=== PATIENT | female | born 1940 | race Caucasian/White ===

== ENCOUNTER 2017-09-13 13:54 | Inpatient (IN) | payer OTHER, MEDICARE ==
[~2017-09-13] VITALS: Ht 167.6 cm; Wt 44.2 kg
[2017-09-13] VITALS (7 sets, daily range): BP systolic 130–142; BP diastolic 63–71; PULSE 77–90; RESP 16–18; TEMP 97.8–98.4; O2SAT 98–100
--- NOTE | 2017-09-13 14:12 | PD ---
HPI Chief Complaint: trauma alert Time Seen by Provider: 13:56 Travel History International Travel<30 days: No Contact w/Intl Traveler<30days: No Traveled to known affect area: No History of Present Illness HPI This patient was called a trauma alert by paramedics who use discretion as their criteria. I gave report to trauma surgeon. This will be made a level II activation. They elderly demented woman who was walking her dog and she fell. She struck her head on the sidewalk. Paramedics found her to be somewhat confused and says they call the trauma alert because they didn't know her baseline mental status and felt she might be altered. Patient denies head or neck pain. She complains of pain in the right hip. Severity is moderate. Duration 30 minutes. No alleviating factors. No exacerbating factors. Patient has no idea what caused her to fall. [facility] Social History Alcohol Use: No Tobacco Use: No Substance Use: No Allergies-Medications (Allergen,Severity, Reaction): Coded Allergies: Penicillins (Verified Allergy, Unknown, Rash, 09/13/17) Reported Meds & Prescriptions Reported Meds & Active Scripts Active Active Prescriptions or Reported Medications Unobtainable Review of Systems General / Constitutional: No: Fever Eyes: No: Visual changes HENT: Positive: Headaches Cardiovascular: No: Chest Pain or Discomfort Respiratory: No: Shortness of Breath Gastrointestinal: No: Abdominal Pain Genitourinary: No: Dysuria Musculoskeletal: Positive: Pain Skin: No Rash Neurologic: Positive: Headache, No: Weakness Psychiatric: No: Depression Endocrine: No: Polydipsia Hematologic/Lymphatic: No: Easy Bruising Physical Exam Narrative GENERAL: Thin elderly demented appearing patient with pain in the right hip SKIN: Focused skin assessment reveals no rash and nodules. Skin is Warm and dry. HEAD: Has a 1.5 center laceration to the right temporal area. Normocephalic. EYES: Pupils equal and round. No scleral icterus. No injection or drainage. ENT: No nasal bleeding or discharge. Mucous membranes pink and moist. NECK: Trachea midline. No JVD. No midline tenderness. c-collar maintained CARDIOVASCULAR: Regular rate and rhythm. No murmur appreciated. RESPIRATORY: No accessory muscle use. Clear to auscultation. Breath sounds equal bilaterally. GASTROINTESTINAL: Abdomen soft, non-tender, nondistended. Hepatic and splenic margins not palpable. MUSCULOSKELETAL: No obvious deformities. No clubbing. No cyanosis. No edema. No bruising at the right hip. No limitation of range of motion NEUROLOGICAL: Awake and alert. No obvious cranial nerve deficits. Motor grossly within normal limits. Normal speech. PSYCHIATRIC: Appropriate mood and affect; insight and judgment reduced. Data Data Last Documented VS Vital Signs Date Time Temp Pulse Resp B/P (MAP) Pulse Ox O2 Delivery O2 Flow Rate FiO2 09/13/17 14:46 89 16 134/71 (92) 99 Room Air 09/13/17 14:30 97.8 09/13/17 14:06 2.00 Orders Orders I-Stat Profile (09/13/17 13:56) Complete Blood Count With Diff (09/13/17 13:56) Prothrombin Time / Inr (Pt) (09/13/17 13:56) Act Partial Throm Time (Ptt) (09/13/17 13:56) Type And Screen (09/13/17 13:56) Fibrinogen (09/13/17 13:56) Alcohol (Ethanol) (09/13/17 13:56) Chest, Single Ap (09/13/17 13:56) Pelvis, Ap Only (Routine) (09/13/17 13:56) Ct Brain W/O Iv Contrast(Rout) (09/13/17 13:56) Ct Cerv Spine W/O Contrast (09/13/17 13:56) Iv Access Insert/Monitor (09/13/17 13:56) Ecg Monitoring (09/13/17 13:56) Oximetry (09/13/17 13:56) Oxygen Administration (09/13/17 13:56) Femur (Ap & Lat/2vws) (09/13/17 ) Trauma Office Use Only (09/13/17 15:02) Consult Neurosurgery (09/13/17 ) Admit To Inpatient (09/13/17 ) Vital Signs (Adult) Q1H (09/13/17 16:25) Neuro Checks Q1H (09/13/17 16:25) Ot Request For Service (09/13/17 16:25) Consult Pt Eval & Treat (09/13/17 16:25) Speech Therapy Consult-Eval/Tx (09/13/17 16:25) Case Management Consult (09/13/17 ) Activity Bed Rest (09/13/17 16:25) Elevate Head Of Bed (09/13/17 16:25) Diet Npo (09/13/17 Dinner) Nursing Bedside Swallow Assess .ONCE (09/13/17 16:25) Complete Blood Count With Diff (09/14/17 06:00) Basic Metabolic Panel (Bmp) (09/14/17 06:00) Mri Brain W&W/O Contrast (09/13/17 ) Mra Brain W/O Contrast (Cow) (09/13/17 ) Resp Oxygen Nc Stroke (09/13/17 ) Consult Rehab Nurse Liason (09/13/17 ) Consult Rehab Medicine (09/13/17 ) Consult Neurology (09/13/17 ) Sodium Chlor 0.9% 1000 Ml Inj (Ns 1000 M (09/13/17 16:25) Sodium Chloride 0.9% Flush (Ns Flush) (09/13/17 16:30) Sodium Chloride 0.9% Flush (Ns Flush) (09/13/17 21:00) Labetalol Inj (Trandate Inj) (09/13/17 16:30) Enalaprilat Inj (Vasotec Inj) (09/13/17 16:30) Clonidine (Catapres) (09/13/17 16:30) Famotidine (Pepcid) (09/13/17 21:00) Acetaminophen (Tylenol) (09/13/17 16:30) Ondansetron Inj (Zofran Inj) (09/13/17 16:30) Docusate Sodium (Colace) (09/13/17 16:30) Scd Bilateral/Knee High ELADIO.QSHIFT (09/13/17 16:25) Frame Repairer / Telemetry ELADIO.Q8H (09/13/17 16:25) Consult Stroke Navigator (09/13/17 ) Inpatient Certification (09/13/17 ) (Hub Use Only)Inp Phy Cons/Ref (09/13/17 ) (Hub Use Only)Inp Phy Cons/Ref (09/13/17 ) (Hub Use Only)In Phy Cons/Ref (09/13/17 ) Labs Laboratory Tests Test 09/13/17 13:59 White Blood Count 4.6 TH/MM3 Red Blood Count 4.45 MIL/MM3 Hemoglobin 13.8 GM/DL Bedside Hemoglobin 13.9 G/DL Hematocrit 40.1 % Bedside Hematocrit 41.0 % Mean Corpuscular Volume 90.1 FL Mean Corpuscular Hemoglobin 31.0 PG Mean Corpuscular Hemoglobin Concent 34.4 % Red Cell Distribution Width 14.2 % Platelet Count 263 TH/MM3 Mean Platelet Volume 7.3 FL Neutrophils (%) (Auto) 37.1 % Lymphocytes (%) (Auto) 44.1 % Monocytes (%) (Auto) 11.8 % Eosinophils (%) (Auto) 5.9 % Basophils (%) (Auto) 1.1 % Neutrophils # (Auto) 1.7 TH/MM3 Lymphocytes # (Auto) 2.0 TH/MM3 Monocytes # (Auto) 0.5 TH/MM3 Eosinophils # (Auto) 0.3 TH/MM3 Basophils # (Auto) 0.1 TH/MM3 CBC Comment DIFF FINAL Differential Comment Prothrombin Time 10.6 SEC Prothromb Time International Ratio 1.0 RATIO Activated Partial Thromboplast Time 22.6 SEC Fibrinogen 301 mg/dL Bedside Sodium 142 MMOL/L Bedside Potassium 4.3 MMOL/L Bedside Chloride 103 MMOL/L Bedside Blood Urea Nitrogen 18 MG/DL Bedside Creatinine 0.9 MG/DL Bedside Glucose 98 MG/DL Ethyl Alcohol Level LESS THAN 3 MG/DL [facility] Medical Decision Making Medical Screen Exam Complete: Yes Emergency Medical Condition: Yes Medical Record Reviewed: Yes Differential Diagnosis intracranial hemorrhage, concussion, skull fracture Narrative Course This patient presents as trauma alert. is based on discretion from paramedics She has obvious head injury. This is complicated by her suspected dementia GCS is 15 but she is acting demented Brain CT shows questionable tiny right parietal area hemorrhage I reviewed this with the trauma surgeon He recommended medical admission LACERATION LOCATION: Right temporal scalp LENGTH: 1.5 cm NUMBER OF STITCHES/KANDACE: 2 REPAIR: The area of the laceration was prepped with Betadine and sterilely draped. No anesthesia required. The wound was copiously irrigated and explored without evidence of foreign body, tendon injury or neurovascular injury. The wound was closed using 4-0 Ethilon in a single layer repair. A sterile dressing was applied. The patient was advised to keep the dressing clean and dry. Patient tolerated the procedure well. I reviewed x-rays of chest and pelvis and femur. They don't show any fractures I reviewed with the hospitalist will admit and will be consult neurosurgery Lab studies are reviewed Multiple rechecks done Critical Care Narrative Aggregate critical care time was 78 minutes. Time to perform other separately billable procedures was not included in the critical care time. My time did not include minutes spent treating any other patients simultaneously or on activities that did not directly contribute to the patient's treatment. The services I provided to this patient were to treat and/or prevent clinically significant deterioration that could result in: Brain stem herniation, intracranial hemorrhage, cardiac pulmonary arrest I provided critical care services requiring my management, as noted below: Chart data review, documentation time, medication orders and management, vital sign assessments/reviewing monitor data, ordering and reviewing lab tests, ordering and interpreting/reviewing x-rays and diagnostic studies, care of the patient and discussion of the patient with the admitting physicians. Diagnosis Primary Impression: Intracranial hemorrhage Admitting Information Admitting Physician Requests: Admit Scripts Unable to Obtain Active Prescriptions or Reported Luis Daniel Mckeon MD Sep 13, 2017 14:12
[2017-09-13 14:19] LABS: AUTOMATED NEUTROPHIL # 1.7 TH/MM3 (1.8-7.7); BASOPHIL # 0.1 TH/MM3 (0-0.2); BASOPHIL % 1.1 % (0.0-2.0); EOSINOPHIL # 0.3 TH/MM3 (0-0.4); EOSINOPHIL % 5.9 % (0.0-4.0); HEMATOCRIT 40.1 % (35.0-46.0); HEMOGLOBIN 13.8 GM/DL (11.6-15.3); LYMPH % 44.1 % (9.0-44.0); MEAN CELL VOLUME 90.1 FL (80.0-100.0); MEAN CORPUSCULAR HGB CONC 34.4 % (32.0-36.0); MEAN PLATELET VOLUME 7.3 FL (7.0-11.0); MONO % 11.8 % (0.0-8.0); MONOCYTE # 0.5 TH/MM3 (0-0.9); NEUT % 37.1 % (16.0-70.0); PLATELET COUNT 263 TH/MM3 (150-450); RED BLOOD COUNT 4.45 MIL/MM3 (4.00-5.30); RED CELL DISTRIBUTION WIDTH 14.2 % (11.6-17.2); WHITE BLOOD COUNT 4.6 TH/MM3 (4.0-11.0)
--- NOTE | 2017-09-13 14:20 | RADRPT ---
EXAM DATE/TIME: 09/13/2017 13:52 [facility] COMPARISON: No previous studies available for comparison. INDICATIONS : Fall from standing position. MEDICAL HISTORY : None. SURGICAL HISTORY : None. ENCOUNTER: Initial ACUITY: 1 day PAIN SCORE: Non-responsive. LOCATION: Bilateral pelvis FINDINGS: A single frontal view of the pelvis demonstrates no evidence of fracture. The bony pelvic ring is in tact. Bony mineralization is normal. The soft tissues are intact. CONCLUSION: No fracture. Gilberto Humphrey MD on September 13, 2017 at 14:18 Board Certified Radiologist. This report was verified electronically.
--- NOTE | 2017-09-13 14:22 | RADRPT ---
EXAM DATE/TIME: 09/13/2017 13:52 [facility] COMPARISON: No previous studies available for comparison. INDICATIONS : Fall from standing position. MEDICAL HISTORY : None. SURGICAL HISTORY : None. ENCOUNTER: Initial ACUITY: 1 day PAIN SCORE: Non-responsive. LOCATION: Bilateral chest FINDINGS: A single view of the chest demonstrates the lungs to be symmetrically hyperinflated but clear of acut e infiltrate. Minimal interstitial prominence in the apices may represent some fibrosis or scarring. Heart size is normal. Osseous structures are intact. There is some atherosclerotic calcification of t he aortic arch. CONCLUSION: 1. No acute cardiopulmonary process. 2. Hyperinflation with some biapical fibrosis/scarring. Gilberto Humphrey MD on September 13, 2017 at 14:19 Board Certified Radiologist. This report was verified electronically.
[2017-09-13 14:31] LABS: PROTHROMBIN TIME - PATIENT 10.6 SEC (9.8-11.6)
--- NOTE | 2017-09-13 14:33 | RADRPT ---
EXAM DATE/TIME: 09/13/2017 14:09 [facility] COMPARISON: No previous studies available for comparison. INDICATIONS : Trauma Alert- head pain due to fall. RADIATION DOSE: 44.93 CTDIvol (mGy) MEDICAL HISTORY : Non-responsive. SURGICAL HISTORY : Non-responsive. ENCOUNTER: Initial ACUITY: 1 day PAIN SCALE: Non-responsive LOCATION: Bilateral cranial TECHNIQUE: Multiple contiguous axial images were obtained of the head. Using automated exposure control and adj ustment of the mA and/or kV according to patient size, radiation dose was kept as low as reasonably a chievable to obtain optimal diagnostic quality images. DICOM format image data is available electro nically for review and comparison. FINDINGS: CEREBRUM: The ventricles are normal for age. Questionable area of slight increased density in the right posteri or parietal-occipital region may represent focal parenchymal hemorrhage. No midline shift or mass les ions. No extra-axial fluid collections are seen. POSTERIOR FOSSA: The cerebellum and brainstem are intact. The 4th ventricle is midline. The cerebellopontine angle i s unremarkable. EXTRACRANIAL: The visualized portion of the orbits is intact. SKULL: The calvaria is intact. No evidence of skull fracture. CONCLUSION: 1. Questionable, isolated area of parenchymal hemorrhage/contusion in the right posterior parietal/oc cipital region. Recommend repeat CT scan tomorrow a.m. to insure stability/resolution. 2. Otherwise negative. Gilberto Humphrey MD on September 13, 2017 at 14:21 Board Certified Radiologist. This report was verified electronically.
--- NOTE | 2017-09-13 14:39 | RADRPT ---
EXAM DATE/TIME: 09/13/2017 14:10 [facility] COMPARISON: No previous studies available for comparison. INDICATIONS : Trauma Alert- neck pain from fall. RADIATION DOSE: 10.31 CTDIvol (mGy) MEDICAL HISTORY : Non-responsive. SURGICAL HISTORY : Non-responsive. ENCOUNTER: Initial ACUITY: 1 day PAIN SCALE: Non-responsive LOCATION: Bilateral neck region. TECHNIQUE: Volumetric scanning of the cervical spine was performed. Multiplanar reconstructions in the sagittal, coronal and oblique axial planes were performed. Using automated exposure control and adjustment o f the mA and/or kV according to patient size, radiation dose was kept as low as reasonably achievable to obtain optimal diagnostic quality images. DICOM format image data is available electronically f or review and comparison. FINDINGS: VERTEBRAE: Normal vertebral body height. ALIGNMENT: There is a mild grade 1 anterolisthesis of C4 on C5. Calcified plaque involving the carotid arteries bilaterally. Calcified pleural plaques involving the lung apices bilaterally. C2-C3: There is a central disc bulge. No blood within the cord or significant central canal narrowing. Bony uncovertebral hypertrophy generates mild narrowing of the right neural foramen. The left is patent. C3-C4: There is a central disc bulge that abuts the ventral portion of the cord. Lateral recesses are patent . Bony uncovertebral hypertrophy generates moderate right and mild left neural foraminal narrowing. C4-C5: No disc bulge or protrusion. The central canal and lateral recesses are patent. Bony uncovertebral hy pertrophy generates significant left and mild right neural foraminal narrowing. C5-C6: There is disc space narrowing with a central disc bulge that flattens the right ventral portion of th e cord. A broad-based component is also seen. This narrows the lateral recesses. Bony uncal vertebral hypertrophy generates severe left and moderate right neural foraminal narrowing. C6-C7: Broad-based disc bulge which just touches the ventral portion of the cord. Lateral recesses are paten t. Bony uncovertebral hypertrophy generates moderate bilateral neural foraminal narrowing. C7-T1: The bony spinal canal is normal in size. No evidence of disc bulge or herniation. The neural forami na are bilaterally patent. CONCLUSION: 1. No fractures or dislocations. 2. Multilevel degenerative changes as detailed at each level in the above discussion. 3. Carotid artery atherosclerotic calcifications. 4. Calcified pleural plaques. This can be seen in asbestos exposure. Robinson Diaz Jr., MD on September 13, 2017 at 14:28 Board Certified Radiologist. This report was verified electronically.
--- NOTE | 2017-09-13 15:54 | RADRPT ---
EXAM DATE/TIME: 09/13/2017 13:52 [facility] COMPARISON: No previous studies available for comparison. INDICATIONS : Trauma alert. Fall from standing position, pain on posterior right hip. MEDICAL HISTORY : None. SURGICAL HISTORY : None. ENCOUNTER: Initial ACUITY: 1 day PAIN SCORE: Non-responsive. LOCATION: Right FINDINGS: Two view examination of the right femur demonstrates no evidence of fracture or dislocation. Bony mi neralization is normal. The soft tissue structures are intact. CONCLUSION: Negative for fracture Poli Quigley MD FACR on September 13, 2017 at 15:52 Board Certified Radiologist. This report was verified electronically.
[2017-09-13] MEDS ORDERED: SODIUM CHLORIDE 0.9% FLUSH 10 ML FLUSH IV FLUSH PRN (16:30)
[2017-09-13] MEDS ORDERED: DOCUSATE SODIUM 100 MG CAP PO PRN (16:30)
[2017-09-13] MEDS ORDERED: LABETALOL HCL 100 MG/20 ML VIAL IV PUSH PRN (16:30)
[2017-09-13] MEDS ORDERED: cloNIDine HCL 0.1 MG TAB PO PRN (16:30)
[2017-09-13] MEDS ORDERED: ONDANSETRON HCL 4 MG/2 ML VIAL IV PUSH PRN (16:30)
[2017-09-13] MEDS ORDERED: ENALAPRILAT 1.25 MG/ML VIAL IV PUSH PRN (16:30)
[2017-09-13] MEDS ORDERED: DONE10TA7 PO (17:29)
[2017-09-13] MEDS ORDERED: LORA1TAB12 PO (17:29)
[2017-09-13] MEDS ORDERED: MIRTA15 PO (19:30)
[2017-09-13] MEDS: SODIUM CHLORIDE 0.9% FLUSH 10 ML FLUSH IV FLUSH SCH (20:36)
[2017-09-13] MEDS: SODIUM CHLOR 0.9% 1000 ML INJ 1,000 ML IV SCH (20:37)
[2017-09-13] MEDS: FAMOTIDINE 20 MG TAB PO SCH (21:18)
[2017-09-13] MEDS: ACETAMINOPHEN 325 MG TAB PO PRN (21:20)
[2017-09-13 21:29] LABS: FREE T4 0.89 NG/DL (0.76-1.46)
--- NOTE | 2017-09-13 22:20 | HHI.HP ---
[facility] Dr. Carcamo . Admission Diagnosis [facility] Diagnoses: (1) Intracranial hemorrhage Chief Complaint: Fall with subsequent confusion and right hip pain Travel History International Travel<30 Days: No Contact w/Intl Traveler <30 Da: No Traveled to Known Affected Are: No History of Present Illness Mrs. Rivera is a 77-year-old female with a past medical history of dementia, depression, and anxiety who presented to the emergency room on 09/13/2017 after she was walking her dog and fell while walking in her neighborhood. She was found to be confused and complaining of right hip pain. Head CT in the emergency department showed questionable isolated area of parenchymal hemorrhage /contusion in the right posterior parietal/occipital region. She was admitted for monitoring and medical management. The patient is seen in her hospital room. She is very pleasant but confused and a poor historian. She is unable to recall the names of her medications and medical conditions. She provides a limited history of the fall as she does not remember much of the event. She is unsure whether or not she lost consciousness or not. She denies feeling ill prior to the fall and states she does not recall any chest pain or shortness of breath. She indicates that she may have tripped over her dog. She is complaining of 10 out of 10 sharp right hip pain that is worse with movement and palpation. . Femur and AP pelvis x-rays were negative for fracture. Review of Systems ROS Limitations: Clinical Condition (dementia limits ROS reliability) Except as stated in HPI: all other systems reviewed are Neg Past Family Social History Past Medical History Dementia Anxiety Depression . Past Surgical History Patient denies any previous surgeries . Reported Medications Reported Meds & Active Scripts Active Reported Mirtazapine 15 Mg Tab 15 Mg PO HS Donepezil 10 Mg Tab 15 Mg PO HS Lorazepam 1 Mg Tab 1 Mg PO TID PRN . Allergies: Coded Allergies: Penicillins (Verified Allergy, Intermediate, Rash, 09/13/17) aspirin (Unverified Adverse Reaction, Unknown, 09/13/17) Family History The patient is unable to recall family medical history . Social History Tobacco: Smoked from around the age of 17-18 until 20-30 years ago. Smoked about half a pack per day. Alcohol: Denies . Physical Exam Vital Signs Vital Signs Date Time Temp Pulse Resp B/P (MAP) Pulse Ox O2 Delivery O2 Flow Rate FiO2 09/13/17 19:25 98 09/13/17 19:00 09/13/17 17:28 90 16 142/63 (89) 99 Room Air 09/13/17 14:46 89 16 134/71 (92) 99 Room Air 09/13/17 14:30 97.8 77 18 130/65 (86) 99 09/13/17 14:28 99 Room Air 09/13/17 14:28 18 99 Room Air 09/13/17 14:06 100 2.00 Physical Exam GENERAL: This is a elderly cachectic female patient, in no apparent distress. SKIN: No rashes. Cool and dry. Right hip with large area of faint ecchymosis slightly bigger than the size of a softball. Laceration over right eye is covered with gauze that is dry and intact. HEAD: Atraumatic. Normocephalic. EYES: No scleral icterus. No injection or drainage. ENT: Nose without bleeding, purulent drainage. NECK: Trachea midline. No JVD or lymphadenopathy. CARDIOVASCULAR: Regular rate and rhythm without murmurs, gallops, or rubs. RESPIRATORY: Clear to auscultation. Breath sounds equal bilaterally. No wheezes , rales, or rhonchi. GASTROINTESTINAL: Abdomen soft, non-tender, nondistended. No guarding. MUSCULOSKELETAL: Extremities without clubbing, cyanosis. No calf tenderness. Unable to flex at the hip. Unable to perform right straight leg raise beyond 1- 2 inches. Pain with palpation of right hip region. NEUROLOGICAL: Awake and alert; confused. Normal speech. Cranial nerves II through XII grossly intact. . Laboratory Laboratory Tests Test 09/13/17 13:59 White Blood Count 4.6 Red Blood Count 4.45 Hemoglobin 13.8 Bedside Hemoglobin 13.9 Hematocrit 40.1 Bedside Hematocrit 41.0 Mean Corpuscular Volume 90.1 Mean Corpuscular Hemoglobin 31.0 Mean Corpuscular Hemoglobin Concent 34.4 Red Cell Distribution Width 14.2 Platelet Count 263 Mean Platelet Volume 7.3 Neutrophils (%) (Auto) 37.1 Lymphocytes (%) (Auto) 44.1 Monocytes (%) (Auto) 11.8 Eosinophils (%) (Auto) 5.9 Basophils (%) (Auto) 1.1 Neutrophils # (Auto) 1.7 Lymphocytes # (Auto) 2.0 Monocytes # (Auto) 0.5 Eosinophils # (Auto) 0.3 Basophils # (Auto) 0.1 CBC Comment DIFF FINAL Differential Comment Erythrocyte Sedimentation Rate 9 Prothrombin Time 10.6 Prothromb Time International Ratio 1.0 Activated Partial Thromboplast Time 22.6 Fibrinogen 301 Bedside Sodium 142 Bedside Potassium 4.3 Bedside Chloride 103 Bedside Blood Urea Nitrogen 18 Bedside Creatinine 0.9 Bedside Glucose 98 Aspartate Amino Transf (AST/SGOT) 25 Alanine Aminotransferase (ALT/SGPT) 28 Vitamin B12 Level 283 Free Thyroxine 0.89 Thyroid Stimulating Hormone 3rd Gen 1.420 Ethyl Alcohol Level LESS THAN 3 Result Diagram: 09/13/17 1359 Imaging Last Impressions Pelvis X-Ray 09/13/171355 Signed Impressions: Service Date/Time: Wednesday, September 13, 2017 13:52 - CONCLUSION: No fracture. Gilberto Humphrey MD Head CT 09/13/171355 Signed Impressions: Service Date/Time: Wednesday, September 13, 2017 14:09 - CONCLUSION: 1. Questionable , isolated area of parenchymal hemorrhage/contusion in the right posterior parietal/occipital region. Recommend repeat CT scan tomorrow a.m. to insure stability/resolution. 2. Otherwise negative. Gilberto Humphrey MD Chest X-Ray 09/13/171355 Signed Impressions: Service Date/Time: Wednesday, September 13, 2017 13:52 - CONCLUSION: 1. No acute cardiopulmonary process. 2. Hyperinflation with some biapical fibrosis/ scarring. Gilberto Humphrey MD Cervical Spine CT 09/13/176 Signed Impressions: Service Date/Time: Wednesday, September 13, 2017 14:10 - CONCLUSION: 1. No fractures or dislocations. 2. Multilevel degenerative changes as detailed at each level in the above discussion. 3. Carotid artery atherosclerotic calcifications. 4. Calcified pleural plaques. This can be seen in asbestos exposure. Robinson Diaz Jr., MD Femur X-Ray 09/13/17 0000 Signed Impressions: Service Date/Time: Wednesday, September 13, 2017 13:52 - CONCLUSION: Negative for fracture Poli Quigley MD FACR . Caprini VTE Risk Assessment Caprini VTE Risk Assessment: Mod/High Risk (score >= 2) Caprini Risk Assessment Model Point Value = 1 Point Value = 2 Point Value = 3 Point Value = 5 Age 41-60 Minor surgery BMI > 25 kg/m2 Swollen legs Varicose veins or History of unexplained or recurrent spontaneous Oral contraceptives or hormone replacement Sepsis (< 1 month) Serious lung disease, including pneumonia (< 1 month) Abnormal pulmonary function Acute myocardial infarction Congestive heart failure (< 1 month) History of inflammatory bowel disease Medical patient at bed rest Age 61-74 Arthroscopic surgery Major open surgery (> 45 min) Laparoscopic surgery (> 45 min) Malignancy Confined to bed (> 72 hours) Immobilizing plaster cast Central venous access Age >= 75 History of VTE Family history of VTE Factor V Leiden Prothrombin [id number] Lupus anticoagulant Anticardiolipin antibodies Elevated serum homocysteine Heparin-induced thrombocytopenia Other congenital or acquired thrombophilia Stroke (< 1 month) Elective arthroplasty Hip, pelvis, or leg fracture Acute spinal cord injury (< 1 month) Prophylaxis Regimen Total Risk Factor Score Risk Level Prophylaxis Regimen 0-1 Low Early ambulation 2 Moderate Order ONE of the following: *Sequential Compression Device (SCD) *Heparin 5000 units SQ BID 3-4 Higher Order ONE of the following medications: *Heparin 5000 units SQ TID *Enoxaparin/Lovenox 40 mg SQ daily (WT < 150 kg, CrCl > 30 mL/min) *Enoxaparin/Lovenox 30 mg SQ daily (WT < 150 kg, CrCl > 10-29 mL/min) *Enoxaparin/Lovenox 30 mg SQ BID (WT < 150 kg, CrCl > 30 mL/min) AND/OR *Sequential Compression Device (SCD) 5 or more Highest Order ONE of the following medications: *Heparin 5000 units SQ TID (Preferred with Epidurals) *Enoxaparin/Lovenox 40 mg SQ daily (WT < 150 kg, CrCl > 30 mL/min) *Enoxaparin/Lovenox 30 mg SQ daily (WT < 150 kg, CrCl > 10-29 mL/min) *Enoxaparin/Lovenox 30 mg SQ BID (WT < 150 kg, CrCl > 30 mL/min) AND *Sequential Compression Device (SCD) Assessment and Plan Problem List: (1) Intracranial hemorrhage ICD Code: I62.9 - Nontraumatic intracranial hemorrhage, unspecified Status: Acute Assessment and Plan Mrs. Rivera is a 77-year-old female with a past medical history of dementia, depression, and anxiety who presented to the emergency room on 09/13/2017 after she was walking her dog and fell while walking in her neighborhood. She was found to be confused and complaining of right hip pain. Head CT in the emergency department showed questionable isolated area of parenchymal hemorrhage /contusion in the right posterior parietal/occipital region. She was admitted for monitoring and medical management. Intracranial hemorrhage/contusion right posterior parietal/occipital region - Neurosurgery consulted - patient also with degenerative disc disease with disc herniation and spinal stenosis - appreciate recommendations/assistance - Frequent neuro checks Syncope versus CVA versus seizure activity versus mechanical fall - We'll check brain MRI, MRA with and without contrast to further evaluate for ischemic CVA or other organic brain disease - Check bilateral carotid ultrasound to evaluate for carotid stenosis - EEG - Bed rest for now - Consult OT, PT, and ST - Neurology consulted - appreciate assistance - Diet NPO for now Right hip pain status post fall with impaired mobility - Obtain CT of right hip to further evaluate for injury/fracture Right forehead laceration repaired in the ED - Monitor for signs of infection Dementia - Resume home Aricept Anxiety/Depression - Holding lorazepam and Remeron at this time to avoid sedation which may interfere with neurological examination DVT prophylaxis - SCDs; chemoprophylaxis contraindicated . Discussed Condition With Patient, RN, and Dr. Paez . Physician Certification 2 Midnight Certification Type: Admission for Inpatient Services Order for Inpatient Services The services are ordered in accordance with Medicare regulations or non- Medicare payer requirements, as applicable. In the case of services not specified as inpatient-only, they are appropriately provided as inpatient services in accordance with the 2-midnight benchmark. Estimated LOS (days): 3 days is the estimated time the patient will need to remain in the hospital, assuming treatment plan goals are met and no additional complications. Post-Hospital Plan: Not yet determined Enma David Sep 13, 2017 22:20
[2017-09-14] VITALS (8 sets, daily range): BP systolic 128–138; BP diastolic 58–72; PULSE 67–90; RESP 17–19; TEMP 97.6–98.3; O2SAT 95–98
[2017-09-14] MEDS: SODIUM CHLOR 0.9% 1000 ML INJ 1,000 ML IV SCH ×2 (05:35→20:26)
[2017-09-14] MEDS: ACETAMINOPHEN 325 MG TAB PO PRN ×2 (05:35→14:51)
[2017-09-14 07:28] LABS: BACTERIA, URINE MANY /hpf; BILIRUBIN, URINE NEG (NEG); BLOOD, URINE NEG (NEG); GLUCOSE,URINE NEG (NEG); KETONE, URINE NEG (NEG); NITRITE,URINE POS (NEG); PH, URINE 7.5 (5.0-8.5); SQUAMOUS EPITHELIAL CELL URINE 1 /hpf (0-5); URINE COLOR LIGHT-YELLOW (YELLW/STRAW); URINE LEUKOCYTE ESTERASE LARGE (NEG)
[2017-09-14 08:03] LABS: AUTOMATED NEUTROPHIL # 6.3 TH/MM3 (1.8-7.7); BASOPHIL # 0.1 TH/MM3 (0-0.2); BASOPHIL % 0.7 % (0.0-2.0); EOSINOPHIL # 0.1 TH/MM3 (0-0.4); EOSINOPHIL % 1.3 % (0.0-4.0); HEMATOCRIT 41.5 % (35.0-46.0); HEMOGLOBIN 14.1 GM/DL (11.6-15.3); LYMPH % 10.9 % (9.0-44.0); LYMPHOCYTE # 0.9 TH/MM3 (1.0-4.8); MEAN CELL VOLUME 89.5 FL (80.0-100.0); MEAN CORPUSCULAR HEMOGLOBIN 30.4 PG (27.0-34.0); MEAN PLATELET VOLUME 7.6 FL (7.0-11.0); MONOCYTE # 0.7 TH/MM3 (0-0.9); NEUT % 78.1 % (16.0-70.0); PLATELET COUNT 248 TH/MM3 (150-450); RED BLOOD COUNT 4.64 MIL/MM3 (4.00-5.30); RED CELL DISTRIBUTION WIDTH 13.6 % (11.6-17.2)
[2017-09-14 08:26] LABS: BICARBONATE 24.2 MEQ/L (21.0-32.0); CALCIUM 8.9 MG/DL (8.5-10.1); CREATININE 0.87 MG/DL (0.50-1.00)
[2017-09-14] MEDS: FAMOTIDINE 20 MG TAB PO SCH ×2 (08:26→20:23)
[2017-09-14] MEDS: SODIUM CHLORIDE 0.9% FLUSH 10 ML FLUSH IV FLUSH SCH ×2 (08:26→20:24)
--- NOTE | 2017-09-14 08:55 | RADRPT ---
EXAM DATE/TIME: 09/14/2017 07:53 [facility] COMPARISON: No previous studies available for comparison. INDICATIONS : Cerebrovascular accident. MEDICAL HISTORY : Dementia. Recent fall. SURGICAL HISTORY : None. ENCOUNTER: Initial ACUITY: 1 day PAIN SCORE: 0/10 LOCATION: Bilateral neck PEAK SYSTOLIC VELOCITIES (cm/sec): ICA/CCA RATIO: Right: 1.1 Left: 1.0 ICA: Right: 119 Left: 87 CCA: Right: 104 Left: 88 ECA: Right: 135 Left: 121 VERTEBRAL: Right: 49 antegrade Left: 87 antegrade Elevated flow velocities and ICA/CCA ratios have been found to correlate with increased degrees of vessel stenosis, calculated as percentage of diameter relative to a normal segment of distal ICA/CCA FINDINGS: Moderate heterogeneous calcified plaque is identified in the right carotid bifurcation. There is mini mal plaque in the left carotid bifurcation. RIGHT CAROTID: No significant stenosis is visualized. The waveforms are within normal limits. LEFT CAROTID: No significant stenosis is visualized. The waveforms are within normal limits. VERTEBRAL ARTERIES: Antegrade flow is seen in both vertebral arteries. MISCELLANEOUS: None. CONCLUSION: 1. Mild to moderate bilateral carotid plaque as described. 2. No evidence of hemodynamically significant stenosis. 3. Antegrade flow in both vertebral arteries. Nehemiah Dixon MD on September 14, 2017 at 8:51 Board Certified Radiologist. This report was verified electronically.
--- NOTE | 2017-09-14 09:52 | HHI.PR ---
Subjective Remarks Mrs. Rivera is a 77-year-old female with a past medical history of dementia, depression, and anxiety who presented to the emergency room on 09/13/2017 after she was walking her dog and fell while walking in her neighborhood. She was found to be confused and complaining of right hip pain. Head CT in the emergency department showed questionable isolated area of parenchymal hemorrhage /contusion in the right posterior parietal/occipital region. She was admitted for monitoring and medical management. The patient is seen in her hospital room. She is very pleasant but confused and a poor historian. She is unable to recall the names of her medications and medical conditions. She provides a limited history of the fall as she does not remember much of the event. She is unsure whether or not she lost consciousness or not. She denies feeling ill prior to the fall and states she does not recall any chest pain or shortness of breath. She indicates that she may have tripped over her dog. She is complaining of 10 out of 10 sharp right hip pain that is worse with movement and palpation. . Femur and AP pelvis x-rays were negative for fracture. 310 patient is currently confused This is probably baseline hAs some dementia Await the evaluation by physical therapy and occupational therapy discussed with patient and RN and case management await neuro Await neuro surgical evaluation await neurology evaluation Await MRIs and CAT scan of the right hip Patient may need placement at discharge PATIENT FELL AND WELL GET A REPEAT CAT SCAN OF BRAIN RADIOLOGY WANTS MRI OF RIGHT HIP THESE ARE PENDING Objective Vitals Vital Signs Date Time Temp Pulse Resp B/P (MAP) Pulse Ox O2 Delivery O2 Flow Rate FiO2 09/14/17 05:53 21 09/14/17 04:42 98.0 67 18 138/63 (88) 98 09/14/17 01:30 97.6 88 19 136/65 (88) 98 09/13/17 20:45 98.4 90 18 140/65 (90) 98 09/13/17 19:25 98 09/13/17 19:00 09/13/17 17:28 90 16 142/63 (89) 99 Room Air 09/13/17 14:46 89 16 134/71 (92) 99 Room Air 09/13/17 14:30 97.8 77 18 130/65 (86) 99 09/13/17 14:28 99 Room Air 09/13/17 14:28 18 99 Room Air 09/13/17 14:06 100 2.00 I/O 09/13/17 09/13/17 09/13/17 09/14/17 09/14/17 09/14/17 07:00 15:00 23:00 07:00 15:00 23:00 Intake Total 100 ml Balance 100 ml Intake Oral 100 ml # Voids 0 2 # Bowel Movements 0 Result Diagram: 09/14/17 0735 09/14/17 0735 Other Results Laboratory Tests Test 09/13/17 13:59 09/14/17 05:32 09/14/17 07:35 White Blood Count 4.6 TH/MM3 8.0 TH/MM3 Red Blood Count 4.45 MIL/MM3 4.64 MIL/MM3 Hemoglobin 13.8 GM/DL 14.1 GM/DL Bedside Hemoglobin 13.9 G/DL Hematocrit 40.1 % 41.5 % Bedside Hematocrit 41.0 % Mean Corpuscular Volume 90.1 FL 89.5 FL Mean Corpuscular Hemoglobin 31.0 PG 30.4 PG Mean Corpuscular Hemoglobin Concent 34.4 % 34.0 % Red Cell Distribution Width 14.2 % 13.6 % Platelet Count 263 TH/MM3 248 TH/MM3 Mean Platelet Volume 7.3 FL 7.6 FL Neutrophils (%) (Auto) 37.1 % 78.1 % Lymphocytes (%) (Auto) 44.1 % 10.9 % Monocytes (%) (Auto) 11.8 % 9.0 % Eosinophils (%) (Auto) 5.9 % 1.3 % Basophils (%) (Auto) 1.1 % 0.7 % Neutrophils # (Auto) 1.7 TH/MM3 6.3 TH/MM3 Lymphocytes # (Auto) 2.0 TH/MM3 0.9 TH/MM3 Monocytes # (Auto) 0.5 TH/MM3 0.7 TH/MM3 Eosinophils # (Auto) 0.3 TH/MM3 0.1 TH/MM3 Basophils # (Auto) 0.1 TH/MM3 0.1 TH/MM3 CBC Comment DIFF FINAL DIFF FINAL Differential Comment Erythrocyte Sedimentation Rate 9 mm/hr Prothrombin Time 10.6 SEC Prothromb Time International Ratio 1.0 RATIO Activated Partial Thromboplast Time 22.6 SEC Fibrinogen 301 mg/dL Bedside Sodium 142 MMOL/L Bedside Potassium 4.3 MMOL/L Bedside Chloride 103 MMOL/L Bedside Blood Urea Nitrogen 18 MG/DL Bedside Creatinine 0.9 MG/DL Bedside Glucose 98 MG/DL Aspartate Amino Transf (AST/SGOT) 25 U/L Alanine Aminotransferase (ALT/SGPT) 28 U/L Vitamin B12 Level 283 PG/ML Free Thyroxine 0.89 NG/DL Thyroid Stimulating Hormone 3rd Gen 1.420 uIU/ML Ethyl Alcohol Level LESS THAN 3 MG/DL Urine Color LIGHT-YELLOW Urine Turbidity HAZY Urine pH 7.5 Urine Specific [place] 1.010 Urine Protein NEG mg/dL Urine Glucose (UA) NEG mg/dL Urine Ketones NEG mg/dL Urine Occult Blood NEG Urine Nitrite POS Urine Bilirubin NEG Urine Urobilinogen LESS THAN 2.0 MG/DL Urine Leukocyte Esterase LARGE Urine RBC 2 /hpf Urine WBC 21 /hpf Urine Squamous Epithelial Cells 1 /hpf Urine Bacteria MANY /hpf Microscopic Urinalysis Comment CULTURE INDICATED Blood Urea Nitrogen 12 MG/DL Creatinine 0.87 MG/DL Random Glucose 94 MG/DL Calcium Level 8.9 MG/DL Sodium Level 142 MEQ/L Potassium Level 3.8 MEQ/L Chloride Level 109 MEQ/L Carbon Dioxide Level 24.2 MEQ/L Anion Gap 9 MEQ/L Estimat Glomerular Filtration Rate 63 ML/MIN Imaging Last Impressions Carotid Artery Ultrasound 09/14/171939 Signed Impressions: Service Date/Time: Thursday, September 14, 2017 07:53 - CONCLUSION: 1. Mild to moderate bilateral carotid plaque as described. 2. No evidence of hemodynamically significant stenosis. 3. Antegrade flow in both vertebral arteries. Nehemiah Dixon MD Pelvis X-Ray 09/13/171355 Signed Impressions: Service Date/Time: Wednesday, September 13, 2017 13:52 - CONCLUSION: No fracture. Gilberto Humphrey MD Head CT 09/13/171355 Signed Impressions: Service Date/Time: Wednesday, September 13, 2017 14:09 - CONCLUSION: 1. Questionable , isolated area of parenchymal hemorrhage/contusion in the right posterior parietal/occipital region. Recommend repeat CT scan tomorrow a.m. to insure stability/resolution. 2. Otherwise negative. Gilberto Hupmhrey MD Chest X-Ray 09/13/171355 Signed Impressions: Service Date/Time: Wednesday, September 13, 2017 13:52 - CONCLUSION: 1. No acute cardiopulmonary process. 2. Hyperinflation with some biapical fibrosis/ scarring. Gilberto Humphrey MD Cervical Spine CT 09/13/17 1356 Signed Impressions: Service Date/Time: Wednesday, September 13, 2017 14:10 - CONCLUSION: 1. No fractures or dislocations. 2. Multilevel degenerative changes as detailed at each level in the above discussion. 3. Carotid artery atherosclerotic calcifications. 4. Calcified pleural plaques. This can be seen in asbestos exposure. Robinson Diaz Jr., MD Femur X-Ray 09/13/17 0000 Signed Impressions: Service Date/Time: Wednesday, September 13, 2017 13:52 - CONCLUSION: Negative for fracture Poli Quigley MD FACR Objective Remarks GENERAL: This is a elderly cachectic female patient, in no apparent distress. Quite confused SKIN: No rashes. Cool and dry. Right hip with large area of faint ecchymosis slightly bigger than the size of a softball. Laceration over right eye is covered with gauze that is dry and intact. HEAD: Atraumatic. Normocephalic. EYES: No scleral icterus. No injection or drainage. Wears glasses ENT: Nose without bleeding, purulent drainage. NECK: Trachea midline. No JVD or lymphadenopathy. CARDIOVASCULAR: Regular rate and rhythm without murmurs, gallops, or rubs. S1- S2 no S3 or S4 RESPIRATORY: Clear to auscultation. Breath sounds equal bilaterally. No wheezes , rales, or rhonchi. GASTROINTESTINAL: Abdomen soft, non-tender, nondistended. No guarding. MUSCULOSKELETAL: Extremities without clubbing, cyanosis. No calf tenderness. Unable to flex at the hip. Unable to perform right straight leg raise beyond 1- 2 inches. Pain with palpation of right hip region. NEUROLOGICAL: Awake and alert; confused. Normal speech. Cranial nerves II through XII grossly intact. Medications and IVs Current Medications Sodium Chloride 1,000 ml @ 70 mls/hr [id number] IV Last administered on 09/13/17at 20:37; Start 09/13/17 at 16:25 Sodium Chloride (NS Flush) 2 ml UNSCH PRN IV FLUSH FLUSH AFTER USING IV ACCESS ; Start 09/13/17 at 16:30 Sodium Chloride (NS Flush) 2 ml BID IV FLUSH Last administered on 09/14/17at 08: 26; Start 09/13/17 at 21:00 Labetalol HCl (Trandate Inj) 20 mg Q4H PRN IV PUSH SYS BP GREATER THAN 160 MMHG ; Start 09/13/17 at 16:30 Enalaprilat (Vasotec Inj) 1.25 mg Q6H PRN IV PUSH to keep SBP between 140-160; Start 09/13/17 at 16:30 Clonidine (Catapres) 0.1 mg Q6H PRN PO to keep SBP between 140-160; Start at 16:30 Famotidine (Pepcid) 20 mg BID PO Last administered on 09/14/17at 08:26; Start at 21:00 Acetaminophen (Tylenol) 650 mg Q4H PRN PO PAIN SCALE 1 TO 10 Last administered on 09/14/17at 05:35; Start 09/13/17 at 16:30 Ondansetron HCl (Zofran Inj) 4 mg Q6H PRN IV PUSH NAUSEA; Start 09/13/17 at 16: 30 Docusate Sodium (Colace) 100 mg BID PRN PO CONSTIPATION; Start 09/13/17 at 16:30 Donepezil HCl (Aricept) 15 mg HS PO ; Start 09/14/17 at 21:00 A/P Problem List: (1) Intracranial hemorrhage ICD Code: I62.9 - Nontraumatic intracranial hemorrhage, unspecified Status: Acute Assessment and Plan Mrs. Rivera is a 77-year-old female with a past medical history of dementia, depression, and anxiety who presented to the emergency room on 09/13/2017 after she was walking her dog and fell while walking in her neighborhood. She was found to be confused and complaining of right hip pain. Head CT in the emergency department showed questionable isolated area of parenchymal hemorrhage /contusion in the right posterior parietal/occipital region. She was admitted for monitoring and medical management. Intracranial hemorrhage/contusion right posterior parietal/occipital region - Neurosurgery consulted - patient also with degenerative disc disease with disc herniation and spinal stenosis - appreciate recommendations/assistance - Frequent neuro checks Syncope versus CVA versus seizure activity versus mechanical fall - We'll check brain MRI, MRA with and without contrast to further evaluate for ischemic CVA or other organic brain disease - Check bilateral carotid ultrasound to evaluate for carotid stenosis - EEG - Bed rest for now - Consult OT, PT, and ST - Neurology consulted - appreciate assistance - Diet -passed swallow eval with speech therapy Add 2D echo Right hip pain status post fall with impaired mobility - Obtain CT of right hip to further evaluate for injury/fracture Right forehead laceration repaired in the ED - Monitor for signs of infection Dementia - Resume home Aricept Anxiety/Depression - Holding lorazepam and Remeron at this time to avoid sedation which may interfere with neurological examination DVT prophylaxis - SCDs; chemoprophylaxis contraindicated Discharge Planning Pending clearance by neuro and neurosurgery Will more than likely need SNF Poli Jennings DO Sep 14, 2017 09:52
[2017-09-14] MEDS ORDERED: GADODIAMIDE PF 287 MG/ML 10 ML VIAL (for RAD MRI) IVCONTRAST ONE ×2 (10:12→10:24)
--- NOTE | 2017-09-14 10:59 | RADRPT ---
EXAM DATE/TIME: 09/14/2017 10:06 [facility] COMPARISON: No previous studies available for comparison. INDICATIONS : Hemorrhage. Fall. MEDICAL HISTORY : Dementia. SURGICAL HISTORY : None. ENCOUNTER: Initial ACUITY: 1 day PAIN SCORE: 0/10 LOCATION: cranial Please note a normal MRA of the brain does not entirely exclude the possibility of a small aneurysm, nor the possibility of distal intracranial vessel disease. TECHNIQUE: 3D time of flight MRA was performed. Source images, multiplanar STS MIP, and 3D volume MIP reconstru ctions were reviewed. FINDINGS: There is excellent visualization of the major intracranial arteries out to the second-order branch ve ssels. There is no evidence for aneurysm, vessel truncation or stenosis, and no evidence for vascula r malformation. CONCLUSION: Normal examination. Nehemiah Dixon MD on September 14, 2017 at 10:56 Board Certified Radiologist. This report was verified electronically.
--- NOTE | 2017-09-14 11:04 | RADRPT ---
EXAM DATE/TIME: 09/14/2017 10:06 [facility] COMPARISON: CT BRAIN W/O CONTRAST, September 13, 2017, 14:09. INDICATIONS : Hemorrhage. CONTRAST: 10 cc Omniscan (gadodiamide) IV MEDICAL HISTORY : Dementia. SURGICAL HISTORY : None. ENCOUNTER: Initial ACUITY: 1 day PAIN SCORE: 0/10 LOCATION: cranial TECHNIQUE: Multiplanar, multisequence MRI of the brain was performed both prior to and following the administrat ion of paramagnetic contrast. FINDINGS: There are no hemorrhagic products identified along the right posterior parietal and occipital region corresponds to the hyperdensity seen on CT. The cerebral hemispheres are unremarkable without characteristic findings of acute infarct, hemorrhag e, mass or edema. There are no enhancing intra-or extra-axial lesions. Brainstem and cerebellum appear normal. CONCLUSION: 1. No evidence of acute or chronic hemorrhage on MRI. 2. No evidence of acute infarct, edema, mass or enhancing lesions. Nehemiah Dixon MD on September 14, 2017 at 10:58 Board Certified Radiologist. This report was verified electronically.
--- NOTE | 2017-09-14 12:54 | RADRPT ---
EXAM DATE/TIME: 09/14/2017 11:35 [facility] COMPARISON: No previous studies available for comparison. INDICATIONS : Fall with persistent right hip pain. RADIATION DOSE: 10.00 CTDIvol (mGy) MEDICAL HISTORY : None SURGICAL HISTORY : None. ENCOUNTER: Initial ACUITY: 1 day PAIN SCALE: 6/10 LOCATION: Right pelvis TECHNIQUE: Volumetric scanning of the hip was performed. Using automated exposure control and adjustment of the mA and/or kV according to patient size, radiation dose was kept as low as reasonably achievable to o btain optimal diagnostic quality images. DICOM format image data is available electronically for rev iew and comparison. FINDINGS: Alignment within normal limits. There is faint linear lucency in the subcapital region of the right f emoral neck indicating possible subtle nondisplaced fracture. No evidence of joint narrowing. Minimal right osteophytes. Moderate right joint effusion. Diffuse arterial calcification. No evidence of bowel dilatation. No enlarged lymph nodes. Bladder wit hin normal limits. CONCLUSION: 1. The subcapital right femoral neck lucency suspicious for nondisplaced fracture. Recommend right hi p MRI for further evaluation. 2. Moderate-sized right hip joint effusion. Sawyer Walker MD on September 14, 2017 at 12:46 Board Certified Radiologist. This report was verified electronically.
--- NOTE | 2017-09-14 15:48 | RADRPT ---
EXAM DATE/TIME: 09/14/2017 15:20 [facility] COMPARISON: CT BRAIN W/O CONTRAST, September 13, 2017, 14:09. INDICATIONS : Intracranial hemorrhage. RADIATION DOSE: 48.66 CTDIvol (mGy) MEDICAL HISTORY : None SURGICAL HISTORY : None. ENCOUNTER: Subsequent ACUITY: 2 days PAIN SCALE: 0/10 LOCATION: cranial TECHNIQUE: Multiple contiguous axial images were obtained of the head. Using automated exposure control and adj ustment of the mA and/or kV according to patient size, radiation dose was kept as low as reasonably a chievable to obtain optimal diagnostic quality images. DICOM format image data is available electro nically for review and comparison. FINDINGS: CEREBRUM: The ventricles are normal for age. No evidence of midline shift, mass lesion, hemorrhage or acute in farction. No extra-axial fluid collections are seen. POSTERIOR FOSSA: The cerebellum and brainstem are intact. The 4th ventricle is midline. The cerebellopontine angle i s unremarkable. EXTRACRANIAL: The visualized portion of the orbits is intact. SKULL: The calvaria is intact. No evidence of skull fracture. CONCLUSION: No acute intracranial findings. No evidence of intracranial hemorrhage. Sawyer Walker MD on September 14, 2017 at 15:44 Board Certified Radiologist. This report was verified electronically.
[2017-09-14] MEDS ORDERED: PILL SPLITTER OTHER PRN (16:15)
[2017-09-14] MEDS: LORazepam 1 MG TAB PO PRN (17:07)
[2017-09-14] MEDS: MIRTAZAPINE 15 MG TAB PO SCH (20:23)
--- NOTE | 2017-09-14 20:34 | MB ---
cc: Sherman Grant MD, Rohit K MD DATE OF CONSULT: 09/14/2017 REASON FOR CONSULTATION: Questionable cerebral contusions. HISTORY OF PRESENT ILLNESS: A 77-year-old female who presented to the emergency room yesterday after a fall as a trauma alert. She apparently was walking her dog and fell and struck her head on the sidewalk. She was found to be confused by the paramedics and a trauma alert was initiated. At this point, she just states that she feels cold but denies any headache or neck pain or any numbness or paresthesias in the upper or lower extremities. Trauma workup included a CT scan of the head which, on my review, does not reveal any contusions or hemorrhage, but there radiologist felt there was a questionable area of parenchymal hemorrhage in the right posterior parietooccipital aspect. CT of the cervical spine does not reveal any fractures with degenerative changes. She has subsequently undergone an MRI scan of the brain which does not reveal an acute or chronic hemorrhage or any infarct. She has had a right forehead laceration which has been sutured. PAST MEDICAL HISTORY: Dementia, anxiety, depression. MEDICATIONS: Include ____ 50 mg at nighttime, lorazepam 1 mg t.i.d. p.r.n. and mirtazapine 50 mg at nighttime. ALLERGIES: PENICILLIN AND ASPIRIN. LABORATORY DATA: White blood cell count 8.0, hemoglobin 14.1, platelet count 248, PT 10.6, INR 1.0, PTT 22.6. Sodium 142, potassium 3.8, BUN 12, creatinine 0.87, glucose is 94. SOCIAL HISTORY: She is confused with dementia and states that part of the time she resides in [place] and the other time she resides [place]. She lives alone, as her is also debilitated. She denies alcohol use and is a former smoker. REVIEW OF SYSTEMS: Pertinent positives as mentioned in history of present illness and also including short-term memory loss and unsteady gait. Otherwise, the rest of review of systems is negative. FAMILY HISTORY: Unremarkable. PHYSICAL EXAMINATION: VITAL SIGNS: Temperature 98.3, pulse 77, respiratory rate 18, blood pressure 133/63, oxygen saturation of 95% on room air. HEAD: She has a small forehead laceration which has been sutured. No Bess's or raccoon's sign. EYES: No scleral icterus or injection or drainage. Pupils are equal. EARS, NOSE AND THROAT: No bleeding or drainage from the nose or ears with moist mucous membranes. SKIN: Warm and dry with no rashes or breakdown other than the right-sided small scalp laceration. NECK: Supple with no guarding or rigidity with movement. Trachea is midline. No tenderness. No jugular venous distention. HEART: Regular rate and rhythm. Normal S1, S2. No murmurs. CHEST: Clear to auscultation bilaterally with no accessory muscle use. ABDOMEN: Soft, nontender with positive bowel sounds. No hepatosplenomegaly. EXTREMITIES: No cyanosis, edema or deformity. NEUROLOGIC: She is awake, alert. She knows she is in the hospital but not the name of the hospital or the date. Pupils are equal and reactive. Extraocular muscles are intact. Face is symmetric. Tongue is midline. She moves upper and lower extremities with good strength. Speech is fluent. Negative Babinski. Light touch sensation is intact. She does have moderate ataxia and requires some assistance with ambulation. IMPRESSION: 1. Status post fall with a scalp laceration, but on my review of the CT and MRI scan of the brain no intracranial contusion or hemorrhage is noted. 2. Dementia which appears to be chronic. PLAN: The patient does not require any neurosurgical intervention. She may benefit from further dementia workup if this has not been undertaken by the neurology service as well as rehabilitation and physical therapy. MD ANTONINA Leonard//william , 12:21 PM , 06:52 PM
[2017-09-14] MEDS ORDERED: DONEPEZIL HCL 5 MG TAB PO SCH (21:00)
[2017-09-15] VITALS (11 sets, daily range): BP systolic 108–125; BP diastolic 56–80; PULSE 65–120; RESP 18; TEMP 97–98.6; O2SAT 97–99
--- NOTE | 2017-09-15 07:05 | MG ---
cc: Jed Zelaya MD, David J MD #[id number] INDICATIONS: Fell before EEG. Walking her dog, fell. Dementia. INTERPRETATION: Hyperventilation not performed. Diffuse alpha and beta rhythms are noted. An 8 Hz 60 microvolt symmetric posterior rhythm is seen. I see some sharp alpha rhythms of a high frequency over the left temporal head region. The patient is moving her mouth, however, and that could be artifactual. Photic stimulation was performed without significant posterior driving. IMPRESSION: Some prominent fast alpha rhythms seen over the left head region, unclear if artifactual or not. No other abnormalities were noted. MD SCARLET Lizarraga// , 05:55 PM , 11:58 PM
--- NOTE | 2017-09-15 08:20 | RADRPT ---
EXAM DATE/TIME: 09/15/2017 07:31 [facility] COMPARISON: CT HIP RIGHT W/O CONTRAST, September 14, 2017, 11:35. INDICATIONS : Trauma. right femoral neck lucency suspicious for nondisplaced fracture. MEDICAL HISTORY : Dementia. SURGICAL HISTORY : None. ENCOUNTER: Subsequent ACUITY: 1 week PAIN SCORE: 4/10 LOCATION: Right hip. TECHNIQUE: Multiplanar, multisequence MRI examination was performed without contrast. FINDINGS: BONE/CARTILAGE: A mildly angulated transverse fracture is identified through the subcapital region of the femoral nec k. LABRUM: Within normal limits. MUSCLES/TENDONS: The periarticular musculature demonstrates significant edema. The gemellus muscle posterior to the nasim int appears partially torn MISCELLANEOUS: Small joint effusion is identified. Gas pattern appears intact. CONCLUSION: 1. Mildly angulated subcapital femoral neck fracture. 2. Perivascular edema and suspected injury to the gemellus muscle. 3. Small joint effusion. 4. Intact acetabulum. Nehemiah Dixon MD on September 15, 2017 at 8:10 Board Certified Radiologist. This report was verified electronically.
[2017-09-15 08:44] LABS: AUTOMATED NEUTROPHIL # 9.9 TH/MM3 (1.8-7.7); BASOPHIL % 0.2 % (0.0-2.0); HEMATOCRIT 44.1 % (35.0-46.0); HEMOGLOBIN 14.8 GM/DL (11.6-15.3); LYMPH % 4.9 % (9.0-44.0); LYMPHOCYTE # 0.6 TH/MM3 (1.0-4.8); MEAN CELL VOLUME 90.8 FL (80.0-100.0); MEAN CORPUSCULAR HEMOGLOBIN 30.4 PG (27.0-34.0); MEAN CORPUSCULAR HGB CONC 33.5 % (32.0-36.0); MEAN PLATELET VOLUME 8.4 FL (7.0-11.0); MONOCYTE # 0.8 TH/MM3 (0-0.9); NEUT % 87.9 % (16.0-70.0); PLATELET COUNT 232 TH/MM3 (150-450); RED BLOOD COUNT 4.85 MIL/MM3 (4.00-5.30); RED CELL DISTRIBUTION WIDTH 13.7 % (11.6-17.2); WHITE BLOOD COUNT 11.3 TH/MM3 (4.0-11.0)
[2017-09-15] MEDS: FAMOTIDINE 20 MG TAB PO SCH ×2 (08:49→21:51)
[2017-09-15] MEDS: SODIUM CHLORIDE 0.9% FLUSH 10 ML FLUSH IV FLUSH SCH ×2 (08:50→21:00)
[2017-09-15 09:12] LABS: ALBUMIN 3.3 GM/DL (3.4-5.0); ALT (GPT) 41 U/L (10-53); AST (GOT) 96 U/L (15-37); BICARBONATE 23.1 MEQ/L (21.0-32.0); BLOOD UREA NITROGEN 16 MG/DL (7-18); CALCIUM 9.4 MG/DL (8.5-10.1); CHLORIDE 108 MEQ/L (98-107); CREATININE 0.84 MG/DL (0.50-1.00); GLOMERULAR FILTRATION RATE 65 ML/MIN (>89); GLUCOSE,RANDOM 90 MG/DL (74-106); MAGNESIUM 1.9 MG/DL (1.5-2.5); PHOSPHORUS 2.5 MG/DL (2.5-4.9); SODIUM (NA) 142 MEQ/L (136-145)
[2017-09-15] MEDS ORDERED: MEMANTINE HCL 5 MG TAB PO SCH (09:15)
[2017-09-15 09:25] LABS: ALKALINE PHOSPHATASE 77 U/L (45-117); TOTAL BILIRUBIN ADULT 2.2 MG/DL (0.2-1.0); TOTAL PROTEIN 7.2 GM/DL (6.4-8.2)
--- NOTE | 2017-09-15 09:53 | HHI.PR ---
Subjective Remarks Mrs. Rivera is a 77-year-old female with a past medical history of dementia, depression, and anxiety who presented to the emergency room on 09/13/2017 after she was walking her dog and fell while walking in her neighborhood. She was found to be confused and complaining of right hip pain. Head CT in the emergency department showed questionable isolated area of parenchymal hemorrhage /contusion in the right posterior parietal/occipital region. She was admitted for monitoring and medical management. The patient is seen in her hospital room. She is very pleasant but confused and a poor historian. She is unable to recall the names of her medications and medical conditions. She provides a limited history of the fall as she does not remember much of the event. She is unsure whether or not she lost consciousness or not. She denies feeling ill prior to the fall and states she does not recall any chest pain or shortness of breath. She indicates that she may have tripped over her dog. She is complaining of 10 out of 10 sharp right hip pain that is worse with movement and palpation. . Femur and AP pelvis x-rays were negative for fracture. 3 patient is currently confused This is probably baseline hAs some dementia Await the evaluation by physical therapy and occupational therapy discussed with patient and RN and case management await neuro Await neuro surgical evaluation await neurology evaluation Await MRIs and CAT scan of the right hip Patient may need placement at discharge PATIENT FELL AND WELL GET A REPEAT CAT SCAN OF BRAIN RADIOLOGY WANTS MRI OF RIGHT HIP THESE ARE PENDING 09-15 fracture of right hip consult ortho patient remains very confused DW NEUROLOGY HE FEELS SHE HAS DEMENTIA DW RN AND PT REMAINS CONFUSED Objective Vitals Vital Signs Date Time Temp Pulse Resp B/P (MAP) Pulse Ox O2 Delivery O2 Flow Rate FiO2 09/15/17 08:00 98.0 73 18 108/64 (79) 99 09/15/17 04:30 120 09/15/17 04:00 97.3 97 18 125/80 (95) 98 09/15/17 00:00 98.6 79 18 123/70 (87) 97 09/14/17 23:30 88 09/14/17 21:24 97 21 09/14/17 20:00 97.6 90 18 128/58 (81) 95 09/14/17 18:00 98.2 69 18 128/72 (90) 97 09/14/17 12:00 97.7 78 17 137/68 (91) 96 I/O 09/14/17 09/14/17 09/14/17 09/15/17 09/15/17 09/15/17 07:00 15:00 23:00 07:00 15:00 23:00 Intake Total 720 ml Output Total 4 ml Balance 716 ml Intake Oral 720 ml Output Urine Total 4 ml # Voids 2 1 Result Diagram: 09/15/17 0658 09/15/17 0658 Other Results Laboratory Tests Test 09/13/17 13:59 09/14/17 05:32 09/14/17 07:35 09/15/17 06:58 White Blood Count 4.6 TH/MM3 8.0 TH/MM3 11.3 TH/MM3 Red Blood Count 4.45 MIL/MM3 4.64 MIL/MM3 4.85 MIL/MM3 Hemoglobin 13.8 GM/DL 14.1 GM/DL 14.8 GM/DL Bedside Hemoglobin 13.9 G/DL Hematocrit 40.1 % 41.5 % 44.1 % Bedside Hematocrit 41.0 % Mean Corpuscular Volume 90.1 FL 89.5 FL 90.8 FL Mean Corpuscular Hemoglobin 31.0 PG 30.4 PG 30.4 PG Mean Corpuscular Hemoglobin Concent 34.4 % 34.0 % 33.5 % Red Cell Distribution Width 14.2 % 13.6 % 13.7 % Platelet Count 263 TH/MM3 248 TH/MM3 232 TH/MM3 Mean Platelet Volume 7.3 FL 7.6 FL 8.4 FL Neutrophils (%) (Auto) 37.1 % 78.1 % 87.9 % Lymphocytes (%) (Auto) 44.1 % 10.9 % 4.9 % Monocytes (%) (Auto) 11.8 % 9.0 % 7.0 % Eosinophils (%) (Auto) 5.9 % 1.3 % 0.0 % Basophils (%) (Auto) 1.1 % 0.7 % 0.2 % Neutrophils # (Auto) 1.7 TH/MM3 6.3 TH/MM3 9.9 TH/MM3 Lymphocytes # (Auto) 2.0 TH/MM3 0.9 TH/MM3 0.6 TH/MM3 Monocytes # (Auto) 0.5 TH/MM3 0.7 TH/MM3 0.8 TH/MM3 Eosinophils # (Auto) 0.3 TH/MM3 0.1 TH/MM3 0.0 TH/MM3 Basophils # (Auto) 0.1 TH/MM3 0.1 TH/MM3 0.0 TH/MM3 CBC Comment DIFF FINAL DIFF FINAL DIFF FINAL Differential Comment Erythrocyte Sedimentation Rate 9 mm/hr Prothrombin Time 10.6 SEC Prothromb Time International Ratio 1.0 RATIO Activated Partial Thromboplast Time 22.6 SEC Fibrinogen 301 mg/dL Bedside Sodium 142 MMOL/L Bedside Potassium 4.3 MMOL/L Bedside Chloride 103 MMOL/L Bedside Blood Urea Nitrogen 18 MG/DL Bedside Creatinine 0.9 MG/DL Bedside Glucose 98 MG/DL Aspartate Amino Transf (AST/SGOT) 25 U/L 96 U/L Alanine Aminotransferase (ALT/SGPT) 28 U/L 41 U/L Vitamin B12 Level 283 PG/ML Free Thyroxine 0.89 NG/DL 1.10 NG/DL Thyroid Stimulating Hormone 3rd Gen 1.420 uIU/ML 0.886 uIU/ML Ethyl Alcohol Level LESS THAN 3 MG/DL Urine Color LIGHT-YELLOW Urine Turbidity HAZY Urine pH 7.5 Urine Specific [place] 1.010 Urine Protein NEG mg/dL Urine Glucose (UA) NEG mg/dL Urine Ketones NEG mg/dL Urine Occult Blood NEG Urine Nitrite POS Urine Bilirubin NEG Urine Urobilinogen LESS THAN 2.0 MG/DL Urine Leukocyte Esterase LARGE Urine RBC 2 /hpf Urine WBC 21 /hpf Urine Squamous Epithelial Cells 1 /hpf Urine Bacteria MANY /hpf Microscopic Urinalysis Comment CULTURE INDICATED Blood Urea Nitrogen 12 MG/DL 16 MG/DL Creatinine 0.87 MG/DL 0.84 MG/DL Random Glucose 94 MG/DL 90 MG/DL Calcium Level 8.9 MG/DL 9.4 MG/DL Sodium Level 142 MEQ/L 142 MEQ/L Potassium Level 3.8 MEQ/L 3.5 MEQ/L Chloride Level 109 MEQ/L 108 MEQ/L Carbon Dioxide Level 24.2 MEQ/L 23.1 MEQ/L Anion Gap 9 MEQ/L 11 MEQ/L Estimat Glomerular Filtration Rate 63 ML/MIN 65 ML/MIN Total Protein 7.2 GM/DL Albumin 3.3 GM/DL Phosphorus Level 2.5 MG/DL Magnesium Level 1.9 MG/DL Alkaline Phosphatase 77 U/L Total Bilirubin 2.2 MG/DL Imaging Last Impressions Hip MRI 09/15/17 0000 Signed Impressions: Service Date/Time: Friday, September 15, 2017 07:31 - CONCLUSION: 1. Mildly angulated subcapital femoral neck fracture. 2. Perivascular edema and suspected injury to the gemellus muscle. 3. Small joint effusion. 4. Intact acetabulum. Nehemiah Dixon MD Carotid Artery Ultrasound [id number] Signed Impressions: Service Date/Time: Thursday, September 14, 2017 07:53 - CONCLUSION: 1. Mild to moderate bilateral carotid plaque as described. 2. No evidence of hemodynamically significant stenosis. 3. Antegrade flow in both vertebral arteries. Nehemiah Dixon MD Head Magnetic Resonance Angiography 09/14/17 Signed Impressions: Service Date/Time: Thursday, September 14, 2017 10:06 - CONCLUSION: Normal examination. Nehemiah Dixon MD Head CT 09/14/17 Signed Impressions: Service Date/Time: Thursday, September 14, 2017 15:20 - CONCLUSION: No acute intracranial findings. No evidence of intracranial hemorrhage. Sawyer Walker MD Brain MRI 09/14/17 Signed Impressions: Service Date/Time: Thursday, September 14, 2017 10:06 - CONCLUSION: 1. No evidence of acute or chronic hemorrhage on MRI. 2. No evidence of acute infarct, edema, mass or enhancing lesions. Nehemiah Dixon MD Pelvis X-Ray [id number] Signed Impressions: Service Date/Time: Wednesday, September 13, 2017 13:52 - CONCLUSION: No fracture. Gilberto Humphrey MD Chest X-Ray [id number] Signed Impressions: Service Date/Time: Wednesday, September 13, 2017 13:52 - CONCLUSION: 1. No acute cardiopulmonary process. 2. Hyperinflation with some biapical fibrosis/ scarring. Gilberto Humphrey MD Cervical Spine CT 09/13/17 1356 Signed Impressions: Service Date/Time: Wednesday, September 13, 2017 14:10 - CONCLUSION: 1. No fractures or dislocations. 2. Multilevel degenerative changes as detailed at each level in the above discussion. 3. Carotid artery atherosclerotic calcifications. 4. Calcified pleural plaques. This can be seen in asbestos exposure. Robinson Diaz Jr., MD Lower Extremity CT 09/13/17 0000 Signed Impressions: Service Date/Time: Thursday, September 14, 2017 11:35 - CONCLUSION: 1. The subcapital right femoral neck lucency suspicious for nondisplaced fracture. Recommend right hip MRI for further evaluation. 2. Moderate-sized right hip joint effusion. Sawyer Walker MD Femur X-Ray 09/13/17 0000 Signed Impressions: Service Date/Time: Wednesday, September 13, 2017 13:52 - CONCLUSION: Negative for fracture Poli Quigley MD FACR Objective Remarks GENERAL: This is a elderly cachectic female patient, in no apparent distress. Quite confused SKIN: No rashes. Cool and dry. Right hip with large area of faint ecchymosis slightly bigger than the size of a softball. Laceration over right eye is covered with gauze that is dry and intact. HEAD: Atraumatic. Normocephalic. EYES: No scleral icterus. No injection or drainage. Wears glasses ENT: Nose without bleeding, purulent drainage. NECK: Trachea midline. No JVD or lymphadenopathy. CARDIOVASCULAR: Regular rate and rhythm without murmurs, gallops, or rubs. S1- S2 no S3 or S4 RESPIRATORY: Clear to auscultation. Breath sounds equal bilaterally. No wheezes , rales, or rhonchi. GASTROINTESTINAL: Abdomen soft, non-tender, nondistended. No guarding. MUSCULOSKELETAL: Extremities without clubbing, cyanosis. No calf tenderness. Unable to flex at the hip. Unable to perform right straight leg raise beyond 1- 2 inches. Pain with palpation of right hip region. NEUROLOGICAL: Awake and alert; confused. Normal speech. Cranial nerves II through XII grossly intact. Procedures NONE Medications and IVs Current Medications Sodium Chloride 1,000 ml @ 70 mls/hr [id number] IV Last administered on at 20:26; Start 09/13/17 at 16:25 Sodium Chloride (NS Flush) 2 ml UNSCH PRN IV FLUSH FLUSH AFTER USING IV ACCESS ; Start 09/13/17 at 16:30 Sodium Chloride (NS Flush) 2 ml BID IV FLUSH Last administered on 09/14/17at 08: 26; Start 09/13/17 at 21:00 Labetalol HCl (Trandate Inj) 20 mg Q4H PRN IV PUSH SYS BP GREATER THAN 160 MMHG ; Start 09/13/17 at 16:30 Enalaprilat (Vasotec Inj) 1.25 mg Q6H PRN IV PUSH to keep SBP between 140-160; Start 09/13/17 at 16:30 Clonidine (Catapres) 0.1 mg Q6H PRN PO to keep SBP between 140-160; Start at 16:30 Famotidine (Pepcid) 20 mg BID PO Last administered on 09/14/17at 08:26; Start at 21:00; Stop 09/14/17 at 16:09; Status DC Acetaminophen (Tylenol) 650 mg Q4H PRN PO PAIN SCALE 1 TO 10 Last administered on 09/14/17at 14:51; Start 09/13/17 at 16:30 Ondansetron HCl (Zofran Inj) 4 mg Q6H PRN IV PUSH NAUSEA; Start 09/13/17 at 16: 30 Docusate Sodium (Colace) 100 mg BID PRN PO CONSTIPATION; Start 09/13/17 at 16:30 Donepezil HCl (Aricept) 15 mg HS PO Last administered on 09/14/17at 20:23; Start 09/14/17 at 21:00; Stop 09/15/17 at 09:24; Status DC Gadodiamide (Omniscan Pf Inj) 10 ml STK-MED ONCE IVCONTRAST Last administered on 09/14/17at 10:12; Start 09/14/17 at 10:12; Stop 09/14/17 at 10:13; Status DC Gadodiamide (Omniscan Pf Inj) 10 ml STK-MED ONCE IVCONTRAST ; Start 09/14/17 at 10:24; Stop 09/14/17 at 10:25; Status Cancel Famotidine (Pepcid) 10 mg BID PO Last administered on 09/15/17at 08:49; Start at 21:00 Miscellaneous (Pill Splitter) 1 ea UNSCH PRN OTHER SEE LABEL COMMENTS; Start at 16:15 Lorazepam (Ativan) 1 mg TID PRN PO ANXIETY Last administered on 09/14/17at 17:07 ; Start 09/14/17 at 16:45 Mirtazapine (Remeron) 15 mg HS PO Last administered on 3/10/18at 20:23; Start 09/14/17 at 21:00 Donepezil HCl (Aricept) 10 mg HS PO ; Start 09/15/17 at 21:00; Status UNV Memantine (Namenda) 5 mg DAILY PO ; Start 09/15/17 at 09:15; Status UNV Cyanocobalamin (Vitamin B12 Inj) 1,000 mcg DAILY SQ ; Start 09/15/17 at 09:15; Stop 09/18/17 at 09:14; Status UNV A/P Problem List: (1) Intracranial hemorrhage ICD Code: I62.9 - Nontraumatic intracranial hemorrhage, unspecified Status: Acute Assessment and Plan Mrs. Rivera is a 77-year-old female with a past medical history of dementia, depression, and anxiety who presented to the emergency room on 09/13/2017 after she was walking her dog and fell while walking in her neighborhood. She was found to be confused and complaining of right hip pain. Head CT in the emergency department showed questionable isolated area of parenchymal hemorrhage /contusion in the right posterior parietal/occipital region. She was admitted for monitoring and medical management. Intracranial hemorrhage/contusion right posterior parietal/occipital region - Neurosurgery consulted - patient also with degenerative disc disease with disc herniation and spinal stenosis - appreciate recommendations/assistance - Frequent neuro checks Syncope versus CVA versus seizure activity versus mechanical fall - We'll check brain MRI, MRA with and without contrast to further evaluate for ischemic CVA or other organic brain disease - Check bilateral carotid ultrasound to evaluate for carotid stenosis - EEG - Bed rest for now - Consult OT, PT, and ST - Neurology consulted - appreciate assistance - Diet -passed swallow eval with speech therapy Add 2D echo Right hip pain status post fall with impaired mobility - Obtain CT of right hip to further evaluate for injury/fracture HAD MRI OF RIGHT HIP- CONSULT ORTHO FOR FRACTURE Right forehead laceration repaired in the ED - Monitor for signs of infection Dementia ALZHEIMERS WITH PROGRESSION - Resume home Aricept Anxiety/Depression - Holding lorazepam and Remeron at this time to avoid sedation which may interfere with neurological examination PROBABLE UTI- START ROCEPHIN 1 GRAM IV DAILY AWAIT CULTURES DVT prophylaxis - SCDs; chemoprophylaxis contraindicated Discharge Planning Pending clearance by neuro and neurosurgery Will more than likely need SNF Poli Jennings DO Sep 15, 2017 09:53
--- NOTE | 2017-09-15 10:26 | MB ---
cc: Jed Zelaya MD DATE OF CONSULT: A 77-year-old woman with a history of likely Alzheimer dementia, depression, anxiety, came in the ER on 09/13/2017. Was walking her dog, she lives alone, has some family in the state, and she fell, was confused, complaining of right hip pain. 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 Neurosurgery has seen her and cleared her. Her memory is extremely poor, but she complains a lot of right hip pain. MEDICATIONS: Mirtazapine, Aricept 10 mg at bedtime, lorazepam. ALLERGIES: PENICILLIN AND ASPIRIN. FAMILY HISTORY: Unable to obtain. SOCIAL HISTORY: Not smoking now. Not a drinker. Lives alone. REVIEW OF SYSTEMS: She is really unable to me any coherent review of systems, as she has got dementia. CURRENT MEDICATIONS: She is on the Aricept 15 at bedtime, I will drop that down to 10; Pepcid, Remeron, Ativan p.r.n. of which she did get a dose yesterday, some p.r.n. medications for blood pressure, Tylenol. PHYSICAL EXAMINATION: VITAL SIGNS: Afebrile, 73, 18, 108/64. GENERAL: She is quite thin. HEENT: Visual fontaine are full. Face is symmetric. Extraocular movements intact without nystagmus. Pupils were equal. Tongue was midline. NECK: There were no carotid bruits. HEART: Regular rhythm. I did not detect a murmur. NEUROLOGIC: She had normal strength in bilateral upper extremities and lower extremity strength appears to be normal, although somewhat limited by the right hip pain. Toes are downgoing bilaterally. DTRs are trace. She feels discomfort throughout. She is awake and alert. She does not know the year or the month and she says she does not know where she is. She says she lives with her . LABORATORY STUDIES: CBC is normal. Sed rate is 9. UA: Large amount of leukoesterase, 21 white cells. Basic metabolic profile essentially normal. LFTs were essentially normal when she was admitted, her AST is up to 96. Her B12 low at 283. Hip MRI shows a fracture of the right hip. Carotid ultrasound was negative. She had an MRA of the pala of Conner, which was normal. Cervical spine CT: No fractures. Pelvic x-ray: No fracture. MRI of the brain: No hemorrhage. Repeat CT: No acute findings. Review of the films on the MRI: Some mild diffuse atrophy. No acute infarct. IMPRESSION: Alzheimer dementia. I will start her on some Namenda. I will defer to orthopedics when she can get up out of bed and dropped her Aricept down to 10 mg a day. We will give her a B12 shot. It looks like she probably needs to be treated for a urinary tract infection. I will defer to the medicine team on that. She will need placement likely in a jail. Otherwise, I thought she looked okay neurologically and I could follow her up in the office. Jed Zelaya MD DJM/TI , 09:20 AM , 10:25 AM
[2017-09-15] MEDS: SODIUM CHLOR 0.9% 1000 ML INJ 1,000 ML IV SCH (11:19)
[2017-09-15] MEDS: MEMANTINE HCL 5 MG TAB PO SCH (12:14)
[2017-09-15] MEDS: CYANOCOBALAMIN 1000 MCG/ML VIAL SQ SCH (12:15)
[2017-09-15] MEDS: cefTRIAXone INJ 1,000 MG in SODIUM CHLORIDE 0.9% INJ 100 ML IV SCH (12:15)
--- NOTE | 2017-09-15 16:39 | ECHRPT ---
Indication: SYNCOPE CONCLUSIONS The left ventricular systolic function is moderately reduced with an estimated ejection fraction in the range of 40-45%. Normal left ventricular size. Wall thickness is normal. Inferior hypokinesis Mild thickening of the mitral valve leaflets. Aortic valve sclerosis is present. There is trace tricuspid valve regurgitation. The estimated pulmonary arterial pressure is 37.5 mmHg. The pulmonary valve is not well visualized. BP: 108 / 64 HR: 79 Rhythm: Sinus MEASUREMENTS (Male / Female) Normal Values Technical Quality:Good 2D ECHO LV Diastolic Diameter PLAX 3.0 cm 4.2 - 5.9 / 3.9 - 5.3 cm LV Systolic Diameter PLAX 2.6 cm IVS Diastolic Thickness 0.9 cm 0.6 - 1.0 / 0.6 - 0.9 cm LVPW Diastolic Thickness 0.9 cm 0.6 - 1.0 / 0.6 - 0.9 cm LV Relative Wall Thickness 0.6 LVOT Diameter 1.6 cm LA Systolic Diameter LX 2.7 cm 3.0 - 4.0 / 2.7 - 3.8 cm LV Ejection Fraction MOD 4C 41.7 % LV Cardiac Index MOD 4C 1163.0 cm/minm LV Ejection Fraction 4C AL 44.8 % LV Cardiac Index 4C AL 1306.7 cm/minm M-MODE LV Diastolic Diameter MM 4.6 cm 4.2 - 5.9 / 3.9 - 5.3 cm LV Systolic Diameter MM 3.7 cm LV Ejection Fraction MM Teich 41.2 % LV Cardiac Index MM Teich 2309.5 cm/minm IVS Diastolic Thickness MM 0.9 cm 0.6 - 1.0 / 0.6 - 0.9 cm LVPW Diastolic Thickness MM 0.9 cm 0.6 - 1.0 / 0.6 - 0.9 cm LV Relative Wall Thickness MM 0.4 0.24 - 0.42 / 0.22 - 0.42 LV Mass Index MM 101.5 g/m 49 - 115 / 43 - 95 g/m Aortic Root Diameter MM 1.8 cm AV Cusp Separation MM 1.2 cm DOPPLER LVOT Peak Velocity 63.2 cm/s LVOT Peak Gradient 1.6 mmHg MV Area PHT 3.5 cm Mitral E Point Velocity 60.2 cm/s Mitral A Point Velocity 93.3 cm/s Mitral E to A Ratio 0.6 TR Peak Velocity 262.0 cm/s TR Peak Gradient 27.5 mmHg Right Atrial Pressure 10.0 mmHg Pulmonary Artery Systolic Pressu 37.5 mmHg Right Ventricular Systolic Press 37.5 mmHg PV Peak Velocity 84.2 cm/s PV Peak Gradient 2.8 mmHg FINDINGS LEFT VENTRICLE The left ventricular systolic function is moderately reduced with an estimated ejection fraction in the range of 40-45%. Normal left ventricular size. Wall thickness is normal. Inferior hypokinesis Doppler parameters are consistent with impaired left ventricular relaxtion (grade 1 diastolic dysfun ction). RIGHT VENTRICLE Normal right ventricular size and systolic function. LEFT ATRIUM The left atrial size is normal. RIGHT ATRIUM The right atrial size is normal. ATRIAL SEPTUM Normal atrial septal thickness without atrial level shunting by limited color doppler interrogation. AORTA The aortic root and proximal ascending aorta are normal in size on limited imaging. MITRAL VALVE Structurally normal mitral valve. Mild thickening of the mitral valve leaflets. AORTIC VALVE Trileaflet aortic valve. Aortic valve sclerosis is present. TRICUSPID VALVE Structurally normal tricuspid valve. There is trace tricuspid valve regurgitation. The estimated pulmonary arterial pressure is 37.5 mmHg. PULMONARY VALVE The pulmonary valve is not well visualized. VESSELS The inferior vena cava is normal in size. PERICARDIUM No pericardial effusion. Sabino Cheng MD (Electronically Signed) Final Date:15 September 2017 16:38
[2017-09-15] MEDS: DONEPEZIL HCL 5 MG TAB PO SCH (21:51)
[2017-09-15] MEDS: MIRTAZAPINE 15 MG TAB PO SCH (21:53)
[2017-09-15] MEDS: LORazepam 1 MG TAB PO PRN (21:53)
[2017-09-16] VITALS (9 sets, daily range): BP systolic 117–128; BP diastolic 55–79; PULSE 70–96; RESP 18–20; TEMP 97.5–97.9; O2SAT 94–99
[2017-09-16] MEDS: SODIUM CHLOR 0.9% 1000 ML INJ 1,000 ML IV SCH ×2 (02:34→16:15)
[2017-09-16] MEDS ORDERED: VANCOMYCIN HCL 1000 MG VIAL ONE (07:25)
[2017-09-16] MEDS: MEMANTINE HCL 5 MG TAB PO SCH (08:05)
[2017-09-16] MEDS: SODIUM CHLORIDE 0.9% FLUSH 10 ML FLUSH IV FLUSH SCH ×2 (08:05→20:04)
[2017-09-16] MEDS: FAMOTIDINE 20 MG TAB PO SCH ×2 (08:05→20:04)
[2017-09-16] MEDS: CYANOCOBALAMIN 1000 MCG/ML VIAL SQ SCH (08:05)
[2017-09-16] MEDS: cefTRIAXone INJ 1,000 MG in SODIUM CHLORIDE 0.9% INJ 100 ML IV SCH (10:00)
[2017-09-16] MEDS ORDERED: TRANEXAMIC ACID INJ 600 MG in SODIUM CHLORIDE 0.9% INJ 100 ML IV SCH (10:00)
[2017-09-16] MEDS ORDERED: ACETAMINOPHEN 1000 MG/100 ML 100 ML IV ONE (10:28)
[2017-09-16] MEDS ORDERED: CLINDAMYCIN PHOS 600 MG/4 ML VIAL ONE (10:48)
[2017-09-16] MEDS ORDERED: SUGAMMADEX SODIUM 200 MG/2 ML VIAL IV PUSH ONE (11:24)
[2017-09-16] MEDS ORDERED: ceFAZolin 2 GM PREMIX 50 ML IV SCH (11:45)
--- NOTE | 2017-09-16 11:47 | PD.OP ---
cc: Christian Arboleda MD Operative Report Date of Surgery: Sep 16, 2017 Preoperative Diagnosis: Displaced right femoral neck fracture Postoperative Diagnosis: Procedure: Right hip hemiarthroplasty Anesthesia: Gen. Surgeon: Christian Arboleda Community Nurse(s): KESHIA Zimmer PA-C The surgical procedure was assisted by my physician digital marketing assistant. My P.A. presence was necessary throughout this case for the manipulation and positioning of the surgical extremity. My P.A. was assisting me throughout the duration of this procedure. The skill set of a physician digital marketing assistant was medically necessary to complete this procedure. During the surgical case the surgical scrub tech was working at the back table and the physician digital marketing assistant was directly assisting me. Operation and Findings: PLAN OF ACTIVITY Weight bear as tolerated. IMPLANTS USED DePuy Corail size [12] stem with size [44] bipolar head and [+1] neck. DETAILS OF PROCEDURE This patient was brought into the operating room and placed on the OR table. The patient was given anesthesia. The patient received IV antibiotics. The patient was then placed in lateral decubitus position. The hip and leg were prepped with alcohol, followed by Hibiclens and draped in a usual sterile fashion. Clean air was used for this procedure. Time out procedure was performed. The procedure began with a 5 inch incision over the posterolateral hip. The subcutaneous tissue was dissected with the Bovie. The iliotibial band were split in line with fibers. The Charnley retractor was placed. The piriformis and external rotators were released from the femur and tagged with a #1 Vicryl suture. The capsule is now incised and tagged with #1 Vicryl. The femoral neck fracture was now visualized. A corkscrew was now used to remove the femoral head. The femoral head was sized and measured. Soft tissue was now protected. The hip skid was placed underneath the femoral neck. An oscillating saw was used to make a femoral neck cut. At this point attention was turned to preparation of the proximal femur. A box osteotome was used to remove the lateral cortex of the femoral neck. The T- handle reamer was used to open the femoral canal. Next, the canal was broached. A lateralizing reamer was used to help lateralize the prosthesis. There was a small cortical defect along the medial calcar region. This did not extend below the lesser trochanter. A 1.7 mm cable was passed around the proximal femur to help prevent any propagation of fracture along the calcar. The cable was tensioned, crimped, and cut. At this point a trial head and neck were placed. The hip was reduced. The patient was found to have excellent stability with good range of motion. Trial components were removed. Soft tissue and bone were thoroughly irrigated. A Corail stem was now opened. The stem was now impacted into the proximal femur. Care was taken to keep appropriate anteversion. The head and neck were now impacted onto the stem. The hip was again reduced. The hip was found to have good range of motion and good stability. Leg lengths were clinically equal. The wound was thoroughly irrigated. The capsule, piriformis and iliotibial band were closed with #1 Vicryl. Subcutaneous tissue was closed with 3-0 Vicryl. The skin was closed with toyin. A sterile dressing was applied with Primapore. The patient was placed into a knee immobilizer. The patient was awakened and transferred to the recovery room in stable condition. Needle and sponge counts were correct. Christian Arboleda MD Sep 16, 2017 11:47
[2017-09-16] MEDS ORDERED: PROPOFOL 200 MG/20 ML AMP IV ONE (12:00)
[2017-09-16] MEDS ORDERED: PHENYLEPH/NS 1000 MCG/10 ML SYR IV ONE (12:00)
[2017-09-16] MEDS ORDERED: ROCURONIUM INJ 50 MG/5 ML SYRINGE IV PUSH ONE (12:00)
[2017-09-16] MEDS ORDERED: LIDOCAINE HCL 1% PF 5 ML SYRINGE OTHER ONE (12:00)
[2017-09-16] MEDS ORDERED: Post-op Orders (for Pharmacy) XX ONE (12:00)
[2017-09-16] MEDS ORDERED: PHENYLEPHRINE HCL 10 MG/ML VIAL IV ONE (12:00)
[2017-09-16] MEDS ORDERED: MORPHINE SULFATE 2 MG/ML INJ IV PUSH PRN (12:00)
[2017-09-16] MEDS ORDERED: DEXAMETHASONE SOD PHOS 4 MG/ML VIAL IV ONE (12:00)
[2017-09-16] MEDS ORDERED: ERGOCALCIFEROL (VIT D2) 50,000 UNIT CAP PO ONE (12:00)
[2017-09-16] MEDS ORDERED: ONDANSETRON HCL 4 MG/2 ML VIAL IV ONE (12:00)
[2017-09-16] MEDS ORDERED: DO NOT ADM ANY ANTICOAGULANT DRUGS PRN (12:08)
--- NOTE | 2017-09-16 12:11 | MB ---
cc: Christian Fernandez MD DATE OF CONSULT: 09/16/2017 REASON FOR CONSULTATION: Right femoral neck fracture. CONSULTING PHYSICIAN Dr. Moran HISTORY: Skye is a 73-year-old female who does have some mild confusion. She was walking her dog on 09/13/2017. She fell. She presented to the emergency room where x-rays revealed a possible right femoral neck fracture. She had subsequent follow-up MRI. The MRI revealed a partially displaced right femoral neck fracture. She is currently awake on the fifth floor. She complains of right hip pain. Her pain is worse with movement. She does have some mild confusion. PAST MEDICAL HISTORY: ILLNESSES: 1. Demential. 2. Anxiety and depression. SURGERIES: None. ALLERGIES: PENICILLIN. ASPIRIN. MEDICATIONS: 1. Mirtazapine. 2. Benazepril. 3. Lorazepam. FAMILY HISTORY: Noncontributory. SOCIAL HISTORY: The patient denies current alcohol, tobacco or drug use. REVIEW OF SYSTEMS: The patient denies headache, visual changes, neck pain, chest pain, shortness of breath, abdominal pain, nausea, vomiting or recent weight loss, fevers, chills, numbness or tingling of extremities. She complains of mild right hip pain. The pain is more severe with movement. PHYSICAL EXAMINATION: GENERAL: The patient is a thin, 77-year-old female. She is awake but does have some confusion. She is in no acute distress. VITAL SIGNS: Temperature 97.9, pulse 84, respirations 19, blood pressure 120/54. O2 sat is 95% on room air. HEAD: The patient is normocephalic. Pupils are equal. NECK: Soft, nontender. Trachea is midline. ABDOMEN: Soft, nontender, nondistended. EXTREMITIES: Examination of the bilateral upper extremities reveals no pain with shoulder, elbow or wrist motion. She has intact sensation in all fingers. She has good capillary refill in all fingers. Skin is intact. Radial pulses are palpable. Examination of the left leg reveals no pain with hip, knee or ankle motion. Skin is intact. Dorsalis pedis pulse is palpable. Sensation is intact. Examination of the right leg reveals pain with any hip motion. She has a small bruise over her lateral hip. She has no pain with knee or ankle motion. Skin is intact. Dorsalis pedis pulse is palpable. LABORATORY DATA: The patient has a white blood cell count of 11.1, hematocrit of 44.1 and a hemoglobin of 14.8. INR is 1.0. BUN is 16 and creatinine is 0.84. X-RAYS: CT scan was reviewed. CT scan reveals a questionable fracture line along the femoral neck. MRI was reviewed from 09/15/2017. MRI reveals a partially displaced right femoral neck fracture. IMPRESSION: 1. Depression. 2. Urinary tract infection. 3. Partially displaced right femoral neck fracture. PLAN: Treatment options were discussed with the patient. I will also attempt to contact the family. At this point I would recommend right hip hemiarthroplasty. The risks of surgery include bleeding, infection, injury to arteries, nerves and blood vessels, nonunion, malunion, painful hardware, hip dislocation, leg length discrepancy as well as medical complications including blood clot, stroke, heart attack and . All questions were answered. I will plan on surgery today. A mid-level provider in my office, nurse practitioner or PA, may see this patient on a follow-up basis and continue to implement the objective of this plan including: Starting or adjusting medications, injections of muscle, tendon, bursa or joints, cast application, orthotic or brace application, physical therapy, further radiographic studies including x-ray, MRI, CT, ultrasounds or bone scan, vascular studies, neurologic studies, or other specialist consultations, and proceeding with surgical management as appropriate. Christian MD ONIEL Hernandez/LADY , 11:52 AM , 12:09 PM
--- NOTE | 2017-09-16 13:09 | HHI.PR ---
Subjective Remarks Mrs. Rivera is a 77-year-old female with a past medical history of dementia, depression, and anxiety who presented to the emergency room on 09/13/2017 after she was walking her dog and fell while walking in her neighborhood. She was found to be confused and complaining of right hip pain. Head CT in the emergency department showed questionable isolated area of parenchymal hemorrhage /contusion in the right posterior parietal/occipital region. She was admitted for monitoring and medical management. The patient is seen in her hospital room. She is very pleasant but confused and a poor historian. She is unable to recall the names of her medications and medical conditions. She provides a limited history of the fall as she does not remember much of the event. She is unsure whether or not she lost consciousness or not. She denies feeling ill prior to the fall and states she does not recall any chest pain or shortness of breath. She indicates that she may have tripped over her dog. She is complaining of 10 out of 10 sharp right hip pain that is worse with movement and palpation. . Femur and AP pelvis x-rays were negative for fracture. 3-10 patient is currently confused This is probably baseline hAs some dementia Await the evaluation by physical therapy and occupational therapy discussed with patient and RN and case management await neuro Await neuro surgical evaluation await neurology evaluation Await MRIs and CAT scan of the right hip Patient may need placement at discharge PATIENT FELL AND WELL GET A REPEAT CAT SCAN OF BRAIN RADIOLOGY WANTS MRI OF RIGHT HIP THESE ARE PENDING 3-11 fracture of right hip consult ortho patient remains very confused DW NEUROLOGY HE FEELS SHE HAS DEMENTIA DW RN AND PT REMAINS CONFUSED 3-12 HAD RIGHT HIP SURGERY TODAY WITH DR LOVELACE NO NEW COMPLAINTS DW RN AND PT AND CM WILL NEED SNF Objective Vitals Vital Signs Date Time Temp Pulse Resp B/P (MAP) Pulse Ox O2 Delivery O2 Flow Rate FiO2 09/16/17 12:54 98.5 80 20 102/55 (71) 100 Nasal Cannula 2 09/16/17 12:45 87 20 106/52 (70) 100 Nasal Cannula 2 09/16/17 12:30 82 21 117/58 (77) 100 Nasal Cannula 3 09/16/17 12:15 80 20 102/54 (70) 100 Nasal Cannula 3 09/16/17 12:06 98.7 84 21 124/92 (103) 99 Simple Mask 6 09/16/17 08:34 97.9 84 19 120/55 (76) 95 09/16/17 04:02 88 09/16/17 04:00 97.5 96 18 117/55 (75) 99 09/16/17 00:00 97.5 81 20 121/79 (93) 98 09/15/17 23:49 65 09/15/17 22:16 98 09/15/17 20:00 97.0 78 18 120/61 (80) 97 09/15/17 20:00 71 09/15/17 16:02 67 09/15/17 16:00 98.6 100 18 112/75 (87) 98 I/O 09/15/17 09/15/17 09/15/17 09/16/17 09/16/17 09/16/17 06:59 14:59 22:59 06:59 14:59 22:59 Intake Total 1228 ml 800 ml Output Total 150 ml Balance 1228 ml 650 ml IV Total 1228 ml 800 ml Output Urine Total 100 ml Estimated Blood Loss 50 ml # Voids 1 2 1 Result Diagram: 09/15/17 0658 09/15/17 0658 Other Results Laboratory Tests Test 09/13/17 13:59 09/14/17 05:32 09/14/17 07:35 09/15/17 06:58 White Blood Count 4.6 TH/MM3 8.0 TH/MM3 11.3 TH/MM3 Red Blood Count 4.45 MIL/MM3 4.64 MIL/MM3 4.85 MIL/MM3 Hemoglobin 13.8 GM/DL 14.1 GM/DL 14.8 GM/DL Bedside Hemoglobin 13.9 G/DL Hematocrit 40.1 % 41.5 % 44.1 % Bedside Hematocrit 41.0 % Mean Corpuscular Volume 90.1 FL 89.5 FL 90.8 FL Mean Corpuscular Hemoglobin 31.0 PG 30.4 PG 30.4 PG Mean Corpuscular Hemoglobin Concent 34.4 % 34.0 % 33.5 % Red Cell Distribution Width 14.2 % 13.6 % 13.7 % Platelet Count 263 TH/MM3 248 TH/MM3 232 TH/MM3 Mean Platelet Volume 7.3 FL 7.6 FL 8.4 FL Neutrophils (%) (Auto) 37.1 % 78.1 % 87.9 % Lymphocytes (%) (Auto) 44.1 % 10.9 % 4.9 % Monocytes (%) (Auto) 11.8 % 9.0 % 7.0 % Eosinophils (%) (Auto) 5.9 % 1.3 % 0.0 % Basophils (%) (Auto) 1.1 % 0.7 % 0.2 % Neutrophils # (Auto) 1.7 TH/MM3 6.3 TH/MM3 9.9 TH/MM3 Lymphocytes # (Auto) 2.0 TH/MM3 0.9 TH/MM3 0.6 TH/MM3 Monocytes # (Auto) 0.5 TH/MM3 0.7 TH/MM3 0.8 TH/MM3 Eosinophils # (Auto) 0.3 TH/MM3 0.1 TH/MM3 0.0 TH/MM3 Basophils # (Auto) 0.1 TH/MM3 0.1 TH/MM3 0.0 TH/MM3 CBC Comment DIFF FINAL DIFF FINAL DIFF FINAL Differential Comment Erythrocyte Sedimentation Rate 9 mm/hr Prothrombin Time 10.6 SEC Prothromb Time International Ratio 1.0 RATIO Activated Partial Thromboplast Time 22.6 SEC Fibrinogen 301 mg/dL Bedside Sodium 142 MMOL/L Bedside Potassium 4.3 MMOL/L Bedside Chloride 103 MMOL/L Bedside Blood Urea Nitrogen 18 MG/DL Bedside Creatinine 0.9 MG/DL Bedside Glucose 98 MG/DL Aspartate Amino Transf (AST/SGOT) 25 U/L 96 U/L Alanine Aminotransferase (ALT/SGPT) 28 U/L 41 U/L Vitamin B12 Level 283 PG/ML Free Thyroxine 0.89 NG/DL 1.10 NG/DL Thyroid Stimulating Hormone 3rd Gen 1.420 uIU/ML 0.886 uIU/ML Ethyl Alcohol Level LESS THAN 3 MG/DL Urine Color LIGHT-YELLOW Urine Turbidity HAZY Urine pH 7.5 Urine Specific [place] 1.010 Urine Protein NEG mg/dL Urine Glucose (UA) NEG mg/dL Urine Ketones NEG mg/dL Urine Occult Blood NEG Urine Nitrite POS Urine Bilirubin NEG Urine Urobilinogen LESS THAN 2.0 MG/DL Urine Leukocyte Esterase LARGE Urine RBC 2 /hpf Urine WBC 21 /hpf Urine Squamous Epithelial Cells 1 /hpf Urine Bacteria MANY /hpf Microscopic Urinalysis Comment CULTURE INDICATED Blood Urea Nitrogen 12 MG/DL 16 MG/DL Creatinine 0.87 MG/DL 0.84 MG/DL Random Glucose 94 MG/DL 90 MG/DL Calcium Level 8.9 MG/DL 9.4 MG/DL Sodium Level 142 MEQ/L 142 MEQ/L Potassium Level 3.8 MEQ/L 3.5 MEQ/L Chloride Level 109 MEQ/L 108 MEQ/L Carbon Dioxide Level 24.2 MEQ/L 23.1 MEQ/L Anion Gap 9 MEQ/L 11 MEQ/L Estimat Glomerular Filtration Rate 63 ML/MIN 65 ML/MIN Rapid Plasma Reagin NON-REACTIVE Total Protein 7.2 GM/DL Albumin 3.3 GM/DL Phosphorus Level 2.5 MG/DL Magnesium Level 1.9 MG/DL Alkaline Phosphatase 77 U/L Total Bilirubin 2.2 MG/DL Imaging Last Impressions Hip MRI 09/15/17 0000 Signed Impressions: Service Date/Time: Friday, September 15, 2017 07:31 - CONCLUSION: 1. Mildly angulated subcapital femoral neck fracture. 2. Perivascular edema and suspected injury to the gemellus muscle. 3. Small joint effusion. 4. Intact acetabulum. Nehemiah Dixon MD Carotid Artery Ultrasound [id number] Signed Impressions: Service Date/Time: Thursday, September 14, 2017 07:53 - CONCLUSION: 1. Mild to moderate bilateral carotid plaque as described. 2. No evidence of hemodynamically significant stenosis. 3. Antegrade flow in both vertebral arteries. Nehemiah Dixon MD Head Magnetic Resonance Angiography 09/14/17 Signed Impressions: Service Date/Time: Thursday, September 14, 2017 10:06 - CONCLUSION: Normal examination. Nehemiah Dixon MD Head CT 09/14/17 0000 Signed Impressions: Service Date/Time: Thursday, September 14, 2017 15:20 - CONCLUSION: No acute intracranial findings. No evidence of intracranial hemorrhage. Sawyer Walker MD Brain MRI 09/14/17 0000 Signed Impressions: Service Date/Time: Thursday, September 14, 2017 10:06 - CONCLUSION: 1. No evidence of acute or chronic hemorrhage on MRI. 2. No evidence of acute infarct, edema, mass or enhancing lesions. Nehemiah Dixon MD Pelvis X-Ray [id number] Signed Impressions: Service Date/Time: Wednesday, September 13, 2017 13:52 - CONCLUSION: No fracture. Gilberto Humphrey MD Chest X-Ray [id number] Signed Impressions: Service Date/Time: Wednesday, September 13, 2017 13:52 - CONCLUSION: 1. No acute cardiopulmonary process. 2. Hyperinflation with some biapical fibrosis/ scarring. Gilberto Humphrey MD Cervical Spine CT 09/13/17 1356 Signed Impressions: Service Date/Time: Wednesday, September 13, 2017 14:10 - CONCLUSION: 1. No fractures or dislocations. 2. Multilevel degenerative changes as detailed at each level in the above discussion. 3. Carotid artery atherosclerotic calcifications. 4. Calcified pleural plaques. This can be seen in asbestos exposure. Robinson Diaz Jr., MD Lower Extremity CT 09/13/17 0000 Signed Impressions: Service Date/Time: Thursday, September 14, 2017 11:35 - CONCLUSION: 1. The subcapital right femoral neck lucency suspicious for nondisplaced fracture. Recommend right hip MRI for further evaluation. 2. Moderate-sized right hip joint effusion. Sawyer Walker MD Femur X-Ray 09/13/17 0000 Signed Impressions: Service Date/Time: Wednesday, September 13, 2017 13:52 - CONCLUSION: Negative for fracture Poli Quigley MD FACR Objective Remarks GENERAL: This is a elderly cachectic female patient, in no apparent distress. LESS confused SKIN: No rashes. Cool and dry. Right hip with large area of faint ecchymosis slightly bigger than the size of a softball. Laceration over right eye is covered with gauze that is dry and intact. HEAD: Atraumatic. Normocephalic. EYES: No scleral icterus. No injection or drainage. Wears glasses ENT: Nose without bleeding, purulent drainage. NECK: Trachea midline. No JVD or lymphadenopathy. CARDIOVASCULAR: Regular rate and rhythm without murmurs, gallops, or rubs. S1- S2 no S3 or S4 RESPIRATORY: Clear to auscultation. Breath sounds equal bilaterally. No wheezes , rales, or rhonchi. GASTROINTESTINAL: Abdomen soft, non-tender, nondistended. No guarding. MUSCULOSKELETAL: Extremities without clubbing, cyanosis. No calf tenderness. RIGHT HIP IS CURRENTLY DRESSED AFTER SURGERY NEUROLOGICAL: Awake and alert; confused. Normal speech. Cranial nerves II through XII grossly intact. Procedures Date of Surgery: Sep 16, 2017 Preoperative Diagnosis: Displaced right femoral neck fracture Postoperative Diagnosis: Procedure: Right hip hemiarthroplasty Anesthesia: Gen. Surgeon: Christian Lovelace Training And Development Director(s): KESHIA Zimmer PA-C The surgical procedure was assisted by my physician anesthesiologist assistant. My P.A. presence was necessary throughout this case for the manipulation and positioning of the surgical extremity. My P.A. was assisting me throughout the duration of this procedure. The skill set of a physician anesthesiologist assistant was medically necessary to complete this procedure. During the surgical case the surgical instrument technician was working at the back table and the physician anesthesiologist assistant was directly assisting me. Operation and Findings: PLAN OF ACTIVITY Weight bear as tolerated. IMPLANTS USED DePuy Corail size [12] stem with size [44] bipolar head and [+1] neck. DETAILS OF PROCEDURE This patient was brought into the operating room and placed on the OR table. The patient was given anesthesia. The patient received IV antibiotics. The patient was then placed in lateral decubitus position. The hip and leg were prepped with alcohol, followed by Hibiclens and draped in a usual sterile fashion. Clean air was used for this procedure. Time out procedure was performed. The procedure began with a 5 inch incision over the posterolateral hip. The subcutaneous tissue was dissected with the Bovie. The iliotibial band were split in line with fibers. The Charnley retractor was placed. The piriformis and external rotators were released from the femur and tagged with a #1 Vicryl suture. The capsule is now incised and tagged with #1 Vicryl. The femoral neck fracture was now visualized. A corkscrew was now used to remove the femoral head. The femoral head was sized and measured. Soft tissue was now protected. The hip skid was placed underneath the femoral neck. An oscillating saw was used to make a femoral neck cut. At this point attention was turned to preparation of the proximal femur. A box osteotome was used to remove the lateral cortex of the femoral neck. The T- handle reamer was used to open the femoral canal. Next, the canal was broached. A lateralizing reamer was used to help lateralize the prosthesis. There was a small cortical defect along the medial calcar region. This did not extend below the lesser trochanter. A 1.7 mm cable was passed around the proximal femur to help prevent any propagation of fracture along the calcar. The cable was tensioned, crimped, and cut. At this point a trial head and neck were placed. The hip was reduced. The patient was found to have excellent stability with good range of motion. Trial components were removed. Soft tissue and bone were thoroughly irrigated. A Corail stem was now opened. The stem was now impacted into the proximal femur. Care was taken to keep appropriate anteversion. The head and neck were now impacted onto the stem. The hip was again reduced. The hip was found to have good range of motion and good stability. Leg lengths were clinically equal. The wound was thoroughly irrigated. The capsule, piriformis and iliotibial band were closed with #1 Vicryl. Subcutaneous tissue was closed with 3-0 Vicryl. The skin was closed with toyin. A sterile dressing was applied with Primapore. The patient was placed into a knee immobilizer. The patient was awakened and transferred to the recovery room in stable condition. Needle and sponge counts were correct. Christian Lovelace MD Sep 16, 2017 11:47 Medications and IVs Current Medications Sodium Chloride 1,000 ml @ 70 mls/hr [id number] IV Last administered on at 02:34; Start 09/13/17 at 16:25 Sodium Chloride (NS Flush) 2 ml UNSCH PRN IV FLUSH FLUSH AFTER USING IV ACCESS ; Start 09/13/17 at 16:30 Sodium Chloride (NS Flush) 2 ml BID IV FLUSH Last administered on 09/14/17at 08: 26; Start 09/13/17 at 21:00 Labetalol HCl (Trandate Inj) 20 mg Q4H PRN IV PUSH SYS BP GREATER THAN 160 MMHG ; Start 09/13/17 at 16:30 Enalaprilat (Vasotec Inj) 1.25 mg Q6H PRN IV PUSH to keep SBP between 140-160; Start 09/13/17 at 16:30 Clonidine (Catapres) 0.1 mg Q6H PRN PO to keep SBP between 140-160; Start at 16:30 Famotidine (Pepcid) 20 mg BID PO Last administered on 09/14/17at 08:26; Start at 21:00; Stop 09/14/17 at 16:09; Status DC Acetaminophen (Tylenol) 650 mg Q4H PRN PO PAIN SCALE 1 TO 10 Last administered on 09/14/17at 14:51; Start 09/13/17 at 16:30 Ondansetron HCl (Zofran Inj) 4 mg Q6H PRN IV PUSH NAUSEA; Start 09/13/17 at 16: 30 Docusate Sodium (Colace) 100 mg BID PRN PO CONSTIPATION; Start 09/13/17 at 16:30 Donepezil HCl (Aricept) 15 mg HS PO Last administered on 09/14/17at 20:23; Start 09/14/17 at 21:00; Stop 09/15/17 at 09:24; Status DC Gadodiamide (Omniscan Pf Inj) 10 ml STK-MED ONCE IVCONTRAST Last administered on 09/14/17at 10:12; Start 09/14/17 at 10:12; Stop 09/14/17 at 10:13; Status DC Gadodiamide (Omniscan Pf Inj) 10 ml STK-MED ONCE IVCONTRAST ; Start 09/14/17 at 10:24; Stop 09/14/17 at 10:25; Status Cancel Famotidine (Pepcid) 10 mg BID PO Last administered on 09/15/17at 21:51; Start at 21:00 Miscellaneous (Pill Splitter) 1 ea UNSCH PRN OTHER SEE LABEL COMMENTS; Start at 16:15 Lorazepam (Ativan) 1 mg TID PRN PO ANXIETY Last administered on 09/15/17at 21:53 ; Start 09/14/17 at 16:45 Mirtazapine (Remeron) 15 mg HS PO Last administered on 09/15/17at 21:53; Start 09/14/17 at 21:00 Donepezil HCl (Aricept) 10 mg HS PO Last administered on 09/15/17at 21:51; Start 09/15/17 at 21:00 Memantine (Namenda) 5 mg DAILY PO ; Start 09/15/17 at 09:15; Stop 09/15/17 at 10 :19; Status DC Cyanocobalamin (Vitamin B12 Inj) 1,000 mcg DAILY SQ Last administered on at 12:15; Start 09/15/17 at 09:15; Stop 09/18/17 at 09:14 Ceftriaxone Sodium 1000 mg/ Sodium Chloride 100 ml @ 200 mls/hr Q24H IV Last administered on 09/15/17at 12:15; Start 09/15/17 at 10:00 Memantine (Namenda) 5 mg BID PO ; Start 09/22/17 at 09:00; Stop 09/29/17 at 08: 59 Memantine (Namenda) 10 mg BID PO ; Start 09/29/17 at 09:00 Memantine (Namenda) 5 mg DAILY PO Last administered on 09/15/17at 12:14; Start 09/15/17 at 10:00; Stop 09/22/17 at 08:59 Vancomycin HCl (Vancomycin Inj) 1,000 mg STK-MED ONCE .ROUTE ; Start 09/16/17 at 07:25; Stop 09/16/17 at 07:26; Status DC Tranexamic Acid 600 mg/Sodium Chloride 106 ml @ 200 mls/hr ONCE IV Last administered on 09/16/17at 10:42; Start 09/16/17 at 10:00; Stop 09/16/17 at 16:00 Acetaminophen 100 ml @ As Directed STK-MED ONCE IV ; Start 09/16/17 at 10:28; Stop 09/16/17 at 10:29; Status DC Clindamycin Phosphate (Cleocin Inj) 600 mg STK-MED ONCE .ROUTE Last administered on 09/16/17at 10:59; Start 09/16/17 at 10:48; Stop 09/16/17 at 10:49 ; Status DC Sugammadex Sodium (Bridion Inj) 200 mg STK-MED ONCE IV PUSH ; Start 09/16/17 at 11:24; Stop 09/16/17 at 11:25; Status DC Cefazolin Sodium/ Dextrose 50 ml @ 100 mls/hr Q6H IV ; Start 09/16/17 at 11:45 ; Stop 09/17/17 at 00:14; Status UNV Miscellaneous Information (Post-op Orders (for Pharmacy)) STAT ONCE XX ; Start 09/16/17 at 12:00; Stop 09/16/17 at 12:01; Status DC Enoxaparin Sodium (Lovenox Inj) 30 mg Q24H SQ ; Start 09/17/17 at 12:00 Acetaminophen/ Hydrocodone Bitart ([place] 5-325 Mg) 1 tab Q3H PRN PO PAIN 3<10 ; Start 09/16/17 at 11:45; Status UNV Morphine Sulfate (Morphine Inj) 2 mg Q3H PRN IV PUSH break thru pain; Start 06/24 at 12:00 Ergocalciferol (Drisdol) 50,000 units ONCE ONCE PO ; Start 09/16/17 at 12:00; Stop 09/16/17 at 12:01; Status DC Cholecalciferol (Vitamin D3) 5,000 units DAILY PO ; Start 09/17/17 at 09:00 Fentanyl Citrate (fentaNYL INJ) 100 mcg STK-MED ONCE .ROUTE ; Start 09/16/17 at 12:14; Stop 09/16/17 at 12:15; Status DC Miscellaneous Information ALL NURSING DEPARTME... UNSCH PRN .XX SEE LABEL COMMENTS; Start 09/16/17 at 12:08; Stop 09/17/17 at 12:07 A/P Problem List: (1) Intracranial hemorrhage ICD Code: I62.9 - Nontraumatic intracranial hemorrhage, unspecified Status: Acute Assessment and Plan Mrs. Rivera is a 77-year-old female with a past medical history of dementia, depression, and anxiety who presented to the emergency room on 09/13/2017 after she was walking her dog and fell while walking in her neighborhood. She was found to be confused and complaining of right hip pain. Head CT in the emergency department showed questionable isolated area of parenchymal hemorrhage /contusion in the right posterior parietal/occipital region. She was admitted for monitoring and medical management. Intracranial hemorrhage/contusion right posterior parietal/occipital region - Neurosurgery consulted - patient also with degenerative disc disease with disc herniation and spinal stenosis - appreciate recommendations/assistance - Frequent neuro checks Syncope versus CVA versus seizure activity versus mechanical fall - We'll check brain MRI, MRA with and without contrast to further evaluate for ischemic CVA or other organic brain disease - Check bilateral carotid ultrasound to evaluate for carotid stenosis - EEG - Bed rest for now - Consult OT, PT, and ST - Neurology consulted - appreciate assistance - Diet -passed swallow eval with speech therapy Add 2D echo Right hip pain status post fall with impaired mobility - Obtain CT of right hip to further evaluate for injury/fracture HAD MRI OF RIGHT HIP- CONSULT ORTHO FOR FRACTURE SP RIGHT HIP REPAIR/HEMIARTHROPLASTY OF RIGHT HIP 3 Right forehead laceration repaired in the ED - Monitor for signs of infection Dementia ALZHEIMERS WITH PROGRESSION - Resume home Aricept Anxiety/Depression - Holding lorazepam and Remeron at this time to avoid sedation which may interfere with neurological examination PROBABLE UTI- START ROCEPHIN 1 GRAM IV DAILY AWAIT CULTURES DVT prophylaxis - SCDs; chemoprophylaxis contraindicated Discharge Planning Pending clearance by neuro and neurosurgery Will more than likely need SNF Poli Jennings DO Sep 16, 2017 13:09
[2017-09-16] MEDS ORDERED: GENTAMICIN SULFATE 80 MG/2 ML VIAL ONE (13:17)
--- NOTE | 2017-09-16 13:38 | RADRPT ---
EXAM DATE/TIME: 09/16/2017 12:30 [facility] COMPARISON: No previous studies available for comparison. INDICATIONS : Post op right hip surgery. MEDICAL HISTORY : Venous insufficiency. dementia SURGICAL HISTORY : None. ENCOUNTER: Initial ACUITY: 1 day PAIN SCORE: Non-responsive. LOCATION: Right hip and pelvis FINDINGS: The patient is status post right hip arthroplasty. Overlying skin toyin are present. Hardware appea rs well seated. A single cerclage wires encircle the proximal femoral shaft. There is subcutaneous ai r. CONCLUSION: Postsurgical changes right hip arthroplasty. Joshua Muñoz MD on September 16, 2017 at 13:36 Board Certified Radiologist. This report was verified electronically.
[2017-09-16 14:44] LABS: ANA SCREEN NEG (NEG)
[2017-09-16] MEDS ORDERED: ACETAMINOPHEN/HYDROcodone 325 MG/5 MG TAB PO PRN (15:00)
[2017-09-16 16:48] LABS: HEMOGLOBIN A1C 5.5 % (4.3-6.0)
--- NOTE | 2017-09-16 18:32 | EKG ---
Date Performed: 09/16/2017 Time Performed: 06:56:05 PTAGE: 77 years EKG: Sinus rhythm WITH SINUS ARRHYTHMIA Left anterior fasicular block Probable Left ventricular hypertrophy with later al T wave changes ABNORMAL ECG NO PREVIOUS TRACING DOCTOR: Zandra Ashraf Interpretating Date/Time 09/16/2017 18:29:53
[2017-09-16] MEDS: LORazepam 1 MG TAB PO PRN (20:04)
[2017-09-16] MEDS: DONEPEZIL HCL 5 MG TAB PO SCH (20:04)
[2017-09-16] MEDS: MIRTAZAPINE 15 MG TAB PO SCH (20:04)
[2017-09-17] VITALS (8 sets, daily range): BP systolic 116–143; BP diastolic 63–96; PULSE 71–115; RESP 18–20; TEMP 97.7–98.5; O2SAT 94–99
[2017-09-17] MEDS: LORazepam 1 MG TAB PO PRN ×3 (03:02→20:12)
[2017-09-17] MEDS: SODIUM CHLOR 0.9% 1000 ML INJ 1,000 ML IV SCH ×2 (06:13→19:52)
[2017-09-17] MEDS: MEMANTINE HCL 5 MG TAB PO SCH (08:02)
[2017-09-17] MEDS: CHOLECALCIFEROL (VIT D3) 5000 UNIT CAP PO SCH (08:02)
[2017-09-17] MEDS: FAMOTIDINE 20 MG TAB PO SCH ×2 (08:02→20:12)
[2017-09-17] MEDS: CYANOCOBALAMIN 1000 MCG/ML VIAL SQ SCH (08:07)
[2017-09-17 08:24] LABS: AUTOMATED NEUTROPHIL # 9.1 TH/MM3 (1.8-7.7); BASOPHIL % 0.2 % (0.0-2.0); HEMOGLOBIN 12.6 GM/DL (11.6-15.3); LYMPH % 9.9 % (9.0-44.0); LYMPHOCYTE # 1.1 TH/MM3 (1.0-4.8); MEAN CELL VOLUME 91.3 FL (80.0-100.0); MEAN PLATELET VOLUME 8.5 FL (7.0-11.0); MONOCYTE # 1.3 TH/MM3 (0-0.9); NEUT % 78.9 % (16.0-70.0); PLATELET COUNT 178 TH/MM3 (150-450); RED BLOOD COUNT 4.05 MIL/MM3 (4.00-5.30); RED CELL DISTRIBUTION WIDTH 14.1 % (11.6-17.2); WHITE BLOOD COUNT 11.6 TH/MM3 (4.0-11.0)
[2017-09-17 08:44] LABS: ALBUMIN 2.9 GM/DL (3.4-5.0); AST (GOT) 101 U/L (15-37); BLOOD UREA NITROGEN 20 MG/DL (7-18); CALCIUM 9.1 MG/DL (8.5-10.1); CHLORIDE 109 MEQ/L (98-107); CREATININE 0.83 MG/DL (0.50-1.00); GLOMERULAR FILTRATION RATE 66 ML/MIN (>89); GLUCOSE,RANDOM 70 MG/DL (74-106); SODIUM (NA) 144 MEQ/L (136-145)
[2017-09-17 08:47] LABS: ALKALINE PHOSPHATASE 63 U/L (45-117); ALT (GPT) 61 U/L (10-53); PHOSPHORUS 2.3 MG/DL (2.5-4.9); TOTAL BILIRUBIN ADULT 1.5 MG/DL (0.2-1.0); TOTAL PROTEIN 6.3 GM/DL (6.4-8.2)
[2017-09-17] MEDS: SODIUM CHLORIDE 0.9% FLUSH 10 ML FLUSH IV FLUSH SCH ×2 (09:00→20:14)
[2017-09-17] MEDS: cefTRIAXone INJ 1,000 MG in SODIUM CHLORIDE 0.9% INJ 100 ML IV SCH ×2 (09:55→09:57)
--- NOTE | 2017-09-17 10:29 | HHI.PR ---
Subjective Remarks Mrs. Rivera is a 77-year-old female with a past medical history of dementia, depression, and anxiety who presented to the emergency room on 09/13/2017 after she was walking her dog and fell while walking in her neighborhood. She was found to be confused and complaining of right hip pain. Head CT in the emergency department showed questionable isolated area of parenchymal hemorrhage /contusion in the right posterior parietal/occipital region. She was admitted for monitoring and medical management. The patient is seen in her hospital room. She is very pleasant but confused and a poor historian. She is unable to recall the names of her medications and medical conditions. She provides a limited history of the fall as she does not remember much of the event. She is unsure whether or not she lost consciousness or not. She denies feeling ill prior to the fall and states she does not recall any chest pain or shortness of breath. She indicates that she may have tripped over her dog. She is complaining of 10 out of 10 sharp right hip pain that is worse with movement and palpation. . Femur and AP pelvis x-rays were negative for fracture. 3-10 patient is currently confused This is probably baseline hAs some dementia Await the evaluation by physical therapy and occupational therapy discussed with patient and RN and case management await neuro Await neuro surgical evaluation await neurology evaluation Await MRIs and CAT scan of the right hip Patient may need placement at discharge PATIENT FELL AND WELL GET A REPEAT CAT SCAN OF BRAIN RADIOLOGY WANTS MRI OF RIGHT HIP THESE ARE PENDING 3-11 fracture of right hip consult ortho patient remains very confused DW NEUROLOGY HE FEELS SHE HAS DEMENTIA DW RN AND PT REMAINS CONFUSED 3-12 HAD RIGHT HIP SURGERY TODAY WITH DR LOVELACE NO NEW COMPLAINTS DW RN AND PT AND CM WILL NEED SNF 3-13 CONTINUE PT AND OT REMAINS CONFUSED SEEN LYING IN BED DW RN AND PT AND CM Objective Vitals Vital Signs Date Time Temp Pulse Resp B/P (MAP) Pulse Ox O2 Delivery O2 Flow Rate FiO2 09/17/17 08:28 97.9 86 18 118/74 (89) 94 09/17/17 05:35 97.7 78 19 126/63 (84) 99 09/17/17 00:54 98.0 71 19 116/68 (84) 96 09/16/17 22:01 97.9 76 19 122/70 (87) 96 09/16/17 17:16 98 21 09/16/17 16:00 97.5 95 18 128/72 (90) 98 09/16/17 16:00 97.5 95 18 128/72 (90) 98 09/16/17 14:16 94 09/16/17 12:54 98.5 80 20 102/55 (71) 100 Nasal Cannula 2 09/16/17 12:45 87 20 106/52 (70) 100 Nasal Cannula 2 09/16/17 12:30 82 21 117/58 (77) 100 Nasal Cannula 3 09/16/17 12:15 80 20 102/54 (70) 100 Nasal Cannula 3 09/16/17 12:06 98.7 84 21 124/92 (103) 99 Simple Mask 6 I/O 09/16/17 09/16/17 09/16/17 09/17/17 09/17/17 09/17/17 07:00 15:00 23:00 07:00 15:00 23:00 Intake Total 1228 ml 800 ml Output Total 150 ml 150 ml 200 ml Balance 1228 ml 650 ml -150 ml -200 ml IV Total 1228 ml 800 ml Output Urine Total 100 ml 150 ml 200 ml Estimated Blood Loss 50 ml # Voids 2 1 1 Result Diagram: 09/17/17 0509/17/17 05 Other Results Laboratory Tests Test 09/15/17 06:58 09/16/17 19:55 09/17/17 05:22 White Blood Count 11.3 TH/MM3 11.6 TH/MM3 Red Blood Count 4.85 MIL/MM3 4.05 MIL/MM3 Hemoglobin 14.8 GM/DL 12.6 GM/DL Hematocrit 44.1 % 37.0 % Mean Corpuscular Volume 90.8 FL 91.3 FL Mean Corpuscular Hemoglobin 30.4 PG 31.0 PG Mean Corpuscular Hemoglobin Concent 33.5 % 34.0 % Red Cell Distribution Width 13.7 % 14.1 % Platelet Count 232 TH/MM3 178 TH/MM3 Mean Platelet Volume 8.4 FL 8.5 FL Neutrophils (%) (Auto) 87.9 % 78.9 % Lymphocytes (%) (Auto) 4.9 % 9.9 % Monocytes (%) (Auto) 7.0 % 11.0 % Eosinophils (%) (Auto) 0.0 % 0.0 % Basophils (%) (Auto) 0.2 % 0.2 % Neutrophils # (Auto) 9.9 TH/MM3 9.1 TH/MM3 Lymphocytes # (Auto) 0.6 TH/MM3 1.1 TH/MM3 Monocytes # (Auto) 0.8 TH/MM3 1.3 TH/MM3 Eosinophils # (Auto) 0.0 TH/MM3 0.0 TH/MM3 Basophils # (Auto) 0.0 TH/MM3 0.0 TH/MM3 CBC Comment DIFF FINAL DIFF FINAL Differential Comment Blood Urea Nitrogen 16 MG/DL 20 MG/DL Creatinine 0.84 MG/DL 0.83 MG/DL Random Glucose 90 MG/DL 70 MG/DL Total Protein 7.2 GM/DL 6.3 GM/DL Albumin 3.3 GM/DL 2.9 GM/DL Calcium Level 9.4 MG/DL 9.1 MG/DL Phosphorus Level 2.5 MG/DL 2.3 MG/DL Magnesium Level 1.9 MG/DL 2.0 MG/DL Alkaline Phosphatase 77 U/L 63 U/L Aspartate Amino Transf (AST/SGOT) 96 U/L 101 U/L Alanine Aminotransferase (ALT/SGPT) 41 U/L 61 U/L Total Bilirubin 2.2 MG/DL 1.5 MG/DL Sodium Level 142 MEQ/L 144 MEQ/L Potassium Level 3.5 MEQ/L 3.8 MEQ/L Chloride Level 108 MEQ/L 109 MEQ/L Carbon Dioxide Level 23.1 MEQ/L 22.0 MEQ/L Anion Gap 11 MEQ/L 13 MEQ/L Estimat Glomerular Filtration Rate 65 ML/MIN 66 ML/MIN Hemoglobin A1c 5.5 % Free Thyroxine 1.10 NG/DL Thyroid Stimulating Hormone 3rd Gen 0.886 uIU/ML 25-Hydroxy Vitamin D Total 14.8 ng/ML Imaging Last Impressions Hip and Pelvis X-Ray 09/16/17 1142 Signed Impressions: Service Date/Time: Saturday, September 16, 2017 12:30 - CONCLUSION: Postsurgical changes right hip arthroplasty. Joshua Muñoz MD Hip MRI 09/15/17 0000 Signed Impressions: Service Date/Time: Friday, September 15, 2017 07:31 - CONCLUSION: 1. Mildly angulated subcapital femoral neck fracture. 2. Perivascular edema and suspected injury to the gemellus muscle. 3. Small joint effusion. 4. Intact acetabulum. Nehemiah Dixon MD Carotid Artery Ultrasound [id number] Signed Impressions: Service Date/Time: Thursday, September 14, 2017 07:53 - CONCLUSION: 1. Mild to moderate bilateral carotid plaque as described. 2. No evidence of hemodynamically significant stenosis. 3. Antegrade flow in both vertebral arteries. Nehemiah Dixon MD Head Magnetic Resonance Angiography 09/14/17 Signed Impressions: Service Date/Time: Thursday, September 14, 2017 10:06 - CONCLUSION: Normal examination. Nehemiah Dixon MD Head CT 09/14/17 Signed Impressions: Service Date/Time: Thursday, September 14, 2017 15:20 - CONCLUSION: No acute intracranial findings. No evidence of intracranial hemorrhage. Sawyer Walker MD Brain MRI 09/14/17 Signed Impressions: Service Date/Time: Thursday, September 14, 2017 10:06 - CONCLUSION: 1. No evidence of acute or chronic hemorrhage on MRI. 2. No evidence of acute infarct, edema, mass or enhancing lesions. Nehemiah Dixon MD Pelvis X-Ray [id number] Signed Impressions: Service Date/Time: Wednesday, September 13, 2017 13:52 - CONCLUSION: No fracture. Gilberto Humphrey MD Chest X-Ray [id number] Signed Impressions: Service Date/Time: Wednesday, September 13, 2017 13:52 - CONCLUSION: 1. No acute cardiopulmonary process. 2. Hyperinflation with some biapical fibrosis/ scarring. Gilberto Humphrey MD Cervical Spine CT [id number] Signed Impressions: Service Date/Time: Wednesday, September 13, 2017 14:10 - CONCLUSION: 1. No fractures or dislocations. 2. Multilevel degenerative changes as detailed at each level in the above discussion. 3. Carotid artery atherosclerotic calcifications. 4. Calcified pleural plaques. This can be seen in asbestos exposure. Robinson Diaz Jr., MD Lower Extremity CT 09/13/17 Signed Impressions: Service Date/Time: Thursday, September 14, 2017 11:35 - CONCLUSION: 1. The subcapital right femoral neck lucency suspicious for nondisplaced fracture. Recommend right hip MRI for further evaluation. 2. Moderate-sized right hip joint effusion. Sawyer Walker MD Femur X-Ray 3/9/18 0000 Signed Impressions: Service Date/Time: Wednesday, September 13, 2017 13:52 - CONCLUSION: Negative for fracture Poli Quigley MD FACR Objective Remarks GENERAL: This is a elderly cachectic female patient, in no apparent distress. LESS confused SKIN: No rashes. Cool and dry. Right hip with large area of faint ecchymosis slightly bigger than the size of a softball. Laceration over right eye is covered with gauze that is dry and intact. HEAD: Atraumatic. Normocephalic. EYES: No scleral icterus. No injection or drainage. Wears glasses ENT: Nose without bleeding, purulent drainage. NECK: Trachea midline. No JVD or lymphadenopathy. CARDIOVASCULAR: Regular rate and rhythm without murmurs, gallops, or rubs. S1- S2 no S3 or S4 RESPIRATORY: Clear to auscultation. Breath sounds equal bilaterally. No wheezes , rales, or rhonchi. GASTROINTESTINAL: Abdomen soft, non-tender, nondistended. No guarding. MUSCULOSKELETAL: Extremities without clubbing, cyanosis. No calf tenderness. RIGHT HIP IS CURRENTLY DRESSED AFTER SURGERY-- HAS A PILLOW IN PLACE NEUROLOGICAL: Awake and alert; confused. Normal speech. Cranial nerves II through XII grossly intact. Procedures Date of Surgery: Sep 16, 2017 Preoperative Diagnosis: Displaced right femoral neck fracture Postoperative Diagnosis: Procedure: Right hip hemiarthroplasty Anesthesia: Gen. Surgeon: Christian Lovelace Belting Cutter(s): KESHIA Zimmer PA-C The surgical procedure was assisted by my physician junior sales assistant. My P.A. presence was necessary throughout this case for the manipulation and positioning of the surgical extremity. My P.A. was assisting me throughout the duration of this procedure. The skill set of a physician junior sales assistant was medically necessary to complete this procedure. During the surgical case the surgical aides teacher was working at the back table and the physician junior sales assistant was directly assisting me. Operation and Findings: PLAN OF ACTIVITY Weight bear as tolerated. IMPLANTS USED DePuy Corail size [12] stem with size [44] bipolar head and [+1] neck. DETAILS OF PROCEDURE This patient was brought into the operating room and placed on the OR table. The patient was given anesthesia. The patient received IV antibiotics. The patient was then placed in lateral decubitus position. The hip and leg were prepped with alcohol, followed by Hibiclens and draped in a usual sterile fashion. Clean air was used for this procedure. Time out procedure was performed. The procedure began with a 5 inch incision over the posterolateral hip. The subcutaneous tissue was dissected with the Bovie. The iliotibial band were split in line with fibers. The Charnley retractor was placed. The piriformis and external rotators were released from the femur and tagged with a #1 Vicryl suture. The capsule is now incised and tagged with #1 Vicryl. The femoral neck fracture was now visualized. A corkscrew was now used to remove the femoral head. The femoral head was sized and measured. Soft tissue was now protected. The hip skid was placed underneath the femoral neck. An oscillating saw was used to make a femoral neck cut. At this point attention was turned to preparation of the proximal femur. A box osteotome was used to remove the lateral cortex of the femoral neck. The T- handle reamer was used to open the femoral canal. Next, the canal was broached. A lateralizing reamer was used to help lateralize the prosthesis. There was a small cortical defect along the medial calcar region. This did not extend below the lesser trochanter. A 1.7 mm cable was passed around the proximal femur to help prevent any propagation of fracture along the calcar. The cable was tensioned, crimped, and cut. At this point a trial head and neck were placed. The hip was reduced. The patient was found to have excellent stability with good range of motion. Trial components were removed. Soft tissue and bone were thoroughly irrigated. A Corail stem was now opened. The stem was now impacted into the proximal femur. Care was taken to keep appropriate anteversion. The head and neck were now impacted onto the stem. The hip was again reduced. The hip was found to have good range of motion and good stability. Leg lengths were clinically equal. The wound was thoroughly irrigated. The capsule, piriformis and iliotibial band were closed with #1 Vicryl. Subcutaneous tissue was closed with 3-0 Vicryl. The skin was closed with toyin. A sterile dressing was applied with Primapore. The patient was placed into a knee immobilizer. The patient was awakened and transferred to the recovery room in stable condition. Needle and sponge counts were correct. Christian Lovelace MD Sep 16, 2017 11:47 Medications and IVs Current Medications Sodium Chloride 1,000 ml @ 70 mls/hr [id number] IV Last administered on at 06:13; Start 09/13/17 at 16:25 Sodium Chloride (NS Flush) 2 ml UNSCH PRN IV FLUSH FLUSH AFTER USING IV ACCESS ; Start 09/13/17 at 16:30 Sodium Chloride (NS Flush) 2 ml BID IV FLUSH Last administered on 09/14/17at 08: 26; Start 09/13/17 at 21:00 Labetalol HCl (Trandate Inj) 20 mg Q4H PRN IV PUSH SYS BP GREATER THAN 160 MMHG ; Start 09/13/17 at 16:30 Enalaprilat (Vasotec Inj) 1.25 mg Q6H PRN IV PUSH to keep SBP between 140-160; Start 09/13/17 at 16:30 Clonidine (Catapres) 0.1 mg Q6H PRN PO to keep SBP between 140-160; Start at 16:30 Famotidine (Pepcid) 20 mg BID PO Last administered on 09/14/17at 08:26; Start at 21:00; Stop 09/14/17 at 16:09; Status DC Acetaminophen (Tylenol) 650 mg Q4H PRN PO PAIN SCALE 1 TO 2 Last administered on 09/14/17at 14:51; Start 09/13/17 at 16:30 Ondansetron HCl (Zofran Inj) 4 mg Q6H PRN IV PUSH NAUSEA; Start 09/13/17 at 16: 30 Docusate Sodium (Colace) 100 mg BID PRN PO CONSTIPATION; Start 09/13/17 at 16:30 Donepezil HCl (Aricept) 15 mg HS PO Last administered on 09/14/17at 20:23; Start 09/14/17 at 21:00; Stop 09/15/17 at 09:24; Status DC Gadodiamide (Omniscan Pf Inj) 10 ml STK-MED ONCE IVCONTRAST Last administered on 09/14/17at 10:12; Start 09/14/17 at 10:12; Stop 09/14/17 at 10:13; Status DC Gadodiamide (Omniscan Pf Inj) 10 ml STK-MED ONCE IVCONTRAST ; Start 09/14/17 at 10:24; Stop 09/14/17 at 10:25; Status Cancel Famotidine (Pepcid) 10 mg BID PO Last administered on 09/17/17at 08:02; Start at 21:00 Miscellaneous (Pill Splitter) 1 ea UNSCH PRN OTHER SEE LABEL COMMENTS; Start at 16:15 Lorazepam (Ativan) 1 mg TID PRN PO ANXIETY Last administered on 09/17/17at 03:02 ; Start 09/14/17 at 16:45 Mirtazapine (Remeron) 15 mg HS PO Last administered on 09/16/17at 20:04; Start 09/14/17 at 21:00 Donepezil HCl (Aricept) 10 mg HS PO Last administered on 09/16/17at 20:04; Start 09/15/17 at 21:00 Memantine (Namenda) 5 mg DAILY PO ; Start 09/15/17 at 09:15; Stop 09/15/17 at 10 :19; Status DC Cyanocobalamin (Vitamin B12 Inj) 1,000 mcg DAILY SQ Last administered on at 08:07; Start 09/15/17 at 09:15; Stop 09/18/17 at 09:14 Ceftriaxone Sodium 1000 mg/ Sodium Chloride 100 ml @ 200 mls/hr Q24H IV Last administered on 09/17/17at 09:57; Start 09/15/17 at 10:00 Memantine (Namenda) 5 mg BID PO ; Start 09/22/17 at 09:00; Stop 09/29/17 at 08: 59 Memantine (Namenda) 10 mg BID PO ; Start 09/29/17 at 09:00 Memantine (Namenda) 5 mg DAILY PO Last administered on 09/17/17at 08:02; Start 09/15/17 at 10:00; Stop 09/22/17 at 08:59 Vancomycin HCl (Vancomycin Inj) 1,000 mg STK-MED ONCE .ROUTE ; Start 09/16/17 at 07:25; Stop 09/16/17 at 07:26; Status DC Tranexamic Acid 600 mg/Sodium Chloride 106 ml @ 200 mls/hr ONCE IV Last administered on 09/16/17at 10:42; Start 09/16/17 at 10:00; Stop 09/16/17 at 16:00 ; Status DC Acetaminophen 100 ml @ As Directed STK-MED ONCE IV ; Start 09/16/17 at 10:28; Stop 09/16/17 at 10:29; Status DC Clindamycin Phosphate (Cleocin Inj) 600 mg STK-MED ONCE .ROUTE Last administered on 09/16/17at 10:59; Start 09/16/17 at 10:48; Stop 09/16/17 at 10:49 ; Status DC Sugammadex Sodium (Bridion Inj) 200 mg STK-MED ONCE IV PUSH ; Start 09/16/17 at 11:24; Stop 09/16/17 at 11:25; Status DC Cefazolin Sodium/ Dextrose 50 ml @ 100 mls/hr Q6H IV ; Start 09/16/17 at 11:45 ; Stop 09/17/17 at 00:14; Status UNV Miscellaneous Information (Post-op Orders (for Pharmacy)) STAT ONCE XX ; Start 09/16/17 at 12:00; Stop 09/16/17 at 12:01; Status DC Enoxaparin Sodium (Lovenox Inj) 30 mg Q24H SQ ; Start 09/17/17 at 12:00 Acetaminophen/ Hydrocodone Bitart ([place] 5-325 Mg) 1 tab Q3H PRN PO PAIN 3<10 ; Start 09/16/17 at 15:00 Morphine Sulfate (Morphine Inj) 2 mg Q3H PRN IV PUSH break thru pain; Start 06/24 at 12:00 Ergocalciferol (Drisdol) 50,000 units ONCE ONCE PO ; Start 09/16/17 at 12:00; Stop 09/16/17 at 12:01; Status DC Cholecalciferol (Vitamin D3) 5,000 units DAILY PO Last administered on at 08:02; Start 09/17/17 at 09:00 Fentanyl Citrate (fentaNYL INJ) 100 mcg STK-MED ONCE .ROUTE ; Start 09/16/17 at 12:14; Stop 09/16/17 at 12:15; Status DC Miscellaneous Information ALL NURSING DEPARTME... UNSCH PRN .XX SEE LABEL COMMENTS; Start 09/16/17 at 12:08; Stop 09/17/17 at 12:07 Gentamicin Sulfate (Gentamicin Inj) 240 mg STK-MED ONCE .ROUTE Last administered on 09/16/17at 11:13; Start 09/16/17 at 13:17; Stop 09/16/17 at 13:18 ; Status DC A/P Problem List: (1) Intracranial hemorrhage ICD Code: I62.9 - Nontraumatic intracranial hemorrhage, unspecified Status: Acute Assessment and Plan Mrs. Rivera is a 77-year-old female with a past medical history of dementia, depression, and anxiety who presented to the emergency room on 09/13/2017 after she was walking her dog and fell while walking in her neighborhood. She was found to be confused and complaining of right hip pain. Head CT in the emergency department showed questionable isolated area of parenchymal hemorrhage /contusion in the right posterior parietal/occipital region. She was admitted for monitoring and medical management. Intracranial hemorrhage/contusion right posterior parietal/occipital region - Neurosurgery consulted - patient also with degenerative disc disease with disc herniation and spinal stenosis - appreciate recommendations/assistance - Frequent neuro checks Syncope versus CVA versus seizure activity versus mechanical fall - We'll check brain MRI, MRA with and without contrast to further evaluate for ischemic CVA or other organic brain disease - Check bilateral carotid ultrasound to evaluate for carotid stenosis - EEG - Bed rest for now - Consult OT, PT, and ST - Neurology consulted - appreciate assistance - Diet -passed swallow eval with speech therapy Add 2D echo Right hip pain status post fall with impaired mobility - Obtain CT of right hip to further evaluate for injury/fracture HAD MRI OF RIGHT HIP- CONSULT ORTHO FOR FRACTURE SP RIGHT HIP REPAIR/HEMIARTHROPLASTY OF RIGHT HIP 09-16 Right forehead laceration repaired in the ED - Monitor for signs of infection Dementia ALZHEIMERS WITH PROGRESSION - Resume home Aricept Anxiety/Depression - Holding lorazepam and Remeron at this time to avoid sedation which may interfere with neurological examination PROBABLE UTI- START ROCEPHIN 1 GRAM IV DAILY AWAIT CULTURES DVT prophylaxis - SCDs; chemoprophylaxis contraindicated WILL NEED SNF AT DC AWAIT ORTHO CLEARANCE Discharge Planning Pending clearance by neuro and neurosurgery Will more than likely need SNF Poli Jennings DO Sep 17, 2017 10:29
[2017-09-17] MEDS: ENOXAPARIN SODIUM 30 MG/0.3 ML SYRINGE SQ SCH (12:00)
[2017-09-17] MEDS: METOPROLOL TARTRATE 25 MG TAB PO SCH (20:12)
[2017-09-17] MEDS: DONEPEZIL HCL 5 MG TAB PO SCH (20:12)
[2017-09-17] MEDS: MIRTAZAPINE 15 MG TAB PO SCH (20:13)
[2017-09-18] VITALS: BP 130/83; PULSE 86; RESP 17; TEMP 97.7; O2SAT 96
[2017-09-18 04:00] VITALS: BP 134/69; PULSE 98; RESP 22; TEMP 98.5; O2SAT 94
--- NOTE | 2017-09-18 07:19 | PD.ORT.PN ---
Subjective Subjective Remarks Resting comfortably. in restraints Objective Vitals Vital Signs Date Time Temp Pulse Resp B/P (MAP) Pulse Ox O2 Delivery O2 Flow Rate FiO2 09/18/17 04:00 98.5 98 22 134/69 (90) 94 09/18/17 00:00 97.7 86 17 130/83 (99) 96 09/17/17 21:00 97 09/17/17 19:50 98.2 115 20 132/96 (108) 95 09/17/17 16:16 98.4 109 18 129/77 (94) 95 09/17/17 12:08 98.5 110 19 143/70 (94) 97 09/17/17 08:28 97.9 86 18 118/74 (89) 94 09/17/17 08:20 84 I/O 09/17/17 09/17/17 09/17/17 09/18/17 09/18/17 09/18/17 07:00 15:00 23:00 07:00 15:00 23:00 Output Total 200 ml Balance -200 ml Output Urine Total 200 ml # Voids 1 0 # Bowel Movements 0 Result Diagram: 09/17/17 0522 09/17/17 0522 Imaging Last 72 hours Impressions Hip and Pelvis X-Ray 09/16/17 1142 Signed Impressions: Service Date/Time: Saturday, September 16, 2017 12:30 - CONCLUSION: Postsurgical changes right hip arthroplasty. Joshua Muñoz MD Objective Remarks Right lower extremity: clean dry dressings intact. CKS. abduction pillow in place Assessment & Plan Assessment and Plan Right hip hemiarthroplasty POD # 2 WBAT R LE with posterior hip precautions dress daily with xeroform and primapore lovenox Orthopedically cleared for discharge to rehab from ortho standpoint Follow up with Dr Fernandez or PA in 2 weeks Keith Rowland Jr. Sep 18, 2017 07:19
[2017-09-18 07:37] LABS: AUTOMATED NEUTROPHIL # 5.9 TH/MM3 (1.8-7.7); BASOPHIL % 0.3 % (0.0-2.0); EOSINOPHIL # 0.1 TH/MM3 (0-0.4); EOSINOPHIL % 0.6 % (0.0-4.0); HEMATOCRIT 35.8 % (35.0-46.0); HEMOGLOBIN 12.1 GM/DL (11.6-15.3); LYMPHOCYTE # 1.7 TH/MM3 (1.0-4.8); MEAN CORPUSCULAR HEMOGLOBIN 30.8 PG (27.0-34.0); MEAN CORPUSCULAR HGB CONC 33.9 % (32.0-36.0); MEAN PLATELET VOLUME 8.5 FL (7.0-11.0); MONO % 10.9 % (0.0-8.0); MONOCYTE # 0.9 TH/MM3 (0-0.9); NEUT % 68.2 % (16.0-70.0); PLATELET COUNT 151 TH/MM3 (150-450); RED BLOOD COUNT 3.94 MIL/MM3 (4.00-5.30); RED CELL DISTRIBUTION WIDTH 14.1 % (11.6-17.2); WHITE BLOOD COUNT 8.6 TH/MM3 (4.0-11.0)
[2017-09-18 07:56] LABS: ALBUMIN 2.5 GM/DL (3.4-5.0); ALKALINE PHOSPHATASE 61 U/L (45-117); ALT (GPT) 60 U/L (10-53); AST (GOT) 74 U/L (15-37); BICARBONATE 24.8 MEQ/L (21.0-32.0); BLOOD UREA NITROGEN 18 MG/DL (7-18); CALCIUM 8.2 MG/DL (8.5-10.1); CHLORIDE 112 MEQ/L (98-107); CREATININE 0.62 MG/DL (0.50-1.00); GLOMERULAR FILTRATION RATE 93 ML/MIN (>89); GLUCOSE,RANDOM 88 MG/DL (74-106); MAGNESIUM 2.1 MG/DL (1.5-2.5); PHOSPHORUS 2.3 MG/DL (2.5-4.9); SODIUM (NA) 146 MEQ/L (136-145); TOTAL BILIRUBIN ADULT 1.2 MG/DL (0.2-1.0)
[2017-09-18 08:00] VITALS: BP 128/66; PULSE 100; PULSE 92; RESP 16; TEMP 98.7; O2SAT 93
[2017-09-18 08:40] LABS: METHYLMALONIC ACID 0.32 nmol/mL (<=0.40)
[2017-09-18] MEDS: MIRTAZAPINE 15 MG TAB PO SCH ×2 (08:52→21:24)
[2017-09-18] MEDS: FAMOTIDINE 20 MG TAB PO SCH ×2 (08:52→21:23)
[2017-09-18] MEDS: CYANOCOBALAMIN 1000 MCG/ML VIAL SQ SCH (08:52)
[2017-09-18] MEDS: CHOLECALCIFEROL (VIT D3) 5000 UNIT CAP PO SCH (08:52)
[2017-09-18] MEDS: MEMANTINE HCL 5 MG TAB PO SCH (08:52)
[2017-09-18] MEDS: METOPROLOL TARTRATE 25 MG TAB PO SCH ×2 (08:53→21:24)
[2017-09-18] MEDS: LORazepam 1 MG TAB PO PRN (08:59)
--- NOTE | 2017-09-18 10:41 | HHI.PR ---
Subjective Remarks Mrs. Rivera is a 77-year-old female with a past medical history of dementia, depression, and anxiety who presented to the emergency room on 09/13/2017 after she was walking her dog and fell while walking in her neighborhood. She was found to be confused and complaining of right hip pain. Head CT in the emergency department showed questionable isolated area of parenchymal hemorrhage /contusion in the right posterior parietal/occipital region. She was admitted for monitoring and medical management. The patient is seen in her hospital room. She is very pleasant but confused and a poor historian. She is unable to recall the names of her medications and medical conditions. She provides a limited history of the fall as she does not remember much of the event. She is unsure whether or not she lost consciousness or not. She denies feeling ill prior to the fall and states she does not recall any chest pain or shortness of breath. She indicates that she may have tripped over her dog. She is complaining of 10 out of 10 sharp right hip pain that is worse with movement and palpation. . Femur and AP pelvis x-rays were negative for fracture. 3-10 patient is currently confused This is probably baseline hAs some dementia Await the evaluation by physical therapy and occupational therapy discussed with patient and RN and case management await neuro Await neuro surgical evaluation await neurology evaluation Await MRIs and CAT scan of the right hip Patient may need placement at discharge PATIENT FELL AND WELL GET A REPEAT CAT SCAN OF BRAIN RADIOLOGY WANTS MRI OF RIGHT HIP THESE ARE PENDING 3-11 fracture of right hip consult ortho patient remains very confused DW NEUROLOGY HE FEELS SHE HAS DEMENTIA DW RN AND PT REMAINS CONFUSED 3-12 HAD RIGHT HIP SURGERY TODAY WITH DR LOVELACE NO NEW COMPLAINTS DW RN AND PT AND CM WILL NEED SNF 3-13 CONTINUE PT AND OT REMAINS CONFUSED SEEN LYING IN BED DW RN AND PT AND CM 3-14 HOPEFULLY TO REHAB IN NEXT 24 HOURS MUCH MORE CALM TODAY ATIVAN SCHEDULED NOT PRN MEDS ADJUSTED WILL NEED SNF AT DC OFF RESTRAINTS HOPEFULLY TO SNF TOMORROW Objective Vitals Vital Signs Date Time Temp Pulse Resp B/P (MAP) Pulse Ox O2 Delivery O2 Flow Rate FiO2 09/18/17 08:00 98.7 92 16 128/66 (86) 93 09/18/17 04:00 98.5 98 22 134/69 (90) 94 09/18/17 00:00 97.7 86 17 130/83 (99) 96 09/17/17 21:00 97 09/17/17 19:50 98.2 115 20 132/96 (108) 95 09/17/17 16:16 98.4 109 18 129/77 (94) 95 09/17/17 12:08 98.5 110 19 143/70 (94) 97 I/O 09/17/17 09/17/17 09/17/17 09/18/17 09/18/17 09/18/17 07:00 15:00 23:00 07:00 15:00 23:00 Output Total 200 ml Balance -200 ml Output Urine Total 200 ml # Voids 1 0 # Bowel Movements 0 Result Diagram: 09/18/17 0645 09/18/17 0645 Other Results Laboratory Tests Test 09/16/17 19:55 09/17/17 05:22 09/18/17 06:45 25-Hydroxy Vitamin D Total 14.8 ng/ML White Blood Count 11.6 TH/MM3 8.6 TH/MM3 Red Blood Count 4.05 MIL/MM3 3.94 MIL/MM3 Hemoglobin 12.6 GM/DL 12.1 GM/DL Hematocrit 37.0 % 35.8 % Mean Corpuscular Volume 91.3 FL 91.0 FL Mean Corpuscular Hemoglobin 31.0 PG 30.8 PG Mean Corpuscular Hemoglobin Concent 34.0 % 33.9 % Red Cell Distribution Width 14.1 % 14.1 % Platelet Count 178 TH/MM3 151 TH/MM3 Mean Platelet Volume 8.5 FL 8.5 FL Neutrophils (%) (Auto) 78.9 % 68.2 % Lymphocytes (%) (Auto) 9.9 % 20.0 % Monocytes (%) (Auto) 11.0 % 10.9 % Eosinophils (%) (Auto) 0.0 % 0.6 % Basophils (%) (Auto) 0.2 % 0.3 % Neutrophils # (Auto) 9.1 TH/MM3 5.9 TH/MM3 Lymphocytes # (Auto) 1.1 TH/MM3 1.7 TH/MM3 Monocytes # (Auto) 1.3 TH/MM3 0.9 TH/MM3 Eosinophils # (Auto) 0.0 TH/MM3 0.1 TH/MM3 Basophils # (Auto) 0.0 TH/MM3 0.0 TH/MM3 CBC Comment DIFF FINAL DIFF FINAL Differential Comment Blood Urea Nitrogen 20 MG/DL 18 MG/DL Creatinine 0.83 MG/DL 0.62 MG/DL Random Glucose 70 MG/DL 88 MG/DL Total Protein 6.3 GM/DL 6.0 GM/DL Albumin 2.9 GM/DL 2.5 GM/DL Calcium Level 9.1 MG/DL 8.2 MG/DL Phosphorus Level 2.3 MG/DL 2.3 MG/DL Magnesium Level 2.0 MG/DL 2.1 MG/DL Alkaline Phosphatase 63 U/L 61 U/L Aspartate Amino Transf (AST/SGOT) 101 U/L 74 U/L Alanine Aminotransferase (ALT/SGPT) 61 U/L 60 U/L Total Bilirubin 1.5 MG/DL 1.2 MG/DL Sodium Level 144 MEQ/L 146 MEQ/L Potassium Level 3.8 MEQ/L 3.5 MEQ/L Chloride Level 109 MEQ/L 112 MEQ/L Carbon Dioxide Level 22.0 MEQ/L 24.8 MEQ/L Anion Gap 13 MEQ/L 9 MEQ/L Estimat Glomerular Filtration Rate 66 ML/MIN 93 ML/MIN Imaging Last Impressions Hip and Pelvis X-Ray 09/16/17 1142 Signed Impressions: Service Date/Time: Saturday, September 16, 2017 12:30 - CONCLUSION: Postsurgical changes right hip arthroplasty. Joshua Muñoz MD Hip MRI 09/15/17 0000 Signed Impressions: Service Date/Time: Friday, September 15, 2017 07:31 - CONCLUSION: 1. Mildly angulated subcapital femoral neck fracture. 2. Perivascular edema and suspected injury to the gemellus muscle. 3. Small joint effusion. 4. Intact acetabulum. Nehemiah Dixon MD Carotid Artery Ultrasound [id number] Signed Impressions: Service Date/Time: Thursday, September 14, 2017 07:53 - CONCLUSION: 1. Mild to moderate bilateral carotid plaque as described. 2. No evidence of hemodynamically significant stenosis. 3. Antegrade flow in both vertebral arteries. Nehemiah Dixon MD Head Magnetic Resonance Angiography 09/14/17 0000 Signed Impressions: Service Date/Time: Thursday, September 14, 2017 10:06 - CONCLUSION: Normal examination. Nehemiah Dixon MD Head CT 09/14/17 Signed Impressions: Service Date/Time: Thursday, September 14, 2017 15:20 - CONCLUSION: No acute intracranial findings. No evidence of intracranial hemorrhage. Sawyer Walker MD Brain MRI 09/14/17 0000 Signed Impressions: Service Date/Time: Thursday, September 14, 2017 10:06 - CONCLUSION: 1. No evidence of acute or chronic hemorrhage on MRI. 2. No evidence of acute infarct, edema, mass or enhancing lesions. Nehemiah Dixon MD Pelvis X-Ray [id number] Signed Impressions: Service Date/Time: Wednesday, September 13, 2017 13:52 - CONCLUSION: No fracture. Gilberto Humphrey MD Chest X-Ray 09/13/176 Signed Impressions: Service Date/Time: Wednesday, September 13, 2017 13:52 - CONCLUSION: 1. No acute cardiopulmonary process. 2. Hyperinflation with some biapical fibrosis/ scarring. Gilberto Humphrey MD Cervical Spine CT 09/13/176 Signed Impressions: Service Date/Time: Wednesday, September 13, 2017 14:10 - CONCLUSION: 1. No fractures or dislocations. 2. Multilevel degenerative changes as detailed at each level in the above discussion. 3. Carotid artery atherosclerotic calcifications. 4. Calcified pleural plaques. This can be seen in asbestos exposure. Robinson Diaz Jr., MD Lower Extremity CT 09/13/17 0000 Signed Impressions: Service Date/Time: Thursday, September 14, 2017 11:35 - CONCLUSION: 1. The subcapital right femoral neck lucency suspicious for nondisplaced fracture. Recommend right hip MRI for further evaluation. 2. Moderate-sized right hip joint effusion. Sawyer Walker MD Femur X-Ray 09/13/17 0000 Signed Impressions: Service Date/Time: Wednesday, September 13, 2017 13:52 - CONCLUSION: Negative for fracture Poli Quigley MD FACR Objective Remarks GENERAL: This is a elderly cachectic female patient, in no apparent distress. LESS confused SKIN: No rashes. Cool and dry. Right hip with large area of faint ecchymosis slightly bigger than the size of a softball. Laceration over right eye is covered with gauze that is dry and intact. HEAD: Atraumatic. Normocephalic. EYES: No scleral icterus. No injection or drainage. Wears glasses ENT: Nose without bleeding, purulent drainage. NECK: Trachea midline. No JVD or lymphadenopathy. CARDIOVASCULAR: Regular rate and rhythm without murmurs, gallops, or rubs. S1- S2 no S3 or S4 RESPIRATORY: Clear to auscultation. Breath sounds equal bilaterally. No wheezes , rales, or rhonchi. GASTROINTESTINAL: Abdomen soft, non-tender, nondistended. No guarding. MUSCULOSKELETAL: Extremities without clubbing, cyanosis. No calf tenderness. RIGHT HIP IS CURRENTLY DRESSED AFTER SURGERY-- NEUROLOGICAL: Awake and alert; confused. Normal speech. Cranial nerves II through XII grossly intact. Procedures Date of Surgery: Sep 16, 2017 Preoperative Diagnosis: Displaced right femoral neck fracture Postoperative Diagnosis: Procedure: Right hip hemiarthroplasty Anesthesia: Gen. Surgeon: Christian Lovelace News Gathering Technician(s): KESHIA Zimmer PA-C The surgical procedure was assisted by my physician workforce development assistant. My P.A. presence was necessary throughout this case for the manipulation and positioning of the surgical extremity. My P.A. was assisting me throughout the duration of this procedure. The skill set of a physician workforce development assistant was medically necessary to complete this procedure. During the surgical case the installation tech was working at the back table and the physician workforce development assistant was directly assisting me. Operation and Findings: PLAN OF ACTIVITY Weight bear as tolerated. IMPLANTS USED DePuy Corail size [12] stem with size [44] bipolar head and [+1] neck. DETAILS OF PROCEDURE This patient was brought into the operating room and placed on the OR table. The patient was given anesthesia. The patient received IV antibiotics. The patient was then placed in lateral decubitus position. The hip and leg were prepped with alcohol, followed by Hibiclens and draped in a usual sterile fashion. Clean air was used for this procedure. Time out procedure was performed. The procedure began with a 5 inch incision over the posterolateral hip. The subcutaneous tissue was dissected with the Bovie. The iliotibial band were split in line with fibers. The Charnley retractor was placed. The piriformis and external rotators were released from the femur and tagged with a #1 Vicryl suture. The capsule is now incised and tagged with #1 Vicryl. The femoral neck fracture was now visualized. A corkscrew was now used to remove the femoral head. The femoral head was sized and measured. Soft tissue was now protected. The hip skid was placed underneath the femoral neck. An oscillating saw was used to make a femoral neck cut. At this point attention was turned to preparation of the proximal femur. A box osteotome was used to remove the lateral cortex of the femoral neck. The T- handle reamer was used to open the femoral canal. Next, the canal was broached. A lateralizing reamer was used to help lateralize the prosthesis. There was a small cortical defect along the medial calcar region. This did not extend below the lesser trochanter. A 1.7 mm cable was passed around the proximal femur to help prevent any propagation of fracture along the calcar. The cable was tensioned, crimped, and cut. At this point a trial head and neck were placed. The hip was reduced. The patient was found to have excellent stability with good range of motion. Trial components were removed. Soft tissue and bone were thoroughly irrigated. A Corail stem was now opened. The stem was now impacted into the proximal femur. Care was taken to keep appropriate anteversion. The head and neck were now impacted onto the stem. The hip was again reduced. The hip was found to have good range of motion and good stability. Leg lengths were clinically equal. The wound was thoroughly irrigated. The capsule, piriformis and iliotibial band were closed with #1 Vicryl. Subcutaneous tissue was closed with 3-0 Vicryl. The skin was closed with toyin. A sterile dressing was applied with Primapore. The patient was placed into a knee immobilizer. The patient was awakened and transferred to the recovery room in stable condition. Needle and sponge counts were correct. Christian Lovelace MD Sep 16, 2017 11:47 Medications and IVs Current Medications Sodium Chloride 1,000 ml @ 70 mls/hr [id number] IV Last administered on at 19:52; Start 09/13/17 at 16:25 Sodium Chloride (NS Flush) 2 ml UNSCH PRN IV FLUSH FLUSH AFTER USING IV ACCESS ; Start 09/13/17 at 16:30 Sodium Chloride (NS Flush) 2 ml BID IV FLUSH Last administered on 09/14/17at 08: 26; Start 09/13/17 at 21:00 Labetalol HCl (Trandate Inj) 20 mg Q4H PRN IV PUSH SYS BP GREATER THAN 160 MMHG ; Start 09/13/17 at 16:30 Enalaprilat (Vasotec Inj) 1.25 mg Q6H PRN IV PUSH to keep SBP between 140-160; Start 09/13/17 at 16:30 Clonidine (Catapres) 0.1 mg Q6H PRN PO to keep SBP between 140-160; Start at 16:30 Famotidine (Pepcid) 20 mg BID PO Last administered on 09/14/17at 08:26; Start at 21:00; Stop 09/14/17 at 16:09; Status DC Acetaminophen (Tylenol) 650 mg Q4H PRN PO PAIN SCALE 1 TO 2 Last administered on 09/14/17at 14:51; Start 09/13/17 at 16:30 Ondansetron HCl (Zofran Inj) 4 mg Q6H PRN IV PUSH NAUSEA; Start 09/13/17 at 16: 30 Docusate Sodium (Colace) 100 mg BID PRN PO CONSTIPATION; Start 09/13/17 at 16:30 Donepezil HCl (Aricept) 15 mg HS PO Last administered on 09/14/17at 20:23; Start 09/14/17 at 21:00; Stop 09/15/17 at 09:24; Status DC Gadodiamide (Omniscan Pf Inj) 10 ml STK-MED ONCE IVCONTRAST Last administered on 09/14/17at 10:12; Start 09/14/17 at 10:12; Stop 09/14/17 at 10:13; Status DC Gadodiamide (Omniscan Pf Inj) 10 ml STK-MED ONCE IVCONTRAST ; Start 09/14/17 at 10:24; Stop 09/14/17 at 10:25; Status Cancel Famotidine (Pepcid) 10 mg BID PO Last administered on 09/18/17at 08:52; Start at 21:00 Miscellaneous (Pill Splitter) 1 ea UNSCH PRN OTHER SEE LABEL COMMENTS; Start at 16:15 Lorazepam (Ativan) 1 mg TID PRN PO ANXIETY Last administered on 09/18/17at 08:59 ; Start 09/14/17 at 16:45 Mirtazapine (Remeron) 15 mg HS PO Last administered on 09/16/17at 20:04; Start 09/14/17 at 21:00; Stop 09/17/17 at 12:48; Status DC Donepezil HCl (Aricept) 10 mg HS PO Last administered on 09/17/17at 20:12; Start 09/15/17 at 21:00 Memantine (Namenda) 5 mg DAILY PO ; Start 09/15/17 at 09:15; Stop 09/15/17 at 10 :19; Status DC Cyanocobalamin (Vitamin B12 Inj) 1,000 mcg DAILY SQ Last administered on at 08:52; Start 09/15/17 at 09:15; Stop 09/18/17 at 09:14; Status DC Ceftriaxone Sodium 1000 mg/ Sodium Chloride 100 ml @ 200 mls/hr Q24H IV Last administered on 09/17/17at 09:57; Start 09/15/17 at 10:00 Memantine (Namenda) 5 mg BID PO ; Start 09/22/17 at 09:00; Stop 09/29/17 at 08: 59 Memantine (Namenda) 10 mg BID PO ; Start 09/29/17 at 09:00 Memantine (Namenda) 5 mg DAILY PO Last administered on 09/18/17at 08:52; Start 09/15/17 at 10:00; Stop 09/22/17 at 08:59 Vancomycin HCl (Vancomycin Inj) 1,000 mg STK-MED ONCE .ROUTE ; Start 09/16/17 at 07:25; Stop 09/16/17 at 07:26; Status DC Tranexamic Acid 600 mg/Sodium Chloride 106 ml @ 200 mls/hr ONCE IV Last administered on 09/16/17at 10:42; Start 09/16/17 at 10:00; Stop 09/16/17 at 16:00 ; Status DC Acetaminophen 100 ml @ As Directed STK-MED ONCE IV ; Start 09/16/17 at 10:28; Stop 09/16/17 at 10:29; Status DC Clindamycin Phosphate (Cleocin Inj) 600 mg STK-MED ONCE .ROUTE Last administered on 09/16/17at 10:59; Start 09/16/17 at 10:48; Stop 09/16/17 at 10:49 ; Status DC Sugammadex Sodium (Bridion Inj) 200 mg STK-MED ONCE IV PUSH ; Start 09/16/17 at 11:24; Stop 09/16/17 at 11:25; Status DC Cefazolin Sodium/ Dextrose 50 ml @ 100 mls/hr Q6H IV ; Start 09/16/17 at 11:45 ; Stop 09/17/17 at 00:14; Status UNV Miscellaneous Information (Post-op Orders (for Pharmacy)) STAT ONCE XX ; Start 09/16/17 at 12:00; Stop 09/16/17 at 12:01; Status DC Enoxaparin Sodium (Lovenox Inj) 30 mg Q24H SQ ; Start 09/17/17 at 12:00 Acetaminophen/ Hydrocodone Bitart ([place] 5-325 Mg) 1 tab Q3H PRN PO PAIN 3<10 ; Start 09/16/17 at 15:00 Morphine Sulfate (Morphine Inj) 2 mg Q3H PRN IV PUSH break thru pain; Start 06/24 at 12:00 Ergocalciferol (Drisdol) 50,000 units ONCE ONCE PO ; Start 09/16/17 at 12:00; Stop 09/16/17 at 12:01; Status DC Cholecalciferol (Vitamin D3) 5,000 units DAILY PO Last administered on at 08:52; Start 09/17/17 at 09:00 Fentanyl Citrate (fentaNYL INJ) 100 mcg STK-MED ONCE .ROUTE ; Start 09/16/17 at 12:14; Stop 09/16/17 at 12:15; Status DC Miscellaneous Information ALL NURSING DEPARTME... UNSCH PRN .XX SEE LABEL COMMENTS; Start 09/16/17 at 12:08; Stop 09/17/17 at 12:07; Status DC Gentamicin Sulfate (Gentamicin Inj) 240 mg STK-MED ONCE .ROUTE Last administered on 09/16/17at 11:13; Start 09/16/17 at 13:17; Stop 09/16/17 at 13:18 ; Status DC Mirtazapine (Remeron) 15 mg BID PO Last administered on 09/18/17at 08:52; Start 09/17/17 at 21:00 Metoprolol Tartrate (Lopressor) 12.5 mg Q12HR PO Last administered on at 08:53; Start 09/17/17 at 21:00 Lidocaine HCl (Xylocaine-Mpf 1% Inj) 5 ml STK-MED ONCE OTHER ; Start 09/16/17 at 12:00; Stop 09/18/17 at 09:24; Status DC Rocuronium [place] (Zemuron Inj) 50 mg STK-MED ONCE IV PUSH ; Start 09/16/17 at 12:00; Stop 09/18/17 at 09:24; Status DC Phenylephrine HCl (Neosynephrine/ NS 1000 Mcg/10ml Syr) 1,000 mcg STK-MED ONCE IV ; Start 09/16/17 at 12:00; Stop 09/18/17 at 09:24; Status DC Phenylephrine HCl (Neosynephrine Inj) 20 mg STK-MED ONCE IV ; Start 09/16/17 at 12:00; Stop 09/18/17 at 09:24; Status DC Dexamethasone Sodium Phosphate (Decadron Inj) 4 mg STK-MED ONCE IV ; Start 09/16 at 12:00; Stop 09/18/17 at 09:24; Status DC Ondansetron HCl (Zofran Inj) 4 mg STK-MED ONCE IV ; Start 09/16/17 at 12:00; Stop 09/18/17 at 09:24; Status DC Propofol (Diprivan 200 Mg/20 ml Inj) 200 mg STK-MED ONCE IV ; Start 09/16/17 at 12:00; Stop 09/18/17 at 09:24; Status DC A/P Problem List: (1) Intracranial hemorrhage ICD Code: I62.9 - Nontraumatic intracranial hemorrhage, unspecified Status: Acute Assessment and Plan Mrs. Rivera is a 77-year-old female with a past medical history of dementia, depression, and anxiety who presented to the emergency room on 09/13/2017 after she was walking her dog and fell while walking in her neighborhood. She was found to be confused and complaining of right hip pain. Head CT in the emergency department showed questionable isolated area of parenchymal hemorrhage /contusion in the right posterior parietal/occipital region. She was admitted for monitoring and medical management. Intracranial hemorrhage/contusion right posterior parietal/occipital region - Neurosurgery consulted - patient also with degenerative disc disease with disc herniation and spinal stenosis - appreciate recommendations/assistance - Frequent neuro checks Syncope versus CVA versus seizure activity versus mechanical fall - We'll check brain MRI, MRA with and without contrast to further evaluate for ischemic CVA or other organic brain disease - Check bilateral carotid ultrasound to evaluate for carotid stenosis - EEG - Bed rest for now - Consult OT, PT, and ST - Neurology consulted - appreciate assistance - Diet -passed swallow eval with speech therapy Add 2D echo Right hip pain status post fall with impaired mobility - Obtain CT of right hip to further evaluate for injury/fracture HAD MRI OF RIGHT HIP- CONSULT ORTHO FOR FRACTURE SP RIGHT HIP REPAIR/HEMIARTHROPLASTY OF RIGHT HIP 3-12 Right forehead laceration repaired in the ED - Monitor for signs of infection Dementia ALZHEIMERS WITH PROGRESSION - Resume home Aricept Anxiety/Depression - Holding lorazepam and Remeron at this time to avoid sedation which may interfere with neurological examination PROBABLE UTI- START ROCEPHIN 1 GRAM IV DAILY AWAIT CULTURES DVT prophylaxis - SCDs; chemoprophylaxis contraindicated WILL NEED SNF AT DC AWAIT ORTHO CLEARANCE POSSIBLE DC WHEN BED AVAILABLE Discharge Planning Pending clearance by neuro and neurosurgery Will more than likely need SNF Poli Jennings DO Sep 18, 2017 10:40
[2017-09-18 12:00] VITALS: BP 106/59; PULSE 80; PULSE 84; RESP 16; TEMP 98.4; O2SAT 94
[2017-09-18] MEDS: ENOXAPARIN SODIUM 30 MG/0.3 ML SYRINGE SQ SCH (12:41)
[2017-09-18] MEDS: cefTRIAXone INJ 1,000 MG in SODIUM CHLORIDE 0.9% INJ 100 ML IV SCH (12:42)
[2017-09-18] MEDS: LORazepam 1 MG TAB PO SCH ×2 (12:42→18:33)
[2017-09-18] MEDS: SODIUM CHLOR 0.9% 1000 ML INJ 1,000 ML IV SCH (12:50)
[2017-09-18] MEDS: SODIUM CHLORIDE 0.9% FLUSH 10 ML FLUSH IV FLUSH SCH ×2 (12:51→21:23)
[2017-09-18 16:00] VITALS: BP 109/58; PULSE 78; RESP 16; TEMP 98.2; O2SAT 97
[2017-09-18 20:00] VITALS: BP 143/96; PULSE 120; PULSE 84; RESP 18; TEMP 98.8; O2SAT 95
[2017-09-18] MEDS: DONEPEZIL HCL 5 MG TAB PO SCH (21:23)
[2017-09-19] VITALS: BP 118/56; PULSE 77; RESP 18; TEMP 98; O2SAT 97
[2017-09-19] MEDS: SODIUM CHLOR 0.9% 1000 ML INJ 1,000 ML IV SCH (01:07)
[2017-09-19 04:00] VITALS: BP 114/58; PULSE 73; RESP 18; TEMP 98.2; O2SAT 97
[2017-09-19 07:30] VITALS: PULSE 84
[2017-09-19 08:00] VITALS: BP 125/66; PULSE 85; RESP 16; TEMP 98.6; O2SAT 96
[2017-09-19] MEDS: METOPROLOL TARTRATE 25 MG TAB PO SCH (09:00)
[2017-09-19] MEDS: MEMANTINE HCL 5 MG TAB PO SCH (09:05)
[2017-09-19] MEDS: FAMOTIDINE 20 MG TAB PO SCH (09:06)
[2017-09-19] MEDS: MIRTAZAPINE 15 MG TAB PO SCH (09:06)
[2017-09-19] MEDS: CHOLECALCIFEROL (VIT D3) 5000 UNIT CAP PO SCH (09:06)
[2017-09-19] MEDS: LORazepam 1 MG TAB PO SCH ×2 (09:07→12:54)
[2017-09-19] MEDS: cefTRIAXone INJ 1,000 MG in SODIUM CHLORIDE 0.9% INJ 100 ML IV SCH (09:10)
--- NOTE | 2017-09-19 09:13 | PD.ORT.PN ---
Subjective Subjective Remarks Resting comfortably Objective Vitals Vital Signs Date Time Temp Pulse Resp B/P (MAP) Pulse Ox O2 Delivery O2 Flow Rate FiO2 09/19/17 04:00 98.2 73 18 114/58 (76) 97 09/19/17 00:00 98.0 77 18 118/56 (76) 97 09/18/17 20:00 84 09/18/17 20:00 98.8 120 18 143/96 (112) 95 09/18/17 16:00 98.2 78 16 109/58 (75) 97 09/18/17 12:00 98.4 80 16 106/59 (75) 94 09/18/17 12:00 84 I/O 09/18/17 09/18/17 09/18/17 09/19/17 09/19/17 09/19/17 07:00 15:00 23:00 07:00 15:00 23:00 # Voids 0 2 # Bowel Movements 0 Result Diagram: 09/18/17 0645 09/18/17 0645 Imaging Last 72 hours Impressions Hip and Pelvis X-Ray 09/16/17 1142 Signed Impressions: Service Date/Time: Saturday, September 16, 2017 12:30 - CONCLUSION: Postsurgical changes right hip arthroplasty. Joshua Muñoz MD Objective Remarks Right lower extremity: clean dry dressings intact. CKS. abduction pillow in place. Assessment & Plan Assessment and Plan Right hip hemiarthroplasty POD # 3 WBAT R LE with posterior hip precautions dress daily with xeroform and primapore lovenox Orthopedically cleared for discharge to rehab Follow up with Dr Fernandez or [facility] in 2 weeks Keith Rowland Jr. Sep 19, 2017 09:13
--- NOTE | 2017-09-19 10:57 | HHI.PR ---
Subjective Remarks Mrs. Rivera is a 77-year-old female with a past medical history of dementia, depression, and anxiety who presented to the emergency room on 09/13/2017 after she was walking her dog and fell while walking in her neighborhood. She was found to be confused and complaining of right hip pain. Head CT in the emergency department showed questionable isolated area of parenchymal hemorrhage /contusion in the right posterior parietal/occipital region. She was admitted for monitoring and medical management. The patient is seen in her hospital room. She is very pleasant but confused and a poor historian. She is unable to recall the names of her medications and medical conditions. She provides a limited history of the fall as she does not remember much of the event. She is unsure whether or not she lost consciousness or not. She denies feeling ill prior to the fall and states she does not recall any chest pain or shortness of breath. She indicates that she may have tripped over her dog. She is complaining of 10 out of 10 sharp right hip pain that is worse with movement and palpation. . Femur and AP pelvis x-rays were negative for fracture. 3-10 patient is currently confused This is probably baseline hAs some dementia Await the evaluation by physical therapy and occupational therapy discussed with patient and RN and case management await neuro Await neuro surgical evaluation await neurology evaluation Await MRIs and CAT scan of the right hip Patient may need placement at discharge PATIENT FELL AND WELL GET A REPEAT CAT SCAN OF BRAIN RADIOLOGY WANTS MRI OF RIGHT HIP THESE ARE PENDING 3-11 fracture of right hip consult ortho patient remains very confused DW NEUROLOGY HE FEELS SHE HAS DEMENTIA DW RN AND PT REMAINS CONFUSED 3-12 HAD RIGHT HIP SURGERY TODAY WITH DR LOVELACE NO NEW COMPLAINTS DW RN AND PT AND CM WILL NEED SNF 3-13 CONTINUE PT AND OT REMAINS CONFUSED SEEN LYING IN BED DW RN AND PT AND CM 3-14 HOPEFULLY TO REHAB IN NEXT 24 HOURS MUCH MORE CALM TODAY ATIVAN SCHEDULED NOT PRN MEDS ADJUSTED WILL NEED SNF AT DC OFF RESTRAINTS HOPEFULLY TO SNF TOMORROW 3-15 DC TO SNF TODAY DW RN AND PT ACCEPTED AT [facility] PER CM DC TO SNF Objective Vitals Vital Signs Date Time Temp Pulse Resp B/P (MAP) Pulse Ox O2 Delivery O2 Flow Rate FiO2 09/19/17 08:00 98.6 85 16 125/66 (85) 96 09/19/17 07:30 84 09/19/17 04:00 98.2 73 18 114/58 (76) 97 09/19/17 00:00 98.0 77 18 118/56 (76) 97 09/18/17 20:00 84 09/18/17 20:00 98.8 120 18 143/96 (112) 95 09/18/17 16:00 98.2 78 16 109/58 (75) 97 09/18/17 12:00 98.4 80 16 106/59 (75) 94 09/18/17 12:00 84 I/O 09/18/17 09/18/17 09/18/17 09/19/17 09/19/17 09/19/17 07:00 15:00 23:00 07:00 15:00 23:00 # Voids 0 2 # Bowel Movements 0 Result Diagram: 09/18/17 0645 09/18/17 0645 Other Results Laboratory Tests Test 09/16/17 19:55 09/17/17 05:22 09/18/17 06:45 25-Hydroxy Vitamin D Total 14.8 ng/ML White Blood Count 11.6 TH/MM3 8.6 TH/MM3 Red Blood Count 4.05 MIL/MM3 3.94 MIL/MM3 Hemoglobin 12.6 GM/DL 12.1 GM/DL Hematocrit 37.0 % 35.8 % Mean Corpuscular Volume 91.3 FL 91.0 FL Mean Corpuscular Hemoglobin 31.0 PG 30.8 PG Mean Corpuscular Hemoglobin Concent 34.0 % 33.9 % Red Cell Distribution Width 14.1 % 14.1 % Platelet Count 178 TH/MM3 151 TH/MM3 Mean Platelet Volume 8.5 FL 8.5 FL Neutrophils (%) (Auto) 78.9 % 68.2 % Lymphocytes (%) (Auto) 9.9 % 20.0 % Monocytes (%) (Auto) 11.0 % 10.9 % Eosinophils (%) (Auto) 0.0 % 0.6 % Basophils (%) (Auto) 0.2 % 0.3 % Neutrophils # (Auto) 9.1 TH/MM3 5.9 TH/MM3 Lymphocytes # (Auto) 1.1 TH/MM3 1.7 TH/MM3 Monocytes # (Auto) 1.3 TH/MM3 0.9 TH/MM3 Eosinophils # (Auto) 0.0 TH/MM3 0.1 TH/MM3 Basophils # (Auto) 0.0 TH/MM3 0.0 TH/MM3 CBC Comment DIFF FINAL DIFF FINAL Differential Comment Blood Urea Nitrogen 20 MG/DL 18 MG/DL Creatinine 0.83 MG/DL 0.62 MG/DL Random Glucose 70 MG/DL 88 MG/DL Total Protein 6.3 GM/DL 6.0 GM/DL Albumin 2.9 GM/DL 2.5 GM/DL Calcium Level 9.1 MG/DL 8.2 MG/DL Phosphorus Level 2.3 MG/DL 2.3 MG/DL Magnesium Level 2.0 MG/DL 2.1 MG/DL Alkaline Phosphatase 63 U/L 61 U/L Aspartate Amino Transf (AST/SGOT) 101 U/L 74 U/L Alanine Aminotransferase (ALT/SGPT) 61 U/L 60 U/L Total Bilirubin 1.5 MG/DL 1.2 MG/DL Sodium Level 144 MEQ/L 146 MEQ/L Potassium Level 3.8 MEQ/L 3.5 MEQ/L Chloride Level 109 MEQ/L 112 MEQ/L Carbon Dioxide Level 22.0 MEQ/L 24.8 MEQ/L Anion Gap 13 MEQ/L 9 MEQ/L Estimat Glomerular Filtration Rate 66 ML/MIN 93 ML/MIN Imaging Last Impressions Hip and Pelvis X-Ray 09/16/17 1142 Signed Impressions: Service Date/Time: Saturday, September 16, 2017 12:30 - CONCLUSION: Postsurgical changes right hip arthroplasty. Joshua Muñoz MD Hip MRI 09/15/17 0000 Signed Impressions: Service Date/Time: Friday, September 15, 2017 07:31 - CONCLUSION: 1. Mildly angulated subcapital femoral neck fracture. 2. Perivascular edema and suspected injury to the gemellus muscle. 3. Small joint effusion. 4. Intact acetabulum. Nehemiah Dixon MD Carotid Artery Ultrasound 09/14/17 194 Signed Impressions: Service Date/Time: Thursday, September 14, 2017 07:53 - CONCLUSION: 1. Mild to moderate bilateral carotid plaque as described. 2. No evidence of hemodynamically significant stenosis. 3. Antegrade flow in both vertebral arteries. Nehemiah Dixon MD Head Magnetic Resonance Angiography 09/14/17 0000 Signed Impressions: Service Date/Time: Thursday, September 14, 2017 10:06 - CONCLUSION: Normal examination. Nehemiah Dixon MD Head CT 09/14/17 Signed Impressions: Service Date/Time: Thursday, September 14, 2017 15:20 - CONCLUSION: No acute intracranial findings. No evidence of intracranial hemorrhage. Sawyer Walker MD Brain MRI 09/14/17 Signed Impressions: Service Date/Time: Thursday, September 14, 2017 10:06 - CONCLUSION: 1. No evidence of acute or chronic hemorrhage on MRI. 2. No evidence of acute infarct, edema, mass or enhancing lesions. Nehemiah Dixon MD Pelvis X-Ray [id number] Signed Impressions: Service Date/Time: Wednesday, September 13, 2017 13:52 - CONCLUSION: No fracture. Gilberto Humphrey MD Chest X-Ray [id number] Signed Impressions: Service Date/Time: Wednesday, September 13, 2017 13:52 - CONCLUSION: 1. No acute cardiopulmonary process. 2. Hyperinflation with some biapical fibrosis/ scarring. Gilberto Humphrey MD Cervical Spine CT [id number] Signed Impressions: Service Date/Time: Wednesday, September 13, 2017 14:10 - CONCLUSION: 1. No fractures or dislocations. 2. Multilevel degenerative changes as detailed at each level in the above discussion. 3. Carotid artery atherosclerotic calcifications. 4. Calcified pleural plaques. This can be seen in asbestos exposure. Robinson Diaz Jr., MD Lower Extremity CT 09/13/17 Signed Impressions: Service Date/Time: Thursday, September 14, 2017 11:35 - CONCLUSION: 1. The subcapital right femoral neck lucency suspicious for nondisplaced fracture. Recommend right hip MRI for further evaluation. 2. Moderate-sized right hip joint effusion. Sawyer Walker MD Femur X-Ray 09/13/17 Signed Impressions: Service Date/Time: Wednesday, September 13, 2017 13:52 - CONCLUSION: Negative for fracture Poli Quigley MD FACR Objective Remarks GENERAL: This is a elderly cachectic female patient, in no apparent distress. LESS confused SKIN: No rashes. Cool and dry. Right hip with large area of faint ecchymosis slightly bigger than the size of a softball. Laceration over right eye is covered with gauze that is dry and intact. HEAD: Atraumatic. Normocephalic. EYES: No scleral icterus. No injection or drainage. Wears glasses ENT: Nose without bleeding, purulent drainage. NECK: Trachea midline. No JVD or lymphadenopathy. CARDIOVASCULAR: Regular rate and rhythm without murmurs, gallops, or rubs. S1- S2 no S3 or S4 RESPIRATORY: Clear to auscultation. Breath sounds equal bilaterally. No wheezes , rales, or rhonchi. GASTROINTESTINAL: Abdomen soft, non-tender, nondistended. No guarding. MUSCULOSKELETAL: Extremities without clubbing, cyanosis. No calf tenderness. RIGHT HIP IS CURRENTLY DRESSED AFTER SURGERY-- NEUROLOGICAL: Awake and alert; confused. Normal speech. Cranial nerves II through XII grossly intact. Procedures Date of Surgery: Sep 16, 2017 Preoperative Diagnosis: Displaced right femoral neck fracture Postoperative Diagnosis: Procedure: Right hip hemiarthroplasty Anesthesia: Gen. Surgeon: Christian Lovelace Bead Forming Machine Set Up Operator(s): KESHIA Zimmer PA-C The surgical procedure was assisted by my physician certified pharmacist assistant. My P.A. presence was necessary throughout this case for the manipulation and positioning of the surgical extremity. My P.A. was assisting me throughout the duration of this procedure. The skill set of a physician certified pharmacist assistant was medically necessary to complete this procedure. During the surgical case the surgical oncologist was working at the back table and the physician certified pharmacist assistant was directly assisting me. Operation and Findings: PLAN OF ACTIVITY Weight bear as tolerated. IMPLANTS USED DePuy Corail size [12] stem with size [44] bipolar head and [+1] neck. DETAILS OF PROCEDURE This patient was brought into the operating room and placed on the OR table. The patient was given anesthesia. The patient received IV antibiotics. The patient was then placed in lateral decubitus position. The hip and leg were prepped with alcohol, followed by Hibiclens and draped in a usual sterile fashion. Clean air was used for this procedure. Time out procedure was performed. The procedure began with a 5 inch incision over the posterolateral hip. The subcutaneous tissue was dissected with the Bovie. The iliotibial band were split in line with fibers. The Charnley retractor was placed. The piriformis and external rotators were released from the femur and tagged with a #1 Vicryl suture. The capsule is now incised and tagged with #1 Vicryl. The femoral neck fracture was now visualized. A corkscrew was now used to remove the femoral head. The femoral head was sized and measured. Soft tissue was now protected. The hip skid was placed underneath the femoral neck. An oscillating saw was used to make a femoral neck cut. At this point attention was turned to preparation of the proximal femur. A box osteotome was used to remove the lateral cortex of the femoral neck. The T- handle reamer was used to open the femoral canal. Next, the canal was broached. A lateralizing reamer was used to help lateralize the prosthesis. There was a small cortical defect along the medial calcar region. This did not extend below the lesser trochanter. A 1.7 mm cable was passed around the proximal femur to help prevent any propagation of fracture along the calcar. The cable was tensioned, crimped, and cut. At this point a trial head and neck were placed. The hip was reduced. The patient was found to have excellent stability with good range of motion. Trial components were removed. Soft tissue and bone were thoroughly irrigated. A Corail stem was now opened. The stem was now impacted into the proximal femur. Care was taken to keep appropriate anteversion. The head and neck were now impacted onto the stem. The hip was again reduced. The hip was found to have good range of motion and good stability. Leg lengths were clinically equal. The wound was thoroughly irrigated. The capsule, piriformis and iliotibial band were closed with #1 Vicryl. Subcutaneous tissue was closed with 3-0 Vicryl. The skin was closed with toyin. A sterile dressing was applied with Primapore. The patient was placed into a knee immobilizer. The patient was awakened and transferred to the recovery room in stable condition. Needle and sponge counts were correct. Christian Lovelace MD Sep 16, 2017 11:47 Medications and IVs Current Medications Sodium Chloride 1,000 ml @ 70 mls/hr [id number] IV Last administered on at 12:50; Start 09/13/17 at 16:25 Sodium Chloride (NS Flush) 2 ml UNSCH PRN IV FLUSH FLUSH AFTER USING IV ACCESS ; Start 09/13/17 at 16:30 Sodium Chloride (NS Flush) 2 ml BID IV FLUSH Last administered on 09/18/17at 21: 23; Start 09/13/17 at 21:00 Labetalol HCl (Trandate Inj) 20 mg Q4H PRN IV PUSH SYS BP GREATER THAN 160 MMHG ; Start 09/13/17 at 16:30 Enalaprilat (Vasotec Inj) 1.25 mg Q6H PRN IV PUSH to keep SBP between 140-160; Start 09/13/17 at 16:30 Clonidine (Catapres) 0.1 mg Q6H PRN PO to keep SBP between 140-160; Start at 16:30 Famotidine (Pepcid) 20 mg BID PO Last administered on 09/14/17at 08:26; Start at 21:00; Stop 09/14/17 at 16:09; Status DC Acetaminophen (Tylenol) 650 mg Q4H PRN PO PAIN SCALE 1 TO 2 Last administered on 09/14/17at 14:51; Start 09/13/17 at 16:30 Ondansetron HCl (Zofran Inj) 4 mg Q6H PRN IV PUSH NAUSEA; Start 09/13/17 at 16: 30 Docusate Sodium (Colace) 100 mg BID PRN PO CONSTIPATION; Start 09/13/17 at 16:30 Donepezil HCl (Aricept) 15 mg HS PO Last administered on 09/14/17at 20:23; Start 09/14/17 at 21:00; Stop 09/15/17 at 09:24; Status DC Gadodiamide (Omniscan Pf Inj) 10 ml STK-MED ONCE IVCONTRAST Last administered on 09/14/17at 10:12; Start 09/14/17 at 10:12; Stop 09/14/17 at 10:13; Status DC Gadodiamide (Omniscan Pf Inj) 10 ml STK-MED ONCE IVCONTRAST ; Start 09/14/17 at 10:24; Stop 09/14/17 at 10:25; Status Cancel Famotidine (Pepcid) 10 mg BID PO Last administered on 09/18/17at 08:52; Start at 21:00; Stop 09/18/17 at 16:14; Status DC Miscellaneous (Pill Splitter) 1 ea UNSCH PRN OTHER SEE LABEL COMMENTS; Start at 16:15 Lorazepam (Ativan) 1 mg TID PRN PO ANXIETY Last administered on 09/18/17at 08:59 ; Start 09/14/17 at 16:45; Stop 09/18/17 at 10:41; Status DC Mirtazapine (Remeron) 15 mg HS PO Last administered on 09/16/17at 20:04; Start 09/14/17 at 21:00; Stop 09/17/17 at 12:48; Status DC Donepezil HCl (Aricept) 10 mg HS PO Last administered on 09/18/17at 21:23; Start 09/15/17 at 21:00 Memantine (Namenda) 5 mg DAILY PO ; Start 09/15/17 at 09:15; Stop 09/15/17 at 10 :19; Status DC Cyanocobalamin (Vitamin B12 Inj) 1,000 mcg DAILY SQ Last administered on at 08:52; Start 09/15/17 at 09:15; Stop 09/18/17 at 09:14; Status DC Ceftriaxone Sodium 1000 mg/ Sodium Chloride 100 ml @ 200 mls/hr Q24H IV Last administered on 09/19/17at 09:10; Start 09/15/17 at 10:00 Memantine (Namenda) 5 mg BID PO ; Start 09/22/17 at 09:00; Stop 09/29/17 at 08: 59 Memantine (Namenda) 10 mg BID PO ; Start 09/29/17 at 09:00 Memantine (Namenda) 5 mg DAILY PO Last administered on 09/19/17at 09:05; Start 09/15/17 at 10:00; Stop 09/22/17 at 08:59 Vancomycin HCl (Vancomycin Inj) 1,000 mg STK-MED ONCE .ROUTE ; Start 09/16/17 at 07:25; Stop 09/16/17 at 07:26; Status DC Tranexamic Acid 600 mg/Sodium Chloride 106 ml @ 200 mls/hr ONCE IV Last administered on 09/16/17at 10:42; Start 09/16/17 at 10:00; Stop 09/16/17 at 16:00 ; Status DC Acetaminophen 100 ml @ As Directed STK-MED ONCE IV ; Start 09/16/17 at 10:28; Stop 09/16/17 at 10:29; Status DC Clindamycin Phosphate (Cleocin Inj) 600 mg STK-MED ONCE .ROUTE Last administered on 09/16/17at 10:59; Start 09/16/17 at 10:48; Stop 09/16/17 at 10:49 ; Status DC Sugammadex Sodium (Bridion Inj) 200 mg STK-MED ONCE IV PUSH ; Start 09/16/17 at 11:24; Stop 09/16/17 at 11:25; Status DC Cefazolin Sodium/ Dextrose 50 ml @ 100 mls/hr Q6H IV ; Start 09/16/17 at 11:45 ; Stop 09/17/17 at 00:14; Status UNV Miscellaneous Information (Post-op Orders (for Pharmacy)) STAT ONCE XX ; Start 09/16/17 at 12:00; Stop 09/16/17 at 12:01; Status DC Enoxaparin Sodium (Lovenox Inj) 30 mg Q24H SQ Last administered on 09/18/17at 12 :41; Start 09/17/17 at 12:00 Acetaminophen/ Hydrocodone Bitart ([place] 5-325 Mg) 1 tab Q3H PRN PO PAIN 3<10 Last administered on 09/18/17at 21:24; Start 09/16/17 at 15:00 Morphine Sulfate (Morphine Inj) 2 mg Q3H PRN IV PUSH break thru pain; Start 06/24 at 12:00 Ergocalciferol (Drisdol) 50,000 units ONCE ONCE PO ; Start 09/16/17 at 12:00; Stop 09/16/17 at 12:01; Status DC Cholecalciferol (Vitamin D3) 5,000 units DAILY PO Last administered on at 09:06; Start 09/17/17 at 09:00 Fentanyl Citrate (fentaNYL INJ) 100 mcg STK-MED ONCE .ROUTE ; Start 09/16/17 at 12:14; Stop 09/16/17 at 12:15; Status DC Miscellaneous Information ALL NURSING DEPARTME... UNSCH PRN .XX SEE LABEL COMMENTS; Start 09/16/17 at 12:08; Stop 09/17/17 at 12:07; Status DC Gentamicin Sulfate (Gentamicin Inj) 240 mg STK-MED ONCE .ROUTE Last administered on 09/16/17at 11:13; Start 09/16/17 at 13:17; Stop 09/16/17 at 13:18 ; Status DC Mirtazapine (Remeron) 15 mg BID PO Last administered on 09/19/17at 09:06; Start 09/17/17 at 21:00 Metoprolol Tartrate (Lopressor) 12.5 mg Q12HR PO Last administered on at 21:24; Start 09/17/17 at 21:00 Lidocaine HCl (Xylocaine-Mpf 1% Inj) 5 ml STK-MED ONCE OTHER ; Start 09/16/17 at 12:00; Stop 09/18/17 at 09:24; Status DC Rocuronium [place] (Zemuron Inj) 50 mg STK-MED ONCE IV PUSH ; Start 09/16/17 at 12:00; Stop 09/18/17 at 09:24; Status DC Phenylephrine HCl (Neosynephrine/ NS 1000 Mcg/10ml Syr) 1,000 mcg STK-MED ONCE IV ; Start 09/16/17 at 12:00; Stop 09/18/17 at 09:24; Status DC Phenylephrine HCl (Neosynephrine Inj) 20 mg STK-MED ONCE IV ; Start 09/16/17 at 12:00; Stop 09/18/17 at 09:24; Status DC Dexamethasone Sodium Phosphate (Decadron Inj) 4 mg STK-MED ONCE IV ; Start 09/16 at 12:00; Stop 09/18/17 at 09:24; Status DC Ondansetron HCl (Zofran Inj) 4 mg STK-MED ONCE IV ; Start 09/16/17 at 12:00; Stop 09/18/17 at 09:24; Status DC Propofol (Diprivan 200 Mg/20 ml Inj) 200 mg STK-MED ONCE IV ; Start 09/16/17 at 12:00; Stop 09/18/17 at 09:24; Status DC Lorazepam (Ativan) 1 mg TID PO Last administered on 09/19/17at 09:07; Start at 13:00 Famotidine (Pepcid) 20 mg BID PO Last administered on 09/19/17at 09:06; Start at 21:00 A/P Problem List: (1) Intracranial hemorrhage ICD Code: I62.9 - Nontraumatic intracranial hemorrhage, unspecified Status: Acute Assessment and Plan Mrs. Rivera is a 77-year-old female with a past medical history of dementia, depression, and anxiety who presented to the emergency room on 09/13/2017 after she was walking her dog and fell while walking in her neighborhood. She was found to be confused and complaining of right hip pain. Head CT in the emergency department showed questionable isolated area of parenchymal hemorrhage /contusion in the right posterior parietal/occipital region. She was admitted for monitoring and medical management. Intracranial hemorrhage/contusion right posterior parietal/occipital region - Neurosurgery consulted - patient also with degenerative disc disease with disc herniation and spinal stenosis - appreciate recommendations/assistance - Frequent neuro checks Syncope versus CVA versus seizure activity versus mechanical fall - We'll check brain MRI, MRA with and without contrast to further evaluate for ischemic CVA or other organic brain disease - Check bilateral carotid ultrasound to evaluate for carotid stenosis - EEG - Bed rest for now - Consult OT, PT, and ST - Neurology consulted - appreciate assistance - Diet -passed swallow eval with speech therapy Add 2D echo Right hip pain status post fall with impaired mobility - Obtain CT of right hip to further evaluate for injury/fracture HAD MRI OF RIGHT HIP- CONSULT ORTHO FOR FRACTURE SP RIGHT HIP REPAIR/HEMIARTHROPLASTY OF RIGHT HIP 3-12 Right forehead laceration repaired in the ED - Monitor for signs of infection Dementia ALZHEIMERS WITH PROGRESSION - Resume home Aricept Anxiety/Depression - Holding lorazepam and Remeron at this time to avoid sedation which may interfere with neurological examination PROBABLE UTI- START ROCEPHIN 1 GRAM IV DAILY AWAIT CULTURES DVT prophylaxis - SCDs; chemoprophylaxis contraindicated WILL NEED SNF AT DC AWAIT ORTHO CLEARANCE POSSIBLE DC WHEN BED AVAILABLE DC TO SNF TODAY SEE [id number] PAPERWORK DONE Discharge Planning Pending clearance by neuro and neurosurgery Will more than likely need SNF Poli Jennings DO Sep 19, 2017 10:57
[2017-09-19] MEDS ORDERED: NAME10TA PO (11:04)
[2017-09-19] MEDS ORDERED: LORA-474 PO (11:04)
[2017-09-19] MEDS ORDERED: MIRTA15 PO (11:04)
[2017-09-19] MEDS ORDERED: HYDR-3516 PO (11:04)
[2017-09-19] MEDS ORDERED: DOCU1CAP39 PO (11:04)
[2017-09-19] MEDS ORDERED: CEFU1TAB18 PO (11:04)
[2017-09-19] MEDS ORDERED: DONE10TA7 PO (11:04)
[2017-09-19] MEDS ORDERED: ENOX30P SQ (11:04)
[2017-09-19] MEDS ORDERED: CHOL5000 PO (11:04)
[2017-09-19] MEDS ORDERED: FAMO20TA2 PO (11:04)
--- NOTE | 2017-09-19 11:08 | HHI.DS ---
Discharge Summary Admission Date Sep 13, 2017 at 16:54 Discharge Date: Sep 19, 2017 Admitting Diagnosis ICH (1) Intracranial hemorrhage ICD Code: I62.9 - Nontraumatic intracranial hemorrhage, unspecified Diagnosis: Principal Status: Acute (2) E. coli UTI ICD Code: N39.0 - Urinary tract infection, site not specified; B96.20 - Unspecified Escherichia coli [E. coli] as the cause of diseases classified elsewhere Diagnosis: Secondary (3) Alzheimer's dementia ICD Code: G30.9 - Alzheimer's disease, unspecified; F02.80 - Dementia in other diseases classified elsewhere without behavioral disturbance Diagnosis: Secondary (4) Hip fracture, right ICD Code: S72.001A - Fracture of unspecified part of neck of right femur, initial encounter for closed fracture Diagnosis: Principal Procedures Date of Surgery: Sep 16, 2017 Preoperative Diagnosis: Displaced right femoral neck fracture Postoperative Diagnosis: Procedure: Right hip hemiarthroplasty Anesthesia: Gen. Surgeon: Christian Lovelace Automatic Pilot Mechanic(s): KESHIA Zimmer PA-C The surgical procedure was assisted by my physician orthodontist assistant. My P.A. presence was necessary throughout this case for the manipulation and positioning of the surgical extremity. My P.A. was assisting me throughout the duration of this procedure. The skill set of a physician orthodontist assistant was medically necessary to complete this procedure. During the surgical case the nursing tech was working at the back table and the physician orthodontist assistant was directly assisting me. Operation and Findings: PLAN OF ACTIVITY Weight bear as tolerated. IMPLANTS USED DePuy Corail size [12] stem with size [44] bipolar head and [+1] neck. DETAILS OF PROCEDURE This patient was brought into the operating room and placed on the OR table. The patient was given anesthesia. The patient received IV antibiotics. The patient was then placed in lateral decubitus position. The hip and leg were prepped with alcohol, followed by Hibiclens and draped in a usual sterile fashion. Clean air was used for this procedure. Time out procedure was performed. The procedure began with a 5 inch incision over the posterolateral hip. The subcutaneous tissue was dissected with the Bovie. The iliotibial band were split in line with fibers. The Charnley retractor was placed. The piriformis and external rotators were released from the femur and tagged with a #1 Vicryl suture. The capsule is now incised and tagged with #1 Vicryl. The femoral neck fracture was now visualized. A corkscrew was now used to remove the femoral head. The femoral head was sized and measured. Soft tissue was now protected. The hip skid was placed underneath the femoral neck. An oscillating saw was used to make a femoral neck cut. At this point attention was turned to preparation of the proximal femur. A box osteotome was used to remove the lateral cortex of the femoral neck. The T- handle reamer was used to open the femoral canal. Next, the canal was broached. A lateralizing reamer was used to help lateralize the prosthesis. There was a small cortical defect along the medial calcar region. This did not extend below the lesser trochanter. A 1.7 mm cable was passed around the proximal femur to help prevent any propagation of fracture along the calcar. The cable was tensioned, crimped, and cut. At this point a trial head and neck were placed. The hip was reduced. The patient was found to have excellent stability with good range of motion. Trial components were removed. Soft tissue and bone were thoroughly irrigated. A Corail stem was now opened. The stem was now impacted into the proximal femur. Care was taken to keep appropriate anteversion. The head and neck were now impacted onto the stem. The hip was again reduced. The hip was found to have good range of motion and good stability. Leg lengths were clinically equal. The wound was thoroughly irrigated. The capsule, piriformis and iliotibial band were closed with #1 Vicryl. Subcutaneous tissue was closed with 3-0 Vicryl. The skin was closed with toyin. A sterile dressing was applied with Primapore. The patient was placed into a knee immobilizer. The patient was awakened and transferred to the recovery room in stable condition. Needle and sponge counts were correct. Christian Lovelace MD Sep 16, 2017 11:47 Brief History - From Admission Mrs. Rivera is a 77-year-old female with a past medical history of dementia, depression, and anxiety who presented to the emergency room on 09/13/2017 after she was walking her dog and fell while walking in her neighborhood. She was found to be confused and complaining of right hip pain. Head CT in the emergency department showed questionable isolated area of parenchymal hemorrhage /contusion in the right posterior parietal/occipital region. She was admitted for monitoring and medical management. The patient is seen in her hospital room. She is very pleasant but confused and a poor historian. She is unable to recall the names of her medications and medical conditions. She provides a limited history of the fall as she does not remember much of the event. She is unsure whether or not she lost consciousness or not. She denies feeling ill prior to the fall and states she does not recall any chest pain or shortness of breath. She indicates that she may have tripped over her dog. She is complaining of 10 out of 10 sharp right hip pain that is worse with movement and palpation. . Femur and AP pelvis x-rays were negative for fracture. CBC/BMP: 09/18/17 0645 09/18/17 0645 Significant Findings Laboratory Tests Test 09/16/17 19:55 09/17/17 05:22 09/18/17 06:45 25-Hydroxy Vitamin D Total 14.8 ng/ML (30-100) White Blood Count 11.6 TH/MM3 (4.0-11.0) Neutrophils (%) (Auto) 78.9 % (16.0-70.0) Monocytes (%) (Auto) 11.0 % (0.0-8.0) 10.9 % (0.0-8.0) Neutrophils # (Auto) 9.1 TH/MM3 (1.8-7.7) Monocytes # (Auto) 1.3 TH/MM3 (0-0.9) Blood Urea Nitrogen 20 MG/DL (7-18) Random Glucose 70 MG/DL (74-106) Total Protein 6.3 GM/DL (6.4-8.2) 6.0 GM/DL (6.4-8.2) Albumin 2.9 GM/DL (3.4-5.0) 2.5 GM/DL (3.4-5.0) Phosphorus Level 2.3 MG/DL (2.5-4.9) 2.3 MG/DL (2.5-4.9) Aspartate Amino Transf (AST/SGOT) 101 U/L (15-37) 74 U/L (15-37) Alanine Aminotransferase (ALT/SGPT) 61 U/L (10-53) 60 U/L (10-53) Total Bilirubin 1.5 MG/DL (0.2-1.0) 1.2 MG/DL (0.2-1.0) Chloride Level 109 MEQ/L (98-107) 112 MEQ/L (98-107) Estimat Glomerular Filtration Rate 66 ML/MIN (>89) Red Blood Count 3.94 MIL/MM3 (4.00-5.30) Calcium Level 8.2 MG/DL (8.5-10.1) Sodium Level 146 MEQ/L (136-145) Imaging Last Impressions Hip and Pelvis X-Ray 09/16/17 1142 Signed Impressions: Service Date/Time: Saturday, September 16, 2017 12:30 - CONCLUSION: Postsurgical changes right hip arthroplasty. Joshua Muñoz MD Hip MRI 09/15/17 0000 Signed Impressions: Service Date/Time: Friday, September 15, 2017 07:31 - CONCLUSION: 1. Mildly angulated subcapital femoral neck fracture. 2. Perivascular edema and suspected injury to the gemellus muscle. 3. Small joint effusion. 4. Intact acetabulum. Nehemiah Dixon MD Carotid Artery Ultrasound 09/14/171939 Signed Impressions: Service Date/Time: Thursday, September 14, 2017 07:53 - CONCLUSION: 1. Mild to moderate bilateral carotid plaque as described. 2. No evidence of hemodynamically significant stenosis. 3. Antegrade flow in both vertebral arteries. Nehemiah Dixon MD Head Magnetic Resonance Angiography 09/14/17 Signed Impressions: Service Date/Time: Thursday, September 14, 2017 10:06 - CONCLUSION: Normal examination. Nehemiah Dixon MD Head CT 09/14/17 Signed Impressions: Service Date/Time: Thursday, September 14, 2017 15:20 - CONCLUSION: No acute intracranial findings. No evidence of intracranial hemorrhage. Sawyer Walker MD Brain MRI 09/14/17 0000 Signed Impressions: Service Date/Time: Thursday, September 14, 2017 10:06 - CONCLUSION: 1. No evidence of acute or chronic hemorrhage on MRI. 2. No evidence of acute infarct, edema, mass or enhancing lesions. Nehemiah Dixon MD Pelvis X-Ray 09/13/17 1356 Signed Impressions: Service Date/Time: Wednesday, September 13, 2017 13:52 - CONCLUSION: No fracture. Gilberto Humphrey MD Chest X-Ray 09/13/17 1356 Signed Impressions: Service Date/Time: Wednesday, September 13, 2017 13:52 - CONCLUSION: 1. No acute cardiopulmonary process. 2. Hyperinflation with some biapical fibrosis/ scarring. Gilberto Humphrey MD Cervical Spine CT 09/13/17 1356 Signed Impressions: Service Date/Time: Wednesday, September 13, 2017 14:10 - CONCLUSION: 1. No fractures or dislocations. 2. Multilevel degenerative changes as detailed at each level in the above discussion. 3. Carotid artery atherosclerotic calcifications. 4. Calcified pleural plaques. This can be seen in asbestos exposure. Robinson Diaz Jr., MD Lower Extremity CT 09/13/17 0000 Signed Impressions: Service Date/Time: Thursday, September 14, 2017 11:35 - CONCLUSION: 1. The subcapital right femoral neck lucency suspicious for nondisplaced fracture. Recommend right hip MRI for further evaluation. 2. Moderate-sized right hip joint effusion. Sawyer Walker MD Femur X-Ray 09/13/17 0000 Signed Impressions: Service Date/Time: Wednesday, September 13, 2017 13:52 - CONCLUSION: Negative for fracture Poli Quigley MD FACR PE at Discharge GENERAL: This is a elderly cachectic female patient, in no apparent distress. LESS confused SKIN: No rashes. Cool and dry. Right hip with large area of faint ecchymosis slightly bigger than the size of a softball. Laceration over right eye is covered with gauze that is dry and intact. HEAD: Atraumatic. Normocephalic. EYES: No scleral icterus. No injection or drainage. Wears glasses ENT: Nose without bleeding, purulent drainage. NECK: Trachea midline. No JVD or lymphadenopathy. CARDIOVASCULAR: Regular rate and rhythm without murmurs, gallops, or rubs. S1- S2 no S3 or S4 RESPIRATORY: Clear to auscultation. Breath sounds equal bilaterally. No wheezes , rales, or rhonchi. GASTROINTESTINAL: Abdomen soft, non-tender, nondistended. No guarding. MUSCULOSKELETAL: Extremities without clubbing, cyanosis. No calf tenderness. RIGHT HIP IS CURRENTLY DRESSED AFTER SURGERY-- NEUROLOGICAL: Awake and alert; confused. Normal speech. Cranial nerves II through XII grossly intact. Hospital Course Mrs. Rivera is a 77-year-old female with a past medical history of dementia, depression, and anxiety who presented to the emergency room on 09/13/2017 after she was walking her dog and fell while walking in her neighborhood. She was found to be confused and complaining of right hip pain. Head CT in the emergency department showed questionable isolated area of parenchymal hemorrhage /contusion in the right posterior parietal/occipital region. She was admitted for monitoring and medical management. The patient is seen in her hospital room. She is very pleasant but confused and a poor historian. She is unable to recall the names of her medications and medical conditions. She provides a limited history of the fall as she does not remember much of the event. She is unsure whether or not she lost consciousness or not. She denies feeling ill prior to the fall and states she does not recall any chest pain or shortness of breath. She indicates that she may have tripped over her dog. She is complaining of 10 out of 10 sharp right hip pain that is worse with movement and palpation. . Femur and AP pelvis x-rays were negative for fracture. 3-10 patient is currently confused This is probably baseline hAs some dementia Await the evaluation by physical therapy and occupational therapy discussed with patient and RN and case management await neuro Await neuro surgical evaluation await neurology evaluation Await MRIs and CAT scan of the right hip Patient may need placement at discharge PATIENT FELL AND WELL GET A REPEAT CAT SCAN OF BRAIN RADIOLOGY WANTS MRI OF RIGHT HIP THESE ARE PENDING 3-11 fracture of right hip consult ortho patient remains very confused DW NEUROLOGY HE FEELS SHE HAS DEMENTIA DW RN AND PT REMAINS CONFUSED 3-12 HAD RIGHT HIP SURGERY TODAY WITH DR LOVELACE NO NEW COMPLAINTS DW RN AND PT AND CM WILL NEED SNF 3-13 CONTINUE PT AND OT REMAINS CONFUSED SEEN LYING IN BED DW RN AND PT AND CM 3-14 HOPEFULLY TO REHAB IN NEXT 24 HOURS MUCH MORE CALM TODAY ATIVAN SCHEDULED NOT PRN MEDS ADJUSTED WILL NEED SNF AT DC OFF RESTRAINTS HOPEFULLY TO SNF TOMORROW 3-15 DC TO SNF TODAY DW RN AND PT ACCEPTED AT [facility] PER CM DC TO SNF Pt Condition on Discharge: Good Discharge Disposition: Discharge to SNF Discharge Time: > 30 minutes Discharge Instructions DIET: Follow Instructions for: Heart Healthy Diet Speech Therapy-Diet Recommends: Regular Activities you can perform: Weight Bearing as Charleen Follow up Referrals: Orthopedics - 2 Weeks with Christian Lovelace MD New Medications: Cefuroxime (Ceftin) 250 Mg Tab 250 MG PO BID for Infection for 7 Days, #14 TAB Cholecalciferol (Vitamin D3) 5,000 Unit Cap 5000 UNITS PO DAILY for Nutritional Supplement, #30 CAP Docusate Sodium (Dok) 100 Mg Cap 100 MG PO BID PRN for CONSTIPATION, #60 CAP Enoxaparin Inj (Lovenox Inj) 30 Mg/0.3 Ml Syr 30 MG SQ Q24H for Blood Clot Prevention, #21 INJECTION Famotidine (Famotidine) 20 Mg Tab 20 MG PO BID for Heartburn Management, #60 TAB Hydrocodone/Acetaminophen (Hydrocodone-Acetamin 5-325 mg) 5 Mg-325 Mg Tablet 1 TAB PO Q3H PRN for PAIN 3<10, #30 TAB Lorazepam (Ativan) 1 Mg Tab 1 MG PO TID for Agitation, #90 TAB Memantine (Namenda) 10 Mg Tab 10 MG PO BID for Agitation, #60 TAB Mirtazapine (Mirtazapine) 15 Mg Tab 15 MG PO BID for Agitation, #60 TAB Continued Medications: Donepezil (Donepezil) 10 Mg Tab 15 MG PO HS for Dementia, #30 TAB 0 Refills (This prescription has been renewed) Discontinued Medications: Lorazepam (Lorazepam) 1 Mg Tab 1 MG PO TID PRN for ANXIETY, TAB 0 Refills Mirtazapine (Mirtazapine) 15 Mg Tab 15 MG PO HS for Depression Control, #30 TAB 0 Refills Poli Jennings DO Sep 19, 2017 11:08
[2017-09-19] MEDS: ENOXAPARIN SODIUM 30 MG/0.3 ML SYRINGE SQ SCH (11:22)
[2017-09-19 12:00] VITALS: BP 130/61; PULSE 80; RESP 16; TEMP 98.4; O2SAT 96
[2017-09-22] MEDS ORDERED: MEMANTINE HCL 5 MG TAB PO SCH (09:00)
[2017-09-29] MEDS ORDERED: MEMANTINE HCL 10 MG TAB PO SCH (09:00)
== END 2017-09-19 14:12 | DRG 470 ==
LOC: NEPI 13:54 → EDBD 16:54 → NEDA 16:54 → N05A 19:20
PROVIDERS: ADMIT Hospitalist; ATTEND Hospitalist
PROC: 0HQ0XZZ Repair Scalp Skin, External Approach (ICD-10-PCS; 2017-09-13)
PROC: 0SRR0JA Replacement of Right Hip Joint, Femoral Surface with Synthetic Substitute, Uncemented, Open Approach (ICD-10-PCS; principal; 2017-09-16 10:37)
DX: S72.001A Fracture of unspecified part of neck of right femur, initial encounter for closed fracture (principal); N39.0 Urinary tract infection, site not specified; G30.9 Alzheimer's disease, unspecified; M50.20 Other cervical disc displacement, unspecified cervical region; F02.80 Dementia in other diseases classified elsewhere, unspecified severity, without behavioral disturbance, psychotic disturbance, mood disturbance, and anxiety; Z78.1 Physical restraint status; S01.01XA Laceration without foreign body of scalp, initial encounter; W18.39XA Other fall on same level, initial encounter; Y93.K1 Activity, walking an animal; Y92.9 Unspecified place or not applicable; Y99.9 Unspecified external cause status; F41.9 Anxiety disorder, unspecified; F32.9 Major depressive disorder, single episode, unspecified; Z87.891 Personal history of nicotine dependence; M50.30 Other cervical disc degeneration, unspecified cervical region; B96.20 Unspecified Escherichia coli [E. coli] as the cause of diseases classified elsewhere
CPT/HCPCS: 12001; 70450; 70544; 70553; 71045; 72125; 72170; 73502; 73552; 73700; 73721; 80048; 80053; 80307; 81001; 82306; 82607; 83036; 83735; 83921; 84100; 84425; 84439; 84443; 84450; 84460; 85025; 85384; 85610; 85652; 85730; 86038; 86592; 86850; 86900; 86901; 87077; 87086; 87186; 93005; 93306; 93880; 95819; 99291; 99292; A9579; C1713; C1776; G0390; J0131; J0696; J1100; J1580; J1650; J2370; J2405; J3010; J3370; J3420; J7030; L1830

== ENCOUNTER 2017-10-21 23:38 | Inpatient (IN) | payer OTHER, MEDICARE ==
[~2017-10-21] VITALS: Ht 167.6 cm; Wt 60.7 kg
[~2017-10-21 23:38] MED LIST: CEFU1TAB18 PO; CHOL5000 PO; DOCU1CAP39 PO; DONE10TA7 PO; ENOX30P SQ; FAMO20TA2 PO; HYDR-3516 PO; LORA-474 PO; MIRTA15 PO; NAME10TA PO
[2017-10-21 23:47] VITALS: BP 140/62; PULSE 120; RESP 18; TEMP 98.2; O2SAT 97
[2017-10-22] VITALS (17 sets, daily range): BP systolic 101–145; BP diastolic 47–99; PULSE 80–136; RESP 12–20; TEMP 98.3–99; O2SAT 92–100
--- NOTE | 2017-10-22 00:07 | PD ---
HPI Chief Complaint: Altered mental status Time Seen by Provider: 23:51 Travel History International Travel<30 days: No Contact w/Intl Traveler<30days: No History of Present Illness HPI The patient is a 77 year old female who presents to the [facility] emergency department with a history of altered mentation that worsened after falling just prior to 9 PM tonight. This was an unwitnessed fall. The patient has a history of dementia and is unsure whether she hit her head. The patient reports having bilateral arm pain. There is no deformity noted. The patient is tremulous on arrival. The patient reportedly had an axillary temperature of 100 by ambulance services. The patient was oriented to person, however not place, time, or situation. The patient was noted to have a heart rate in the 130s that appear to be a sinus tachycardia with a blood sugar of 146. The patient had generalized abdominal tenderness and distention. On arrival, the patient had one episode of vomiting of bile. The patient denies having any chest pain, chest pressure, or shortness of breath. She is unsure whether she has had diarrhea or constipation. She is unsure when she last moved her bowels. Unfortunately, the patient's history is limited due to her altered mentation and history of dementia. The patient's electronic medical record was reviewed for additional history. FORMERLY [facility], [facility] Past Medical History Narrative Medical The patient's past medical history is significant for history of Alzheimer's related dementia, history of a recent fall in September 2017 with an isolated area of parenchymal hemorrhage/contusion noted on CT scan of the brain, and a right hip fracture status post repair by Dr. Fernandez. The patient has a history of anxiety and depression. Diminished Hearing: Yes : 2 Para: 2 Past Surgical History Narrative Surgical The patient's past surgical history is significant for displaced right hip arthroplasty on September 16, 2017. Social History Alcohol Use: No Tobacco Use: No Substance Use: No Allergies-Medications (Allergen,Severity, Reaction): Coded Allergies: Penicillins (Verified Allergy, Intermediate, Rash, 09/13/17) aspirin (Unverified Adverse Reaction, Unknown, 09/13/17) Reported Meds & Prescriptions Reported Meds & Active Scripts Active Famotidine 20 Mg Tab 20 Mg PO BID Dok (Docusate Sodium) 100 Mg Cap 100 Mg PO BID PRN Namenda (Memantine) 10 Mg Tab 10 Mg PO BID Ativan (Lorazepam) 1 Mg Tab 1 Mg PO TID Mirtazapine 15 Mg Tab 15 Mg PO BID Hydrocodone-Acetamin 5-325 mg (Hydrocodone/Acetaminophen) 5 Mg-325 Mg Tablet 1 Tab PO Q3H PRN Donepezil 10 Mg Tab 15 Mg PO HS Reported Aspirin 325 Mg Tab 325 Mg PO DAILY Review of Systems Except as stated in HPI: all other systems reviewed are Neg General / Constitutional: Positive: Fever, Chills Eyes: No: Visual changes HENT: No: Headaches Cardiovascular: No: Chest Pain or Discomfort Respiratory: No: Shortness of Breath Gastrointestinal: Positive: Nausea, Vomiting, Abdominal Pain Genitourinary: No: Dysuria Musculoskeletal: No: Pain Skin: No Rash Neurologic: Positive: Tremor, Change in Mentation, No: Weakness, Focal Abnormalities, Slurred Speech, Sensory Disturbance Psychiatric: No: Depression Endocrine: No: Polydipsia Hematologic/Lymphatic: No: Easy Bruising Physical Exam Narrative General: The patient is a well-developed well-nourished female in no acute distress. Head and Neck exam: Head is normocephalic atraumatic. Eyes: EOMI, pupils are equal round and reactive to light. Nose: Midline septum with pink mucous membranes Mouth: Dentition unremarkable. Moist mucus membranes. Posterior oropharynx is not erythematous. No tonsillar hypertrophy. Uvula midline. Airway patent. Neck: No palpable lymphadenopathy. No nuchal rigidity. No thyromegaly. Cardiovascular: Irregularly irregular with tachycardia without murmurs, gallops, or rubs. Lungs: Clear to auscultation bilaterally. No wheezes, rhonchi, or rales. Abdomen: Distended, tender to palpation on all 4 quadrants of the abdomen. Decreased bowel sounds are audible. No guarding, rebound, or rigidity. No point tenderness specifically on palpation over McBurney's point. Extremities: No clubbing, cyanosis, or edema. 2+ pulses in all 4 extremities. No calf tenderness on palpation. The patient's right lateral hip was examined and appears to be well-healed with the scar from prior right hip arthroplasty. Back: No spinous process tenderness to palpation. No costovertebral angle tenderness to palpation. Neurologic Exam: Grossly nonfocal. The patient is oriented to person and the fact that she is at the hospital. She is not oriented to time or situation. Skin Exam: No rash noted. Intact skin that is warm and dry. Data Data Last Documented VS Vital Signs Date Time Temp Pulse Resp B/P (MAP) Pulse Ox O2 Delivery O2 Flow Rate FiO2 10/22/17 00:14 112 18 97 Nasal Cannula 2.00 10/22/17 00:00 140/62 (88) 10/21/17 23:47 98.2 Orders Orders Electrocardiogram (10/22/17 00:00) Complete Blood Count With Diff (10/22/17 00:00) Comprehensive Metabolic Panel (10/22/17 00:00) Creatine Kinase (Cpk) (10/22/17 00:00) Ckmb (Isoenzyme) Profile (10/22/17 00:00) Troponin I (10/22/17 00:00) B-Type Natriuretic Peptide (10/22/17 00:00) Prothrombin Time / Inr (Pt) (10/22/17 00:00) Act Partial Throm Time (Ptt) (10/22/17 00:00) C-Reactive Protein (Crp) (10/22/17 00:00) Lipase (10/22/17 00:00) Urinalysis - C+S If Indicated (10/22/17 00:00) Magnesium (Mg) (10/22/17 00:00) Chest, Single Ap (10/22/17 00:00) Ct Brain W/O Iv Contrast(Rout) (10/22/17 00:00) Iv Access Insert/Monitor (10/22/17 00:00) Ecg Monitoring (10/22/17 00:00) Oximetry (10/22/17 00:00) Lactic Acid Sepsis Protocol (10/22/17 00:00) Ct Cerv Spine W/O Contrast (10/22/17 ) Sodium Chlorid 0.9% 500 Ml Inj (Ns 500 M (10/22/17 00:15) Ondansetron Inj (Zofran Inj) (10/22/17 00:15) Sodium Chlorid 0.9% 500 Ml Inj (Ns 500 M (10/22/17 01:30) Vancomycin Inj (Vancomycin Inj) (10/22/17 01:21) Aztreonam Inj (Azactam Inj) (10/22/17 01:21) Metronidazole 500 Mg Inj (Flagyl 500 Mg (10/22/17 01:21) Admit Order (Ed Use Only) (10/22/17 01:25) CKMB (10/22/17 02:10) CKMB% (10/22/17 02:10) Labs Laboratory Tests Test 10/22/17 00:05 White Blood Count 3.3 TH/MM3 Red Blood Count 5.39 MIL/MM3 Hemoglobin 16.3 GM/DL Hematocrit 48.7 % Mean Corpuscular Volume 90.3 FL Mean Corpuscular Hemoglobin 30.1 PG Mean Corpuscular Hemoglobin Concent 33.4 % Red Cell Distribution Width 14.9 % Platelet Count 383 TH/MM3 Mean Platelet Volume 9.1 FL Neutrophils (%) (Auto) 75.6 % Lymphocytes (%) (Auto) 17.6 % Monocytes (%) (Auto) 6.3 % Eosinophils (%) (Auto) 0.3 % Basophils (%) (Auto) 0.2 % Neutrophils # (Auto) 2.5 TH/MM3 Lymphocytes # (Auto) 0.6 TH/MM3 Monocytes # (Auto) 0.2 TH/MM3 Eosinophils # (Auto) 0.0 TH/MM3 Basophils # (Auto) 0.0 TH/MM3 CBC Comment AUTO DIFF Differential Comment AUTO DIFF CONFIRMED Platelet Estimate NORMAL Platelet Morphology Comment NORMAL Lactic Acid Level 5.5 mmol/L B-Type Natriuretic Peptide 1206 PG/ML MDM Medical Decision Making Medical Screen Exam Complete: Yes Emergency Medical Condition: Yes Medical Record Reviewed: Yes Interpretation(s) Last Impressions Chest X-Ray 10/22/17 0000 Signed Impressions: Service Date/Time: Sunday, October 22, 2017 00:21 - CONCLUSION: 1. Free intraperitoneal air. 2. No acute cardiopulmonary disease demonstrated. Ney Ashton MD Differential Diagnosis Ileus, versus bowel obstruction, versus pancreatitis, versus acute cholecystitis , versus appendicitis, versus diverticulitis, versus colitis Narrative Course During the course of the patient's emergency department visit, the patient's history, examination, and differential diagnosis were reviewed with the patient. The patient was placed on a director of cardiac cath lab with oximetry and frequent blood pressure monitoring. The patient had IV access obtained and blood work sent for analysis. The patient had an EKG done on arrival that shows atrial fibrillation with RVR, heart rate of 109, no acute ST segment elevation. QRS duration 76 ms, QTC 419 ms. The patient's electronic medical record was reviewed and the patient in the past had an echo done during her last hospitalization revealed an ejection fraction of 40-45%, therefore the patient was started on gentle rehydration. The patient was initially provided normal saline 500 mL bolus 1, Zofran 4 mg IV. Radiology studies were reviewed and remarkable for a chest x-ray that showed free air underneath the diaphragm. A call was emergently placed out to the general surgeon on-call. He spoke to Dr. Sheppard regarding this patient's case. He requested as the patient is altered with a history of dementia that I speak to the patient's family regarding consent prior to him coming in to evaluate the patient. A message was left on the patient's daughters phone by me and by the patient's nurse. A call was placed out to the manager mechanical maintenance workforce consultant , Dr. Loyd, who did agree to admit the patient for continued evaluation and treatment. The patient's lactic acid came back elevated at 5.5. The second normal saline 500 mL bolus was administered. The usual 30 mL/kg IV fluid bolus was held as the patient does have a history of diminished ejection fraction. The patient's BNP today came back at 1206. CMP is remarkable for a sodium of 148, potassium 3.1, chloride 108, BUN 25, creatinine 1.52, glucose 128, total bilirubin 1.3, troponin is 0.18, CRP is 19, lipase 38. The patient was given Azactam, Flagyl, vancomycin for broad-spectrum antibiotic coverage for perforated bowel. The patient was admitted to the hospital in critical condition and sent to a bed under the care of the manager mechanical maintenance service. At approximately 6:45 AM, the patient's daughter called back and was made aware of the circumstances of the patient's evaluation in the emergency department and her current critical situation. She agreed with the plan to proceed with surgery. She consented to surgery including colostomy if needed. Critical Care Narrative Aggregate critical care time was 33 minutes. Time to perform other separately billable procedures was not included in the critical care time. My time did not include minutes spent treating any other patients simultaneously or on activities that did not directly contribute to the patient's treatment. The services I provided to this patient were to treat and/or prevent clinically significant deterioration that could result in: Cardiovascular collapse from sepsis, versus over resuscitation with crystalloid for sepsis with respiratory failure I provided critical care services requiring my management, as noted below: Chart data review, documentation time, medication orders and management, vital sign assessments/reviewing monitor data, ordering and reviewing lab tests, ordering and interpreting/reviewing x-rays and diagnostic studies, care of the patient and discussion of the patient with the admitting physicians. Physician Communication Physician Communication The patient's case including history, pertinent physical examination findings, and laboratory studies were discussed with Dr. Sheppard, the general surgeon on- call at approximately 1:06 AM. He requested that I speak to the patient's family regarding consent for the patient to have surgery prior to him doing a surgical intervention, as regardless of whether or not the patient has surgery, the outcome would likely be poor. Galina Kellogg, the patient's daughter was identified by case management as the patient's closest relative and apparently lives in [place]. A call was placed out to her contact number per record at [phone]. The patient's case including history, pertinent physical examination findings, and laboratory studies were discussed with Dr. Loyd, the manager mechanical maintenance. It was agreed that the patient would be admitted to the manager mechanical maintenance service. Diagnosis Primary Impression: Pneumoperitoneum Additional Impression: Sepsis Qualified Codes: A41.9 - Sepsis, unspecified organism Admitting Information Admitting Physician Requests: Admit Jeanine Patel MD Oct 22, 2017 00:07
[2017-10-22] MEDS ORDERED: ONDANSETRON HCL 4 MG/2 ML VIAL IV PUSH ONE (00:15)
[2017-10-22] MEDS ORDERED: SODIUM CHLORID 0.9% 500 ML INJ 500 ML IV ONE ×2 (00:15→01:30)
[2017-10-22 00:33] LABS: AUTOMATED NEUTROPHIL # 2.5 TH/MM3 (1.8-7.7); BASOPHIL % 0.2 % (0.0-2.0); EOSINOPHIL % 0.3 % (0.0-4.0); HEMATOCRIT 48.7 % (35.0-46.0); HEMOGLOBIN 16.3 GM/DL (11.6-15.3); LYMPH % 17.6 % (9.0-44.0); LYMPHOCYTE # 0.6 TH/MM3 (1.0-4.8); MEAN CELL VOLUME 90.3 FL (80.0-100.0); MEAN CORPUSCULAR HEMOGLOBIN 30.1 PG (27.0-34.0); MEAN CORPUSCULAR HGB CONC 33.4 % (32.0-36.0); MEAN PLATELET VOLUME 9.1 FL (7.0-11.0); MONO % 6.3 % (0.0-8.0); MONOCYTE # 0.2 TH/MM3 (0-0.9); NEUT % 75.6 % (16.0-70.0); PLATELET COUNT 383 TH/MM3 (150-450); RED BLOOD COUNT 5.39 MIL/MM3 (4.00-5.30); RED CELL DISTRIBUTION WIDTH 14.9 % (11.6-17.2); WHITE BLOOD COUNT 3.3 TH/MM3 (4.0-11.0)
--- NOTE | 2017-10-22 00:59 | RADRPT ---
EXAM DATE/TIME: 10/22/2017 00:21 [facility] COMPARISON: No previous studies available for comparison. INDICATIONS : Short of breath. MEDICAL HISTORY : Venous insufficiency. dementia. SURGICAL HISTORY : None. ENCOUNTER: Initial ACUITY: 1 day PAIN SCORE: Non-responsive. LOCATION: Bilateral chest FINDINGS: No infiltrate, effusion or pneumothorax demonstrated. Chronic biapical pleural thickening/scarring no rafael. Heart size normal. Free air seen in the abdomen. CONCLUSION: 1. Free intraperitoneal air. 2. No acute cardiopulmonary disease demonstrated. Ney Ashton MD on October 22, 2017 at 0:57 Board Certified Radiologist. This report was verified electronically.
[2017-10-22 01:02] LABS: LACTIC ACID SEPSIS PROTOCOL 5.5 mmol/L (0.4-2.0)
[2017-10-22] MEDS ORDERED: ASPI-183 PO (01:16)
[2017-10-22] MEDS ORDERED: AZTREONAM INJ 2,000 MG in SODIUM CHLORIDE 0.9% INJ 100 ML IV STA (01:21)
[2017-10-22] MEDS ORDERED: metroNIDAZOLE 500 MG INJ 100 ML IV STA (01:21)
[2017-10-22] MEDS ORDERED: VANCOMYCIN INJ 1,000 MG in SODIUM CHLOR 0.9% 250 ML INJ 250 ML IV STA (01:21)
[2017-10-22] MEDS ORDERED: SODIUM CHLOR 0.9% 1000 ML INJ 1,000 ML IV SCH (01:47)
--- NOTE | 2017-10-22 01:51 | HHI.HP ---
[facility] Service Critical Care Medicine Primary Care Physician Unknown Admission Diagnosis Perforated Bowel, Sepsis Diagnosis: (1) Pneumoperitoneum of unknown etiology Diagnosis: Principal (2) Gastroesophageal reflux disease Diagnosis: Secondary (3) Depression Diagnosis: Secondary (4) Elevated brain natriuretic peptide (BNP) level Diagnosis: Secondary (5) Polycythemia Diagnosis: Secondary (6) Chronic systolic heart failure Diagnosis: Secondary (7) Lactic acidosis Diagnosis: Principal (8) Leukopenia Diagnosis: Secondary (9) Alzheimer's dementia Diagnosis: Secondary (10) Hypoalbuminemia Diagnosis: Secondary (11) Acute kidney injury Diagnosis: Principal (12) Hypokalemia Diagnosis: Secondary (13) Elevated troponin Diagnosis: Secondary (14) Hypernatremia Diagnosis: Secondary Chief Complaint: Altered mental status/abdominal pain Travel History International Travel<30 Days: No Contact w/Intl Traveler <30 Da: No Traveled to Known Affected Are: No History of Present Illness This is a 77-year-old female. Full CODE STATUS. Date of admission . Past medical history includes end-stage Alzheimer dementia, depression /anxiety, hard of hearing, gastroesophageal reflux disease. Patient is a prior history of tobaccoism. Recent echocardiogram revealed EF of 40-45% with inferior hypokinesis. Patient presents from [facility] with altered mental status and abdominal pain just prior to 9 PM tonight. This was an unwitnessed fall. The patient has a history of dementia and is unsure whether she hit her head. X-ray at that facility revealed possible free air. Recommended follow-up CAT scan in the emergency department. The patient was oriented to person, however not place, time, or situation. The patient was noted to have a heart rate in the 130s that appear to be a sinus tachycardia with a blood sugar of 146. The patient had generalized abdominal tenderness and distention. On arrival, the patient had one episode of vomiting of bile. Chest x-ray at [facility] revealed large right-sided pneumoperitoneum. Dr. Sheppard/general surgery was notified. Requested notifying healthcare proxy Galina Kellogg [phone] prior to any intervention. At the present time patient is full code. White cell count of 3.3. Hemoglobin is 16. Lactate is 5.5. BNP is elevated. Remainder of laboratories are pending. Patient received vancomycin, aztreonam and metronidazole in the ED along with a 500 cc bolus of normal saline 2 and 4 mg of ondansetron.. 200 mg fluconazole IV has been provided 1 as well Review of Systems ROS Limitations: Clinical Condition, Altered Mental Status Past Family Social History Allergies: Coded Allergies: Penicillins (Verified Allergy, Intermediate, Rash, 09/13/17) aspirin (Unverified Adverse Reaction, Unknown, 09/13/17) Past Medical History Depression Anxiety Hard of hearing Alzheimer's dementia Past Surgical History ORIF right hip Reported Medications Ceftin (Cefuroxime Axetil) 250 Mg Tab 250 Mg PO BID 7 Days Vitamin D3 (Cholecalciferol) 5,000 Unit Cap 5,000 Units PO DAILY Famotidine 20 Mg Tab 20 Mg PO BID Dok (Docusate Sodium) 100 Mg Cap 100 Mg PO BID PRN Namenda (Memantine) 10 Mg Tab 10 Mg PO BID Ativan (Lorazepam) 1 Mg Tab 1 Mg PO TID Mirtazapine 15 Mg Tab 15 Mg PO BID Hydrocodone-Acetamin 5-325 mg (Hydrocodone/Acetaminophen) 5 Mg-325 Mg Tablet 1 Tab PO Q3H PRN Lovenox Inj (Enoxaparin Sodium) 30 Mg/0.3 Ml Syr 30 Mg SQ Q24H Donepezil 10 Mg Tab 15 Mg PO HS Active Ordered Medications Reviewed in EMR Family History Mother and father is unknown/not documented in past medical records. Patient unable to provide me that information currently Social History Smoked tobacco one half pack per year 40 years. Quit 20 years ago. No EtOH use. No illicit drug use. Physical Exam Vital Signs Vital Signs Date Time Temp Pulse Resp B/P (MAP) Pulse Ox O2 Delivery O2 Flow Rate FiO2 10/22/17 00:14 112 18 97 Nasal Cannula 2.00 10/21/17 23:47 98.2 120 18 140/62 (88) 97 Physical Exam GENERAL: 77-year-old cachectic female currently resting in bed in mild distress secondary to pain SKIN: Warm and dry. HEAD: Atraumatic. Normocephalic. EYES: Pupils equal and round. No scleral icterus. No injection or drainage. ENT: No nasal bleeding or discharge. Mucous membranes pink and moist. NECK: Trachea midline. No JVD. CARDIOVASCULAR: Tachycardic, RR. S1, S2. No S4. Without murmur RESPIRATORY: No accessory muscle use. Clear to auscultation. Breath sounds equal bilaterally. GASTROINTESTINAL: Abdomen baseline is scaphoid but now is rigid/tender to palpation all 4 quadrants. No bowel sounds are appreciated.. MUSCULOSKELETAL: Extremities without significant peripheral edema. No obvious deformities. NEUROLOGICAL: Awake and alert. No obvious cranial nerve deficits. Moves all 4 extremities spontaneously. Laboratory Laboratory Tests Test 10/22/17 00:05 White Blood Count 3.3 Red Blood Count 5.39 Hemoglobin 16.3 Hematocrit 48.7 Mean Corpuscular Volume 90.3 Mean Corpuscular Hemoglobin 30.1 Mean Corpuscular Hemoglobin Concent 33.4 Red Cell Distribution Width 14.9 Platelet Count 383 Mean Platelet Volume 9.1 Neutrophils (%) (Auto) 75.6 Lymphocytes (%) (Auto) 17.6 Monocytes (%) (Auto) 6.3 Eosinophils (%) (Auto) 0.3 Basophils (%) (Auto) 0.2 Neutrophils # (Auto) 2.5 Lymphocytes # (Auto) 0.6 Monocytes # (Auto) 0.2 Eosinophils # (Auto) 0.0 Basophils # (Auto) 0.0 CBC Comment AUTO DIFF Differential Comment AUTO DIFF CONFIRMED Platelet Estimate NORMAL Platelet Morphology Comment NORMAL Lactic Acid Level 5.5 B-Type Natriuretic Peptide 1206 Result Diagram: 10/22/17 0005 Imaging Last Impressions Chest X-Ray 10/22/17 0000 Signed Impressions: Service Date/Time: Sunday, October 22, 2017 00:21 - CONCLUSION: 1. Free intraperitoneal air. 2. No acute cardiopulmonary disease demonstrated. Ney Ashton MD Septic Shock Reassessment Septic shock perfusion: reassessment completed Caprini VTE Risk Assessment Caprini VTE Risk Assessment: Mod/High Risk (score >= 2) VTE Pharm Contraindication: Caprini Risk Assessment Model Point Value = 1 Point Value = 2 Point Value = 3 Point Value = 5 Age 41-60 Minor surgery BMI > 25 kg/m2 Swollen legs Varicose veins or History of unexplained or recurrent spontaneous Oral contraceptives or hormone replacement Sepsis (< 1 month) Serious lung disease, including pneumonia (< 1 month) Abnormal pulmonary function Acute myocardial infarction Congestive heart failure (< 1 month) History of inflammatory bowel disease Medical patient at bed rest Age 61-74 Arthroscopic surgery Major open surgery (> 45 min) Laparoscopic surgery (> 45 min) Malignancy Confined to bed (> 72 hours) Immobilizing plaster cast Central venous access Age >= 75 History of VTE Family history of VTE Factor V Leiden Prothrombin [id number] Lupus anticoagulant Anticardiolipin antibodies Elevated serum homocysteine Heparin-induced thrombocytopenia Other congenital or acquired thrombophilia Stroke (< 1 month) Elective arthroplasty Hip, pelvis, or leg fracture Acute spinal cord injury (< 1 month) Prophylaxis Regimen Total Risk Factor Score Risk Level Prophylaxis Regimen 0-1 Low Early ambulation 2 Moderate Order ONE of the following: *Sequential Compression Device (SCD) *Heparin 5000 units SQ BID 3-4 Higher Order ONE of the following medications: *Heparin 5000 units SQ TID *Enoxaparin/Lovenox 40 mg SQ daily (WT < 150 kg, CrCl > 30 mL/min) *Enoxaparin/Lovenox 30 mg SQ daily (WT < 150 kg, CrCl > 10-29 mL/min) *Enoxaparin/Lovenox 30 mg SQ BID (WT < 150 kg, CrCl > 30 mL/min) AND/OR *Sequential Compression Device (SCD) 5 or more Highest Order ONE of the following medications: *Heparin 5000 units SQ TID (Preferred with Epidurals) *Enoxaparin/Lovenox 40 mg SQ daily (WT < 150 kg, CrCl > 30 mL/min) *Enoxaparin/Lovenox 30 mg SQ daily (WT < 150 kg, CrCl > 10-29 mL/min) *Enoxaparin/Lovenox 30 mg SQ BID (WT < 150 kg, CrCl > 30 mL/min) AND *Sequential Compression Device (SCD) Assessment and Plan Assessment and Plan Neuro/Psych: Alzheimer's dementia NOS Depression disorder NOS Anxiety disorder NOS Evaluated by Dr. Zelaya and , last admission. CT brain revealed frontal contusion from fall. No hemorrhage Home medications on donepezil 15 mg daily memantine 10 mg 2x daily. Will currently on hold while n.p.o. Morphine sulfate 2 mg IV every 2 hours as needed pain 6 or 10 CV: Sinus tachycardia Lactic acidosis Trop 0.18 Chronic Syst HF Currently LR @ 100 cc/hr 2D echocardiogram 09/22 revealed EF 40-45%. Inferior hypokinesis. Pulmonary arterial pressure 37.5 mmHg Serial lactates until cleared Trop repeat 0700 EKG revealed sinus tachycardia heart rate in the 1 teens to 120s with ectopy. Resp: Nasal cannula to maintain saturations greater than or equal to 92% Incentive spirometry while awake As needed albuterol aerosols every 2 hours as needed GI: Pneumoperitoneum Constipation history History of gastroesophageal reflux disease Low albumin Chest x-ray revealed large amount of air underneath the right diaphragm. Dr. Sheppard/general surgery consult. Pantoprazole for GI prophylaxis. Holding docusate sodium and famotidine/home medications : Cordero catheter for accurate I's and O's in a critically ill patient Endo: Sliding scale insulin with Accu-Cheks to maintain euglycemia/low regimen Novulog Renal: ASIF Cr. !.[address] A/P Unine Na+, Cr, Eos LR @ 100 cc/hr BMP currently pending Heme: Leukopenia Polycythemia History of DVT? Aspirin 320 mg p.o. daily Monitor CBC daily. Follow trends. Coags currently pending ID: Pneumoperitoneum Currently in vancomycin, aztreonam, metronidazole and fluconazole day #1 Blood cultures 2, UA currently pending MSK: PT evaluate and treat FEN: Hyper Na+ HypoK+ Replace electrolytes as clinically indicated 30 mEq Kcl x1 now Access -Utilize peripheral IV. Central line if indicated Prophylaxis -GI -pantoprazole -DVT -SCD/holding pharmacological prophylaxis in light of possible emergent surgery Critical Care: The total critical care time was 35 minutes. Time to perform other separately billable procedures was not included in the critical care time. Code Status Full code Discussed Condition With Dr. Patel/ED physician. Unable to contact healthcare proxy Galina Kellogg [phone]. Care plan discussed and all questions answered. Problem Qualifiers (1) Depression: Qualified Codes: F33.1 - Major depressive disorder, recurrent, moderate (2) Leukopenia: Qualified Codes: D72.819 - Decreased white blood cell count, unspecified (3) Alzheimer's dementia: Qualified Codes: G30.8 - Other Alzheimer's disease; F02.81 - Dementia in other diseases classified elsewhere with behavioral disturbance Philip Loyd MD Oct 22, 2017 01:51
[2017-10-22] MEDS ORDERED: ONDANSETRON HCL 4 MG/2 ML VIAL IV PUSH PRN (02:00)
[2017-10-22] MEDS ORDERED: RESP: ALBUTEROL 2.5 MG/3 ML NEB (PRN) INH (02:00)
[2017-10-22] MEDS ORDERED: SODIUM CHLORIDE 0.9% FLUSH 10 ML FLUSH IV FLUSH PRN (02:00)
[2017-10-22] MEDS ORDERED: MISCELLANEOUS NURSING INFORMATION XX SCH (02:00)
[2017-10-22] MEDS ORDERED: MORPHINE SULFATE 4 MG/ML INJ IV PUSH PRN (02:00)
[2017-10-22] MEDS ORDERED: CHLORHEXIDINE GLUCONATE 2 % 1 PACK (2 CLOTHS) TOP PRN (02:00)
[2017-10-22] MEDS ORDERED: AZTREONAM INJ 1,000 MG in SODIUM CHLORIDE 0.9% INJ 100 ML IV SCH (02:00)
[2017-10-22 02:47] LABS: ALBUMIN 1.9 GM/DL (3.4-5.0); ALT (GPT) 18 U/L (10-53); AST (GOT) 24 U/L (15-37); BICARBONATE 30.2 MEQ/L (21.0-32.0); BLOOD UREA NITROGEN 25 MG/DL (7-18); CALCIUM 9.4 MG/DL (8.5-10.1); CHLORIDE 108 MEQ/L (98-107); CREATININE 1.52 MG/DL (0.50-1.00); GLOMERULAR FILTRATION RATE 33 ML/MIN (>89); GLUCOSE,RANDOM 128 MG/DL (74-106); MAGNESIUM 2.5 MG/DL (1.5-2.5); SODIUM (NA) 148 MEQ/L (136-145)
[2017-10-22 02:54] LABS: ALKALINE PHOSPHATASE 53 U/L (45-117); TOTAL BILIRUBIN ADULT 1.3 MG/DL (0.2-1.0); TOTAL PROTEIN 6.3 GM/DL (6.4-8.2); TROPONIN I 0.18 NG/ML (0.02-0.05)
[2017-10-22] MEDS ORDERED: ACETAMINOPHEN 1000 MG/100 ML 100 ML IV PRN (03:00)
[2017-10-22 03:21] LABS: INTERNATIONAL NORMALIZED RATIO 1.1 RATIO; PROTHROMBIN TIME - PATIENT 11.4 SEC (9.8-11.6)
--- NOTE | 2017-10-22 03:23 | RADRPT ---
EXAM DATE/TIME: 10/22/2017 03:05 [facility] COMPARISON: CT BRAIN W/O CONTRAST, September 14, 2017, 15:20. INDICATIONS : Trauma. Fall. RADIATION DOSE: 61.36 CTDIvol (mGy) MEDICAL HISTORY : Dementia. SURGICAL HISTORY : None. ENCOUNTER: Initial ACUITY: 1 day PAIN SCALE: Non-responsive LOCATION: cranial TECHNIQUE: Multiple contiguous axial images were obtained of the head. Using automated exposure control and adj ustment of the mA and/or kV according to patient size, radiation dose was kept as low as reasonably a chievable to obtain optimal diagnostic quality images. DICOM format image data is available electro nically for review and comparison. FINDINGS: CEREBRUM: The ventricles are normal for age. No evidence of midline shift, mass lesion, hemorrhage or acute in farction. No extra-axial fluid collections are seen. Chronic low-attenuation in the periventricular white matter. POSTERIOR FOSSA: The cerebellum and brainstem are intact. The 4th ventricle is midline. The cerebellopontine angle i s unremarkable. EXTRACRANIAL: The visualized portion of the orbits is intact. SKULL: The calvaria is intact. No evidence of skull fracture. CONCLUSION: No acute intracranial abnormality. Ney Ashton MD on October 22, 2017 at 3:21 Board Certified Radiologist. This report was verified electronically.
--- NOTE | 2017-10-22 03:25 | RADRPT ---
EXAM DATE/TIME: 10/22/2017 03:05 [facility] COMPARISON: CT CERVICAL SPINE W/O CONTRAST, September 13, 2017, 14:10. INDICATIONS : Trauma. Fall. RADIATION DOSE: 12.86 CTDIvol (mGy) MEDICAL HISTORY : Dementia. SURGICAL HISTORY : None. ENCOUNTER: Initial ACUITY: 1 day PAIN SCALE: Non-responsive LOCATION: neck TECHNIQUE: Volumetric scanning of the cervical spine was performed. Multiplanar reconstructions in the sagittal, coronal and oblique axial planes were performed. Using automated exposure control and adjustment o f the mA and/or kV according to patient size, radiation dose was kept as low as reasonably achievable to obtain optimal diagnostic quality images. DICOM format image data is available electronically f or review and comparison. FINDINGS: There is approximately 3 mm of degenerative anterolisthesis again noted at C4/C5. A mild degenerative kyphosis centered around C5/C6 is present. No fracture or acute-appearing malalignment. Vertebral carlos dies have normal height. Moderate disc space narrowing with broad posterior disc osteophyte complexes are seen at C5/C6 and C6 /C7. Moderate uncovertebral and facet osteoarthritis noted at essentially all levels. There is modera te osteoarthritis anteriorly at C1/C2 without associated stenosis. CONCLUSION: No fracture or acute malalignment of the cervical spine. Degenerative changes as above. Ney Ashton MD on October 22, 2017 at 3:22 Board Certified Radiologist. This report was verified electronically.
[2017-10-22] MEDS: VANCOMYCIN 1 GM/200 ML PREMIX IV SCH ×2 (03:28→03:52)
--- NOTE | 2017-10-22 03:36 | RADRPT ---
EXAM DATE/TIME: 10/22/2017 03:09 [facility] COMPARISON: No previous studies available for comparison. INDICATIONS : Abdomen pain. ORAL CONTRAST: No oral contrast ingested. RADIATION DOSE: 9.96 CTDIvol (mGy) MEDICAL HISTORY : Dementia. SURGICAL HISTORY : None. ENCOUNTER: Initial ACUITY: 1 day PAIN SCALE: Non-responsive LOCATION: abdomen TECHNIQUE: Volumetric scanning of the abdomen and pelvis was performed. Using automated exposure control and ad justment of the mA and/or kV according to patient size, radiation dose was kept as low as reasonably achievable to obtain optimal diagnostic quality images. DICOM format image data is available electro nically for review and comparison. FINDINGS: Patient has free intraperitoneal air. I believe the distal sigmoid colon has ruptured. There is an ex ceedingly large amount of stool in the rectum and distal sigmoid colon. Small ascites is present. No organized or drainable fluid seen. Scattered hypodensities up to 15 mm in size of the liver, noncontrast appearance most typical of cyst s. Spleen, pancreas, adrenal glands and kidneys are without evidence of an acute abnormality. Trace atelectasis and chronic appearing interstitial opacities of both bases. CONCLUSION: Free intraperitoneal air and probably on the basis of ruptured colon. Marked fecal impaction distally . Dr. Sheppard notified. Ney Ashton MD on October 22, 2017 at 3:27 Board Certified Radiologist. This report was verified electronically.
[2017-10-22] MEDS: POTASSIUM CHLOR 10 MEQ PREMIX 100 ML IV SCH ×3 (03:52→06:16)
[2017-10-22] MEDS ORDERED: metroNIDAZOLE 500 MG INJ 100 ML IV SCH (04:00)
[2017-10-22] MEDS: CHLORHEXIDINE GLUCONATE 2 % 1 PACK (2 CLOTHS) TOP SCH (04:00)
[2017-10-22 04:59] LABS: AMORPHOUS SEDIMENT, URINE RARE; BACTERIA, URINE RARE /hpf; BILIRUBIN, URINE SMALL (NEG); BLOOD, URINE SMALL (NEG); GLUCOSE,URINE NEG (NEG); HYALINE CAST, URINE 17 /lpf (RARE); KETONE, URINE NEG (NEG); MUCUS URINE MANY /lpf (OCC); NITRITE,URINE NEG (NEG); PH, URINE 5.5 (5.0-8.5); SQUAMOUS EPITHELIAL CELL URINE 3 /hpf (0-5); URINE COLOR DARK-BROWN (YELLW/STRAW); URINE LEUKOCYTE ESTERASE NEG (NEG)
[2017-10-22] MEDS: LACTATED RINGER'S 1000 ML INJ 1,000 ML IV SCH ×3 (05:03→21:30)
[2017-10-22] MEDS: FLUCONAZOLE 200 MG PREMIX BAG 100 ML IV SCH (05:03)
[2017-10-22 05:12] LABS: CREATININE, RANDOM URINE 189.6 MG/DL
[2017-10-22 07:05] LABS: AUTOMATED NEUTROPHIL # 8.4 TH/MM3 (1.8-7.7); BASOPHIL % 0.2 % (0.0-2.0); HEMATOCRIT 45.9 % (35.0-46.0); HEMOGLOBIN 15.5 GM/DL (11.6-15.3); LYMPH % 7.2 % (9.0-44.0); LYMPHOCYTE # 0.7 TH/MM3 (1.0-4.8); MEAN CELL VOLUME 90.8 FL (80.0-100.0); MEAN CORPUSCULAR HEMOGLOBIN 30.5 PG (27.0-34.0); MEAN CORPUSCULAR HGB CONC 33.6 % (32.0-36.0); MEAN PLATELET VOLUME 9.3 FL (7.0-11.0); MONO % 3.7 % (0.0-8.0); MONOCYTE # 0.4 TH/MM3 (0-0.9); NEUT % 88.9 % (16.0-70.0); PLATELET COUNT 308 TH/MM3 (150-450); RED BLOOD COUNT 5.06 MIL/MM3 (4.00-5.30); RED CELL DISTRIBUTION WIDTH 15.1 % (11.6-17.2); WHITE BLOOD COUNT 9.4 TH/MM3 (4.0-11.0)
[2017-10-22] MEDS ORDERED: ALBUMIN 25% INJ 100 ML IV ONE (07:05)
[2017-10-22] MEDS ORDERED: NOREPINEPHRINE 4 MG/4 ML AMP ONE ×2 (07:05→10:41)
[2017-10-22] MEDS ORDERED: ETOMIDATE 20 MG/10 ML VIAL ONE (07:07)
[2017-10-22] MEDS ORDERED: VASOPRESSIN 20 UNITS/ML VIAL ONE (07:08)
[2017-10-22 07:30] LABS: BICARBONATE 25.3 MEQ/L (21.0-32.0); CALCIUM 9.4 MG/DL (8.5-10.1); CREATININE 1.93 MG/DL (0.50-1.00); MAGNESIUM 2.5 MG/DL (1.5-2.5); PHOSPHORUS 3.7 MG/DL (2.5-4.9)
[2017-10-22 07:40] LABS: TROPONIN I 0.29 NG/ML (0.02-0.05)
[2017-10-22] MEDS ORDERED: CIPROFLOXACIN 400 MG PREMIX 200 ML ONE (07:50)
[2017-10-22] MEDS: metroNIDAZOLE 500 MG INJ 100 ML IV SCH ×3 (07:53→22:55)
--- NOTE | 2017-10-22 07:53 | MB ---
cc: Keith Sheppard MD DATE: 10/22/2017 REASON FOR CONSULTATION: Pneumoperitoneum. HISTORY OF PRESENT ILLNESS: The patient is an elderly 77-year-old female residing at [facility] who had altered mental status and abdominal pain prior to 9 p.m. The patient had an unwitnessed fall. It was recommended that the patient have a CT scan. The patient had workup and was noted to have a heart rate in the 130s and generalized abdominal tenderness. A chest x-ray revealed a large right-sided pneumoperitoneum. CT scan was then obtained which demonstrated pneumoperitoneum with a large amount of stool in the abdominal cavity. The patients past medical history is significant for altered mental status with Alzheimer's. The patient has had a recent echo with an EF of 40 to 45% with inferior hypokinesis. The patient underwent right hip arthroplasty on 09/16/[address] [facility] [address] Christian Fernandez for a fall with fracture of the femoral neck. ALLERGIES: THE PATIENT DOES HAVE ALLERGY TO PENICILLIN, WHICH CAUSES A RASH; ASPIRIN UNKNOWN. PAST MEDICAL HISTORY: Includes depression, anxiety, Alzheimer's dementia, hard of hearing. PAST SURGICAL HISTORY: Includes ORIF of the right hip on 09/16/2017. MEDICATIONS: 1. Ceftin 250 mg p.o. twice a day. 2. Famotidine 20 mg twice a day. 3. Vitamin D3 5000 units every day. 4. Docusate 100 mg twice a day. 5. Namenda 10 mg twice a day,. 6. Ativan 1 mg p.o. three times a day. 7. Mirtazapine 15 mg twice a day. 8. Hydrocodone 5/325 q. 3 hours p.r.n. 9. Lovenox. 10. Donepezil 15 mg p.o. at bedtime. PHYSICAL EXAMINATION: GENERAL: Exam reveals an extremely thin female in no acute distress. VITAL SIGNS: BP 92/63, pulse 112, respirations 18. HEENT: Sclerae are anicteric. The patient is edentulous. Dentures are being removed. CHEST: Clear to auscultation. CARDIOVASCULAR: Reveals tachycardia. ABDOMEN: Distended and tender diffusely. Pulses are present. LABORATORY VALUES: WBC 3.3, hemoglobin 16.3, platelets 383,000. Potassium is 3.1. ASSESSMENT AND PLAN: Pneumoperitoneum, likely secondary to perforation. We have just contacted the daughter, Galina Kellogg and Dr. Patel has just spoken with her while I was en route to the hospital. The daughter wants to proceed with care at this time and the patient is a full code. We have notified the daughter that the patient will likely receive a colostomy. Further interventions will be depending upon the findings. PLAN: To OR immediately. To [facility] following this. MD JUSTIN Hooker/BEATRICE , 07:35 AM , 07:52 AM
[2017-10-22] MEDS: CIPROFLOXACIN 400 MG PREMIX 200 ML IV SCH ×2 (08:00→21:30)
[2017-10-22 08:26] LABS: BANDS 28 % (0-6); LYMPHOCYTES 8 % (9-44); METAMYELOCYTES 12 % (0-1); MONOCYTES 2 % (0-8); NEUTROPHIL # MANUAL DIFF 8.4 TH/MM3 (1.8-7.7); PLASMA CELLS 1 % (0-0); POLYS (SEG NEUTROPHILS) 49 % (16-70)
[2017-10-22 08:27] LABS: ACANTHOCYTES OCC (NORMAL); TOXIC GRANULATION 1+ (NORMAL)
[2017-10-22 08:28] LABS: OVALOCYTES 1+ (NORMAL)
[2017-10-22] MEDS: SODIUM CHLORIDE 0.9% FLUSH 10 ML FLUSH IV FLUSH SCH ×2 (09:00→21:00)
[2017-10-22] MEDS: ARTIFICIAL TEARS OPTH SOLN 15 ML BTL EACH EYE SCH ×3 (09:00→18:06)
[2017-10-22] MEDS ORDERED: PROPOFOL 1000 MG/100 ML INJ 100 ML ONE (09:56)
[2017-10-22] MEDS ORDERED: DO NOT ADM ANY ANTICOAGULANT DRUGS PRN (10:10)
[2017-10-22] MEDS ORDERED: PHENYLEPHRINE HCL 10 MG/ML VIAL ONE (10:37)
[2017-10-22 10:40] LABS: AUTOMATED NEUTROPHIL # 9.1 TH/MM3 (1.8-7.7); BASOPHIL % 0.1 % (0.0-2.0); HEMATOCRIT 37.4 % (35.0-46.0); HEMOGLOBIN 12.2 GM/DL (11.6-15.3); LYMPH % 4.9 % (9.0-44.0); LYMPHOCYTE # 0.5 TH/MM3 (1.0-4.8); MEAN CELL VOLUME 91.6 FL (80.0-100.0); MEAN CORPUSCULAR HEMOGLOBIN 29.9 PG (27.0-34.0); MEAN CORPUSCULAR HGB CONC 32.6 % (32.0-36.0); MEAN PLATELET VOLUME 8.7 FL (7.0-11.0); MONO % 1.8 % (0.0-8.0); MONOCYTE # 0.2 TH/MM3 (0-0.9); NEUT % 93.2 % (16.0-70.0); PLATELET COUNT 248 TH/MM3 (150-450); RED BLOOD COUNT 4.08 MIL/MM3 (4.00-5.30); RED CELL DISTRIBUTION WIDTH 15.4 % (11.6-17.2); WHITE BLOOD COUNT 9.8 TH/MM3 (4.0-11.0)
--- NOTE | 2017-10-22 10:45 | HHI.PR ---
cc: Keith Sheppard MD Immediate Post Op Note Procedure Date: Oct 22, 2017 Pre Op Diagnosis: Pneumoperitoneum Post Op Diagnosis: Same, secondary to sigmoid perforation from stercoral ulcer/fecal impaction Surgeon: Keith Sheppard Vegetable Farmworker(s): Polina Moreno CFA Procedure: Exploratory laparotomy Sigmoid colon resection with end colostomy and Leos's pouch Gastrostomy tube placement Findings: Feculent peritonitis Complications: None Specimen(s) removed: Sigmoid colon to pathology Estimated blood loss: 100 ml Anesthesia: General Drains: SAM (Times 2) IVF (3000 ml) Patient to: PACU Patient Condition: Fair Date/Time of Procedure: SEE SURGICAL CARE RECORD Keith Sheppard MD Oct 22, 2017 10:45
[2017-10-22 11:15] LABS: BICARBONATE 25.2 MEQ/L (21.0-32.0); CALCIUM 8.4 MG/DL (8.5-10.1); CREATININE 1.93 MG/DL (0.50-1.00)
[2017-10-22 11:21] LABS: BANDS 33 % (0-6); LYMPHOCYTES 3 % (9-44); METAMYELOCYTES 4 % (0-1); MONOCYTES 3 % (0-8); NEUTROPHIL # MANUAL DIFF 9.2 TH/MM3 (1.8-7.7); POLYS (SEG NEUTROPHILS) 57 % (16-70)
[2017-10-22 11:22] LABS: OVALOCYTES 1+ (NORMAL); TOXIC GRANULATION 2+ (NORMAL); TOXIC VACUOLATION PRESENT (NONE SEEN)
[2017-10-22] MEDS: AZTREONAM INJ 1,000 MG in SODIUM CHLORIDE 0.9% INJ 100 ML IV SCH ×2 (11:34→18:24)
[2017-10-22] MEDS: PANTOPRAZOLE SODIUM 40 MG VIAL IV PUSH SCH (11:34)
--- NOTE | 2017-10-22 11:40 | RADRPT ---
EXAM DATE/TIME: 10/22/2017 10:46 [facility] COMPARISON: CHEST SINGLE AP, October 22, 2017, 0:21. INDICATIONS : Post intubation MEDICAL HISTORY : Venous insufficiency. dementia SURGICAL HISTORY : None. ENCOUNTER: Subsequent ACUITY: 2 days PAIN SCORE: Non-responsive. LOCATION: Bilateral chest FINDINGS: Endotracheal tube and right jugular central venous catheter has been inserted and appear to be in goo d position. Lungs are hyperinflated but otherwise clear. There is no evidence of pneumothorax. Cardiomediastinal structures are unremarkable. Osseous structures are intact. CONCLUSION: 1. Satisfactory position of endotracheal tube and right jugular centimeters catheter. 2. No evidence of pneumothorax. 3. COPD. 4. No evidence of acute airspace disease. Nehemiah Dixon MD on October 22, 2017 at 11:35 Board Certified Radiologist. This report was verified electronically.
[2017-10-22] MEDS ORDERED: *morphine SULFATE 8 MG/ML PERIprocedure ONLY ONE (11:58)
[2017-10-22] MEDS ORDERED: LIDOCAINE HCL 1% PF 5 ML SYRINGE OTHER ONE (12:00)
[2017-10-22] MEDS ORDERED: LACTATED RINGER'S 1000 ML INJ 4,000 ML IV ONE (12:00)
[2017-10-22] MEDS ORDERED: SUCCINYLCHOLINE CHLORIDE 100 MG/5 ML SYRINGE IV PUSH ONE (12:00)
[2017-10-22] MEDS ORDERED: DEXAMETHASONE SOD PHOS 4 MG/ML VIAL IV ONE (12:00)
[2017-10-22] MEDS ORDERED: PHENYLEPH/NS 1000 MCG/10 ML SYR IV ONE (12:00)
[2017-10-22] MEDS ORDERED: PROPOFOL 200 MG/20 ML AMP IV ONE (12:00)
[2017-10-22] MEDS ORDERED: PHENYLEPHRINE HCL 10 MG/ML VIAL IV ONE (12:00)
[2017-10-22] MEDS ORDERED: ROCURONIUM INJ 50 MG/5 ML SYRINGE IV PUSH ONE (12:00)
[2017-10-22] MEDS ORDERED: TERBUTALINE INJ 1 MG/ML AMP SQ PRN (13:45)
[2017-10-22] MEDS ORDERED: PHENYLEPHRINE 40 MG in D5W 500 ML IV PRN (14:00)
[2017-10-22] MEDS ORDERED: PROPOFOL 1000 MG/100 ML IV PRN (14:00)
--- NOTE | 2017-10-22 15:19 | EKG ---
Date Performed: 10/22/2017 Time Performed: 00:50:21 PTAGE: 77 years EKG: Sinus tachycardia LEFT ANTERIOR FASCICULAR BLOCK Consider INFERIOR MYOCARDIAL INFARCTION - age indeterminate ABNORMAL ECG NO PREVIOUS TRACING DOCTOR: Ibrahima Ruiz Interpretating Date/Time 10/22/2017 15:14:47
--- NOTE | 2017-10-22 15:35 | HHI.CCPN ---
Subjective Remarks/Hospital Course Diagnosis: (1) Pneumoperitoneum of unknown etiology Diagnosis: Principal (2) Gastroesophageal reflux disease Diagnosis: Secondary (3) Depression Diagnosis: Secondary (4) Elevated brain natriuretic peptide (BNP) level Diagnosis: Secondary (5) Polycythemia Diagnosis: Secondary (6) Chronic systolic heart failure Diagnosis: Secondary (7) Lactic acidosis Diagnosis: Principal (8) Leukopenia Diagnosis: Secondary (9) Alzheimer's dementia Diagnosis: Secondary (10) Hypoalbuminemia Diagnosis: Secondary (11) Acute kidney injury Diagnosis: Principal (12) Hypokalemia Diagnosis: Secondary (13) Elevated troponin Diagnosis: Secondary (14) Hypernatremia Diagnosis: Secondary This is a 77-year-old female. Full CODE STATUS. Date of admission . Past medical history includes end-stage Alzheimer dementia, depression /anxiety, hard of hearing, gastroesophageal reflux disease. Patient is a prior history of tobaccoism. Recent echocardiogram revealed EF of 40-45% with inferior hypokinesis. Patient presents from [facility] with altered mental status and abdominal pain just prior to 9 PM tonight. This was an unwitnessed fall. The patient has a history of dementia and is unsure whether she hit her head. X-ray at that facility revealed possible free air. Recommended follow-up CAT scan in the emergency department. The patient was oriented to person, however not place, time, or situation. The patient was noted to have a heart rate in the 130s that appear to be a sinus tachycardia with a blood sugar of 146. The patient had generalized abdominal tenderness and distention. On arrival, the patient had one episode of vomiting of bile. Chest x-ray at [facility] revealed large right-sided pneumoperitoneum. Dr. Sheppard/general surgery was notified. Requested notifying healthcare proxy Galina Kellogg [phone] prior to any intervention. At the present time patient is full code. White cell count of 3.3. Hemoglobin is 16. Lactate is 5.5. BNP is elevated. Remainder of laboratories are pending. Patient received vancomycin, aztreonam and metronidazole in the ED along with a 500 cc bolus of normal saline 2 and 4 mg of ondansetron.. 200 mg fluconazole IV has been provided 1 as well 10/22 1430 hours: I met her upon her return from PACU and discussed the case with the surgery personnel. 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 There was fecal peritonitis and the woman remains in severe sepsis. Chest x-ray reveals well-inflated lungs with obvious bilateral emphysema. The tubes and lines are in good position. She has been largely an uric since surgery. SVV > 30, responding to fluid. Initial mild hypotension was corrected with isotonic crystalloid infusion and urine remains marginal at best. Gas exchange is acceptable. Acid-base balance acceptable. Will continue ongoing resuscitation. Objective Vital Signs Date Time Temp Pulse Resp B/P (MAP) Pulse Ox O2 Delivery O2 Flow Rate FiO2 10/22/17 13:32 100 60 10/22/17 13:00 96 18 115/57 (76) Mechanical Ventilator 40 107/43 (64) 10/22/17 12:00 98.5 Intake and Output 10/22/17 10/22/17 10/23/17 08:00 16:00 00:00 Intake Total 500 ml 3000 ml Output Total 580 ml Balance 500 ml 2420 ml Result Diagram: 10/22/17 1031 10/22/17 1031 Other Results Laboratory Tests Test 10/22/17 10:30 Blood Gas Puncture Site ART LINE Blood Gas Patient Temperature 98.6 Blood Gas HCO3 22 mmol/L (22-26) Blood Gas Base Excess -2.5 mmol/L (-2-2) Blood Gas Oxygen Saturation 97 % (90-100) Arterial Blood pH 7.35 (7.380-7.420) Arterial Blood Partial Pressure CO2 41 mmHg (38-42) Arterial Blood Partial Pressure O2 134 mmHg (61-120) Arterial Blood Oxygen Content 15.8 Vol % (12.0-20.0) Arterial Blood Carboxyhemoglobin 0.5 % (0-4) Arterial Blood Methemoglobin 1.2 % (0-2) Blood Gas Hemoglobin 11.4 G/DL (12.0-16.0) Oxygen Delivery Device VENTILATOR Blood Gas Ventilator Setting PRVC/AC Blood Gas Inspired Oxygen 40 % Imaging Last Impressions Chest X-Ray 10/22/17 0000 Signed Impressions: Service Date/Time: Sunday, October 22, 2017 00:21 - CONCLUSION: 1. Free intraperitoneal air. 2. No acute cardiopulmonary disease demonstrated. Ney Ashton MD Objective Remarks GENERAL: 77-year-old cachectic female. SKIN: Warm and dry. HEAD: Atraumatic. Normocephalic. EYES: Pupils equal and round. No scleral icterus. No injection or drainage. ENT: No nasal bleeding or discharge. Mucous membranes pink and moist. NECK: Trachea midline. Orotracheal intubation CARDIOVASCULAR: Tachycardic, RR. S1, S2. No S4. Without murmur. Neck veins are flat. RESPIRATORY: Clear to auscultation. Breath sounds equal bilaterally. Normal excursions on ventilator. Distant tones. GASTROINTESTINAL: Post surgical, nondistended. Dressing dry and clean, no bowel sounds are appreciated.. MUSCULOSKELETAL: Extremities without significant peripheral edema. No obvious deformities. Fingers and toes are cool, torso well-perfused. NEUROLOGICAL: Sedated, mechanically ventilated moves all 4 extremities to stimulation. A/P Assessment and Plan Neuro/Psych: Alzheimer's dementia NOS Depression disorder NOS Anxiety disorder NOS Evaluated by Dr. Zelaya and , last admission. CT brain revealed frontal contusion from fall. No hemorrhage Home medications on donepezil 15 mg daily memantine 10 mg 2x daily. Will currently on hold while n.p.o. Morphine sulfate 2 mg IV every 2 hours as needed pain 6 or 10 CV: Sinus tachycardia Lactic acidosis Trop 0.18 Chronic Syst HF Currently LR @ 100 cc/hr 2D echocardiogram 09/22 revealed EF 40-45%. Inferior hypokinesis. Pulmonary arterial pressure 37.5 mmHg Serial lactates until cleared Trop repeat 0700 EKG revealed sinus tachycardia heart rate in the 1 teens to 120s with ectopy. Resp: PRVC ventilator mode, PEEP 5. Incentive spirometry while awake As needed albuterol aerosols every 2 hours as needed GI: Pneumoperitoneum Constipation history History of gastroesophageal reflux disease Low albumin Chest x-ray clear. ET tube in good position. Pantoprazole for GI prophylaxis. Holding docusate sodium and famotidine/home medications. Very large lung volumes consistent with bilateral emphysema. : Cordero catheter for accurate I's and O's in a critically ill patient Endo: Sliding scale insulin with Accu-Cheks to maintain euglycemia/low regimen Novulog Renal: ASIF Cr. 1.5, follow closely while resuscitating check CT A/P Unine Na+, Cr, Eos LR @ 100 cc/hr, converted to normal saline BMP currently pending Heme: Leukopenia Polycythemia History of DVT? Aspirin 320 mg p.o. daily Monitor CBC daily. Follow trends. Coags currently pending ID: Pneumoperitoneum Currently in vancomycin, aztreonam, metronidazole and fluconazole day #1 Blood cultures 2, UA currently pending MSK: PT evaluate and treat FEN: Hyper Na+ HypoK+ Replace electrolytes as clinically indicated 30 mEq Kcl x1 now Access -Utilize peripheral IV. Central line if indicated Prophylaxis -GI -pantoprazole -DVT -SCD/holding pharmacological prophylaxis in light of possible emergent surgery Overall impression: This woman remains critically ill following source control surgery for florid sepsis associated with spontaneous perforation of the sigmoid colon. She has required ongoing resuscitation since admission to the hospital and urine output remains unacceptable. Ongoing resuscitation will involve a delicate balance between the fluid she needs, the vasopressor support she requires, and the limits of her impaired left ventricle. Prognosis is guarded. Critical care time 45 minutes aside from procedures Kris Perez MD Oct 22, 2017 15:35
[2017-10-22] MEDS: PROPOFOL 1000 MG/100 ML INJ 100 ML IV PRN (17:00)
[2017-10-22] MEDS: NOREPINEPHRINE 4 MG/D5W 250 ML IV PRN (17:34)
[2017-10-22] MEDS: CHLORHEXIDINE 0.12% (ORAL KIT) 15 ML CUP MT SCH (21:30)
[2017-10-23] VITALS (17 sets, daily range): BP systolic 115–130; BP diastolic 56–76; PULSE 77–157; RESP 14–18; TEMP 97.9–99.3; O2SAT 99–100
[2017-10-23] MEDS: CHLORHEXIDINE GLUCONATE 2 % 1 PACK (2 CLOTHS) TOP SCH (02:44)
[2017-10-23] MEDS: AZTREONAM INJ 1,000 MG in SODIUM CHLORIDE 0.9% INJ 100 ML IV SCH ×3 (02:46→16:59)
[2017-10-23] MEDS: NOREPINEPHRINE 4 MG/D5W 250 ML IV PRN (03:22)
[2017-10-23] MEDS: FLUCONAZOLE 200 MG PREMIX BAG 100 ML IV SCH (03:22)
[2017-10-23 03:28] LABS: AUTOMATED NEUTROPHIL # 17.4 TH/MM3 (1.8-7.7); BASOPHIL % 0.1 % (0.0-2.0); HEMATOCRIT 35.7 % (35.0-46.0); HEMOGLOBIN 11.7 GM/DL (11.6-15.3); LYMPH % 2.2 % (9.0-44.0); LYMPHOCYTE # 0.4 TH/MM3 (1.0-4.8); MEAN CELL VOLUME 89.8 FL (80.0-100.0); MEAN CORPUSCULAR HEMOGLOBIN 29.5 PG (27.0-34.0); MEAN CORPUSCULAR HGB CONC 32.8 % (32.0-36.0); MEAN PLATELET VOLUME 9.7 FL (7.0-11.0); MONO % 1.9 % (0.0-8.0); MONOCYTE # 0.3 TH/MM3 (0-0.9); NEUT % 95.8 % (16.0-70.0); PLATELET COUNT 211 TH/MM3 (150-450); RED BLOOD COUNT 3.97 MIL/MM3 (4.00-5.30); RED CELL DISTRIBUTION WIDTH 15.5 % (11.6-17.2); WHITE BLOOD COUNT 18.2 TH/MM3 (4.0-11.0)
[2017-10-23 03:35] LABS: INTERNATIONAL NORMALIZED RATIO 1.3 RATIO; PROTHROMBIN TIME - PATIENT 13.4 SEC (9.8-11.6)
[2017-10-23 04:19] LABS: ALBUMIN 1.6 GM/DL (3.4-5.0); AST (GOT) 39 U/L (15-37); BICARBONATE 22.2 MEQ/L (21.0-32.0); BLOOD UREA NITROGEN 41 MG/DL (7-18); CALCIUM 8.3 MG/DL (8.5-10.1); CHLORIDE 111 MEQ/L (98-107); GLOMERULAR FILTRATION RATE 23 ML/MIN (>89); GLUCOSE,RANDOM 121 MG/DL (74-106); SODIUM (NA) 144 MEQ/L (136-145)
[2017-10-23] MEDS: metroNIDAZOLE 500 MG INJ 100 ML IV SCH ×4 (04:20→21:34)
[2017-10-23 04:24] LABS: ALKALINE PHOSPHATASE 46 U/L (45-117); ALT (GPT) 20 U/L (10-53); PHOSPHORUS 3.5 MG/DL (2.5-4.9); TOTAL BILIRUBIN ADULT 0.6 MG/DL (0.2-1.0); TOTAL PROTEIN 4.6 GM/DL (6.4-8.2); TROPONIN I 0.24 NG/ML (0.02-0.05)
[2017-10-23 04:39] LABS: BANDS 22 % (0-6); LYMPHOCYTES 1 % (9-44); METAMYELOCYTES 2 % (0-1); MONOCYTES 1 % (0-8); NEUTROPHIL # MANUAL DIFF 17.8 TH/MM3 (1.8-7.7); POLYS (SEG NEUTROPHILS) 74 % (16-70); TOXIC GRANULATION 1+ (NORMAL)
[2017-10-23 04:40] LABS: DOHLE BODIES PRESENT (NONE SEEN)
[2017-10-23 04:42] LABS: OVALOCYTES 1+ (NORMAL)
--- NOTE | 2017-10-23 05:48 | RADRPT ---
EXAM DATE/TIME: 10/23/2017 04:43 [facility] COMPARISON: CHEST SINGLE AP, October 22, 2017, 10:46. INDICATIONS : Shortness of breath. MEDICAL HISTORY : Venous insufficiency. Dementia SURGICAL HISTORY : None. ENCOUNTER: Subsequent ACUITY: 2 days PAIN SCORE: Non-responsive. LOCATION: Bilateral chest FINDINGS: Mild bibasilar consolidation unchanged. Apical pleural thickening/scarring again seen. No pleural eff usion. No pneumothorax. Heart size stable, within normal limits. Endotracheal tube tip is approximately 3.5 cm above the casie. There is a right internal jugular isac tral venous catheter again noted with tip in the superior vena cava. CONCLUSION: No significant change. Mild bibasilar consolidation. Ney Ashton MD on October 23, 2017 at 5:44 Board Certified Radiologist. This report was verified electronically.
[2017-10-23] MEDS: PROPOFOL 1000 MG/100 ML INJ 100 ML IV PRN ×2 (05:53→16:59)
[2017-10-23] MEDS ORDERED: METOPROLOL TARTRATE 5 MG/5 ML VIAL ONE (07:57)
[2017-10-23] MEDS ORDERED: AMIODARONE INJ 150 MG in DEXTROSE 5% IN WATER 100ML INJ 100 ML IV ONE ×2 (07:58)
[2017-10-23] MEDS: CIPROFLOXACIN 400 MG PREMIX 200 ML IV SCH ×2 (08:00→21:33)
[2017-10-23] MEDS ORDERED: METOPROLOL TARTRATE 5 MG/5 ML VIAL IV PUSH PRN (08:00)
[2017-10-23] MEDS ORDERED: AMIODARONE INJ 450 MG in DEXTROSE 5% IN WATE(EXCEL) INJ 241 ML IV PRN ×2 (08:08)
[2017-10-23] MEDS ORDERED: DIGOXIN 0.5 MG/2 ML VIAL IV PUSH ONE ×2 (08:15→11:00)
--- NOTE | 2017-10-23 08:42 | MP ---
cc: Keith Sheppard MD DATE OF OPERATION: 10/22/2017 PROCEDURES PERFORMED: 1. Exploratory laparotomy. 2. Sigmoid colon resection. 3. Washout with Daniel's pouch. 4. End colostomy. 5. Gastrostomy tube placement. PREOPERATIVE DIAGNOSIS: Feculent peritonitis from perforated sigmoid colon, pneumoperitoneum. POSTOPERATIVE DIAGNOSIS: Perforated sigmoid colon secondary to above. ANESTHESIA: General endotracheal. SURGEON: Keith Sheppard MD COMPLICATIONS: None. ESTIMATED BLOOD LOSS: 100 mL. FLUIDS: 3000 mL crystalloid, 150 mL urine. DRAINS: SAM x 2. SPECIMEN: Sigmoid colon to pathology. PROCEDURE IN DETAIL: The patient was taken to the operating room directly from the Emergency Department. She was placed on the operating table in the supine position. After an adequate level of general endotracheal anesthesia was achieved, a central line, A line and Cordero catheters were placed. The abdomen was prepped and draped. Timeout was taken, confirming the correct patient, site and procedure to be performed. Midline incision was made from the symphysis pubis to a level above the umbilicus. Dissection was carried down through the fascia and the abdominal cavity entered. Feculent material was immediately encountered. This was suctioned and a large stool ball was removed from the mid abdomen and discarded. The patient was noted to have a completely perforated sigmoid colon in the distal sigmoid. This was emptied of all stool material and impacted stool was milked back from the rectum. When this had been completely cleaned out, the colon was irrigated copiously and then the abdomen irrigated once again. The colon was divided proximal to the perforation and the perforated colon was dissected down towards the pelvic brim. A large TA 90 type stapler was used to staple across the extremely dilated colon. This appeared viable and a point chosen so that the stump could be stapled off and further soilage would be avoided. After this was fired, the colon was excised sharply and passed off the table. Two additional segments of descending colon were taken, as one appeared to be slightly discolored and the second one was recurving down toward the pelvis. It would not create a good colostomy. These were divided with the stapler and the mesentery divided with a hemostat and 2-0 silk suture. At this point, a small ellipse of skin was removed from the left lower quadrant of the abdomen and the colon brought through a short tunnel after opening the fascia. This was fixed to the fascia at 2 points with 3-0 Vicryl suture to prevent slippage of the colon back into the abdominal cavity after closure. After the colon was fixed to the fascia, attention was turned to the abdomen once again. This was irrigated copiously in the left and right upper quadrants, as well as in the pelvis. As the patient was quite debilitated, it was felt that she would benefit from placement of a feeding tube. A 22-Yakut Malecot catheter was chosen and 2 concentric pursestring sutures with 2-0 chromic suture and 2-0 silk suture were placed in the fundus of the stomach. A gastrotomy was made and the gastrostomy tube placed into the stomach. Both sutures were cinched down around the tube. The gastrostomy tube was brought out via separate stab incision in the left upper quadrant and the stomach fixed to the anterior abdominal wall with five 3-0 silk sutures. The gastrostomy tube was fixed to the skin with a 2-0 silk suture. Two SAM drains were placed on the right side of the abdomen and 1 placed directly in the pelvis and the second down along the left gutter. At this point, the abdomen was closed with a running #1 PDS suture. The skin was closed loosely with toyin. The colostomy was matured with 3-0 Vicryl suture. A colostomy appliance was placed and a dressing JACKIE dressing applied, 4 x 4's were placed around the gastrostomy tube and the Mak-Wright drains. The patient remained intubated and was taken back to the recovery room in critical but stable condition. The patient was on Jace-Synephrine upon returning to the PACU. Sponge, needle and instrument counts were reported to be correct. MD JUSTIN Hooker/ELLA , 11:02 PM , 11:34 PM
--- NOTE | 2017-10-23 08:54 | HHI.CCPN ---
Subjective Remarks/Hospital Course Diagnosis: (1) Pneumoperitoneum of unknown etiology Diagnosis: Principal (2) Gastroesophageal reflux disease Diagnosis: Secondary (3) Depression Diagnosis: Secondary (4) Elevated brain natriuretic peptide (BNP) level Diagnosis: Secondary (5) Polycythemia Diagnosis: Secondary (6) Chronic systolic heart failure Diagnosis: Secondary (7) Lactic acidosis Diagnosis: Principal (8) Leukopenia Diagnosis: Secondary (9) Alzheimer's dementia Diagnosis: Secondary (10) Hypoalbuminemia Diagnosis: Secondary (11) Acute kidney injury Diagnosis: Principal (12) Hypokalemia Diagnosis: Secondary (13) Elevated troponin Diagnosis: Secondary (14) Hypernatremia Diagnosis: Secondary This is a 77-year-old female. Full CODE STATUS. Date of admission . Past medical history includes end-stage Alzheimer dementia, depression /anxiety, hard of hearing, gastroesophageal reflux disease. Patient is a prior history of tobaccoism. Recent echocardiogram revealed EF of 40-45% with inferior hypokinesis. Patient presents from [facility] with altered mental status and abdominal pain just prior to 9 PM tonight. This was an unwitnessed fall. The patient has a history of dementia and is unsure whether she hit her head. X-ray at that facility revealed possible free air. Recommended follow-up CAT scan in the emergency department. The patient was oriented to person, however not place, time, or situation. The patient was noted to have a heart rate in the 130s that appear to be a sinus tachycardia with a blood sugar of 146. The patient had generalized abdominal tenderness and distention. On arrival, the patient had one episode of vomiting of bile. Chest x-ray at [facility] revealed large right-sided pneumoperitoneum. Dr. Sheppard/general surgery was notified. Requested notifying healthcare proxy Galina Kellogg [phone] prior to any intervention. At the present time patient is full code. White cell count of 3.3. Hemoglobin is 16. Lactate is 5.5. BNP is elevated. Remainder of laboratories are pending. Patient received vancomycin, aztreonam and metronidazole in the ED along with a 500 cc bolus of normal saline 2 and 4 mg of ondansetron.. 200 mg fluconazole IV has been provided 1 as well 10/22 1430 hours: I met her upon her return from PACU and discussed the case with the surgery personnel. 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 There was fecal peritonitis and the woman remains in severe sepsis. Chest x-ray reveals well-inflated lungs with obvious bilateral emphysema. The tubes and lines are in good position. She has been largely an uric since surgery. SVV > 30, responding to fluid. Initial mild hypotension was corrected with isotonic crystalloid infusion and urine remains marginal at best. Gas exchange is acceptable. Acid-base balance acceptable. Will continue ongoing resuscitation. 10/23: She is warm and well perfused. Bicarb level normal. Rising creatinine was predictable and will hopefully level off. Minimal stroke volume variation and peripheral perfusion confirm that she is well resuscitated. Considering the extent of her emphysema her oxygenation is quite acceptable. New onset atrial fibrillation this morning was initially problematic due to rapid ventricular rate, better control obtained now but Flowtrack variation will not be accurate. Objective Vital Signs Date Time Temp Pulse Resp B/P (MAP) Pulse Ox O2 Delivery O2 Flow Rate FiO2 10/23/17 07:41 100 35 10/23/17 06:00 101 10/23/17 04:00 98.0 16 129/64 (85) 10/22/17 19:00 Mechanical Ventilator 10/22/17 13:00 40 Intake and Output 10/23/17 10/23/17 10/24/17 08:00 16:00 00:00 Intake Total 300 ml Output Total 448 ml Balance -148 ml Result Diagram: 10/23/17 0240 10/23/17 0240 Other Results Laboratory Tests Test 10/22/17 10:30 10/22/17 16:45 Blood Gas Puncture Site ART LINE ART LINE Blood Gas Patient Temperature 98.6 98.6 Blood Gas HCO3 22 mmol/L (22-26) 22 mmol/L (22-26) Blood Gas Base Excess -2.5 mmol/L (-2-2) -1.8 mmol/L (-2-2) Blood Gas Oxygen Saturation 97 % (90-100) 98 % (90-100) Arterial Blood pH 7.35 (7.380-7.420) 7.45 (7.380-7.420) Arterial Blood Partial Pressure CO2 41 mmHg (38-42) 32 mmHg (38-42) Arterial Blood Partial Pressure O2 134 mmHg (61-120) 199 mmHg (61-120) Arterial Blood Oxygen Content 15.8 Vol % (12.0-20.0) 16.8 Vol % (12.0-20.0) Arterial Blood Carboxyhemoglobin 0.5 % (0-4) 0.7 % (0-4) Arterial Blood Methemoglobin 1.2 % (0-2) 1.0 % (0-2) Blood Gas Hemoglobin 11.4 G/DL (12.0-16.0) 12.0 G/DL (12.0-16.0) Oxygen Delivery Device VENTILATOR VENTILATOR Blood Gas Ventilator Setting PRVC/AC PRVC/AC Blood Gas Inspired Oxygen 40 % 50 % Imaging Last Impressions Chest X-Ray 10/22/17 0000 Signed Impressions: Service Date/Time: Sunday, October 22, 2017 00:21 - CONCLUSION: 1. Free intraperitoneal air. 2. No acute cardiopulmonary disease demonstrated. Ney Ashton MD Objective Remarks GENERAL: 77-year-old cachectic female, lightly sedated SKIN: Warm and dry. HEAD: Atraumatic. Normocephalic. EYES: Pupils equal and round. No scleral icterus. No injection or drainage. ENT: No nasal bleeding or discharge. Mucous membranes pink and moist. NECK: Trachea midline. Orotracheal intubation CARDIOVASCULAR: Tachycardic, RR. S1, S2. No S4. Without murmur. Neck veins are flat. RESPIRATORY: Clear to auscultation. Breath sounds equal bilaterally. Normal excursions on ventilator. Distant tones. GASTROINTESTINAL: Post surgical, nondistended. Dressing dry and clean, no bowel sounds are appreciated.. MUSCULOSKELETAL: Extremities without significant peripheral edema. No obvious deformities. Fingers and toes are warmer, torso well-perfused. NEUROLOGICAL: Sedated, mechanically ventilated moves all 4 extremities to stimulation. A/P Assessment and Plan Neuro/Psych: Alzheimer's dementia NOS Depression disorder NOS Anxiety disorder NOS Evaluated by Dr. Zelaya and , last admission. CT brain revealed frontal contusion from fall. No hemorrhage Home medications on donepezil 15 mg daily memantine 10 mg 2x daily. Will currently on hold while n.p.o. Morphine sulfate 2 mg IV every 2 hours as needed pain 6 or 10 CV: Sinus tachycardia Lactic acidosis Trop 0.18 Chronic Syst HF Paroxysmal atrial fibrillation with rapid ventricular response Currently LR @ 100 cc/hr 2D echocardiogram 3/18 revealed EF 40-45%. Inferior hypokinesis. Pulmonary arterial pressure 37.5 mmHg Serial lactates until cleared Trop repeat 0700 EKG revealed sinus tachycardia heart rate in the 1 teens to 120s with ectopy. Amiodarone drip started, will add an occasional dose of digoxin bearing in mind the impaired renal function. Resp: PRVC ventilator mode, PEEP 5. Incentive spirometry while awake As needed albuterol aerosols every 2 hours as needed Start SBTs. GI: Pneumoperitoneum Constipation history History of gastroesophageal reflux disease Low albumin Chest x-ray clear. ET tube in good position. Pantoprazole for GI prophylaxis. Holding docusate sodium and famotidine/home medications. Very large lung volumes consistent with bilateral emphysema. : Cordero catheter for accurate I's and O's in a critically ill patient Endo: Sliding scale insulin with Accu-Cheks to maintain euglycemia/low regimen Novulog Renal: ASIF Cr. 1.5, follow closely while resuscitating check CT A/P Unine Na+, Cr, Eos LR @ 100 cc/hr, converted to normal saline to eliminate potassium Creatinine 2.1 BMP currently pending Heme: Leukopenia Polycythemia History of DVT? Aspirin 320 mg p.o. daily Monitor CBC daily. Follow trends. Coags currently pending ID: Pneumoperitoneum Currently in vancomycin, aztreonam, metronidazole and fluconazole day #2 Blood cultures 2, UA currently pending MSK: PT evaluate and treat FEN: Hyper Na+ HypoK+ Replace electrolytes as clinically indicated 30 mEq Kcl x1 now Access -Utilize peripheral IV. Central line in place. Prophylaxis -GI -pantoprazole -DVT -SCD/holding pharmacological prophylaxis in light of possible emergent surgery Overall impression: This woman remains critically ill following source control surgery for florid sepsis associated with spontaneous perforation of the sigmoid colon. She has required ongoing resuscitation since admission to the hospital and urine output remains marginal. Ongoing resuscitation will involve a delicate balance between the fluid she needs, the vasopressor support she requires, and the limits of her impaired left ventricle. Prognosis remains guarded. Critical care time 44 minutes aside from procedures Kris Perez MD Oct 23, 2017 08:54
[2017-10-23] MEDS: PANTOPRAZOLE SODIUM 40 MG VIAL IV PUSH SCH (08:58)
[2017-10-23] MEDS: CHLORHEXIDINE 0.12% (ORAL KIT) 15 ML CUP MT SCH ×2 (09:00→21:34)
[2017-10-23] MEDS: LACTATED RINGER'S 1000 ML INJ 1,000 ML IV SCH ×2 (09:00→14:12)
[2017-10-23] MEDS: ARTIFICIAL TEARS OPTH SOLN 15 ML BTL EACH EYE SCH ×3 (09:00→18:00)
[2017-10-23] MEDS: SODIUM CHLORIDE 0.9% FLUSH 10 ML FLUSH IV FLUSH SCH ×2 (09:00→21:00)
[2017-10-23] MEDS ORDERED: AMIODARONE INJ 450 MG in SODIUM CHLOR 0.9% (EXCEL) INJ 241 ML IV PRN (09:45)
--- NOTE | 2017-10-23 12:34 | HHI.PR ---
Subjective Subjective Notes Intubated/Sedated RAIZA Jefferson at bedside---patient went into atrial fibrillation with RVR ---given metoprolol and digoxin ---going to start Amiodarone drip Remains on low dose Norsynephrine Objective Vitals/I&O Vital Signs Date Time Temp Pulse Resp B/P (MAP) Pulse Ox O2 Delivery O2 Flow Rate FiO2 10/23/17 12:00 103 10/23/17 12:00 35 10/23/17 12:00 97.9 14 115/58 (77) 100 10/22/17 19:00 Mechanical Ventilator 10/22/17 13:00 40 Labs Laboratory Tests Test 10/22/17 16:45 10/22/17 21:00 10/23/17 02:40 Blood Gas Puncture Site ART LINE Blood Gas Patient Temperature 98.6 Blood Gas HCO3 22 Blood Gas Base Excess -1.8 Blood Gas Oxygen Saturation 98 Arterial Blood pH 7.45 Arterial Blood Partial Pressure CO2 32 Arterial Blood Partial Pressure O2 199 Arterial Blood Oxygen Content 16.8 Arterial Blood Carboxyhemoglobin 0.7 Arterial Blood Methemoglobin 1.0 Blood Gas Hemoglobin 12.0 Oxygen Delivery Device VENTILATOR Blood Gas Ventilator Setting PRVC/AC Blood Gas Inspired Oxygen 50 Lactic Acid Level 2.3 2.1 White Blood Count 18.2 Red Blood Count 3.97 Hemoglobin 11.7 Hematocrit 35.7 Mean Corpuscular Volume 89.8 Mean Corpuscular Hemoglobin 29.5 Mean Corpuscular Hemoglobin Concent 32.8 Red Cell Distribution Width 15.5 Platelet Count 211 Mean Platelet Volume 9.7 Neutrophils (%) (Auto) 95.8 Lymphocytes (%) (Auto) 2.2 Monocytes (%) (Auto) 1.9 Eosinophils (%) (Auto) 0.0 Basophils (%) (Auto) 0.1 Neutrophils # (Auto) 17.4 Lymphocytes # (Auto) 0.4 Monocytes # (Auto) 0.3 Eosinophils # (Auto) 0.0 Basophils # (Auto) 0.0 CBC Comment AUTO DIFF Differential Total Cells Counted 100 Neutrophils % (Manual) 74 Band Neutrophils % 22 Lymphocytes % 1 Monocytes % 1 Neutrophils # (Manual) 17.8 Metamyelocytes 2 Differential Comment FINAL DIFF MANUAL Toxic Granulation 1+ Dohle Bodies PRESENT Platelet Estimate NORMAL Platelet Morphology Comment NORMAL Ovalocytes 1+ Prothrombin Time 13.4 Prothromb Time International Ratio 1.3 Activated Partial Thromboplast Time 37.1 Blood Urea Nitrogen 41 Creatinine 2.10 Random Glucose 121 Total Protein 4.6 Albumin 1.6 Calcium Level 8.3 Phosphorus Level 3.5 Magnesium Level 2.0 Alkaline Phosphatase 46 Aspartate Amino Transf (AST/SGOT) 39 Alanine Aminotransferase (ALT/SGPT) 20 Total Bilirubin 0.6 Sodium Level 144 Potassium Level 3.7 Chloride Level 111 Carbon Dioxide Level 22.2 Anion Gap 11 Estimat Glomerular Filtration Rate 23 Troponin I 0.24 Date/Time Source Procedure Growth Status 10/22/17 02:55 Blood Peripheral Aerobic Blood Culture - Preliminary NO GROWTH IN 1 DAY Resulted 10/22/17 02:55 Blood Peripheral Anaerobic Blood Culture - Preliminary NO GROWTH IN 1 DAY Resulted Cardiovascular: Regular Lungs: Clear Abdomen: Other (JACKIE in place---malfunction; colostomy with pink stoma---no output; JP1 serous; SAM 2 serosanguineous; G tube connected to gravity bag; thin flat abdomen ) Extremities: No edema A/P Assessment and Plan 77 year old female POD1 Exploratory laparotomy; Sigmoid colon resection with end colostomy and Leos's pouch; Gastrostomy tube placement -Amiodarone for heart rate control -Increase in BUN/Cr---not too unexpected due to patient's condition -Vent per [facility] -Continue routine SAM care -Await colostomy function -Spoke with daughter Galina Kellogg via phone this morning ([phone]) --- - updated about overnight events; She is planning to travel to [place] from [place] once travel arrangements can be made. -Discussed at bedside with RAIZA Jefferson Attending Note - Dr. Sheppard Intubated and sedated JACKIE dressing removed; not working Wound clean and dry; toyin intact SAM output serous and cloudy Renal function not quite as good today; urine output low this am, but better now Cap G-tube; start trickle feeds tomorrow, silvina if drips off or minimal. The exam, history, and the medical decision-making described in the above note were completed with the assistance of the mid-level provider. I reviewed and agree with the findings presented. I attest that I had a [id number] encounter with the patient on the same day, and personally performed and documented my assessment and findings in the medical record. Pippa Muller/First Daron ALVARADO Oct 23, 2017 12:34 Keith Sheppard MD Oct 23, 2017 16:03
--- NOTE | 2017-10-23 15:18 | PD.WCN.NOT ---
Wound Consult Description: Consult for NEW OSTOMY TEACHING of abdomen per Renzo STENCILER Recommendation: Continue to monitor stoma for color (red or pink) and moisture (mucus) Empty pouch of effluent (stool) when 1/3-1/2 full Change pouching system every 5-7 days and PRN for leaks Additional Information: Patient seen on [address] [place] [address] for ostomy assessment. Ostomy Type: Colostomy Surgeon: Keith Sheppard MD Date of Surgery: Oct 22, 2017 Educated patient on: Intubated Sedated Additional information Patient seen on [address] [place] [address] for ostomy assessment. No teaching was able to be done today. Colostomy noted on left side abdomen is red, round, moist with mucus present, moderately protruding, mildly edematous, lumen noted in center, not functioning at this time. Ostomy wafer is intact. Rose Mary Sullivan [facility] Oct 23, 2017 15:18
[2017-10-23 16:52] LABS: ALBUMIN 1.4 GM/DL (3.4-5.0); BICARBONATE 24.1 MEQ/L (21.0-32.0); CALCIUM 8.4 MG/DL (8.5-10.1); CREATININE 1.93 MG/DL (0.50-1.00); PHOSPHORUS 2.3 MG/DL (2.5-4.9)
[2017-10-24] VITALS (16 sets, daily range): BP systolic 107–140; BP diastolic 58–65; PULSE 72–102; RESP 12–30; TEMP 97.9–98.7; O2SAT 99–100
[2017-10-24] MEDS: AZTREONAM INJ 1,000 MG in SODIUM CHLORIDE 0.9% INJ 100 ML IV SCH ×3 (02:03→18:00)
[2017-10-24] MEDS: CHLORHEXIDINE GLUCONATE 2 % 1 PACK (2 CLOTHS) TOP SCH (04:00)
[2017-10-24] MEDS: FLUCONAZOLE 200 MG PREMIX BAG 100 ML IV SCH (04:01)
[2017-10-24] MEDS: LACTATED RINGER'S 1000 ML INJ 1,000 ML IV SCH ×2 (04:02→17:26)
[2017-10-24] MEDS: metroNIDAZOLE 500 MG INJ 100 ML IV SCH ×4 (04:02→20:09)
[2017-10-24 04:22] LABS: ALBUMIN 1.3 GM/DL (3.4-5.0); BICARBONATE 21.1 MEQ/L (21.0-32.0); CALCIUM 8.8 MG/DL (8.5-10.1); CREATININE 1.73 MG/DL (0.50-1.00); PHOSPHORUS 2.9 MG/DL (2.5-4.9)
--- NOTE | 2017-10-24 07:50 | HHI.CCPN ---
Subjective Remarks/Hospital Course Diagnosis: (1) Pneumoperitoneum of unknown etiology Diagnosis: Principal (2) Gastroesophageal reflux disease Diagnosis: Secondary (3) Depression Diagnosis: Secondary (4) Elevated brain natriuretic peptide (BNP) level Diagnosis: Secondary (5) Polycythemia Diagnosis: Secondary (6) Chronic systolic heart failure Diagnosis: Secondary (7) Lactic acidosis Diagnosis: Principal (8) Leukopenia Diagnosis: Secondary (9) Alzheimer's dementia Diagnosis: Secondary (10) Hypoalbuminemia Diagnosis: Secondary (11) Acute kidney injury Diagnosis: Principal (12) Hypokalemia Diagnosis: Secondary (13) Elevated troponin Diagnosis: Secondary (14) Hypernatremia Diagnosis: Secondary This is a 77-year-old female. Full CODE STATUS. Date of admission . Past medical history includes end-stage Alzheimer dementia, depression /anxiety, hard of hearing, gastroesophageal reflux disease. Patient is a prior history of tobaccoism. Recent echocardiogram revealed EF of 40-45% with inferior hypokinesis. Patient presents from [facility] with altered mental status and abdominal pain just prior to 9 PM tonight. This was an unwitnessed fall. The patient has a history of dementia and is unsure whether she hit her head. X-ray at that facility revealed possible free air. Recommended follow-up CAT scan in the emergency department. The patient was oriented to person, however not place, time, or situation. The patient was noted to have a heart rate in the 130s that appear to be a sinus tachycardia with a blood sugar of 146. The patient had generalized abdominal tenderness and distention. On arrival, the patient had one episode of vomiting of bile. Chest x-ray at [facility] revealed large right-sided pneumoperitoneum. Dr. Sheppard/general surgery was notified. Requested notifying healthcare proxy Galina Kellogg [phone] prior to any intervention. At the present time patient is full code. White cell count of 3.3. Hemoglobin is 16. Lactate is 5.5. BNP is elevated. Remainder of laboratories are pending. Patient received vancomycin, aztreonam and metronidazole in the ED along with a 500 cc bolus of normal saline 2 and 4 mg of ondansetron.. 200 mg fluconazole IV has been provided 1 as well 10/22 1430 hours: I met her upon her return from PACU and discussed the case with the surgery personnel. 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 There was fecal peritonitis and the woman remains in severe sepsis. Chest x-ray reveals well-inflated lungs with obvious bilateral emphysema. The tubes and lines are in good position. She has been largely an uric since surgery. SVV > 30, responding to fluid. Initial mild hypotension was corrected with isotonic crystalloid infusion and urine remains marginal at best. Gas exchange is acceptable. Acid-base balance acceptable. Will continue ongoing resuscitation. 10/23: She is warm and well perfused. Bicarb level normal. Rising creatinine was predictable and will hopefully level off. Minimal stroke volume variation and peripheral perfusion confirm that she is well resuscitated. Considering the extent of her emphysema her oxygenation is quite acceptable. New onset atrial fibrillation this morning was initially problematic due to rapid ventricular rate, better control obtained now but Flowtrack variation will not be accurate. 10/24: It appears renal injury has peaked and she is starting to recover. Back in sinus rhythm now and gas exchange is improved. Hopefully we can start some spontaneous breathing trials today. Ability to extubate and keep her lungs clear may be limited by her baseline dementia and inability to follow commands. We will continue aggressive efforts to speed this woman's recovery. Hold attempts at tube feeding until approved by the general surgery service. Objective Vital Signs Date Time Temp Pulse Resp B/P (MAP) Pulse Ox O2 Delivery O2 Flow Rate FiO2 10/24/17 04:00 87 10/24/17 04:00 35 10/24/17 04:00 98.7 18 116/58 (77) 100 10/23/17 19:00 Mechanical Ventilator 10/22/17 13:00 40 Intake and Output 10/24/17 10/24/17 10/24/17 07:59 15:59 23:59 Intake Total 0 ml Output Total 620 ml Balance -620 ml Result Diagram: 10/23/17 0240 10/24/17 0335 Other Results Laboratory Tests Test 10/23/17 15:32 Blood Gas Puncture Site LT BRACHIAL Blood Gas Patient Temperature 98.6 Blood Gas HCO3 21 mmol/L (22-26) Blood Gas Base Excess -2.1 mmol/L (-2-2) Blood Gas Oxygen Saturation 98 % (90-100) Arterial Blood pH 7.51 (7.380-7.420) Arterial Blood Partial Pressure CO2 26 mmHg (38-42) Arterial Blood Partial Pressure O2 131 mmHg (61-120) Arterial Blood Oxygen Content 14.9 Vol % (12.0-20.0) Arterial Blood Carboxyhemoglobin 0.8 % (0-4) Arterial Blood Methemoglobin 1.0 % (0-2) Blood Gas Hemoglobin 10.7 G/DL (12.0-16.0) Oxygen Delivery Device VENTILATOR Blood Gas Ventilator Setting PRVC/AC Blood Gas Inspired Oxygen 45 % Imaging Last Impressions Chest X-Ray 10/22/17 0000 Signed Impressions: Service Date/Time: Sunday, October 22, 2017 00:21 - CONCLUSION: 1. Free intraperitoneal air. 2. No acute cardiopulmonary disease demonstrated. Ney Ashton MD Objective Remarks GENERAL: 77-year-old cachectic female, lightly sedated for vent synchrony. SKIN: Warm and dry. HEAD: Atraumatic. Normocephalic. EYES: Pupils equal and round. No scleral icterus. No injection or drainage. ENT: No nasal bleeding or discharge. Mucous membranes pink and moist. NECK: Trachea midline. Orotracheal intubation CARDIOVASCULAR: Tachycardic, RR. S1, S2. No S4. Without murmur. No jugular venous distention. RESPIRATORY: Clear to auscultation. Breath sounds equal bilaterally. Normal excursions on ventilator. Distant tones. GASTROINTESTINAL: Post surgical, nondistended. Dressing dry and clean, stoma is pink. Bowel sounds have developed. MUSCULOSKELETAL: Extremities without significant peripheral edema. No obvious deformities. Warm and well-perfused. NEUROLOGICAL: Sedated, mechanically ventilated moves all 4 extremities to stimulation. Good spontaneous respiratory effort. A/P Assessment and Plan Neuro/Psych: Alzheimer's dementia NOS Depression disorder NOS Anxiety disorder NOS Evaluated by Dr. Zelaya and , last admission. CT brain revealed frontal contusion from fall. No hemorrhage Home medications on donepezil 15 mg daily memantine 10 mg 2x daily. Will currently on hold while n.p.o. Morphine sulfate 2 mg IV every 2 hours as needed pain 6 or 10 Minimize sedation and analgesia at this point. CV: Sinus tachycardia Lactic acidosis Trop 0.18 Chronic Syst HF Paroxysmal atrial fibrillation with rapid ventricular response Currently LR @ 100 cc/hr 2D echocardiogram 09/22 revealed EF 40-45%. Inferior hypokinesis. Pulmonary arterial pressure 37.5 mmHg Serial lactates until cleared Trop repeat 0700 EKG revealed sinus tachycardia heart rate in the 1 teens to 120s with ectopy. Amiodarone drip started, will add an occasional dose of digoxin bearing in mind the impaired renal function. Back in normal sinus rhythm and pulse rate controlled. Hold Digoxin. Start bid carvedilol 6.25 mg Resp: PRVC ventilator mode, PEEP 5. Incentive spirometry while awake As needed albuterol aerosols every 2 hours as needed Start SBTs. Tolerating CPAP trials. GI: Pneumoperitoneum Constipation history History of gastroesophageal reflux disease Low albumin Chest x-ray clear. ET tube in good position. Pantoprazole for GI prophylaxis. Holding docusate sodium and famotidine/home medications. Very large lung volumes consistent with bilateral emphysema. : Cordero catheter for accurate I's and O's in a critically ill patient Endo: Sliding scale insulin with Accu-Cheks to maintain euglycemia/low regimen Novolog Renal: ASIF Cr. 1.5, follow closely while resuscitating check CT A/P Unine Na+, Cr, Eos LR @ 75 cc/hr, converted to normal saline to eliminate potassium Creatinine 2.1 BMP currently pending Heme: Leukopenia Polycythemia History of DVT? Aspirin 320 mg p.o. daily Monitor CBC daily. Follow trends. Coags currently pending ID: Pneumoperitoneum Currently in vancomycin, aztreonam, metronidazole and fluconazole day #4 Blood cultures 2, UA currently pending MSK: PT evaluate and treat FEN: Hyper Na+ HypoK+ Replace electrolytes as clinically indicated 30 mEq Kcl x1 now Access -Utilize peripheral IV. Central line in place. Prophylaxis -GI -pantoprazole -DVT -SCD/holding pharmacological prophylaxis in light of possible emergent surgery Overall impression: This woman remains critically ill following source control surgery for florid sepsis associated with spontaneous perforation of the sigmoid colon. Ongoing resuscitation will involve a delicate balance between the fluid she needs, the vasopressor support she requires, and the limits of her impaired left ventricle. Her renal function has improved over the past 48 hours. Prognosis remains guarded. Critical care time 40 Kris Perez MD Oct 24, 2017 07:50
[2017-10-24] MEDS: PROPOFOL 1000 MG/100 ML INJ 100 ML IV PRN (08:21)
[2017-10-24] MEDS: PANTOPRAZOLE SODIUM 40 MG VIAL IV PUSH SCH (09:06)
[2017-10-24] MEDS: CARVEDILOL 6.25 MG TAB PO SCH ×2 (09:06→20:10)
[2017-10-24] MEDS: ARTIFICIAL TEARS OPTH SOLN 15 ML BTL EACH EYE SCH ×3 (09:06→18:00)
[2017-10-24] MEDS: SODIUM CHLORIDE 0.9% FLUSH 10 ML FLUSH IV FLUSH SCH ×2 (09:06→20:10)
[2017-10-24] MEDS: CHLORHEXIDINE 0.12% (ORAL KIT) 15 ML CUP MT SCH ×2 (09:06→20:09)
[2017-10-24 09:07] LABS: AUTOMATED NEUTROPHIL # 20.9 TH/MM3 (1.8-7.7); BASOPHIL % 0.1 % (0.0-2.0); HEMATOCRIT 33.8 % (35.0-46.0); HEMOGLOBIN 11.3 GM/DL (11.6-15.3); LYMPH % 3.2 % (9.0-44.0); LYMPHOCYTE # 0.7 TH/MM3 (1.0-4.8); MEAN CELL VOLUME 90.2 FL (80.0-100.0); MEAN CORPUSCULAR HEMOGLOBIN 30.1 PG (27.0-34.0); MEAN CORPUSCULAR HGB CONC 33.4 % (32.0-36.0); MEAN PLATELET VOLUME 9.4 FL (7.0-11.0); MONOCYTE # 0.7 TH/MM3 (0-0.9); NEUT % 93.7 % (16.0-70.0); PLATELET COUNT 109 TH/MM3 (150-450); RED BLOOD COUNT 3.75 MIL/MM3 (4.00-5.30); RED CELL DISTRIBUTION WIDTH 15.2 % (11.6-17.2); WHITE BLOOD COUNT 22.3 TH/MM3 (4.0-11.0)
[2017-10-24] MEDS: CIPROFLOXACIN 400 MG PREMIX 200 ML IV SCH ×2 (09:08→20:09)
[2017-10-24 09:41] LABS: ALBUMIN 1.4 GM/DL (3.4-5.0); CALCIUM 9.1 MG/DL (8.5-10.1); CREATININE 1.78 MG/DL (0.50-1.00); PHOSPHORUS 3.5 MG/DL (2.5-4.9)
[2017-10-24 10:14] LABS: BANDS 11 % (0-6); LYMPHOCYTES 3 % (9-44); MONOCYTES 3 % (0-8); POLYS (SEG NEUTROPHILS) 83 % (16-70); TOXIC GRANULATION 1+ (NORMAL)
[2017-10-24 10:15] LABS: BURR CELLS 1+ (NORMAL); OVALOCYTES 1+ (NORMAL)
--- NOTE | 2017-10-24 11:01 | PD.WCN.NOT ---
Wound Consult Description: Consult for NEW OSTOMY TEACHING of abdomen per Renzo ALVARADO Communicated with: JENNY Muller RN Recommendation: Continue to monitor stoma for color (red or pink) and moisture (mucus) Empty pouch of effluent (stool) when 1/3-1/2 full Change pouching system every 5-7 days and PRN for leaks Additional Information: Patient seen on [address] for ostomy assessment. Ostomy Type: Colostomy Surgeon: Keith Sheppard MD Date of Surgery: Oct 22, 2017 Additional information Stoma is pink, round, moist, moderately protruding, edematous, lumen noted in center of stoma, not functioning with stool at this time. Appliance is intact. Rose Mary Sullivan [facility] Oct 24, 2017 11:01
[2017-10-24] MEDS: HEPARIN SODIUM - SQ 10,000 UNITS/ML VIAL SQ SCH ×2 (13:15→20:11)
--- NOTE | 2017-10-24 15:07 | PD.CONS ---
Consult Service Palliative Care . Consult Requested By Pippa Muller NP/ Dr. Sheppard . Primary Care Physician Unknown . Reason for Consultation a. To assist with evaluation and management of symptoms including: pain, dyspnea. b. To assist medical decision maker(s) with: better understanding of current medical conditions; weighing benefits/burdens of medical treatment options; making medical treatment decisions. . HPI History of Present Illness Mrs. Rivera is a 77 year old female with past medical history of dementia, anxiety , depression and hard of hearing. Patient is a resident of [facility]. Patient presented to [facility] emergency department on 10/22/17 for evaluation of altered mentation that worsened after an unwitnessed fall. Patient reported bilateral arm pain following the fall. She was found to have temperature 100 upon EMS arrival. She was oriented to person, not place time or situation. She was found in sinus tachycardia rate 130s, blood sugar 146. She reported generalized abdominal tenderness and distention. Notes also indicate that she had an episode where she vomited bile. Given her history of dementia she was unable to provide additional details or review of systems. Emergency room vital signs, laboratory and imaging studies reviewed: * Vital signs: Temp 98.2, pulse 112, respiration 18, BP 140/62, oxygen saturation 97% on 2 L nasal cannula * WBC 3.3, hemoglobin 16.3, hematocrit 48.7, platelet count 383, neutrophils 75.6% * Lactic acid 5.5 * BNP 1206 * Chest x-ray -free intraperitoneal air, no acute cardiopulmonary disease. * CT head -no acute intracranial abnormality. * CT cervical spine -no fracture or acute malalignment of the cervical spine, degenerative changes noted. * CT abdomen/pelvis -free intraperitoneal air and probable ruptured colon, marketed fecal impaction distally. Patient was admitted for pneumoperitoneum likely secondary to perforation. General surgery, Dr. Sheppard was consulted. Family elected to proceed with surgical intervention. Patient underwent exploratory laparotomy, sigmoid colon resection, washout with Leos's pouch, end colostomy and gastrostomy tube placement on 10/22/17 with findings of feculent peritonitis. Pathology consistent with acute colitis with perforation and acute serositis. Patient was transferred to ICU in severe sepsis on mechanical ventilation. , WBC has increased to 22.3. Postop creatinine 2.1, now decreased to 1.78. Blood culture obtained on 10/22/17 revealed Pseudomonas aeruginosa in the aerobic bottle. Family has elected NO CODE. Palliative care was consulted by general surgery to assist with establishing goals of medical treatment. . Function/Cognitive Trajectory Resident of [facility]. Was ambulating with walker and assist post recent hip replacement. Eats small amounts. Verbalizes in short sentences. Knows but often confuses family. No short term memory. . Review of Systems ROS Limitations: Hearing Impaired Constitutional: COMPLAINS OF: Generalized weakness Eyes: COMPLAINS OF: Blurred vision (Wears glasses) Gastrointestinal: COMPLAINS OF: Abdominal pain Musculoskeletal: COMPLAINS OF: Back pain Hematologic/Lymphatics: COMPLAINS OF: Bruising Neurologic: COMPLAINS OF: Poor Balance (Recent fall, prior hip fracture) Psychiatric: COMPLAINS OF: Anxiety, Depression Other ROS: ROS per EMR review and daughter's report. Patient is not capacitated. Past Family Social History Coded Allergies: Penicillins (Verified Allergy, Intermediate, Rash, 09/13/17) aspirin (Unverified Adverse Reaction, Unknown, 09/13/17) Past Medical History Dementia Anxiety Depression Hard of hearing . Past Surgical History ORIF of right hip 09/2017 . Reported Medications Reported Meds & Active Scripts Active Famotidine 20 Mg Tab 20 Mg PO BID Dok (Docusate Sodium) 100 Mg Cap 100 Mg PO BID PRN Namenda (Memantine) 10 Mg Tab 10 Mg PO BID Ativan (Lorazepam) 1 Mg Tab 1 Mg PO TID Mirtazapine 15 Mg Tab 15 Mg PO BID Hydrocodone-Acetamin 5-325 mg (Hydrocodone/Acetaminophen) 5 Mg-325 Mg Tablet 1 Tab PO Q3H PRN Donepezil 10 Mg Tab 15 Mg PO HS Reported Aspirin 325 Mg Tab 325 Mg PO DAILY . Current Medications Medications (Trade) Dose Ordered Sig/Katia Route Start Time Stop Time Status Last Admin Fluconazole/ Sodium Chloride 100 ml @ 100 mls/hr Q24H IV 10/22/17 03:00 10/24/17 04:01 Aztreonam 1000 mg/ Sodium Chloride 100 ml @ 200 mls/hr Q8H IV 10/22/17 10:00 10/24/17 09:06 (NS Flush) 2 ml UNSCH PRN IV FLUSH 10/22/17 02:00 (NS Flush) 2 ml BID IV FLUSH 10/22/17 09:00 10/24/17 09:06 (Morphine Inj) 2 mg Q2H PRN IV PUSH 10/22/17 02:00 (Protonix Inj) 40 mg DAILY IV PUSH 10/22/17 09:00 10/24/17 09:06 (Tears Naturale Opth Soln) 1 drop TID EACH EYE 10/22/17 09:00 10/24/17 12:39 (Zofran Inj) 4 mg Q6H PRN IV PUSH 10/22/17 02:00 (Albuterol Neb) 2.5 mg Q2HR NEB PRN INH 10/22/17 02:00 Miscellaneous Information 1 [id number] XX 10/22/17 02:00 (Chlorhexidine 2% Cloth) 3 pack Taper DAILY@04 TOP 10/22/17 04:00 10/18/18 03:59 10/24/17 04:00 (Chlorhexidine 2% Cloth) 3 pack UNSCH PRN TOP 10/22/17 02:00 Metronidazole 100 ml @ 100 mls/hr Q6H IV 10/22/17 09:00 10/24/17 09:06 Lactated Ringer's 1,000 ml @ 75 mls/hr [id number] IV 10/22/17 03:00 10/24/17 04:02 Acetaminophen 100 ml @ 400 mls/hr Q8HR PRN IV 10/22/17 03:00 Ciprofloxacin/ Dextrose 200 ml @ 200 mls/hr Q12H IV 10/22/17 08:00 10/24/17 09:08 Norepinephrine Bitartrate 250 ml @ 7.5 mls/hr TITRATE PRN IV 10/22/17 14:00 10/23/17 03:22 Phenylephrine HCl 40 mg/Dextrose 500 ml @ 30 mls/hr TITRATE PRN IV 10/22/17 14:00 (Brethine Inj) 1 mg UNSCH PRN SQ 10/22/17 13:45 (Peridex 0.12% Liq) 15 ml BID@08,20 MT 10/22/17 20:00 10/24/17 09:06 Propofol 100 ml @ 1.35 mls/hr TITRATE PRN IV 10/22/17 14:15 10/24/17 08:21 (Lopressor Inj) 5 mg Q6H PRN IV PUSH 10/23/17 08:00 (Coreg) 6.25 mg Q12HR PO 10/24/17 09:00 10/24/17 09:06 (Heparin Inj) 5,000 units Q12HR SQ 10/24/17 13:15 10/24/17 13:15 Family History Parents . Son with depression. . Substance Use Tobacco: Alcohol: Prescription med abuse: Illicits: Psychosocial History . Has 1 son (Michael) and 1 daughter (Galina), here from [place]. Lives in [facility] with spouse. . Spiritual/Cultural Factors Unknown. . Living Will: Completed, but not made available Health Care Surrogate: Completed, but not made available Durable Power of Head Of Store Operations: Completed, but not made available Health Care Surrogate(s): Patient is not capacitated to make her own health care decisions, will not regain capacity due to underlying dementia. DaughterGalina is reported health care surrogate. Copies of advanced directives requested. . Today's verbally stated goals: Patient is not capacitated to make her own health care decisions, will not regain capacity due to underlying dementia. Family/friends goals: Goals remain aggressive short of NO CODE. . Ethical and Legal Issues Patient is not capacitated to make her own health care decisions, will not regain capacity due to underlying dementia. DaughterGalina is reported health care surrogate. Copies of advanced directives requested. Physical Exam Vital Signs Date Time Temp Pulse Resp B/P (MAP) Pulse Ox O2 Delivery O2 Flow Rate FiO2 10/24/17 12:00 80 10/24/17 12:00 35 10/24/17 11:28 99 30 10/24/17 10:00 74 10/24/17 08:00 98.5 90 18 138/65 (89) 100 10/24/17 08:00 90 10/24/17 08:00 35 10/24/17 07:36 100 30 10/24/17 07:00 100 Mechanical Ventilator 35 10/24/17 06:30 35 10/24/17 04:00 87 10/24/17 04:00 35 10/24/17 04:00 98.7 87 18 116/58 (77) 100 10/24/17 03:54 99 35 10/24/17 00:18 99 35 10/24/17 00:00 93 10/24/17 00:00 35 10/24/17 00:00 98.6 94 18 107/61 (76) 100 10/23/17 22:00 104 10/23/17 20:15 99 35 10/23/17 20:00 35 10/23/17 20:00 99.3 118 18 129/76 (93) 99 10/23/17 20:00 118 10/23/17 19:00 100 Mechanical Ventilator 45 10/23/17 17:07 99 35 10/23/17 16:20 129 136/60 10/23/17 16:00 99.1 116 17 126/57 (80) 99 Arterial Line 10/23/17 16:00 35 10/23/17 16:00 109 10/24/17 10/25/17 18:59 06:59 Intake Total 650 ml Balance 650 ml IV Total 650 ml Exam CONSTITUTIONAL/GENERAL: This is an elderly, critically ill patient, in no apparent distress. TUBES/LINES/DRAINS: ETT, right IJ central line, PIV bilateral UEs, bilateral soft wrist restraints, gastrostomy tube, SAM drains x2 abdomen, Colostomy, Cordero , SCDs. SKIN: No jaundice, rashes, or lesions. Ecchymoses on upper extremities. Midline abdominal incision, toyin in place. Skin temperature appropriate. Not diaphoretic. HEAD: Atraumatic. Normocephalic. EYES: eyes closed. ENT: Unable of hearing. Nose without bleeding or purulent drainage. Throat difficult to visualize. NECK: Trachea midline. Supple, nontender. CARDIOVASCULAR: Regular rate and rhythm without murmurs. RESPIRATORY/CHEST: Symmetric, unlabored respirations. Clear to auscultation. Breath sounds equal bilaterally. No wheezes, rales, or rhonchi. GASTROINTESTINAL: Abdomen soft, non-tender, nondistended. Midline abdominal incision, toyin in place. Gastrostomy tube. SAM drains x2 abdomen. Colostomy, pink stoma, no output in bag. GENITOURINARY: Without palpable bladder distension. Cordero catheter in place. MUSCULOSKELETAL: Extremities with edema. No mottling or clubbing. LYMPHATICS: No palpable cervical or supraclavicular adenopathy. NEUROLOGICAL: Sedated. PSYCHIATRIC: Sedated. . Diagnostic Tests Laboratory Laboratory Tests Test 10/22/17 00:05 10/22/17 02:10 10/22/17 02:55 10/22/17 03:50 White Blood Count 3.3 TH/MM3 (4.0-11.0) Red Blood Count 5.39 MIL/MM3 (4.00-5.30) Hemoglobin 16.3 GM/DL (11.6-15.3) Hematocrit 48.7 % (35.0-46.0) Mean Corpuscular Volume 90.3 FL (80.0-100.0) Mean Corpuscular Hemoglobin 30.1 PG (27.0-34.0) Mean Corpuscular Hemoglobin Concent 33.4 % (32.0-36.0) Red Cell Distribution Width 14.9 % (11.6-17.2) Platelet Count 383 TH/MM3 (150-450) Mean Platelet Volume 9.1 FL (7.0-11.0) Neutrophils (%) (Auto) 75.6 % (16.0-70.0) Lymphocytes (%) (Auto) 17.6 % (9.0-44.0) Monocytes (%) (Auto) 6.3 % (0.0-8.0) Eosinophils (%) (Auto) 0.3 % (0.0-4.0) Basophils (%) (Auto) 0.2 % (0.0-2.0) Neutrophils # (Auto) 2.5 TH/MM3 (1.8-7.7) Lymphocytes # (Auto) 0.6 TH/MM3 (1.0-4.8) Monocytes # (Auto) 0.2 TH/MM3 (0-0.9) Eosinophils # (Auto) 0.0 TH/MM3 (0-0.4) Basophils # (Auto) 0.0 TH/MM3 (0-0.2) CBC Comment AUTO DIFF Differential Comment AUTO DIFF CONFIRMED Platelet Estimate NORMAL (NORMAL) Platelet Morphology Comment NORMAL (NORMAL) Lactic Acid Level 5.5 mmol/L (0.4-2.0) 3.6 mmol/L (0.4-2.0) B-Type Natriuretic Peptide 1206 PG/ML (0-100) Blood Urea Nitrogen 25 MG/DL (7-18) Creatinine 1.52 MG/DL (0.50-1.00) Random Glucose 128 MG/DL (74-106) Total Protein 6.3 GM/DL (6.4-8.2) Albumin 1.9 GM/DL (3.4-5.0) Calcium Level 9.4 MG/DL (8.5-10.1) Magnesium Level 2.5 MG/DL (1.5-2.5) Alkaline Phosphatase 53 U/L (45-117) Aspartate Amino Transf (AST/SGOT) 24 U/L (15-37) Alanine Aminotransferase (ALT/SGPT) 18 U/L (10-53) Total Bilirubin 1.3 MG/DL (0.2-1.0) Sodium Level 148 MEQ/L (136-145) Potassium Level 3.1 MEQ/L (3.5-5.1) Chloride Level 108 MEQ/L (98-107) Carbon Dioxide Level 30.2 MEQ/L (21.0-32.0) Anion Gap 10 MEQ/L (5-15) Estimat Glomerular Filtration Rate 33 ML/MIN (>89) Total Creatine Kinase 192 U/L (26-192) Creatine Kinase MB 1.2 NG/ML (0.5-3.6) Troponin I 0.18 NG/ML (0.02-0.05) C-Reactive Protein 19.00 MG/DL (0.00-0.30) Lipase 38 U/L (73-393) Prothrombin Time 11.4 SEC (9.8-11.6) Prothromb Time International Ratio 1.1 RATIO Activated Partial Thromboplast Time 24.7 SEC (24.3-30.1) Urine Color DARK-BROWN (YELLW/STRAW) Urine Turbidity CLOUDY (CLEAR) Urine pH 5.5 (5.0-8.5) Urine Specific [place] 1.024 (1.002-1.035) Urine Protein 100 mg/dL (NEG-TRACE) Urine Glucose (UA) NEG mg/dL (NEG) Urine Ketones NEG mg/dL (NEG) Urine Occult Blood SMALL (NEG) Urine Nitrite NEG (NEG) Urine Bilirubin SMALL (NEG) Urine Urobilinogen 4.0 MG/DL (LESS THAN Urine Leukocyte Esterase NEG (NEG) Urine RBC 22 /hpf (0-3) Urine WBC 4 /hpf (0-5) Urine Squamous Epithelial Cells 3 /hpf (0-5) Urine Amorphous Sediment RARE Urine Bacteria RARE /hpf (NONE) Urine Hyaline Casts 17 /lpf (RARE) Urine Mucus MANY /lpf (OCC) Microscopic Urinalysis Comment CULT NOT INDICATED Test 10/22/17 03:54 10/22/17 06:30 10/22/17 10:30 10/22/17 10:31 Urine Eosinophils NONE SEEN /HPF (NONE SEEN) Urine Random Creatinine 189.6 MG/DL Urine Random Sodium 145 MEQ/L White Blood Count 9.4 TH/MM3 (4.0-11.0) 9.8 TH/MM3 (4.0-11.0) Red Blood Count 5.06 MIL/MM3 (4.00-5.30) 4.08 MIL/MM3 (4.00-5.30) Hemoglobin 15.5 GM/DL (11.6-15.3) 12.2 GM/DL (11.6-15.3) Hematocrit 45.9 % (35.0-46.0) 37.4 % (35.0-46.0) Mean Corpuscular Volume 90.8 FL (80.0-100.0) 91.6 FL (80.0-100.0) Mean Corpuscular Hemoglobin 30.5 PG (27.0-34.0) 29.9 PG (27.0-34.0) Mean Corpuscular Hemoglobin Concent 33.6 % (32.0-36.0) 32.6 % (32.0-36.0) Red Cell Distribution Width 15.1 % (11.6-17.2) 15.4 % (11.6-17.2) Platelet Count 308 TH/MM3 (150-450) 248 TH/MM3 (150-450) Mean Platelet Volume 9.3 FL (7.0-11.0) 8.7 FL (7.0-11.0) Neutrophils (%) (Auto) 88.9 % (16.0-70.0) 93.2 % (16.0-70.0) Lymphocytes (%) (Auto) 7.2 % (9.0-44.0) 4.9 % (9.0-44.0) Monocytes (%) (Auto) 3.7 % (0.0-8.0) 1.8 % (0.0-8.0) Eosinophils (%) (Auto) 0.0 % (0.0-4.0) 0.0 % (0.0-4.0) Basophils (%) (Auto) 0.2 % (0.0-2.0) 0.1 % (0.0-2.0) Neutrophils # (Auto) 8.4 TH/MM3 (1.8-7.7) 9.1 TH/MM3 (1.8-7.7) Lymphocytes # (Auto) 0.7 TH/MM3 (1.0-4.8) 0.5 TH/MM3 (1.0-4.8) Monocytes # (Auto) 0.4 TH/MM3 (0-0.9) 0.2 TH/MM3 (0-0.9) Eosinophils # (Auto) 0.0 TH/MM3 (0-0.4) 0.0 TH/MM3 (0-0.4) Basophils # (Auto) 0.0 TH/MM3 (0-0.2) 0.0 TH/MM3 (0-0.2) CBC Comment AUTO DIFF AUTO DIFF Differential Total Cells Counted 100 100 Neutrophils % (Manual) 49 % (16-70) 57 % (16-70) Band Neutrophils % 28 % (0-6) 33 % (0-6) Lymphocytes % 8 % (9-44) 3 % (9-44) Monocytes % 2 % (0-8) 3 % (0-8) Neutrophils # (Manual) 8.4 TH/MM3 (1.8-7.7) 9.2 TH/MM3 (1.8-7.7) Metamyelocytes 12 % (0-1) 4 % (0-1) Differential Comment FINAL DIFF MANUAL AUTO DIFF CONFIRMED Plasma Cells 1 % (0-0) Toxic Granulation 1+ (NORMAL) 2+ (NORMAL) Platelet Estimate NORMAL (NORMAL) NORMAL (NORMAL) Platelet Morphology Comment NORMAL (NORMAL) NORMAL (NORMAL) Ovalocytes 1+ (NORMAL) 1+ (NORMAL) Acanthocytes OCC (NORMAL) Fibrinogen 640 mg/dL (227-377) Blood Urea Nitrogen 30 MG/DL (7-18) 32 MG/DL (7-18) Creatinine 1.93 MG/DL (0.50-1.00) 1.93 MG/DL (0.50-1.00) Random Glucose 116 MG/DL (74-106) 123 MG/DL (74-106) Calcium Level 9.4 MG/DL (8.5-10.1) 8.4 MG/DL (8.5-10.1) Phosphorus Level 3.7 MG/DL (2.5-4.9) Magnesium Level 2.5 MG/DL (1.5-2.5) Sodium Level 148 MEQ/L (136-145) 148 MEQ/L (136-145) Potassium Level 3.9 MEQ/L (3.5-5.1) 3.6 MEQ/L (3.5-5.1) Chloride Level 111 MEQ/L (98-107) 111 MEQ/L (98-107) Carbon Dioxide Level 25.3 MEQ/L (21.0-32.0) 25.2 MEQ/L (21.0-32.0) Anion Gap 12 MEQ/L (5-15) 12 MEQ/L (5-15) Estimat Glomerular Filtration Rate 25 ML/MIN (>89) 25 ML/MIN (>89) Ammonia 28 MCMOL/L (11-32) Troponin I 0.29 NG/ML (0.02-0.05) Amylase Level 25 U/L (25-115) Lipase 39 U/L (73-393) Thyroid Stimulating Hormone 3rd Gen 1.250 uIU/ML (0.358-3.740) Blood Gas Puncture Site ART LINE Blood Gas Patient Temperature 98.6 Blood Gas HCO3 22 mmol/L (22-26) Blood Gas Base Excess -2.5 mmol/L (-2-2) Blood Gas Oxygen Saturation 97 % (90-100) Arterial Blood pH 7.35 (7.380-7.420) Arterial Blood Partial Pressure CO2 41 mmHg (38-42) Arterial Blood Partial Pressure O2 134 mmHg (61-120) Arterial Blood Oxygen Content 15.8 Vol % (12.0-20.0) Arterial Blood Carboxyhemoglobin 0.5 % (0-4) Arterial Blood Methemoglobin 1.2 % (0-2) Blood Gas Hemoglobin 11.4 G/DL (12.0-16.0) Oxygen Delivery Device VENTILATOR Blood Gas Ventilator Setting PRVC/AC Blood Gas Inspired Oxygen 40 % Toxic Vacuolation PRESENT (NONE SEEN) Test 10/22/17 16:45 10/22/17 21:00 10/23/17 02:40 10/23/17 15:32 Blood Gas Puncture Site ART LINE LT BRACHIAL Blood Gas Patient Temperature 98.6 98.6 Blood Gas HCO3 22 mmol/L (22-26) 21 mmol/L (22-26) Blood Gas Base Excess -1.8 mmol/L (-2-2) -2.1 mmol/L (-2-2) Blood Gas Oxygen Saturation 98 % (90-100) 98 % (90-100) Arterial Blood pH 7.45 (7.380-7.420) 7.51 (7.380-7.420) Arterial Blood Partial Pressure CO2 32 mmHg (38-42) 26 mmHg (38-42) Arterial Blood Partial Pressure O2 199 mmHg (61-120) 131 mmHg (61-120) Arterial Blood Oxygen Content 16.8 Vol % (12.0-20.0) 14.9 Vol % (12.0-20.0) Arterial Blood Carboxyhemoglobin 0.7 % (0-4) 0.8 % (0-4) Arterial Blood Methemoglobin 1.0 % (0-2) 1.0 % (0-2) Blood Gas Hemoglobin 12.0 G/DL (12.0-16.0) 10.7 G/DL (12.0-16.0) Oxygen Delivery Device VENTILATOR VENTILATOR Blood Gas Ventilator Setting PRVC/AC PRVC/AC Blood Gas Inspired Oxygen 50 % 45 % Lactic Acid Level 2.3 mmol/L (0.4-2.0) 2.1 mmol/L (0.4-2.0) White Blood Count 18.2 TH/MM3 (4.0-11.0) Red Blood Count 3.97 MIL/MM3 (4.00-5.30) Hemoglobin 11.7 GM/DL (11.6-15.3) Hematocrit 35.7 % (35.0-46.0) Mean Corpuscular Volume 89.8 FL (80.0-100.0) Mean Corpuscular Hemoglobin 29.5 PG (27.0-34.0) Mean Corpuscular Hemoglobin Concent 32.8 % (32.0-36.0) Red Cell Distribution Width 15.5 % (11.6-17.2) Platelet Count 211 TH/MM3 (150-450) Mean Platelet Volume 9.7 FL (7.0-11.0) Neutrophils (%) (Auto) 95.8 % (16.0-70.0) Lymphocytes (%) (Auto) 2.2 % (9.0-44.0) Monocytes (%) (Auto) 1.9 % (0.0-8.0) Eosinophils (%) (Auto) 0.0 % (0.0-4.0) Basophils (%) (Auto) 0.1 % (0.0-2.0) Neutrophils # (Auto) 17.4 TH/MM3 (1.8-7.7) Lymphocytes # (Auto) 0.4 TH/MM3 (1.0-4.8) Monocytes # (Auto) 0.3 TH/MM3 (0-0.9) Eosinophils # (Auto) 0.0 TH/MM3 (0-0.4) Basophils # (Auto) 0.0 TH/MM3 (0-0.2) CBC Comment AUTO DIFF Differential Total Cells Counted 100 Neutrophils % (Manual) 74 % (16-70) Band Neutrophils % 22 % (0-6) Lymphocytes % 1 % (9-44) Monocytes % 1 % (0-8) Neutrophils # (Manual) 17.8 TH/MM3 (1.8-7.7) Metamyelocytes 2 % (0-1) Differential Comment FINAL DIFF MANUAL Toxic Granulation 1+ (NORMAL) Dohle Bodies PRESENT (NONE SEEN) Platelet Estimate NORMAL (NORMAL) Platelet Morphology Comment NORMAL (NORMAL) Ovalocytes 1+ (NORMAL) Prothrombin Time 13.4 SEC (9.8-11.6) Prothromb Time International Ratio 1.3 RATIO Activated Partial Thromboplast Time 37.1 SEC (24.3-30.1) Blood Urea Nitrogen 41 MG/DL (7-18) Creatinine 2.10 MG/DL (0.50-1.00) Random Glucose 121 MG/DL (74-106) Total Protein 4.6 GM/DL (6.4-8.2) Albumin 1.6 GM/DL (3.4-5.0) Calcium Level 8.3 MG/DL (8.5-10.1) Phosphorus Level 3.5 MG/DL (2.5-4.9) Magnesium Level 2.0 MG/DL (1.5-2.5) Alkaline Phosphatase 46 U/L (45-117) Aspartate Amino Transf (AST/SGOT) 39 U/L (15-37) Alanine Aminotransferase (ALT/SGPT) 20 U/L (10-53) Total Bilirubin 0.6 MG/DL (0.2-1.0) Sodium Level 144 MEQ/L (136-145) Potassium Level 3.7 MEQ/L (3.5-5.1) Chloride Level 111 MEQ/L (98-107) Carbon Dioxide Level 22.2 MEQ/L (21.0-32.0) Anion Gap 11 MEQ/L (5-15) Estimat Glomerular Filtration Rate 23 ML/MIN (>89) Troponin I 0.24 NG/ML (0.02-0.05) Test 10/23/17 15:55 10/23/17 15:58 10/24/17 03:35 10/24/17 08:40 Lactic Acid Level 2.1 mmol/L (0.4-2.0) Blood Urea Nitrogen 45 MG/DL (7-18) 50 MG/DL (7-18) 54 MG/DL (7-18) Creatinine 1.93 MG/DL (0.50-1.00) 1.73 MG/DL (0.50-1.00) 1.78 MG/DL (0.50-1.00) Random Glucose 111 MG/DL (74-106) 114 MG/DL (74-106) 116 MG/DL (74-106) Albumin 1.4 GM/DL (3.4-5.0) 1.3 GM/DL (3.4-5.0) 1.4 GM/DL (3.4-5.0) Calcium Level 8.4 MG/DL (8.5-10.1) 8.8 MG/DL (8.5-10.1) 9.1 MG/DL (8.5-10.1) Phosphorus Level 2.3 MG/DL (2.5-4.9) 2.9 MG/DL (2.5-4.9) 3.5 MG/DL (2.5-4.9) Sodium Level 142 MEQ/L (136-145) 141 MEQ/L (136-145) 142 MEQ/L (136-145) Potassium Level 3.7 MEQ/L (3.5-5.1) 4.1 MEQ/L (3.5-5.1) 4.3 MEQ/L (3.5-5.1) Chloride Level 110 MEQ/L (98-107) 112 MEQ/L (98-107) 111 MEQ/L (98-107) Carbon Dioxide Level 24.1 MEQ/L (21.0-32.0) 21.1 MEQ/L (21.0-32.0) 21.0 MEQ/L (21.0-32.0) Anion Gap 8 MEQ/L (5-15) 8 MEQ/L (5-15) 10 MEQ/L (5-15) Estimat Glomerular Filtration Rate 25 ML/MIN (>89) 28 ML/MIN (>89) 27 ML/MIN (>89) White Blood Count 22.3 TH/MM3 (4.0-11.0) Red Blood Count 3.75 MIL/MM3 (4.00-5.30) Hemoglobin 11.3 GM/DL (11.6-15.3) Hematocrit 33.8 % (35.0-46.0) Mean Corpuscular Volume 90.2 FL (80.0-100.0) Mean Corpuscular Hemoglobin 30.1 PG (27.0-34.0) Mean Corpuscular Hemoglobin Concent 33.4 % (32.0-36.0) Red Cell Distribution Width 15.2 % (11.6-17.2) Platelet Count 109 TH/MM3 (150-450) Mean Platelet Volume 9.4 FL (7.0-11.0) Neutrophils (%) (Auto) 93.7 % (16.0-70.0) Lymphocytes (%) (Auto) 3.2 % (9.0-44.0) Monocytes (%) (Auto) 3.0 % (0.0-8.0) Eosinophils (%) (Auto) 0.0 % (0.0-4.0) Basophils (%) (Auto) 0.1 % (0.0-2.0) Neutrophils # (Auto) 20.9 TH/MM3 (1.8-7.7) Lymphocytes # (Auto) 0.7 TH/MM3 (1.0-4.8) Monocytes # (Auto) 0.7 TH/MM3 (0-0.9) Eosinophils # (Auto) 0.0 TH/MM3 (0-0.4) Basophils # (Auto) 0.0 TH/MM3 (0-0.2) CBC Comment AUTO DIFF Differential Total Cells Counted 100 Neutrophils % (Manual) 83 % (16-70) Band Neutrophils % 11 % (0-6) Lymphocytes % 3 % (9-44) Monocytes % 3 % (0-8) Neutrophils # (Manual) 21.0 TH/MM3 (1.8-7.7) Differential Comment FINAL DIFF MANUAL Toxic Granulation 1+ (NORMAL) Platelet Estimate NORMAL (NORMAL) Platelet Morphology Comment NORMAL (NORMAL) Ovalocytes 1+ (NORMAL) Ever Cells 1+ (NORMAL) Result Diagram: 10/24/17 0840 10/24/17 0840 Microbiology Microbiology Date/Time Source Procedure Growth Status 10/22/17 02:55 Blood Peripheral Aerobic Blood Culture - Preliminary NO GROWTH IN 2 DAYS Resulted 10/22/17 02:55 Blood Peripheral Anaerobic Blood Culture - Preliminary NO GROWTH IN 2 DAYS Resulted 10/22/17 02:55 Blood Peripheral Aerobic Blood Culture - Preliminary Pseudomonas Aeruginosa Resulted 10/22/17 02:55 Blood Peripheral Anaerobic Blood Culture - Preliminary NO GROWTH IN 2 DAYS Resulted Imaging Last Impressions Chest X-Ray 10/23/17 0000 Signed Impressions: Service Date/Time: Monday, October 23, 2017 04:43 - CONCLUSION: No significant change. Mild bibasilar consolidation. Ney Ashton MD Cervical Spine CT 10/22/17 0000 Signed Impressions: Service Date/Time: Sunday, October 22, 2017 03:05 - CONCLUSION: No fracture or acute malalignment of the cervical spine. Degenerative changes as above. Ney Ashton MD Abdomen/Pelvis CT 10/22/17 0000 Signed Impressions: Service Date/Time: Sunday, October 22, 2017 03:09 - CONCLUSION: Free intraperitoneal air and probably on the basis of ruptured colon. Marked fecal impaction distally. Dr. Sheppard notified. Ney Ashton MD Head CT 10/22/17 0000 Signed Impressions: Service Date/Time: Sunday, October 22, 2017 03:05 - CONCLUSION: No acute intracranial abnormality. Ney Ashton MD Procedures * 10/22/17 - exploratory laparotomy, sigmoid colon resection, washout with Leos's pouch, end colostomy and gastrostomy tube placement. Intubated. . Patient/Family Conference Present at Family Conference: Met with son, daughter, GUILLERMINA, other family members. Also present for a portion of the meeting Dr. Sheppard and Pippa Muller, CHERIE. . Family Conference Time (mins): 75 Family Conference Location: Bedside, Consult Room Issues Discussed: * Palliative care role, purpose, approach * Additional medical, psychosocial, and spiritual history * Patients general health, functional status, and cognitive changes in the months leading up to the current hospitalization * Patient/family understanding of the current medical problems * Patient/family understanding of prognosis * Patients goals of care as best understood from advance directives and/or conversations and/or values * Current medical treatment options and benefits/burdens of those options * Likely scenarios comparing ongoing aggressive care with a transition to comfort measures only * Questions answered to the best of my ability * Palliative care contact information provided Family has a good understanding of current medical condition, that patient will likely survive this hospitalization. Understands that patient may be medically extubated in the coming days, will need certain decision on whether or not she will be reintubated once extubated. Family would like to speak about this this evening and read her advance directives, they understand that they will need a decision if extubated in the morning. Family would like to be present if patient is extubated. Briefly reviewed tracheostomy if unable to be medically extubated in the coming days. Family has many questions about underlying dementia, prognosis in the long-term. Questions answered to the best my ability. Family is very reasonable and understanding of the current condition understands that she is high risk for further setbacks and/or decline given her advanced age underlying dementia recent falls, 2 major surgeries within 1 month etc. Family is very appreciative of the care the patient has received and the communication of all staff members. . Assessment and Plan Disease Oriented Problem List: (1) Sepsis (2) Pneumoperitoneum (3) Acute kidney injury (4) Alzheimer's dementia (5) Elevated brain natriuretic peptide (BNP) level (6) Lactic acidosis Symptom Scale: (1) Pain 0-10 Scale: Unable to quantify Comment: Due to recent hip fracture, surgery, debility and abdominal surgery POD #2. PRN Morphine available, none given. . (2) Dyspnea 0-10 Scale: Unable to quantify Comment: On mech vent. . (3) Malnutrition 0-10 Scale: Unable to quantify Comment: albumin 1.7. Pertinent Non-Medical Issues Psychosocial: , lives with her at [facility]. Has 1 son and 1 daughter who live in [place] (currently in town). Spiritual: Unknown. Legal: Patient is not capacitated to make her own health care decisions, will not regain capacity due to underlying dementia. DaughterGalina is reported health care surrogate. Copies of advanced directives requested. Ethical issues impacting care: No known concerns at this time. . Important Contacts * Galina Kellogg, daughter/[facility]: [phone] * Michael, son: [phone] * Angelica: [phone] * Britt, cousin: [phone] . Prognosis While this patient is expected to survive this hospitalization, she is high risk for further setbacks or decline given age and underlying dementia. She may still have limited life expectancy (6 months or less) given age, dementia, falls , recent hip fracture, cognitive, functional and nutritional decline over the past 6 months. Code Status: No Code Plan * Patient is not capacitated to make her own health care decisions, will not regain capacity due to underlying dementia. DaughterGalina is reported health care surrogate. Copies of advanced directives requested. * NO CODE. * Met with daughter, son in law, son and other family members. Goals remain aggressive short of NO CODE for now. Family understands patient is expected to survive the hospitalization unless she has further setbacks or decline. Family would like to be present if medically extubated on 10/24/17. * SYMPTOMS: Pain: due to recent hip fracture, surgery, debility and abdominal surgery POD #2. PRN Morphine available, none given. Dyspnea: [facility]. Tolerating CPAP trials. No new medication recommendations. * Palliative care number provided. * Palliative care will continue to follow to assist with communication, assist with symptom management and further clarification of medical treatment goals as needed. . Thank you for the opportunity to participate in the care of Ms. Rivera. Attestation To help prompt me to consider important information that might be impacting today's encounter and assessment, information from prior notes written by myself or my colleagues may have been "brought forward" into today's note. My signature on this note, however, is an attestation that I personally performed the exam, history, and/or decision-making noted today, and, unless otherwise indicated, the interactions with patient, family, and staff as well as the review of records all occurred today. I also attest that the listed assessment and stated plan reflect my best clinical judgment today based on the combination of historical information, prior notes, and today's exam/ interactions. When time spent is documented, it refers only to time spent today by the signer, or if indicated, combined time spent today by collaborating physician/nurse practitioner. Aria Mujica Oct 24, 2017 15:07
--- NOTE | 2017-10-24 15:32 | HHI.PR ---
Subjective Subjective Notes Intubated/Sedated Now of pressors Objective Vitals/I&O Vital Signs Date Time Temp Pulse Resp B/P (MAP) Pulse Ox O2 Delivery O2 Flow Rate FiO2 10/24/17 12:00 80 10/24/17 12:00 35 10/24/17 11:28 99 10/24/17 08:00 98.5 18 138/65 (89) 10/24/17 07:00 Mechanical Ventilator 10/22/17 13:00 40 Labs Laboratory Tests Test 10/23/17 15:32 10/23/17 15:55 10/23/17 15:58 10/24/17 03:35 Blood Gas Puncture Site LT BRACHIAL Blood Gas Patient Temperature 98.6 Blood Gas HCO3 21 Blood Gas Base Excess -2.1 Blood Gas Oxygen Saturation 98 Arterial Blood pH 7.51 Arterial Blood Partial Pressure CO2 26 Arterial Blood Partial Pressure O2 131 Arterial Blood Oxygen Content 14.9 Arterial Blood Carboxyhemoglobin 0.8 Arterial Blood Methemoglobin 1.0 Blood Gas Hemoglobin 10.7 Oxygen Delivery Device VENTILATOR Blood Gas Ventilator Setting PRVC/AC Blood Gas Inspired Oxygen 45 Lactic Acid Level 2.1 Blood Urea Nitrogen 45 50 Creatinine 1.93 1.73 Random Glucose 111 114 Albumin 1.4 1.3 Calcium Level 8.4 8.8 Phosphorus Level 2.3 2.9 Sodium Level 142 141 Potassium Level 3.7 4.1 Chloride Level 110 112 Carbon Dioxide Level 24.1 21.1 Anion Gap 8 8 Estimat Glomerular Filtration Rate 25 28 Test 10/24/17 08:40 White Blood Count 22.3 Red Blood Count 3.75 Hemoglobin 11.3 Hematocrit 33.8 Mean Corpuscular Volume 90.2 Mean Corpuscular Hemoglobin 30.1 Mean Corpuscular Hemoglobin Concent 33.4 Red Cell Distribution Width 15.2 Platelet Count 109 Mean Platelet Volume 9.4 Neutrophils (%) (Auto) 93.7 Lymphocytes (%) (Auto) 3.2 Monocytes (%) (Auto) 3.0 Eosinophils (%) (Auto) 0.0 Basophils (%) (Auto) 0.1 Neutrophils # (Auto) 20.9 Lymphocytes # (Auto) 0.7 Monocytes # (Auto) 0.7 Eosinophils # (Auto) 0.0 Basophils # (Auto) 0.0 CBC Comment AUTO DIFF Differential Total Cells Counted 100 Neutrophils % (Manual) 83 Band Neutrophils % 11 Lymphocytes % 3 Monocytes % 3 Neutrophils # (Manual) 21.0 Differential Comment FINAL DIFF MANUAL Toxic Granulation 1+ Platelet Estimate NORMAL Platelet Morphology Comment NORMAL Ovalocytes 1+ [place] Cells 1+ Blood Urea Nitrogen 54 Creatinine 1.78 Random Glucose 116 Albumin 1.4 Calcium Level 9.1 Phosphorus Level 3.5 Sodium Level 142 Potassium Level 4.3 Chloride Level 111 Carbon Dioxide Level 21.0 Anion Gap 10 Estimat Glomerular Filtration Rate 27 Date/Time Source Procedure Growth Status 10/22/17 02:55 Blood Peripheral Aerobic Blood Culture - Preliminary NO GROWTH IN 2 DAYS Resulted 10/22/17 02:55 Blood Peripheral Anaerobic Blood Culture - Preliminary NO GROWTH IN 2 DAYS Resulted Cardiovascular: Regular Lungs: Clear Abdomen: Other (Midline incision with toyin; SAM x2 with serous drainage; Colostomy with pink stoma--no output; G tube capped ) Extremities: No edema A/P Assessment and Plan 77 year old female POD2 Exploratory laparotomy; Sigmoid colon resection with end colostomy and Leos's pouch; Gastrostomy tube placement -HR better controlled today -BUN/Cr essential the same--- urine output increased -Vent per CCM ---on CPAP -Continue routine SAM care -Start trickle feed via G tube -Await colostomy function ---Discussed with RAIZA Bazzi -Discussed at bedside with RAIZA Bennett -Discussed with multiple family members this afternoon who just arrived from [place]- --- the wish to proceed with current treatment but elect for DNR status--- I agree that this a reasonable decision given the situation. I have also explained the role of the Palliative Care team and they wish to meet with them as well. I have placed a consult. Attending Note - Dr. Sheppard Wound clean; toyin intact Pressors weaned; on CPAP Discussed with family The exam, history, and the medical decision-making described in the above note were completed with the assistance of the mid-level provider. I reviewed and agree with the findings presented. I attest that I had a [id number] encounter with the patient on the same day, and personally performed and documented my assessment and findings in the medical record. Pippa Muller/First Daron ALVARADO Oct 24, 2017 15:32 Keith Sheppard MD Oct 24, 2017 18:15
[2017-10-25] VITALS (16 sets, daily range): BP systolic 104–135; BP diastolic 53–63; PULSE 76–106; RESP 12–23; TEMP 97.2–98.1; O2SAT 98–100
[2017-10-25] MEDS: PROPOFOL 1000 MG/100 ML INJ 100 ML IV PRN (01:03)
[2017-10-25] MEDS: FLUCONAZOLE 200 MG PREMIX BAG 100 ML IV SCH (02:09)
[2017-10-25] MEDS: metroNIDAZOLE 500 MG INJ 100 ML IV SCH ×4 (02:09→20:49)
[2017-10-25] MEDS: AZTREONAM INJ 1,000 MG in SODIUM CHLORIDE 0.9% INJ 100 ML IV SCH ×2 (02:09→10:03)
[2017-10-25] MEDS: CHLORHEXIDINE GLUCONATE 2 % 1 PACK (2 CLOTHS) TOP SCH (04:00)
[2017-10-25] MEDS: LACTATED RINGER'S 1000 ML INJ 1,000 ML IV SCH ×2 (06:46→13:49)
[2017-10-25] MEDS: CHLORHEXIDINE 0.12% (ORAL KIT) 15 ML CUP MT SCH ×2 (07:57→20:50)
[2017-10-25] MEDS: CIPROFLOXACIN 400 MG PREMIX 200 ML IV SCH ×2 (07:57→20:49)
[2017-10-25] MEDS: PANTOPRAZOLE SODIUM 40 MG VIAL IV PUSH SCH (07:58)
[2017-10-25] MEDS: CARVEDILOL 6.25 MG TAB PO SCH ×2 (07:58→20:49)
[2017-10-25] MEDS: SODIUM CHLORIDE 0.9% FLUSH 10 ML FLUSH IV FLUSH SCH ×2 (07:58→20:50)
[2017-10-25] MEDS: ARTIFICIAL TEARS OPTH SOLN 15 ML BTL EACH EYE SCH ×3 (07:58→18:00)
[2017-10-25] MEDS: HEPARIN SODIUM - SQ 10,000 UNITS/ML VIAL SQ SCH ×2 (07:58→20:48)
[2017-10-25 08:16] LABS: ALBUMIN 1.4 GM/DL (3.4-5.0); BICARBONATE 19.7 MEQ/L (21.0-32.0); CALCIUM 8.9 MG/DL (8.5-10.1); CREATININE 1.83 MG/DL (0.50-1.00); PHOSPHORUS 2.7 MG/DL (2.5-4.9)
--- NOTE | 2017-10-25 11:14 | RADRPT ---
EXAM DATE/TIME: 10/25/2017 10:43 [place] COMPARISON: CHEST SINGLE AP, October 23, 2017, 4:43. INDICATIONS : Respiratory failure. MEDICAL HISTORY : dementia SURGICAL HISTORY : None. ENCOUNTER: Subsequent ACUITY: 3 days PAIN SCORE: Non-responsive. LOCATION: Bilateral upper chest FINDINGS: A single view of the chest demonstrates biapical scarring. Lung bases are now clear. Endotracheal tub e unchanged. Right jugular central line unchanged. Heart normal in size. The cardiomediastinal conto urs are unremarkable. Osseous structures are intact. CONCLUSION: Biapical scarring. Lungs are relatively clear.. Trent Soni MD on October 25, 2017 at 11:10 Board Certified Radiologist. This report was verified electronically.
--- NOTE | 2017-10-25 11:57 | HHI.HCPN ---
Reason for visit a. To assist with evaluation and management of symptoms including: pain, dyspnea. b. To assist medical decision maker(s) with: better understanding of current medical conditions; weighing benefits/burdens of medical treatment options; making medical treatment decisions. . Subjective/Interval History Patient seen and examined in ICU. Daughter, son in law and son's significant other at bedside. Spoke with nurse and Dr. Perez. Patient remains on [facility] vent plan for medical extubation after spouse and additional family arrive. Family has decided they DO NOT want patient reintubated if she fails post extubation after reviewing her advanced directives and discussion as a family. Elects NO CODE (DNR/DNI). Afebrile. Vital signs reviewed and stable. Off pressors and sedation. Labs reviewed: Creatinine slightly increased to 1.83 from 1.78. Albumin 1.4, tolerating trickle tube feeds at 10cc/hr. Blood culture drawn 10/22/17 pseudomonas aeruginosa, susceptibility to follow. Chest xray results/ imaging reviewed reveals biapical scarring otherwise relatively clear. . Family/friend interactions Met with family at bedside. Medical update provided. Reviewed plan for medical extubation once additional family arrives. Family has decided against reintubation if she fails post extubation, if she fails they desire comfort measures. Questions answered. Nurse notified of family wishes. . Advance Directives Living Will: Completed, but not made available Health Care Surrogate: Completed, but not made available Durable Power of Director Of Operations For Therapy: Completed, but not made available Advance Directive Specifics Health Care Surrogate(s): Patient is not capacitated to make her own health care decisions, will not regain capacity due to underlying dementia. DaughterGalina OR son Michael Rivera are designated health care surrogate. Copies of advanced directives on chart dated September 2016. . Significant change in goals: NO CODE. (DNR/DNI) No reintubation if fails post medical extubation. Goals remain aggressive short of NO CODE for now, unless fails post extubation. . Objective Vital Signs Date Time Temp Pulse Resp B/P (MAP) Pulse Ox O2 Delivery O2 Flow Rate FiO2 10/25/17 10:00 86 10/25/17 08:00 30 10/25/17 08:00 88 10/25/17 08:00 97.2 89 20 126/58 (80) 100 10/25/17 07:30 100 Ventilator 30 10/25/17 07:30 30 10/25/17 07:30 100 30 10/25/17 07:00 100 Mechanical Ventilator 30 10/25/17 06:00 82 10/25/17 04:52 100 30 10/25/17 04:00 97.4 78 12 104/53 (70) 100 10/25/17 04:00 78 10/25/17 04:00 35 10/25/17 02:00 86 10/25/17 01:10 100 30 10/25/17 00:00 106 10/25/17 00:00 35 10/25/17 00:00 97.2 79 17 120/57 (78) 100 10/24/17 22:00 102 10/24/17 20:22 100 30 10/24/17 20:00 97.9 78 12 140/64 (89) 100 10/24/17 20:00 35 10/24/17 20:00 77 10/24/17 19:00 96 Mechanical Ventilator 55 10/24/17 18:00 72 10/24/17 16:00 30 10/24/17 16:00 73 10/24/17 16:00 98.2 73 30 133/62 (85) 100 10/24/17 15:57 100 30 10/24/17 14:00 74 10/24/17 12:00 80 10/24/17 12:00 35 10/24/17 12:00 98.7 72 18 125/58 (80) 100 Intake & Output 10/25/17 10/25/17 07:00 19:00 Intake Total 1783 ml Output Total 375 ml Balance 1408 ml IV Total 1700 ml Tube Feeding 83 ml Output Urine Total 225 ml Drainage Total 150 ml Physical Exam CONSTITUTIONAL/GENERAL: This is an elderly, critically ill patient, in no apparent distress. TUBES/LINES/DRAINS: ETT, right IJ central line, PIV bilateral UEs, bilateral soft wrist restraints, gastrostomy tube, SAM drains x2 abdomen, Colostomy, Cordero , SCDs. SKIN: No jaundice, rashes, or lesions. Ecchymoses on upper extremities. Midline abdominal incision, toyin in place. Skin temperature appropriate. Not diaphoretic. EYES: eyes opening briefly, seems to be tracking. ENT: Unable of hearing. Nose without bleeding or purulent drainage. Throat difficult to visualize. CARDIOVASCULAR: Regular rate and rhythm without murmur. RESPIRATORY/CHEST: Clear to auscultation. Breath sounds equal bilaterally. GASTROINTESTINAL: Abdomen soft, non-tender, nondistended. Midline abdominal incision, toyin in place. Gastrostomy tube. SAM drains x2 abdomen. Colostomy, pink stoma, scant watery drainage in bag. GENITOURINARY: Without palpable bladder distension. Cordero catheter in place. MUSCULOSKELETAL: Extremities with edema. No mottling or clubbing. NEUROLOGICAL: Sedated. PSYCHIATRIC: Sedated. . Diagnostic Tests Laboratory Laboratory Tests Test 10/22/17 16:45 10/22/17 21:00 10/23/17 02:40 10/23/17 15:32 Blood Gas Puncture Site ART LINE LT BRACHIAL Blood Gas Patient Temperature 98.6 98.6 Blood Gas HCO3 22 mmol/L (22-26) 21 mmol/L (22-26) Blood Gas Base Excess -1.8 mmol/L (-2-2) -2.1 mmol/L (-2-2) Blood Gas Oxygen Saturation 98 % (90-100) 98 % (90-100) Arterial Blood pH 7.45 (7.380-7.420) 7.51 (7.380-7.420) Arterial Blood Partial Pressure CO2 32 mmHg (38-42) 26 mmHg (38-42) Arterial Blood Partial Pressure O2 199 mmHg (61-120) 131 mmHg (61-120) Arterial Blood Oxygen Content 16.8 Vol % (12.0-20.0) 14.9 Vol % (12.0-20.0) Arterial Blood Carboxyhemoglobin 0.7 % (0-4) 0.8 % (0-4) Arterial Blood Methemoglobin 1.0 % (0-2) 1.0 % (0-2) Blood Gas Hemoglobin 12.0 G/DL (12.0-16.0) 10.7 G/DL (12.0-16.0) Oxygen Delivery Device VENTILATOR VENTILATOR Blood Gas Ventilator Setting PRVC/AC PRVC/AC Blood Gas Inspired Oxygen 50 % 45 % Lactic Acid Level 2.3 mmol/L (0.4-2.0) 2.1 mmol/L (0.4-2.0) White Blood Count 18.2 TH/MM3 (4.0-11.0) Red Blood Count 3.97 MIL/MM3 (4.00-5.30) Hemoglobin 11.7 GM/DL (11.6-15.3) Hematocrit 35.7 % (35.0-46.0) Mean Corpuscular Volume 89.8 FL (80.0-100.0) Mean Corpuscular Hemoglobin 29.5 PG (27.0-34.0) Mean Corpuscular Hemoglobin Concent 32.8 % (32.0-36.0) Red Cell Distribution Width 15.5 % (11.6-17.2) Platelet Count 211 TH/MM3 (150-450) Mean Platelet Volume 9.7 FL (7.0-11.0) Neutrophils (%) (Auto) 95.8 % (16.0-70.0) Lymphocytes (%) (Auto) 2.2 % (9.0-44.0) Monocytes (%) (Auto) 1.9 % (0.0-8.0) Eosinophils (%) (Auto) 0.0 % (0.0-4.0) Basophils (%) (Auto) 0.1 % (0.0-2.0) Neutrophils # (Auto) 17.4 TH/MM3 (1.8-7.7) Lymphocytes # (Auto) 0.4 TH/MM3 (1.0-4.8) Monocytes # (Auto) 0.3 TH/MM3 (0-0.9) Eosinophils # (Auto) 0.0 TH/MM3 (0-0.4) Basophils # (Auto) 0.0 TH/MM3 (0-0.2) CBC Comment AUTO DIFF Differential Total Cells Counted 100 Neutrophils % (Manual) 74 % (16-70) Band Neutrophils % 22 % (0-6) Lymphocytes % 1 % (9-44) Monocytes % 1 % (0-8) Neutrophils # (Manual) 17.8 TH/MM3 (1.8-7.7) Metamyelocytes 2 % (0-1) Differential Comment FINAL DIFF MANUAL Toxic Granulation 1+ (NORMAL) Dohle Bodies PRESENT (NONE SEEN) Platelet Estimate NORMAL (NORMAL) Platelet Morphology Comment NORMAL (NORMAL) Ovalocytes 1+ (NORMAL) Prothrombin Time 13.4 SEC (9.8-11.6) Prothromb Time International Ratio 1.3 RATIO Activated Partial Thromboplast Time 37.1 SEC (24.3-30.1) Blood Urea Nitrogen 41 MG/DL (7-18) Creatinine 2.10 MG/DL (0.50-1.00) Random Glucose 121 MG/DL (74-106) Total Protein 4.6 GM/DL (6.4-8.2) Albumin 1.6 GM/DL (3.4-5.0) Calcium Level 8.3 MG/DL (8.5-10.1) Phosphorus Level 3.5 MG/DL (2.5-4.9) Magnesium Level 2.0 MG/DL (1.5-2.5) Alkaline Phosphatase 46 U/L (45-117) Aspartate Amino Transf (AST/SGOT) 39 U/L (15-37) Alanine Aminotransferase (ALT/SGPT) 20 U/L (10-53) Total Bilirubin 0.6 MG/DL (0.2-1.0) Sodium Level 144 MEQ/L (136-145) Potassium Level 3.7 MEQ/L (3.5-5.1) Chloride Level 111 MEQ/L (98-107) Carbon Dioxide Level 22.2 MEQ/L (21.0-32.0) Anion Gap 11 MEQ/L (5-15) Estimat Glomerular Filtration Rate 23 ML/MIN (>89) Troponin I 0.24 NG/ML (0.02-0.05) Test 10/23/17 15:55 10/23/17 15:58 10/24/17 03:35 10/24/17 08:40 Lactic Acid Level 2.1 mmol/L (0.4-2.0) Blood Urea Nitrogen 45 MG/DL (7-18) 50 MG/DL (7-18) 54 MG/DL (7-18) Creatinine 1.93 MG/DL (0.50-1.00) 1.73 MG/DL (0.50-1.00) 1.78 MG/DL (0.50-1.00) Random Glucose 111 MG/DL (74-106) 114 MG/DL (74-106) 116 MG/DL (74-106) Albumin 1.4 GM/DL (3.4-5.0) 1.3 GM/DL (3.4-5.0) 1.4 GM/DL (3.4-5.0) Calcium Level 8.4 MG/DL (8.5-10.1) 8.8 MG/DL (8.5-10.1) 9.1 MG/DL (8.5-10.1) Phosphorus Level 2.3 MG/DL (2.5-4.9) 2.9 MG/DL (2.5-4.9) 3.5 MG/DL (2.5-4.9) Sodium Level 142 MEQ/L (136-145) 141 MEQ/L (136-145) 142 MEQ/L (136-145) Potassium Level 3.7 MEQ/L (3.5-5.1) 4.1 MEQ/L (3.5-5.1) 4.3 MEQ/L (3.5-5.1) Chloride Level 110 MEQ/L (98-107) 112 MEQ/L (98-107) 111 MEQ/L (98-107) Carbon Dioxide Level 24.1 MEQ/L (21.0-32.0) 21.1 MEQ/L (21.0-32.0) 21.0 MEQ/L (21.0-32.0) Anion Gap 8 MEQ/L (5-15) 8 MEQ/L (5-15) 10 MEQ/L (5-15) Estimat Glomerular Filtration Rate 25 ML/MIN (>89) 28 ML/MIN (>89) 27 ML/MIN (>89) White Blood Count 22.3 TH/MM3 (4.0-11.0) Red Blood Count 3.75 MIL/MM3 (4.00-5.30) Hemoglobin 11.3 GM/DL (11.6-15.3) Hematocrit 33.8 % (35.0-46.0) Mean Corpuscular Volume 90.2 FL (80.0-100.0) Mean Corpuscular Hemoglobin 30.1 PG (27.0-34.0) Mean Corpuscular Hemoglobin Concent 33.4 % (32.0-36.0) Red Cell Distribution Width 15.2 % (11.6-17.2) Platelet Count 109 TH/MM3 (150-450) Mean Platelet Volume 9.4 FL (7.0-11.0) Neutrophils (%) (Auto) 93.7 % (16.0-70.0) Lymphocytes (%) (Auto) 3.2 % (9.0-44.0) Monocytes (%) (Auto) 3.0 % (0.0-8.0) Eosinophils (%) (Auto) 0.0 % (0.0-4.0) Basophils (%) (Auto) 0.1 % (0.0-2.0) Neutrophils # (Auto) 20.9 TH/MM3 (1.8-7.7) Lymphocytes # (Auto) 0.7 TH/MM3 (1.0-4.8) Monocytes # (Auto) 0.7 TH/MM3 (0-0.9) Eosinophils # (Auto) 0.0 TH/MM3 (0-0.4) Basophils # (Auto) 0.0 TH/MM3 (0-0.2) CBC Comment AUTO DIFF Differential Total Cells Counted 100 Neutrophils % (Manual) 83 % (16-70) Band Neutrophils % 11 % (0-6) Lymphocytes % 3 % (9-44) Monocytes % 3 % (0-8) Neutrophils # (Manual) 21.0 TH/MM3 (1.8-7.7) Differential Comment FINAL DIFF MANUAL Toxic Granulation 1+ (NORMAL) Platelet Estimate NORMAL (NORMAL) Platelet Morphology Comment NORMAL (NORMAL) Ovalocytes 1+ (NORMAL) [place] Cells 1+ (NORMAL) Test 10/25/17 06:41 Blood Urea Nitrogen 68 MG/DL (7-18) Creatinine 1.83 MG/DL (0.50-1.00) Random Glucose 127 MG/DL (74-106) Albumin 1.4 GM/DL (3.4-5.0) Calcium Level 8.9 MG/DL (8.5-10.1) Phosphorus Level 2.7 MG/DL (2.5-4.9) Sodium Level 142 MEQ/L (136-145) Potassium Level 4.5 MEQ/L (3.5-5.1) Chloride Level 111 MEQ/L (98-107) Carbon Dioxide Level 19.7 MEQ/L (21.0-32.0) Anion Gap 11 MEQ/L (5-15) Estimat Glomerular Filtration Rate 27 ML/MIN (>89) Result Diagram: 10/24/17 0840 10/25/17 0641 Microbiology Microbiology Date/Time Source Procedure Growth Status 10/22/17 02:55 Blood Peripheral Aerobic Blood Culture - Preliminary NO GROWTH IN 3 DAYS Resulted 10/22/17 02:55 Blood Peripheral Anaerobic Blood Culture - Preliminary NO GROWTH IN 3 DAYS Resulted Imaging Last Impressions Chest X-Ray 10/25/17 0000 Signed Impressions: Service Date/Time: Wednesday, October 25, 2017 10:43 - CONCLUSION: Biapical scarring. Lungs are relatively clear.. Trent Soni MD Cervical Spine CT 10/22/17 0000 Signed Impressions: Service Date/Time: Sunday, October 22, 2017 03:05 - CONCLUSION: No fracture or acute malalignment of the cervical spine. Degenerative changes as above. Ney Ashton MD Abdomen/Pelvis CT 10/22/17 0000 Signed Impressions: Service Date/Time: Sunday, October 22, 2017 03:09 - CONCLUSION: Free intraperitoneal air and probably on the basis of ruptured colon. Marked fecal impaction distally. Dr. Sheppard notified. Ney Ashton MD Head CT 10/22/17 0000 Signed Impressions: Service Date/Time: Sunday, October 22, 2017 03:05 - CONCLUSION: No acute intracranial abnormality. eNy Ashton MD Procedures * 10/22/17 - exploratory laparotomy, sigmoid colon resection, washout with Leos's pouch, end colostomy and gastrostomy tube placement. Intubated. . Assessment and Plan Disease Oriented Problem List: (1) Sepsis (2) Pneumoperitoneum (3) Acute kidney injury (4) Alzheimer's dementia (5) Elevated brain natriuretic peptide (BNP) level (6) Lactic acidosis Symptom Scale: (1) Pain 0-10 Scale: Unable to quantify Comment: Due to recent hip fracture, surgery, debility and abdominal surgery POD #2. PRN Morphine available, none given. . (2) Dyspnea 0-10 Scale: Unable to quantify Comment: On mech vent. . (3) Malnutrition 0-10 Scale: Unable to quantify Comment: albumin 1.7. Pertinent Non-Medical Issues Psychosocial: , lives with her at [facility]. Has 1 son and 1 daughter who live in [place] (currently in town). Spiritual: Unknown. Legal: Patient is not capacitated to make her own health care decisions, will not regain capacity due to underlying dementia. Daughter, Galina Kellogg OR son Michael Rivera are designated health care surrogate. Copies of advanced directives on chart dated September 2016. Ethical issues impacting care: No known concerns at this time. . Important Contacts * Galina Kellogg, daughter/[facility]: [phone] * Michael, son: [phone] * Angelica: [phone] * Britt, cousin: [phone] . Prognosis While this patient is expected to survive this hospitalization, she is high risk for further setbacks or decline given age and underlying dementia. She may still have limited life expectancy (6 months or less) given age, dementia, falls , recent hip fracture, cognitive, functional and nutritional decline over the past 6 months. Code Status: No Code Plan * Patient is not capacitated to make her own health care decisions, will not regain capacity due to underlying dementia. Daughter, Galina Kellogg OR son Michael Rivera are designated health care surrogate. Copies of advanced directives on chart dated September 2016. * NO CODE. * Met with daughter, son in law, son and other family members. Plan for medical extubation today after family arrives. DO NOT reintubate if fails extubation, will transition to comfort if fails post extubation. Continue aggressive care post extubation unless she fails. * SYMPTOMS: Pain: due to recent hip fracture, surgery, debility and abdominal surgery POD #2. PRN Morphine available, none given. Dyspnea: on mech vent. Tolerating CPAP trials. Plan for medical extubation later today. No new medication recommendations. * Palliative care will continue to follow to assist with communication, assist with symptom management and further clarification of medical treatment goals as needed. . Attestation To help prompt me to consider important information that might be impacting today's encounter and assessment, information from prior notes written by myself or my colleagues may have been "brought forward" into today's note. My signature on this note, however, is an attestation that I personally performed the exam, history, and/or decision-making noted today, and, unless otherwise indicated, the interactions with patient, family, and staff as well as the review of records all occurred today. I also attest that the listed assessment and stated plan reflect my best clinical judgment today based on the combination of historical information, prior notes, and today's exam/ interactions. When time spent is documented, it refers only to time spent today by the signer, or if indicated, combined time spent today by collaborating physician/nurse practitioner. Aria Mujica Oct 25, 2017 11:57
[2017-10-25 12:28] LABS: AUTOMATED NEUTROPHIL # 31.1 TH/MM3 (1.8-7.7); BASOPHIL % 0.1 % (0.0-2.0); HEMATOCRIT 34.6 % (35.0-46.0); HEMOGLOBIN 11.2 GM/DL (11.6-15.3); LYMPH % 3.3 % (9.0-44.0); LYMPHOCYTE # 1.1 TH/MM3 (1.0-4.8); MEAN CELL VOLUME 90.6 FL (80.0-100.0); MEAN CORPUSCULAR HEMOGLOBIN 29.3 PG (27.0-34.0); MEAN CORPUSCULAR HGB CONC 32.3 % (32.0-36.0); MEAN PLATELET VOLUME 9.2 FL (7.0-11.0); MONO % 5.1 % (0.0-8.0); MONOCYTE # 1.7 TH/MM3 (0-0.9); NEUT % 91.5 % (16.0-70.0); PLATELET COUNT 60 TH/MM3 (150-450); RED BLOOD COUNT 3.81 MIL/MM3 (4.00-5.30); RED CELL DISTRIBUTION WIDTH 15.5 % (11.6-17.2)
[2017-10-25 13:20] LABS: ACANTHOCYTES 1+ (NORMAL); BANDS 8 % (0-6); LYMPHOCYTES 3 % (9-44); MONOCYTES 4 % (0-8); NEUTROPHIL # MANUAL DIFF 31.6 TH/MM3 (1.8-7.7); OVALOCYTES 1+ (NORMAL); POLYS (SEG NEUTROPHILS) 85 % (16-70); TOXIC GRANULATION 1+ (NORMAL)
--- NOTE | 2017-10-25 13:26 | HHI.CCPN ---
Subjective Remarks/Hospital Course Diagnosis: (1) Pneumoperitoneum of unknown etiology Diagnosis: Principal (2) Gastroesophageal reflux disease Diagnosis: Secondary (3) Depression Diagnosis: Secondary (4) Elevated brain natriuretic peptide (BNP) level Diagnosis: Secondary (5) Polycythemia Diagnosis: Secondary (6) Chronic systolic heart failure Diagnosis: Secondary (7) Lactic acidosis Diagnosis: Principal (8) Leukopenia Diagnosis: Secondary (9) Alzheimer's dementia Diagnosis: Secondary (10) Hypoalbuminemia Diagnosis: Secondary (11) Acute kidney injury Diagnosis: Principal (12) Hypokalemia Diagnosis: Secondary (13) Elevated troponin Diagnosis: Secondary (14) Hypernatremia Diagnosis: Secondary This is a 77-year-old female. Full CODE STATUS. Date of admission . Past medical history includes end-stage Alzheimer dementia, depression /anxiety, hard of hearing, gastroesophageal reflux disease. Patient is a prior history of tobaccoism. Recent echocardiogram revealed EF of 40-45% with inferior hypokinesis. Patient presents from [facility] with altered mental status and abdominal pain just prior to 9 PM tonight. This was an unwitnessed fall. The patient has a history of dementia and is unsure whether she hit her head. X-ray at that facility revealed possible free air. Recommended follow-up CAT scan in the emergency department. The patient was oriented to person, however not place, time, or situation. The patient was noted to have a heart rate in the 130s that appear to be a sinus tachycardia with a blood sugar of 146. The patient had generalized abdominal tenderness and distention. On arrival, the patient had one episode of vomiting of bile. Chest x-ray at [facility] revealed large right-sided pneumoperitoneum. Dr. Sheppard/general surgery was notified. Requested notifying healthcare proxy Galina Kellogg [phone] prior to any intervention. At the present time patient is full code. White cell count of 3.3. Hemoglobin is 16. Lactate is 5.5. BNP is elevated. Remainder of laboratories are pending. Patient received vancomycin, aztreonam and metronidazole in the ED along with a 500 cc bolus of normal saline 2 and 4 mg of ondansetron.. 200 mg fluconazole IV has been provided 1 as well 10/22 1430 hours: I met her upon her return from PACU and discussed the case with the surgery personnel. 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 There was fecal peritonitis and the woman remains in severe sepsis. Chest x-ray reveals well-inflated lungs with obvious bilateral emphysema. The tubes and lines are in good position. She has been largely an uric since surgery. SVV > 30, responding to fluid. Initial mild hypotension was corrected with isotonic crystalloid infusion and urine remains marginal at best. Gas exchange is acceptable. Acid-base balance acceptable. Will continue ongoing resuscitation. 10/23: She is warm and well perfused. Bicarb level normal. Rising creatinine was predictable and will hopefully level off. Minimal stroke volume variation and peripheral perfusion confirm that she is well resuscitated. Considering the extent of her emphysema her oxygenation is quite acceptable. New onset atrial fibrillation this morning was initially problematic due to rapid ventricular rate, better control obtained now but Flowtrack variation will not be accurate. 10/24: It appears renal injury has peaked and she is starting to recover. Back in sinus rhythm now and gas exchange is improved. Hopefully we can start some spontaneous breathing trials today. Ability to extubate and keep her lungs clear may be limited by her baseline dementia and inability to follow commands. We will continue aggressive efforts to speed this woman's recovery. Hold attempts at tube feeding until approved by the general surgery service. 10/25: She meets criteria for extubation based on parameters, respiratory pattern on spontaneous breathing trials, chest x-ray, and vigor of cough. Objective Vital Signs Date Time Temp Pulse Resp B/P (MAP) Pulse Ox O2 Delivery O2 Flow Rate FiO2 10/25/17 12:10 100 Nasal Cannula 4.00 10/25/17 12:00 30 10/25/17 12:00 84 10/25/17 12:00 97.2 23 128/61 (83) Intake and Output 10/25/17 10/25/17 10/26/17 08:00 16:00 00:00 Intake Total 1683 ml Output Total 375 ml Balance 1308 ml Result Diagram: 10/25/17 1145 10/25/17 0641 Imaging Last Impressions Chest X-Ray 10/22/17 0000 Signed Impressions: Service Date/Time: Sunday, October 22, 2017 00:21 - CONCLUSION: 1. Free intraperitoneal air. 2. No acute cardiopulmonary disease demonstrated. Ney Ashton MD Objective Remarks GENERAL: 77-year-old cachectic female, not sedated for vent synchrony. SKIN: Warm and dry. HEAD: Atraumatic. Normocephalic. EYES: Pupils equal and round. No scleral icterus. No injection or drainage. ENT: No nasal bleeding or discharge. Mucous membranes pink and moist. NECK: Trachea midline. Orotracheal intubation CARDIOVASCULAR: Tachycardic, RR. S1, S2. No S4. Without murmur. No jugular venous distention. RESPIRATORY: Clear to auscultation. Breath sounds equal bilaterally. Normal excursions on ventilator. Distant tones. GASTROINTESTINAL: Post surgical, nondistended. Dressing dry and clean, stoma is pink. Bowel sounds active. MUSCULOSKELETAL: No obvious deformities. Warm and well-perfused. NEUROLOGICAL: Sedated, mechanically ventilated moves all 4 extremities to stimulation. Good spontaneous respiratory effort. A/P Assessment and Plan Neuro/Psych: Alzheimer's dementia NOS Depression disorder NOS Anxiety disorder NOS Evaluated by Dr. Zelaya and , last admission. CT brain revealed frontal contusion from fall. No hemorrhage Home medications on donepezil 15 mg daily memantine 10 mg 2x daily. Will currently on hold while n.p.o. Morphine sulfate 2 mg IV every 2 hours as needed pain 6 or 10 Minimize sedation and analgesia at this point. CV: Sinus tachycardia Lactic acidosis Trop 0.18 Chronic Syst HF Paroxysmal atrial fibrillation with rapid ventricular response Currently LR @ 100 cc/hr 2D echocardiogram 09/22 revealed EF 40-45%. Inferior hypokinesis. Pulmonary arterial pressure 37.5 mmHg Serial lactates until cleared Trop repeat 0700 EKG revealed sinus tachycardia heart rate in the 1 teens to 120s with ectopy. Amiodarone drip started, will add an occasional dose of digoxin bearing in mind the impaired renal function. Back in normal sinus rhythm and pulse rate controlled. Hold Digoxin. Start bid carvedilol 6.25 mg Resp: PRVC ventilator mode, PEEP 5. Incentive spirometry while awake As needed albuterol aerosols every 2 hours as needed Start SBTs. Tolerating CPAP trials. GI: Pneumoperitoneum Constipation history History of gastroesophageal reflux disease Low albumin Chest x-ray clear. ET tube in good position. Pantoprazole for GI prophylaxis. Holding docusate sodium and famotidine/home medications. Very large lung volumes consistent with bilateral emphysema. : Cordero catheter for accurate I's and O's in a critically ill patient Endo: Sliding scale insulin with Accu-Cheks to maintain euglycemia/low regimen Novolog Renal: ASIF Cr. 1.5, follow closely while resuscitating check CT A/P Unine Na+, Cr, Eos LR @ 75 cc/hr, converted to normal saline to eliminate potassium Creatinine 2.1 BMP currently pending Heme: Leukopenia Polycythemia History of DVT? Aspirin 320 mg p.o. daily Monitor CBC daily. Follow trends. Coags currently pending ID: Pneumoperitoneum Currently in vancomycin, aztreonam, metronidazole and fluconazole day #4 Blood cultures 2, UA currently pending MSK: PT evaluate and treat FEN: Hyper Na+ HypoK+ Replace electrolytes as clinically indicated 30 mEq Kcl x1 now Access -Utilize peripheral IV. Central line in place. Prophylaxis -GI -pantoprazole -DVT -SCD/holding pharmacological prophylaxis in light of possible emergent surgery Overall impression: This patient was critically ill following spontaneous perforation of her sigmoid colon. At the time of surgery she had fecal contamination in the peritoneal cavity and was floridly septic. She has started to recover from surgery and sepsis. Her surgical sites are clean and well perfused. Bowel function is returning. The patient meets criteria for extubation. We will extubate today knowledgeable that the family has requested DNR status. The patient has long-term dementia and the palliative care team has helped the family address long-term care goals. We will extubate her today and she will not be reintubated if respiratory failure should develop in the future. I concur with this plan wholeheartedly. Kris Perez MD Oct 25, 2017 13:26
[2017-10-25] MEDS ORDERED: DIATRIZOATE MEGLUM/DIATRIZOATE SOD 9 ML CUP PO ONE (15:00)
--- NOTE | 2017-10-25 15:41 | HHI.PR ---
Subjective Subjective Notes Resting in bed ; Extubated No acute events overnight Objective Vitals/I&O Vital Signs Date Time Temp Pulse Resp B/P (MAP) Pulse Ox O2 Delivery O2 Flow Rate FiO2 10/25/17 14:00 80 10/25/17 12:10 100 Nasal Cannula 4.00 10/25/17 12:00 30 10/25/17 12:00 97.2 23 128/61 (83) Labs Laboratory Tests Test 10/25/17 06:41 10/25/17 11:45 Blood Urea Nitrogen 68 Creatinine 1.83 Random Glucose 127 Albumin 1.4 Calcium Level 8.9 Phosphorus Level 2.7 Sodium Level 142 Potassium Level 4.5 Chloride Level 111 Carbon Dioxide Level 19.7 Anion Gap 11 Estimat Glomerular Filtration Rate 27 White Blood Count 34.0 Red Blood Count 3.81 Hemoglobin 11.2 Hematocrit 34.6 Mean Corpuscular Volume 90.6 Mean Corpuscular Hemoglobin 29.3 Mean Corpuscular Hemoglobin Concent 32.3 Red Cell Distribution Width 15.5 Platelet Count 60 Mean Platelet Volume 9.2 Neutrophils (%) (Auto) 91.5 Lymphocytes (%) (Auto) 3.3 Monocytes (%) (Auto) 5.1 Eosinophils (%) (Auto) 0.0 Basophils (%) (Auto) 0.1 Neutrophils # (Auto) 31.1 Lymphocytes # (Auto) 1.1 Monocytes # (Auto) 1.7 Eosinophils # (Auto) 0.0 Basophils # (Auto) 0.0 CBC Comment AUTO DIFF Differential Total Cells Counted 100 Neutrophils % (Manual) 85 Band Neutrophils % 8 Lymphocytes % 3 Monocytes % 4 Neutrophils # (Manual) 31.6 Differential Comment FINAL DIFF MANUAL Toxic Granulation 1+ Platelet Estimate LOW Platelet Morphology Comment NORMAL Ovalocytes 1+ Acanthocytes 1+ Date/Time Source Procedure Growth Status 10/22/17 02:55 Blood Peripheral Aerobic Blood Culture - Preliminary NO GROWTH IN 3 DAYS Resulted 10/22/17 02:55 Blood Peripheral Anaerobic Blood Culture - Preliminary NO GROWTH IN 3 DAYS Resulted Cardiovascular: Regular Lungs: Clear Abdomen: Other (Midline incision with toyin---c/d/i; SAM x2 with serous drainage; colostomy with pink stoma--no ouput ) Extremities: No edema A/P Assessment and Plan 77 year old female POD3 Exploratory laparotomy; Sigmoid colon resection with end colostomy and Leos's pouch; Gastrostomy tube placement -HR continues to be controlled -BUN/Cr increased---will need to monitor closely -Extubated today; on 4L NC -Continue routine SAM care -Increase in WBC today---will do repeat CT abd/pel with PO contrast----will hold tube feeding for now until after CT -If no acute findings on CT---can restart TF and advance as bowel function returns -Await colostomy function ---Discussed with RAIZA Bazzi -Discussed at bedside with RAIZA Bennett -Appreciate Palliative Care assistance in the management of this patient Attending Note - Dr. Sheppard Discussed with family Wound clean and dry Colostomy pink The exam, history, and the medical decision-making described in the above note were completed with the assistance of the mid-level provider. I reviewed and agree with the findings presented. I attest that I had a [id number] encounter with the patient on the same day, and personally performed and documented my assessment and findings in the medical record. Pippa MullerP/Package Sorter ABSORPTION AND ADSORPTION ENGINEER Oct 25, 2017 15:41 Keith Sheppard MD Oct 30, 2017 08:11
--- NOTE | 2017-10-25 16:04 | PD.WCN.NOT ---
Wound Consult Description: Consult for NEW OSTOMY TEACHING of abdomen per Renzo ALVARADO Communicated with: Renzo ALVARADO Patient Recommendation: Continue to monitor stoma for color (red or pink) and moisture (mucus) Empty pouch of effluent (stool) when 1/3-1/2 full Change pouching system every 5-7 days and PRN for leaks Additional Information: Patient seen on [address] [place] [address] for ostomy assessment. Patient was spoken to about visualization of stoma. Ostomy Type: Colostomy Surgeon: Keith Sheppard MD Date of Surgery: Oct 22, 2017 Educated patient on: Electro Plater is there to look at stoma color and to assess for pouching leaks and output Additional information Patient seen on [address] [place] [address] for ostomy assessment and teaching. Patient opened her eyes and was briefly able to track job specification writer when speaking about her stoma. Stoma is red, round, moist, moderately protruding, edematous, lumen noted in center of stoma not functioning at this time. Pouch is intact. Rsoe Mary Sullivan [facility] Oct 25, 2017 16:04
[2017-10-25 16:26] LABS: ALBUMIN 1.2 GM/DL (3.4-5.0); CALCIUM 8.8 MG/DL (8.5-10.1); CREATININE 1.91 MG/DL (0.50-1.00)
[2017-10-25 16:27] LABS: PHOSPHORUS 2.5 MG/DL (2.5-4.9)
--- NOTE | 2017-10-25 22:50 | RADRPT ---
EXAM DATE/TIME: 10/25/2017 21:41 [facility] COMPARISON: CT ABDOMEN & PELVIS W/O CONTRAST, October 22, 2017, 3:09. INDICATIONS : Perforated bowel, S/P Daniel's procedure. ORAL CONTRAST: Prescribed oral contrast ingested. RADIATION DOSE: 6.15 CTDIvol (mGy) MEDICAL HISTORY : Dementia. SURGICAL HISTORY : Daniel's procedure ENCOUNTER: Subsequent ACUITY: 3 days PAIN SCALE: Non-responsive LOCATION: abdomen TECHNIQUE: Volumetric scanning of the abdomen and pelvis was performed. Using automated exposure control and ad justment of the mA and/or kV according to patient size, radiation dose was kept as low as reasonably achievable to obtain optimal diagnostic quality images. DICOM format image data is available electro nically for review and comparison. FINDINGS: LOWER LUNGS: There are mild bilateral pleural effusions with accompanying areas of suspected subpleural atelectasi s at the lung bases. There is a mild pericardial effusion. LIVER: There are several hypodensities seen in the liver. These measure up to 2.7 cm. These are nonspecific. SPLEEN: Normal size without lesion. PANCREAS: Within normal limits. KIDNEYS: Normal in size and shape. There is no mass, stone, or hydronephrosis. ADRENAL GLANDS: Within normal limits. VASCULAR: There is no aortic aneurysm. Atherosclerotic calcifications are seen throughout the arterial system. The aorta measures up to 2.7 cm. BOWEL/MESENTERY: There is persistent free intraperitoneal air. This is less prominent than seen on the prior exam. The re is a G-tube in place. There is persistent large amount of stool in the rectum. There appears to be some air within the rectal wall. There do appear to be surgical drains in the lower abdomen and pelv ic region. Small bowel dilatation is not seen. There is a colostomy site in the left lower quadrant. ABDOMINAL WALL: Skin toyin are seen in the midline. There is a colostomy site in the left lower quadrant. RETROPERITONEUM: There is no lymphadenopathy. BLADDER: There is a Cordero catheter decompressing the bladder. REPRODUCTIVE: Within normal limits. INGUINAL: There is no lymphadenopathy or hernia. MUSCULOSKELETAL: There is mild degenerative change in the lumbar spine. There is a right hip prosthesis. CONCLUSION: 1. New left colostomy. 2. Persistent but improving free intraperitoneal air. 3. Persistent large amount of stool in the rectum with some air in the rectal wall. 4. Mild bilateral pleural effusions. 5. Nonspecific hypodensities in the liver. These could be related to cysts or hemangiomas but again a re nonspecific on this noncontrast CT examination. 6. New G-tube. Ney Schafer MD on October 25, 2017 at 22:40 Board Certified Radiologist. This report was verified electronically.
[2017-10-26] VITALS (14 sets, daily range): BP systolic 106–133; BP diastolic 53–63; PULSE 72–98; RESP 18–23; TEMP 96.7–98.5; O2SAT 91–100
[2017-10-26] MEDS: FLUCONAZOLE 200 MG PREMIX BAG 100 ML IV SCH (01:48)
[2017-10-26] MEDS: metroNIDAZOLE 500 MG INJ 100 ML IV SCH ×4 (01:48→20:20)
[2017-10-26] MEDS: CHLORHEXIDINE GLUCONATE 2 % 1 PACK (2 CLOTHS) TOP SCH (04:00)
[2017-10-26 07:33] LABS: AUTOMATED NEUTROPHIL # 29.4 TH/MM3 (1.8-7.7); BASOPHIL % 0.2 % (0.0-2.0); EOSINOPHIL % 0.1 % (0.0-4.0); HEMATOCRIT 36.1 % (35.0-46.0); HEMOGLOBIN 11.9 GM/DL (11.6-15.3); LYMPH % 3.1 % (9.0-44.0); MEAN CELL VOLUME 89.1 FL (80.0-100.0); MEAN CORPUSCULAR HEMOGLOBIN 29.2 PG (27.0-34.0); MEAN CORPUSCULAR HGB CONC 32.8 % (32.0-36.0); MEAN PLATELET VOLUME 11.3 FL (7.0-11.0); MONO % 4.4 % (0.0-8.0); MONOCYTE # 1.4 TH/MM3 (0-0.9); NEUT % 92.2 % (16.0-70.0); PLATELET COUNT 53 TH/MM3 (150-450); RED BLOOD COUNT 4.06 MIL/MM3 (4.00-5.30); RED CELL DISTRIBUTION WIDTH 15.7 % (11.6-17.2); WHITE BLOOD COUNT 31.8 TH/MM3 (4.0-11.0)
[2017-10-26 07:45] LABS: ALBUMIN 1.2 GM/DL (3.4-5.0); BICARBONATE 20.8 MEQ/L (21.0-32.0); CALCIUM 8.6 MG/DL (8.5-10.1); CREATININE 1.61 MG/DL (0.50-1.00)
[2017-10-26 07:46] LABS: PHOSPHORUS 2.6 MG/DL (2.5-4.9)
[2017-10-26] MEDS: CHLORHEXIDINE 0.12% (ORAL KIT) 15 ML CUP MT SCH ×2 (08:33→20:20)
[2017-10-26] MEDS: CARVEDILOL 6.25 MG TAB PO SCH ×2 (08:48→20:20)
[2017-10-26] MEDS: LACTATED RINGER'S 1000 ML INJ 1,000 ML IV SCH ×2 (08:48→20:38)
[2017-10-26] MEDS: SODIUM CHLORIDE 0.9% FLUSH 10 ML FLUSH IV FLUSH SCH ×2 (08:48→20:21)
[2017-10-26] MEDS: PANTOPRAZOLE SODIUM 40 MG VIAL IV PUSH SCH (08:48)
[2017-10-26] MEDS: CIPROFLOXACIN 400 MG PREMIX 200 ML IV SCH ×2 (08:54→20:20)
--- NOTE | 2017-10-26 08:54 | HHI.CCPN ---
Subjective Remarks/Hospital Course Diagnosis: (1) Pneumoperitoneum of unknown etiology Diagnosis: Principal (2) Gastroesophageal reflux disease Diagnosis: Secondary (3) Depression Diagnosis: Secondary (4) Elevated brain natriuretic peptide (BNP) level Diagnosis: Secondary (5) Polycythemia Diagnosis: Secondary (6) Chronic systolic heart failure Diagnosis: Secondary (7) Lactic acidosis Diagnosis: Principal (8) Leukopenia Diagnosis: Secondary (9) Alzheimer's dementia Diagnosis: Secondary (10) Hypoalbuminemia Diagnosis: Secondary (11) Acute kidney injury Diagnosis: Principal (12) Hypokalemia Diagnosis: Secondary (13) Elevated troponin Diagnosis: Secondary (14) Hypernatremia Diagnosis: Secondary This is a 77-year-old female. Full CODE STATUS. Date of admission . Past medical history includes end-stage Alzheimer dementia, depression /anxiety, hard of hearing, gastroesophageal reflux disease. Patient is a prior history of tobaccoism. Recent echocardiogram revealed EF of 40-45% with inferior hypokinesis. Patient presents from [facility] with altered mental status and abdominal pain just prior to 9 PM tonight. This was an unwitnessed fall. The patient has a history of dementia and is unsure whether she hit her head. X-ray at that facility revealed possible free air. Recommended follow-up CAT scan in the emergency department. The patient was oriented to person, however not place, time, or situation. The patient was noted to have a heart rate in the 130s that appear to be a sinus tachycardia with a blood sugar of 146. The patient had generalized abdominal tenderness and distention. On arrival, the patient had one episode of vomiting of bile. Chest x-ray at [facility] revealed large right-sided pneumoperitoneum. Dr. Sheppard/general surgery was notified. Requested notifying healthcare proxy Galina Kellogg [phone] prior to any intervention. At the present time patient is full code. White cell count of 3.3. Hemoglobin is 16. Lactate is 5.5. BNP is elevated. Remainder of laboratories are pending. Patient received vancomycin, aztreonam and metronidazole in the ED along with a 500 cc bolus of normal saline 2 and 4 mg of ondansetron.. 200 mg fluconazole IV has been provided 1 as well 10/22 1430 hours: I met her upon her return from PACU and discussed the case with the surgery personnel. 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 There was fecal peritonitis and the woman remains in severe sepsis. Chest x-ray reveals well-inflated lungs with obvious bilateral emphysema. The tubes and lines are in good position. She has been largely an uric since surgery. SVV > 30, responding to fluid. Initial mild hypotension was corrected with isotonic crystalloid infusion and urine remains marginal at best. Gas exchange is acceptable. Acid-base balance acceptable. Will continue ongoing resuscitation. 10/23: She is warm and well perfused. Bicarb level normal. Rising creatinine was predictable and will hopefully level off. Minimal stroke volume variation and peripheral perfusion confirm that she is well resuscitated. Considering the extent of her emphysema her oxygenation is quite acceptable. New onset atrial fibrillation this morning was initially problematic due to rapid ventricular rate, better control obtained now but Flowtrack variation will not be accurate. 10/24: It appears renal injury has peaked and she is starting to recover. Back in sinus rhythm now and gas exchange is improved. Hopefully we can start some spontaneous breathing trials today. Ability to extubate and keep her lungs clear may be limited by her baseline dementia and inability to follow commands. We will continue aggressive efforts to speed this woman's recovery. Hold attempts at tube feeding until approved by the general surgery service. 10/25: She meets criteria for extubation based on parameters, respiratory pattern on spontaneous breathing trials, chest x-ray, and vigor of cough. 10/26:. Extubated yesterday and breathing comfortably on her own. CAT scan of the abdomen obtained due to leukocytosis is largely benign. Family has made her a full DNR status now. Objective Vital Signs Date Time Temp Pulse Resp B/P (MAP) Pulse Ox O2 Delivery O2 Flow Rate FiO2 10/26/17 06:00 80 10/26/17 04:00 97.9 21 113/53 (73) 100 10/25/17 19:00 Nasal Cannula 4.00 10/25/17 12:00 30 Intake and Output 10/26/17 10/26/17 10/27/17 08:00 16:00 00:00 Intake Total 531 ml Output Total 660 ml Balance -129 ml Result Diagram: 10/26/17 0627 10/26/17626 Imaging Last Impressions Chest X-Ray 10/22/17 0000 Signed Impressions: Service Date/Time: Sunday, October 22, 2017 00:21 - CONCLUSION: 1. Free intraperitoneal air. 2. No acute cardiopulmonary disease demonstrated. Ney Ashton MD Objective Remarks GENERAL: 77-year-old cachectic female, extubated, comfortable. SKIN: Warm and dry. HEAD: Atraumatic. Normocephalic. EYES: Pupils equal and round. No scleral icterus. No injection or drainage. ENT: No nasal bleeding or discharge. Mucous membranes pink and moist. NECK: Trachea midline. Airway widely patent, no obstructive sounds. CARDIOVASCULAR: Tachycardic, RR. S1, S2. No S4. Without murmur. No jugular venous distention. RESPIRATORY: Clear to auscultation. Breath sounds equal bilaterally. Normal excursions on ventilator. Distant tones. GASTROINTESTINAL: Post surgical, nondistended. Dressing dry and clean, stoma is pink. Bowel sounds active. MUSCULOSKELETAL: No obvious deformities. Warm and well-perfused. NEUROLOGICAL: Largely unresponsive but does withdraw 4 limbs to stimulation. Good spontaneous respiratory effort. A/P Assessment and Plan Neuro/Psych: Alzheimer's dementia NOS Depression disorder NOS Anxiety disorder NOS Evaluated by Dr. Zelaya and , last admission. CT brain revealed frontal contusion from fall. No hemorrhage Home medications on donepezil 15 mg daily memantine 10 mg 2x daily. Will currently on hold while n.p.o. Morphine sulfate 2 mg IV every 2 hours as needed pain 6 or 10 Minimize sedation and analgesia at this point. CV: Sinus tachycardia Lactic acidosis Trop 0.18 Chronic Syst HF Paroxysmal atrial fibrillation with rapid ventricular response Currently LR @ 100 cc/hr 2D echocardiogram 09/22 revealed EF 40-45%. Inferior hypokinesis. Pulmonary arterial pressure 37.5 mmHg Serial lactates until cleared Trop repeat 0700 EKG revealed sinus tachycardia heart rate in the 1 teens to 120s with ectopy. Amiodarone drip started, will add an occasional dose of digoxin bearing in mind the impaired renal function. Back in normal sinus rhythm and pulse rate controlled. Hold Digoxin. Start bid carvedilol 6.25 mg Resp: PRVC ventilator mode, PEEP 5. Incentive spirometry while awake As needed albuterol aerosols every 2 hours as needed Start SBTs. Tolerating CPAP trials. Extubated October 25. GI: Pneumoperitoneum Constipation history History of gastroesophageal reflux disease Low albumin Chest x-ray clear. ET tube in good position. Pantoprazole for GI prophylaxis. Holding docusate sodium and famotidine/home medications. Very large lung volumes consistent with bilateral emphysema. Protein calorie malnutrition, moderate. Tolerating trickle enteral feeds. : Cordero catheter for accurate I's and O's in a critically ill patient Endo: Sliding scale insulin with Accu-Cheks to maintain euglycemia/low regimen Novolog Renal: ASIF Cr. 1.5, follow closely while resuscitating check CT A/P Unine Na+, Cr, Eos BMP currently pending Heme: Leukopenia Polycythemia History of DVT? Aspirin 320 mg p.o. daily Monitor CBC daily. Follow trends. Coags currently pending ID: Pneumoperitoneum Currently in vancomycin, aztreonam, metronidazole and fluconazole day #4 Blood cultures 2, UA currently pending MSK: PT evaluate and treat FEN: Hyper Na+ HypoK+ Replace electrolytes as clinically indicated 30 mEq Kcl x1 now Access -Utilize peripheral IV. Central line in place. Prophylaxis -GI -pantoprazole -DVT -SCD/holding pharmacological prophylaxis in light of possible emergent surgery Overall impression: This patient was critically ill following spontaneous perforation of her sigmoid colon. At the time of surgery she had fecal contamination in the peritoneal cavity and was floridly septic. She has started to recover from surgery and sepsis. Her surgical sites are clean and well perfused. Bowel function is returning. The patient meets criteria for extubation. We will extubate today knowledgeable that the family has requested DNR status. The patient has long-term dementia and the palliative care team has helped the family address long-term care goals. Extubated yesterday. Kris Perez MD Oct 26, 2017 08:54
[2017-10-26] MEDS: ARTIFICIAL TEARS OPTH SOLN 15 ML BTL EACH EYE SCH ×3 (09:10→18:00)
[2017-10-26 10:04] LABS: BANDS 7 % (0-6); LYMPHOCYTES 3 % (9-44); MONOCYTES 9 % (0-8); POLYS (SEG NEUTROPHILS) 81 % (16-70)
[2017-10-26 10:05] LABS: ACANTHOCYTES OCC (NORMAL); BURR CELLS 1+ (NORMAL); OVALOCYTES 1+ (NORMAL); TOXIC GRANULATION 2+ (NORMAL)
--- NOTE | 2017-10-26 13:07 | HHI.PR ---
Subjective Subjective Notes unable to obtain, pt with AMS/dementia Objective Vitals/I&O Vital Signs Date Time Temp Pulse Resp B/P (MAP) Pulse Ox O2 Delivery O2 Flow Rate FiO2 10/26/17 10:00 87 10/26/17 09:58 100 Nasal Cannula 4.00 10/26/17 08:00 98.0 20 132/60 (84) 10/25/17 12:00 30 Labs Laboratory Tests Test 10/25/17 15:48 10/26/17 06:27 Blood Urea Nitrogen 74 70 Creatinine 1.91 1.61 Random Glucose 122 113 Albumin 1.2 1.2 Calcium Level 8.8 8.6 Phosphorus Level 2.5 2.6 Sodium Level 141 140 Potassium Level 4.6 4.4 Chloride Level 111 110 Carbon Dioxide Level 22.0 20.8 Anion Gap 8 9 Estimat Glomerular Filtration Rate 25 31 White Blood Count 31.8 Red Blood Count 4.06 Hemoglobin 11.9 Hematocrit 36.1 Mean Corpuscular Volume 89.1 Mean Corpuscular Hemoglobin 29.2 Mean Corpuscular Hemoglobin Concent 32.8 Red Cell Distribution Width 15.7 Platelet Count 53 Mean Platelet Volume 11.3 Neutrophils (%) (Auto) 92.2 Lymphocytes (%) (Auto) 3.1 Monocytes (%) (Auto) 4.4 Eosinophils (%) (Auto) 0.1 Basophils (%) (Auto) 0.2 Neutrophils # (Auto) 29.4 Lymphocytes # (Auto) 1.0 Monocytes # (Auto) 1.4 Eosinophils # (Auto) 0.0 Basophils # (Auto) 0.0 CBC Comment AUTO DIFF Differential Total Cells Counted 100 Neutrophils % (Manual) 81 Band Neutrophils % 7 Lymphocytes % 3 Monocytes % 9 Neutrophils # (Manual) 28.0 Differential Comment FINAL DIFF MANUAL Toxic Granulation 2+ Platelet Estimate LOW Platelet Morphology Comment ENLARGED Ovalocytes 1+ [place] Cells 1+ Acanthocytes OCC Hematology Comments Date/Time Source Procedure Growth Status 10/22/17 02:55 Blood Peripheral Aerobic Blood Culture - Preliminary NO GROWTH IN 4 DAYS Resulted 10/22/17 02:55 Blood Peripheral Anaerobic Blood Culture - Preliminary NO GROWTH IN 4 DAYS Resulted Abdomen: Non-distended, Post-op tenderness Narrative Exam inc c/d/i, ostomy pink viable with stool A/P Assessment and Plan 77 year old female POD4 Exploratory laparotomy; Sigmoid colon resection with end colostomy and Leos's pouch; Gastrostomy tube placement -Extubated -Continue routine SAM care, keep drains, cloudy still -start tube feeds trickle rate when stable, stool in bag -Appreciate Palliative Care assistance in the management of this patient Nestor Clarke MD Oct 26, 2017 13:07
[2017-10-27] VITALS: BP 137/62; PULSE 88; RESP 20; TEMP 98.2; O2SAT 93
[2017-10-27 00:38] VITALS: O2SAT 92
[2017-10-27] MEDS: metroNIDAZOLE 500 MG INJ 100 ML IV SCH ×3 (02:40→16:29)
[2017-10-27] MEDS: FLUCONAZOLE 200 MG PREMIX BAG 100 ML IV SCH (03:41)
[2017-10-27 04:00] VITALS: BP 134/62; PULSE 93; RESP 19; TEMP 98.5; O2SAT 95
[2017-10-27] MEDS: CHLORHEXIDINE GLUCONATE 2 % 1 PACK (2 CLOTHS) TOP SCH (04:00)
[2017-10-27 08:00] VITALS: BP 173/69; PULSE 95; RESP 30; TEMP 98.3; O2SAT 96
[2017-10-27] MEDS: CHLORHEXIDINE 0.12% (ORAL KIT) 15 ML CUP MT SCH (08:00)
[2017-10-27] MEDS: ARTIFICIAL TEARS OPTH SOLN 15 ML BTL EACH EYE SCH ×3 (09:00→16:37)
[2017-10-27] MEDS: SODIUM CHLORIDE 0.9% FLUSH 10 ML FLUSH IV FLUSH SCH (09:00)
[2017-10-27] MEDS: CARVEDILOL 6.25 MG TAB PO SCH (09:00)
[2017-10-27] MEDS ORDERED: HYOSCYAMINE SOLN 0.125 MG/ML 15 ML BTL PO PRN (09:15)
--- NOTE | 2017-10-27 11:19 | HHI.PR ---
Subjective Subjective Notes unresponsive, has facemask in place, no family at bedside Objective Vitals/I&O Vital Signs Date Time Temp Pulse Resp B/P (MAP) Pulse Ox O2 Delivery O2 Flow Rate FiO2 10/27/17 08:00 98.3 95 30 173/69 (103) 96 10/27/17 00:38 Simple Mask 7.00 10/25/17 12:00 30 Labs Date/Time Source Procedure Growth Status 10/22/17 02:55 Blood Peripheral Aerobic Blood Culture - Final NO GROWTH IN 5 DAYS Complete 10/22/17 02:55 Blood Peripheral Anaerobic Blood Culture - Final NO GROWTH IN 5 DAYS Complete Abdomen: Non-distended, Post-op tenderness, BS normal Narrative Exam ostomy viable LLQ, feeding tube LUQ, SAM RUQ serous Wound Wound : Wound Location: Abdomen Appearance: Clean & Dry Dressing: Dry A/P Assessment and Plan s/p colostomy for perforated colon supportive care only per family continue oxygen, tube feeding Albert Campos MD Oct 27, 2017 11:18
[2017-10-27] MEDS: CIPROFLOXACIN 400 MG PREMIX 200 ML IV SCH (11:20)
[2017-10-27] MEDS: PANTOPRAZOLE SODIUM 40 MG VIAL IV PUSH SCH (11:20)
[2017-10-27] MEDS: LACTATED RINGER'S 1000 ML INJ 1,000 ML IV SCH (12:06)
[2017-10-27 12:28] VITALS: BP 134/63; PULSE 101; RESP 32; TEMP 99.8; O2SAT 94
--- NOTE | 2017-10-27 14:33 | HHI.PR ---
Subjective Remarks Gradual decline in respiratory status since extubation. Patient is maintaining saturations on a nonrebreather mask. Potential for quality of life is poor. Family is choosing hospice. Objective Vital Signs Date Time Temp Pulse Resp B/P (MAP) Pulse Ox O2 Delivery O2 Flow Rate FiO2 10/27/17 12:28 99.8 101 32 134/63 (86) 94 10/27/17 08:00 98.3 95 30 173/69 (103) 96 10/27/17 04:00 98.5 93 19 134/62 (86) 95 10/27/17 00:38 92 Simple Mask 7.00 10/27/17 00:00 98.2 88 20 137/62 (87) 93 10/26/17 22:45 Simple Mask 5.00 10/26/17 21:20 98.5 85 18 115/57 (76) 91 10/26/17 20:00 98 10/26/17 20:00 96.8 98 23 119/56 (77) 100 10/26/17 19:00 100 Nasal Cannula 2.00 10/26/17 18:00 96 10/26/17 16:00 96.7 78 21 109/55 (73) 100 10/26/17 16:00 78 10/26/17 15:00 100 Nasal Cannula 3.00 I/O 10/26/17 10/26/17 10/26/17 10/27/17 10/27/17 10/27/17 07:00 15:00 23:00 07:00 15:00 23:00 Intake Total 531 ml 2680 ml 100 ml Output Total 660 ml 890 ml 360 ml Balance -129 ml 1790 ml -260 ml IV Total 400 ml 2500 ml 100 ml Tube Feeding 71 ml 120 ml Tube Irrigant 60 ml 60 ml Output Urine Total 450 ml 600 ml 250 ml Stool Total 50 ml 30 ml Drainage Total 160 ml 260 ml 110 ml Result Diagram: 10/26/1762610/26/17626 Objective Remarks GENERAL: NAD, A&Ox0 HEAD: Normocephalic. NECK: Supple, trachea midline. No lymphadenopathy. EYES: No scleral icterus. No injection or drainage. CARDIOVASCULAR: Regular rate and rhythm without murmurs, gallops, or rubs. RESPIRATORY: Breath sounds equal bilaterally. No accessory muscle use. GASTROINTESTINAL: Abdomen soft, non-tender, nondistended. MUSCULOSKELETAL: No cyanosis, or edema. SKIN: Warm and dry. NEURO: No focal neurological deficitis. A/P Problem List: (1) Failure to thrive in adult ICD Code: R62.7 - Adult failure to thrive (2) Alzheimer's dementia ICD Code: G30.9 - Alzheimer's disease, unspecified; F02.80 - Dementia in other diseases classified elsewhere without behavioral disturbance (3) Chronic systolic heart failure ICD Code: I50.22 - Chronic systolic (congestive) heart failure (4) Respiratory failure ICD Code: J96.90 - Respiratory failure, unspecified, unspecified whether with hypoxia or hypercapnia Assessment and Plan 77-year-old female with baseline Alzheimer's dementia and baseline poor functionality secondary recent hip fracture, admitted secondary to bowel perforation with sepsis now status post extubation and not doing well Respiratory failure Failure to thrive Status post extubation 2 days ago Patient is not showing stability Oxygen support as needed DNR status Hospice consulted Alzheimer's dementia NOS Depression disorder NOS Anxiety disorder NOS Treatment on hold Sinus tachycardia Lactic acidosis Trop 0.18 Chronic Syst HF Paroxysmal atrial fibrillation with rapid ventricular response Treatments on hold for now Twice daily carvedilol if able to take p.o. Pneumoperitoneum Constipation history History of gastroesophageal reflux disease Low albumin Follow clinically ASIF Follow renal function Leukopenia Polycythemia History of DVT Aspirin 320 mg p.o. daily Monitor CBC daily. Pneumoperitoneum vancomycin, aztreonam, metronidazole and fluconazole Follow cultures Hyper Na+ HypoK+ Monitor and replace as needed DVT prophylaxis SCDs CODE STATUS DNR Discharge disposition Planning to transition to hospice and discharged at that time Problem Qualifiers (1) Alzheimer's dementia: Qualified Codes: G30.8 - Other Alzheimer's disease; F02.81 - Dementia in other diseases classified elsewhere with behavioral disturbance Baljeet Haskins MD Oct 27, 2017 14:32
--- NOTE | 2017-10-27 15:31 | HHI.DS ---
Discharge Summary Admission Date Oct 22, 2017 at 01:26 Discharge Date: Oct 27, 2017 Admitting Diagnosis Perforated Bowel, Sepsis (1) Pneumoperitoneum of unknown etiology ICD Code: K66.8 - Other specified disorders of peritoneum Diagnosis: Principal (2) Gastroesophageal reflux disease ICD Code: K21.9 - Gastro-esophageal reflux disease without esophagitis Diagnosis: Secondary (3) Depression ICD Code: F32.9 - Major depressive disorder, single episode, unspecified Diagnosis: Secondary (4) Elevated brain natriuretic peptide (BNP) level ICD Code: R79.89 - Other specified abnormal findings of blood chemistry Diagnosis: Secondary (5) Polycythemia ICD Code: D75.1 - Secondary polycythemia Diagnosis: Secondary (6) Chronic systolic heart failure ICD Code: I50.22 - Chronic systolic (congestive) heart failure Diagnosis: Secondary (7) Lactic acidosis ICD Code: E87.2 - Acidosis Diagnosis: Principal (8) Leukopenia ICD Code: D72.819 - Decreased white blood cell count, unspecified Diagnosis: Secondary (9) Alzheimer's dementia ICD Code: G30.9 - Alzheimer's disease, unspecified; F02.80 - Dementia in other diseases classified elsewhere without behavioral disturbance Diagnosis: Secondary (10) Hypoalbuminemia ICD Code: E88.09 - Other disorders of plasma-protein metabolism, not elsewhere classified Diagnosis: Secondary (11) Acute kidney injury ICD Code: N17.9 - Acute kidney failure, unspecified Diagnosis: Principal (12) Hypokalemia ICD Code: E87.6 - Hypokalemia Diagnosis: Secondary (13) Elevated troponin ICD Code: R74.8 - Abnormal levels of other serum enzymes Diagnosis: Secondary (14) Hypernatremia ICD Code: E87.0 - Hyperosmolality and hypernatremia Diagnosis: Secondary Procedures 1. Exploratory laparotomy. 2. Sigmoid colon resection. 3. Washout with Daniel's pouch. 4. End colostomy. 5. Gastrostomy tube placement. 6. Intubation/Extubation Brief History - From Admission This is a 77-year-old female. Full CODE STATUS. Date of admission . Past medical history includes end-stage Alzheimer dementia, depression /anxiety, hard of hearing, gastroesophageal reflux disease. Patient is a prior history of tobaccoism. Recent echocardiogram revealed EF of 40-45% with inferior hypokinesis. Patient presents from [facility] with altered mental status and abdominal pain just prior to 9 PM tonight. This was an unwitnessed fall. The patient has a history of dementia and is unsure whether she hit her head. X-ray at that facility revealed possible free air. Recommended follow-up CAT scan in the emergency department. The patient was oriented to person, however not place, time, or situation. The patient was noted to have a heart rate in the 130s that appear to be a sinus tachycardia with a blood sugar of 146. The patient had generalized abdominal tenderness and distention. On arrival, the patient had one episode of vomiting of bile. Chest x-ray at [facility] revealed large right-sided pneumoperitoneum. Dr. Sheppard/general surgery was notified. Requested notifying healthcare proxy Galina Kellogg [phone] prior to any intervention. At the present time patient is full code. White cell count of 3.3. Hemoglobin is 16. Lactate is 5.5. BNP is elevated. Remainder of laboratories are pending. Patient received vancomycin, aztreonam and metronidazole in the ED along with a 500 cc bolus of normal saline 2 and 4 mg of ondansetron.. 200 mg fluconazole IV has been provided 1 as well CBC/BMP: 10/26/17 0627 10/26/17 0627 Significant Findings Laboratory Tests Test 10/25/17 06:41 10/25/17 11:45 10/25/17 15:48 10/26/17 06:27 Blood Urea Nitrogen 68 MG/DL (7-18) 74 MG/DL (7-18) 70 MG/DL (7-18) Creatinine 1.83 MG/DL (0.50-1.00) 1.91 MG/DL (0.50-1.00) 1.61 MG/DL (0.50-1.00) Random Glucose 127 MG/DL (74-106) 122 MG/DL (74-106) 113 MG/DL (74-106) Albumin 1.4 GM/DL (3.4-5.0) 1.2 GM/DL (3.4-5.0) 1.2 GM/DL (3.4-5.0) Chloride Level 111 MEQ/L (98-107) 111 MEQ/L (98-107) 110 MEQ/L (98-107) Carbon Dioxide Level 19.7 MEQ/L (21.0-32.0) 20.8 MEQ/L (21.0-32.0) Estimat Glomerular Filtration Rate 27 ML/MIN (>89) 25 ML/MIN (>89) 31 ML/MIN (>89) White Blood Count 34.0 TH/MM3 (4.0-11.0) 31.8 TH/MM3 (4.0-11.0) Red Blood Count 3.81 MIL/MM3 (4.00-5.30) Hemoglobin 11.2 GM/DL (11.6-15.3) Hematocrit 34.6 % (35.0-46.0) Platelet Count 60 TH/MM3 (150-450) 53 TH/MM3 (150-450) Neutrophils (%) (Auto) 91.5 % (16.0-70.0) 92.2 % (16.0-70.0) Lymphocytes (%) (Auto) 3.3 % (9.0-44.0) 3.1 % (9.0-44.0) Neutrophils # (Auto) 31.1 TH/MM3 (1.8-7.7) 29.4 TH/MM3 (1.8-7.7) Monocytes # (Auto) 1.7 TH/MM3 (0-0.9) 1.4 TH/MM3 (0-0.9) Neutrophils % (Manual) 85 % (16-70) 81 % (16-70) Band Neutrophils % 8 % (0-6) 7 % (0-6) Lymphocytes % 3 % (9-44) 3 % (9-44) Neutrophils # (Manual) 31.6 TH/MM3 (1.8-7.7) 28.0 TH/MM3 (1.8-7.7) Toxic Granulation 1+ (NORMAL) 2+ (NORMAL) Platelet Estimate LOW (NORMAL) LOW (NORMAL) Ovalocytes 1+ (NORMAL) 1+ (NORMAL) Acanthocytes 1+ (NORMAL) OCC (NORMAL) Mean Platelet Volume 11.3 FL (7.0-11.0) Monocytes % 9 % (0-8) Platelet Morphology Comment ENLARGED (NORMAL) [place] Cells 1+ (NORMAL) Hospital Course Mrs. Rivera is a 77-year-old female. She has a history of dementia. Recently she had a hip fracture and has been bedridden since this time. Her dementia has worsened. She was brought in secondary to declining mental status with abdominal pain. She was discovered to have a bowel perforation. Exploratory laparotomy with sigmoid resection was performed. She remained intubated for several days after surgery and has had extubation 2 days ago. Status post extubation she has a gradual decline in her respiratory status. Presently she stabilized with nonrebreather mask. The family has elected to transition her to hospice care. This point patient is waiting for arrangements to transition to inpatient hospice. Clear for discharge to inpatient hospice when available. Pt Condition on Discharge: Deteriorating Discharge Disposition: Hospice/ Home Discharge Time: <= 30 minutes Discharge Instructions DIET: Follow Instructions for: No Alcohol for 24 hrs Additional Diet Instructions: NPO Activities you can perform: Continue Bedrest Follow up Referrals: PCP Follow-up - As Per Protocol Discontinued Medications: Aspirin (Aspirin) 325 Mg Tab 325 MG PO DAILY, #30 TAB 0 Refills Cholecalciferol (Vitamin D3) 5,000 Unit Cap 5000 UNITS PO DAILY for Nutritional Supplement, #30 CAP Docusate Sodium (Dok) 100 Mg Cap 100 MG PO BID PRN for CONSTIPATION, #60 CAP Donepezil (Donepezil) 10 Mg Tab 15 MG PO HS for Dementia, #30 TAB 0 Refills Famotidine (Famotidine) 20 Mg Tab 20 MG PO BID for Heartburn Management, #60 TAB Hydrocodone/Acetaminophen (Hydrocodone-Acetamin 5-325 mg) 5 Mg-325 Mg Tablet 1 TAB PO Q3H PRN for PAIN 3<10, #30 TAB Lorazepam (Ativan) 1 Mg Tab 1 MG PO TID for Agitation, #90 TAB Memantine (Namenda) 10 Mg Tab 10 MG PO BID for Agitation, #60 TAB Mirtazapine (Mirtazapine) 15 Mg Tab 15 MG PO BID for Agitation, #60 TAB Baljeet Haskins MD Oct 27, 2017 15:31
[2017-10-27 16:33] VITALS: BP 159/70; PULSE 100; RESP 32; TEMP 98.1; O2SAT 97
== END 2017-10-27 18:57 | disposition hospice, inpatient (51) | DRG 853 ==
LOC: NEPC 23:38 → NEDA 10-22 01:26 → NEDH 10-22 05:57 → N03B 10-22 13:18 → N06A 10-26 21:21
PROVIDERS: ADMIT Hospitalist; ATTEND Hospitalist
PROC: 5A1945Z Respiratory Ventilation, 24-96 Consecutive Hours (ICD-10-PCS; 2017-10-22)
PROC: 0DBM0ZZ Excision of Descending Colon, Open Approach (ICD-10-PCS; 2017-10-22)
PROC: 0DH60UZ Insertion of Feeding Device into Stomach, Open Approach (ICD-10-PCS; 2017-10-22)
PROC: 0D1M0Z4 Bypass Descending Colon to Cutaneous, Open Approach (ICD-10-PCS; 2017-10-22)
PROC: 0BH17EZ Insertion of Endotracheal Airway into Trachea, Via Natural or Artificial Opening (ICD-10-PCS; 2017-10-22)
PROC: 02HV33Z Insertion of Infusion Device into Superior Vena Cava, Percutaneous Approach (ICD-10-PCS; 2017-10-22)
PROC: 0DTN0ZZ Resection of Sigmoid Colon, Open Approach (ICD-10-PCS; principal; 2017-10-22 07:16)
PROC: 0BP1XDZ Removal of Intraluminal Device from Trachea, External Approach (ICD-10-PCS; 2017-10-25)
DX: A41.9 Sepsis, unspecified organism (principal); K63.1 Perforation of intestine (nontraumatic); J96.90 Respiratory failure, unspecified, unspecified whether with hypoxia or hypercapnia; N17.9 Acute kidney failure, unspecified; K65.8 Other peritonitis; E87.0 Hyperosmolality and hypernatremia; E87.2 Acidosis; E44.0 Moderate protein-calorie malnutrition; I50.22 Chronic systolic (congestive) heart failure; S06.339A Contusion and laceration of cerebrum, unspecified, with loss of consciousness of unspecified duration, initial encounter; F02.81 Dementia in other diseases classified elsewhere, unspecified severity, with behavioral disturbance; I95.9 Hypotension, unspecified; J43.9 Emphysema, unspecified; K66.8 Other specified disorders of peritoneum; G30.9 Alzheimer's disease, unspecified; D75.1 Secondary polycythemia; I48.91 Unspecified atrial fibrillation; H91.90 Unspecified hearing loss, unspecified ear; K21.9 Gastro-esophageal reflux disease without esophagitis; D72.819 Decreased white blood cell count, unspecified; E87.6 Hypokalemia; R74.8 Abnormal levels of other serum enzymes; R41.82 Altered mental status, unspecified; F41.9 Anxiety disorder, unspecified; F32.9 Major depressive disorder, single episode, unspecified; W19.XXXA Unspecified fall, initial encounter; M79.602 Pain in left arm; M79.601 Pain in right arm; K56.41 Fecal impaction; Z51.5 Encounter for palliative care; R65.20 Severe sepsis without septic shock; I48.0 Paroxysmal atrial fibrillation; R62.7 Adult failure to thrive; R00.0 Tachycardia, unspecified; Z87.891 Personal history of nicotine dependence; Z79.82 Long term (current) use of aspirin; S72.009D Fracture of unspecified part of neck of unspecified femur, subsequent encounter for closed fracture with routine healing; Z91.81 History of falling; Z86.718 Personal history of other venous thrombosis and embolism; Z66 Do not resuscitate
CPT/HCPCS: 36600; 70450; 71045; 72125; 74176; 80048; 80053; 80069; 81001; 82140; 82150; 82550; 82552; 82570; 82805; 83605; 83690; 83735; 83880; 84100; 84300; 84443; 84484; 85007; 85025; 85027; 85384; 85610; 85730; 86140; 87040; 87077; 87186; 87205; 88307; 93005; 94002; 94003; 96361; 96374; C9113; J0282; J0330; J0744; J1100; J1160; J1450; J1644; J2270; J2370; J2405; J3010; J3370; J3480; J7040; J7050; J7120; P9047; Q9963